=== PATIENT | male | born 1950 | race Caucasian/White ===

== ENCOUNTER → 2017-08-01 13:20 | Outpatient (CLI) | payer MEDICARE, SELFPAY ==
--- NOTE | 2017-08-01 13:20 | DT_ITS ---
This patient was seen during an EMR downtime July 31, 2017 - August 07, 2017. This patient may have a combination of paper and electronic documentation or all paper documentation. All documentation is viewable within the e-chart portion of [employer] for each patient visit.
[2017-08-07 10:47] LABS: Eosinophils% 1.6 % (0-5); Hematocrit 39.2 % (40-54); Hemoglobin 12.3 g/dl (13.0-16.5); Mean Corp Hgb Conc 31.4 g/gl (32-36); Mean Corpuscular Hgb 28.1 pg (27.0-32.0); Mean Corpuscular Volume 89.7 fL (80-94); Mean Platelet Vol. 10.7 fl (6.2-12.0); Monocyte% 6.9 % (0-10); Neutrophil % 54.3 % (47-70); POSITIVE COUNT NO; POSITIVE DIFFERENTIAL NO; POSITIVE MORPHOLOGY NO; Platelet Count 223 K/mm3 (150-450); RBC Distribution Width CV 15.7 % (11.6-14.6); RBC Distribution Width SD 51.8 fl (35.1-43.9); Red Blood Count 4.37 M/mm3 (4.6-6.2); White Blood Count 4.3 K/mm3 (4.4-11.0)
[2017-08-07 10:48] LABS: Absolute Neutrophil Count 2.4 X10^3/uL (2.0-7.7); Basophil# 0.01 X10^3/uL; Basophil% 0.2 % (0-1); Eosinophil# 0.07 X10^3/uL; Neutrophil # 2.35 X10^3/uL (2.7-7.7)
[2017-08-07 10:49] LABS: BUN 23 mg/dL (7-18); BUN/Creat Ratio 9.1 RATIO (10-20); Creatinine, Serum 2.52 mg/dL (0.70-1.30); EST Glomerular Filtration Rate 27 mL/min (>60); Est Glom Filt Rate - Afr Amer 33 mL/min (>60); Glucose 147 mg/dL (74-106); Microalbumin,Random Urine 9.2 mg/L (NO RANGE EST.)
[2017-08-07 10:50] LABS: ALB/GLOB Ratio 0.9 RATIO (0.9-2.4); AST(SGOT) 27 U/L (15-37); Alanine Aminotransfer ALT/SGPT 28 U/L (16-61); Albumin, Serum 3.3 g/dL (3.2-5.0); Alkaline Phosphatase 155 U/L (45-117); Anion Gap 8 (5-15); Calcium,Total 8.1 mg/dL (8.5-10.1); Chloride 106 mmol/L (98-107); Cholesterol 110 mg/dL (200); Globulin 3.6 g/dL (2.2-4.2); High Density Lipoprotein 31 mg/dL; Potassium 4.8 mmol/L (3.5-5.1); Protein, Total 6.9 g/dL (6.4-8.2); Sodium Level 140 mmol/L (136-145); Triglycerides 154 mg/dL; Uric Acid 6.8 mg/dL (3.5-7.2); Very Low Density Lipoprotein 31 mg/dL (5-40)
[2017-08-07 10:51] LABS: Hemoglobin A1c 5.6 % (4.2-6.3)
== END ==
PROVIDERS: Family Provider Family Medicine; PCP Family Medicine; Visit Provider Family Medicine
DX: E11.22 Type 2 diabetes mellitus with diabetic chronic kidney disease (principal); I12.9 Hypertensive chronic kidney disease with stage 1 through stage 4 chronic kidney disease, or unspecified chronic kidney disease; N18.3 Chronic kidney disease, stage 3 (moderate); I25.10 Atherosclerotic heart disease of native coronary artery without angina pectoris; M10.9 Gout, unspecified
CPT/HCPCS: 36415; 80053; 80061; 82043; 82570; 83036; 84550; 85025

== ENCOUNTER → 2017-09-12 12:17 | Outpatient (CLI) | payer MEDICARE, SELFPAY ==
[2017-09-12 13:52] LABS: Absolute Lymphocyte Count 2.04 X10^3/ul (0.83-4.51); Absolute Neutrophil Count 2.6 X10^3/uL (2.0-7.7); Basophil# 0.02 X10^3/uL; Basophil% 0.4 % (0-1); Eosinophil# 0.17 X10^3/uL; Eosinophils% 3.3 % (0-5); Hematocrit 36.9 % (40-54); Hemoglobin 11.9 g/dl (13.0-16.5); Lymphocyte # 2.04 X10^3/ul (4.0); Mean Corp Hgb Conc 32.2 g/gl (32-36); Mean Corpuscular Hgb 29.3 pg (27.0-32.0); Mean Corpuscular Volume 90.9 fL (80-94); Mean Platelet Vol. 10.9 fl (6.2-12.0); Monocyte# 0.43 X10^3/uL; Monocyte% 8.2 % (0-10); Neutrophil # 2.56 X10^3/uL (2.7-7.7); Neutrophil % 48.9 % (47-70); Platelet Count 240 K/mm3 (150-450); RBC Distribution Width CV 15.6 % (11.6-14.6); RBC Distribution Width SD 50.7 fl (35.1-43.9); Red Blood Count 4.06 M/mm3 (4.6-6.2); White Blood Count 5.2 K/mm3 (4.4-11.0)
[2017-09-12 13:53] LABS: POSITIVE COUNT NO; POSITIVE DIFFERENTIAL NO; POSITIVE MORPHOLOGY NO
[2017-09-12 13:54] LABS: Anion Gap 9 (5-15); BUN 26 mg/dL (7-18); BUN/Creat Ratio 10.8 RATIO (10-20); Chloride 104 mmol/L (98-107); Creatinine, Serum 2.41 mg/dL (0.70-1.30); EST Glomerular Filtration Rate 29 mL/min (>60); Est Glom Filt Rate - Afr Amer 35 mL/min (>60); Glucose 103 mg/dL (74-106); Potassium 4.7 mmol/L (3.5-5.1); Sodium Level 141 mmol/L (136-145)
== END ==
PROVIDERS: Family Provider Family Medicine; PCP Family Medicine; Visit Provider Family Medicine
DX: E11.22 Type 2 diabetes mellitus with diabetic chronic kidney disease (principal); I12.9 Hypertensive chronic kidney disease with stage 1 through stage 4 chronic kidney disease, or unspecified chronic kidney disease; N18.3 Chronic kidney disease, stage 3 (moderate)
CPT/HCPCS: 36415; 80048; 85025

== ENCOUNTER → 2017-11-21 14:16 | Outpatient (CLI) | payer MEDICARE, SELFPAY | PROVIDERS: Family Provider Family Medicine; PCP Family Medicine; Visit Provider Family Medicine | DX: I12.9 Hypertensive chronic kidney disease with stage 1 through stage 4 chronic kidney disease, or unspecified chronic kidney disease (principal); N18.3 Chronic kidney disease, stage 3 (moderate); Z86.73 Personal history of transient ischemic attack (TIA), and cerebral infarction without residual deficits | CPT/HCPCS: 36415 ==

== ENCOUNTER → 2018-09-19 09:27 | Outpatient (CLI) | payer MEDICARE, SELFPAY ==
[2018-09-19 12:45] LABS: Anion Gap 6 (5-15); BUN 33 mg/dL (7-18); BUN/Creat Ratio 11.7 RATIO (10-20); Chloride 107 mmol/L (98-107); Creatinine, Serum 2.83 mg/dL (0.70-1.30); EST Glomerular Filtration Rate 24 mL/min (>60); Est Glom Filt Rate - Afr Amer 29 mL/min (>60); Glucose 109 mg/dL (74-106); Potassium 4.5 mmol/L (3.5-5.1); Sodium Level 140 mmol/L (136-145)
== END ==
PROVIDERS: Family Provider Family Medicine; PCP Family Medicine; Visit Provider Family Medicine
DX: N18.3 Chronic kidney disease, stage 3 (moderate) (principal); R42 Dizziness and giddiness
CPT/HCPCS: 36415; 80048

== ENCOUNTER 2018-11-05 06:38 | Day surgery (SDC) | payer MEDICARE, SELFPAY ==
[2018-10-22 14:51] VITALS: BMI 45.8
[2018-11-05] VITALS (7 sets, daily range): BP systolic 124–156; BP diastolic 7–86; PULSE 56–67; RESP 16–18; TEMP 36.1–36.6; O2SAT 93–96; BMI 35.9
[2018-11-05] MEDS: Lactated Ringers 1,000 ML 100 ML IV (07:01)
--- NOTE | 2018-11-05 07:29 | HP.PCM_ITS ---
History and Physical Date of Admission: 11/05/18 [facility] [address] [place], [place] [id number] OFFICE VISIT Date of Service: 10/22/18 MR#: [id number] Acct: [id number] Name: JOSE SANCHEZ Rep #: [id number] : 1950 Provider: Yon bahena MD Age/Sex: 68/M Location: [facility] Status: Signed Intake Vital Signs 10/22/18 Body Mass Index (BMI) 45.8 10/22/18 Height 6 ft 1 in 10/22/18 Weight: 271 lb 9 oz 10/22/18 Body Mass Index (BMI) 35.8 10/22/18 Blood Pressure 129/75 H 10/22/18 Blood Pressure Location Rt brachial 10/22/18 Respiratory Rate 22 H 10/22/18 Pulse Rate 60 10/22/18 Pulse Ox 95 Intake Visit Reasons: Cscope Consult Chief Complaint: colonoscopy--hx colon polyps Fire Pot Operator Required: No Is patient in pain?: No Allergies No Known Allergies Allergy (Verified 07/24/13 11:22) Medications glipiZIDE [Glucotrol] 10 mg PO DAILY@0730 07/24/13 [History Confirmed 10/22/18] allopurinol 100 mg tablet 100 mg PO DAILY 10/22/18 [History Confirmed 10/22/18] aspirin 81 mg tablet,delayed release 81 mg PO DAILY 10/22/18 [History Confirmed 10/22/18] atorvastatin 80 mg tablet 80 mg PO DAILY 10/22/18 [History Confirmed 10/22/18] cholecalciferol (vitamin D3) 1,000 unit capsule 1,000 unit PO DAILY PRN 10/22/18 [History Confirmed 10/22/18] clopidogrel 75 mg tablet 75 mg PO DAILY 10/22/18 [History Confirmed 10/22/18] duloxetine 30 mg capsule,delayed release 30 mg PO DAILY 10/22/18 [History Confirmed 10/22/18] furosemide 40 mg tablet 40 mg PO TID tab 10/22/18 [History Confirmed 10/22/18] gabapentin 300 mg capsule 300 mg PO TID cap 10/22/18 [History Confirmed 10/22/18] isosorbide mononitrate 20 mg tablet 20 mg PO BID 10/22/18 [History Confirmed 10/22/18] ketoconazole 2 % topical cream 1 applic TOPICAL DAILY 10/22/18 [History Confirmed 10/22/18] lisinopril 10 mg tablet 10 mg PO DAILY 10/22/18 [History Confirmed 10/22/18] meclizine 25 mg tablet 25 mg PO TID 10/22/18 [History Confirmed 10/22/18] metoprolol tartrate 100 mg tablet 50 mg PO BID tab 10/22/18 [History Confirmed 10/22/18] nitroglycerin 0.4 mg sublingual tablet 0.4 mg SUBLINGUAL Q5-15M 10/22/18 [History Confirmed 10/22/18] omeprazole 40 mg capsule,delayed release 20 mg PO DAILY cap 10/22/18 [History Confirmed 10/22/18] sitagliptin 50 mg tablet 50 mg PO DAILY 10/22/18 [History Confirmed 10/22/18] ON LICENSE OF [facility] Medical History CAD (coronary artery disease) (Acute) Depression (Acute) Diabetes (Acute) Gout (Acute) Hyperlipidemia (Acute) Obesity (Acute) Peripheral nerve dysfunction (Acute) Sleep apnea (Acute) TIA (transient ischemic attack) (Acute) Vertigo (Acute) Vestibular dysfunction (Acute) Vitamin D deficiency (Acute) CKD (chronic kidney disease) stage 3, GFR 30-59 ml/min (Chronic) HTN (hypertension) (Chronic) Surgical History History of arthroscopy of left knee (Acute) Hx of heart artery stent (Acute) Hx of six vessel coronary artery bypass graft (Acute) Family History Sister Diabetes Father Heart disease Hypertension Cancer melanoma Mother Heart disease Social History (Updated 11/03/18 @ 14:42 by Yon Betancur MD) Smoking Status: Never smoker HPI HPI HPI: JOSE SANCHEZ, is a 68 M who presents to the office today for HPI HPI Surgical H&P: Yes HPI: JOSE SANCHEZ, is a 68 M who presents to the office today for Evaluation for endoscopy. Patient states it is been more than 10 years since his last colonoscopy. He believes at that time that several polyps were removed. He denies any current blood in his stool or bowel related symptoms and he has no family history of colon polyps. He also has no family history of colon cancer He is currently on Plavix and aspirin. Exam Const General: no acute distress, well developed, well hydrated Orientation: oriented to person, oriented to place, oriented to time [facility] Head: normocephalic, atraumatic Ears: external ears normal Mouth: moist mucous membranes Eyes Sclera: sclerae normal Pupils: normal by confrontation Neck Neck: no lymphadenopathy noted Neck mass: No Thyroid: thyroid normal, symmetrical Chest Chest palpation & inspection: normal inspection of the chest Breast inspection: normal inspection of the breasts Breast Palpation: Yes normal palpation of the breasts, Yes normal palpation of the axillae, No change in skin Other: Palpation of the right breast reveals []. Palpation of the left breast reveals []. Axillary exam demonstrates no suspicious masses in either the left or right axilla. Resp Effort & Inspection: normal respiratory effort Auscultation: clear to auscultation bilaterally Percussion: percussion normal Cardio Rate: regular rate Rhythm: regular rhythm GI Palpation: soft, no hepatosplenomegaly, no masses, nontender Rectal Exam: other Other: Rectal exam deferred. Extrem General: normal to inspection, no clubbing, cyanosis or edema Assessment & Plan Problems 1. Encounter for screening colonoscopy Z. Plan I have discussed the above with the patient. I have offered the patient colonoscopy for evaluation. I have explained the risks/benefits of the procedure and described the procedure. I have discussed the risks with the patient, including but not limited to: infection, bleeding, perforation of the GI tract requiring emergency surgery, inability to complete the procedure, injury to any internal organs, complications of anesthesia, etc. - the patient understands and agrees to proceed. I have answered all the patient's questions to the patient's satisfaction and the patient has no further questions. The patient has been given instructions for the colon cleansing preparation. Orders Orders: Colonoscopy 10/22/18 Z86.010 Coding Level of Care Code Off vis,new,level 3 Diagnoses Encounter for screening colonoscopy Z12.11 11/03/18 1442 <Electronically signed by Yon charles MD> Date _ Yon Spray MD Hoffman Signature: Date (if applicable) CC: Carson Dobbins DO ~ I have re-examined the patient. There are no clinical changes since date of exam.
--- NOTE | 2018-11-05 08:02 | OP.ENDO_ITS ---
11/05/2018 Carson Dobbins [address] [place] [address] Re : Colonoscopy procedure for Kishan Almaraz Dear Dr. Dobbins This procedure was performed on Monday, November 05, 2018. My impressions and recommendations are as follows: Impressions : - Stool in the entire examined colon. - The examination was otherwise normal on direct and retroflexion views. - No specimens collected. Recommendations : - Discharge patient to home. - Resume previous diet. - Continue present medications. - Repeat colonoscopy in 10 years for screening purposes. - Return to primary care physician PRN. My findings are described in the full procedure note, which is enclosed. If I can be of further assistance, please feel free to contact me at Doctor phone number(s): , Fax: [phone], Work: . Sincerely, MD Yon Coronel MD 11/05/2018 8:02:11 AM This report has been signed electronically.
== END 2018-11-05 08:52 | disposition home or self-care (01) ==
LOC: EN 06:39 → AC 06:41
PROVIDERS: Family Provider Family Medicine; PCP Family Medicine; Referring Provider Family Medicine; Visit Provider Surgery
PROC: 0DJD8ZZ Inspection of Lower Intestinal Tract, Via Natural or Artificial Opening Endoscopic (ICD-10-PCS; CPT 45378; principal; 2018-11-05 07:25)
DX: Z12.11 Encounter for screening for malignant neoplasm of colon (principal); E11.9 Type 2 diabetes mellitus without complications; K21.9 Gastro-esophageal reflux disease without esophagitis; E78.00 Pure hypercholesterolemia, unspecified; G47.30 Sleep apnea, unspecified; Z86.010 Personal history of colon polyps; Z79.02 Long term (current) use of antithrombotics/antiplatelets; Z79.84 Long term (current) use of oral hypoglycemic drugs; Z79.82 Long term (current) use of aspirin; Z79.899 Other long term (current) drug therapy; I25.2 Old myocardial infarction; Z95.1 Presence of aortocoronary bypass graft
CPT/HCPCS: G0121; J7120; J1610

== ENCOUNTER → 2019-04-08 13:03 | Outpatient (CLI) | payer MEDICARE, SELFPAY ==
[2018-11-05 07:13] VITALS: BMI 35.9
[2019-04-08 15:29] LABS: Absolute Lymphocyte Count 1.56 X10^3/uL (0.83-4.51); Absolute Neutrophil Count 3.1 X10^3/uL (2.0-7.7); Basophil# 0.02 X10^3/uL; Basophil% 0.4 % (0-1); Eosinophil# 0.09 X10^3/uL; Eosinophils% 1.7 % (0-5); Hematocrit 37.2 % (40-54); Hemoglobin 11.8 g/dL (13.0-16.5); Lymphocyte # 1.56 X10^3/ul (4.0); Lymphocyte % 29.9 % (19-41); Mean Corp Hgb Conc 31.7 g/dL (32-36); Mean Corpuscular Hgb 28.6 pg (27.0-32.0); Mean Corpuscular Volume 90.3 fL (80-94); Mean Platelet Vol. 10.1 fl (6.2-12.0); Monocyte# 0.43 X10^3/uL; Monocyte% 8.3 % (0-10); NRBC Flagged by Analyzer 0 % (0-5); Neutrophil # 3.09 X10^3/uL (2.7-7.7); Neutrophil % 59.3 % (47-70); Platelet Count 208 K/mm3 (150-450); RBC Distribution Width CV 13.2 % (11.6-14.6); RBC Distribution Width SD 43.5 fl (35.1-43.9); Red Blood Count 4.12 M/mm3 (4.6-6.2); White Blood Count 5.2 K/mm3 (4.4-11.0)
[2019-04-08 15:41] LABS: AST(SGOT) 22 U/L (15-37); Alanine Aminotransfer ALT/SGPT 28 U/L (16-61); Albumin, Serum 3.4 g/dL (3.2-5.0); Alkaline Phosphatase 184 U/L (45-117); Anion Gap 5 (5-15); BUN 16 mg/dL (7-18); BUN/Creat Ratio 9.5 RATIO (10-20); Calcium,Total 8.3 mg/dL (8.5-10.1); Chloride 110 mmol/L (98-107); Cholesterol 121 mg/dL (200); Creatinine, Serum 1.69 mg/dL (0.70-1.30); EST Glomerular Filtration Rate 43 mL/min (>60); Est Glom Filt Rate - Afr Amer 52 mL/min (>60); Globulin 3.5 g/dL (2.2-4.2); Glucose 90 mg/dL (74-106); High Density Lipoprotein 37 mg/dL; PSA,Total - Annual Screen 3.95 ng/mL (0.00-4.00); Potassium 4.4 mmol/L (3.5-5.1); Protein, Total 6.9 g/dL (6.4-8.2); Sodium Level 141 mmol/L (136-145); Triglycerides 72 mg/dL; Uric Acid 4.6 mg/dL (3.5-7.2); Very Low Density Lipoprotein 14 mg/dL (5-40)
[2019-04-08 15:46] LABS: Hemoglobin A1c 6.1 % (4.2-6.3)
[2019-04-08 16:36] LABS: Microalbumin:Creatinine Ratio 482.9 mg/g CRE (<30 mg/g CRE)
== END ==
LOC: LAB.FUTURE 04-10 14:11 → BFHLAB 04-19 14:50
PROVIDERS: Family Provider Family Medicine; PCP Family Medicine; Visit Provider Family Medicine
DX: E11.22 Type 2 diabetes mellitus with diabetic chronic kidney disease (principal); I13.0 Hypertensive heart and chronic kidney disease with heart failure and stage 1 through stage 4 chronic kidney disease, or unspecified chronic kidney disease; I50.9 Heart failure, unspecified; N18.3 Chronic kidney disease, stage 3 (moderate); E78.5 Hyperlipidemia, unspecified; M10.9 Gout, unspecified; I83.029 Varicose veins of left lower extremity with ulcer of unspecified site; I83.892 Varicose veins of left lower extremity with other complications; L97.929 Non-pressure chronic ulcer of unspecified part of left lower leg with unspecified severity; R60.9 Edema, unspecified; Z12.5 Encounter for screening for malignant neoplasm of prostate
CPT/HCPCS: 36415; 80053; 80061; 82043; 82570; 83036; 84153; 84550; 85025; G0103

== ENCOUNTER → 2019-10-21 09:53 | Outpatient (CLI) | payer MEDICARE, SELFPAY ==
[2018-11-05 07:13] VITALS: BMI 35.9
[2019-10-21 12:14] LABS: Absolute Lymphocyte Count 1.64 X10^3/uL (0.83-4.51); Absolute Neutrophil Count 2.5 X10^3/uL (2.0-7.7); Basophil# 0.03 X10^3/uL; Basophil% 0.6 % (0-1); Eosinophil# 0.11 X10^3/uL; Eosinophils% 2.3 % (0-5); Hematocrit 38.6 % (40-54); Hemoglobin 12.1 g/dL (13.0-16.5); Lymphocyte # 1.64 X10^3/ul (4.0); Lymphocyte % 33.7 % (19-41); Mean Corp Hgb Conc 31.3 g/dL (32-36); Mean Corpuscular Volume 92.6 fL (80-94); Mean Platelet Vol. 10.4 fl (6.2-12.0); Monocyte# 0.54 X10^3/uL; Monocyte% 11.1 % (0-10); NRBC Flagged by Analyzer 0 % (0-5); Neutrophil # 2.52 X10^3/uL (2.7-7.7); Neutrophil % 51.9 % (47-70); Platelet Count 222 K/mm3 (150-450); RBC Distribution Width SD 43.8 fl (35.1-43.9); Red Blood Count 4.17 M/mm3 (4.6-6.2); White Blood Count 4.9 K/mm3 (4.4-11.0)
[2019-10-21 12:33] LABS: AST(SGOT) 24 U/L (15-37); Alanine Aminotransfer ALT/SGPT 40 U/L (16-61); Albumin, Serum 3.4 g/dL (3.2-5.0); Alkaline Phosphatase 190 U/L (45-117); Anion Gap 3 (5-15); BUN 20 mg/dL (7-18); BUN/Creat Ratio 8.5 RATIO (10-20); Calcium,Total 8.6 mg/dL (8.5-10.1); Chloride 113 mmol/L (98-107); Creatinine, Serum 2.36 mg/dL (0.70-1.30); EST Glomerular Filtration Rate 29 mL/min (>60); Est Glom Filt Rate - Afr Amer 35 mL/min (>60); Globulin 3.4 g/dL (2.2-4.2); Glucose 166 mg/dL (74-106); Potassium 4.6 mmol/L (3.5-5.1); Protein, Total 6.8 g/dL (6.4-8.2); Sodium Level 142 mmol/L (136-145)
[2019-10-21 12:35] LABS: Hemoglobin A1c 6.9 % (3.8-5.6)
== END ==
PROVIDERS: PCP Family Medicine; Visit Provider Family Medicine
DX: E11.22 Type 2 diabetes mellitus with diabetic chronic kidney disease (principal); N18.3 Chronic kidney disease, stage 3 (moderate); D63.1 Anemia in chronic kidney disease
CPT/HCPCS: 36415; 80053; 83036; 85025

== ENCOUNTER → 2020-01-09 13:22 | Outpatient (CLI) | payer MEDICARE, SELFPAY ==
[2018-11-05 07:13] VITALS: BMI 35.9
[2020-01-09 17:01] LABS: Absolute Lymphocyte Count 1.55 X10^3/uL (0.83-4.51); Absolute Neutrophil Count 3.3 X10^3/uL (2.0-7.7); Basophil# 0.02 X10^3/uL; Basophil% 0.4 % (0-1); Eosinophil# 0.13 X10^3/uL; Eosinophils% 2.5 % (0-5); Hematocrit 41.2 % (40-54); Hemoglobin 12.7 g/dL (13.0-16.5); Lymphocyte # 1.55 X10^3/ul (4.0); Lymphocyte % 29.3 % (19-41); Mean Corp Hgb Conc 30.8 g/dL (32-36); Mean Corpuscular Hgb 28.7 pg (27.0-32.0); Mean Platelet Vol. 10.7 fl (6.2-12.0); Monocyte# 0.27 X10^3/uL; Monocyte% 5.1 % (0-10); NRBC Flagged by Analyzer 0 % (0-5); Neutrophil # 3.31 X10^3/uL (2.7-7.7); Neutrophil % 62.5 % (47-70); Platelet Count 215 K/mm3 (150-450); RBC Distribution Width CV 12.7 % (11.6-14.6); RBC Distribution Width SD 43.7 fl (35.1-43.9); Red Blood Count 4.43 M/mm3 (4.6-6.2); White Blood Count 5.3 K/mm3 (4.4-11.0)
[2020-01-09 17:26] LABS: AST(SGOT) 18 U/L (15-37); Alanine Aminotransfer ALT/SGPT 35 U/L (16-61); Albumin, Serum 3.4 g/dL (3.2-5.0); Alkaline Phosphatase 182 U/L (45-117); Anion Gap 2 (5-15); BUN 16 mg/dL (7-18); BUN/Creat Ratio 7.3 RATIO (10-20); Calcium,Total 8.7 mg/dL (8.5-10.1); Chloride 113 mmol/L (98-107); Creatinine, Serum 2.19 mg/dL (0.70-1.30); EST Glomerular Filtration Rate 32 mL/min (>60); Est Glom Filt Rate - Afr Amer 38 mL/min (>60); Globulin 3.4 g/dL (2.2-4.2); Glucose 165 mg/dL (74-106); Hemoglobin A1c 6.9 % (3.8-5.6); Potassium 4.9 mmol/L (3.5-5.1); Protein, Total 6.8 g/dL (6.4-8.2); Sodium Level 142 mmol/L (136-145)
== END ==
PROVIDERS: PCP Family Medicine; Visit Provider Family Medicine
DX: E11.22 Type 2 diabetes mellitus with diabetic chronic kidney disease (principal); N18.30 Chronic kidney disease, stage 3 unspecified; D63.1 Anemia in chronic kidney disease
CPT/HCPCS: 36415; 80053; 83036; 85025

== ENCOUNTER → 2020-07-09 14:06 | Outpatient (CLI) | payer MEDICARE, SELFPAY ==
[2018-11-05 07:13] VITALS: BMI 35.9
[2020-07-09 17:53] LABS: Absolute Lymphocyte Count 1.84 X10^3/uL (0.83-4.51); Absolute Neutrophil Count 3.2 X10^3/uL (2.0-7.7); Basophil# 0.02 X10^3/uL; Basophil% 0.4 % (0-1); Eosinophils% 1.8 % (0-5); Hematocrit 41.4 % (40-54); Hemoglobin 13.3 g/dL (13.0-16.5); Lymphocyte # 1.84 X10^3/ul (0.83-4.51); Mean Corp Hgb Conc 32.1 g/dL (32-36); Mean Corpuscular Hgb 28.2 pg (27.0-32.0); Mean Corpuscular Volume 87.7 fL (80-94); Mean Platelet Vol. 10.5 fl (6.2-12.0); Monocyte# 0.37 X10^3/uL; Monocyte% 6.6 % (0-10); NRBC Flagged by Analyzer 0 % (0-5); Neutrophil # 3.24 X10^3/uL (2.7-7.7); Platelet Count 291 K/mm3 (150-450); RBC Distribution Width CV 12.6 % (11.6-14.6); RBC Distribution Width SD 40.3 fl (35.1-43.9); Red Blood Count 4.72 M/mm3 (4.6-6.2); White Blood Count 5.6 K/mm3 (4.4-11.0)
[2020-07-09 18:17] LABS: Vitamin D,25 Hydroxy 77.7 ng/mL
[2020-07-09 18:18] LABS: ALB/GLOB Ratio 0.9 RATIO (0.9-2.4); AST(SGOT) 22 U/L (15-37); Alanine Aminotransfer ALT/SGPT 32 U/L (16-61); Albumin, Serum 3.6 g/dL (3.2-5.0); Alkaline Phosphatase 176 U/L (45-117); Anion Gap 8 (5-15); BUN 22 mg/dL (7-18); BUN/Creat Ratio 9.2 RATIO (10-20); Calcium,Total 9.2 mg/dL (8.5-10.1); Chloride 107 mmol/L (98-107); Cholesterol 119 mg/dL (200); Creatinine, Serum 2.38 mg/dL (0.70-1.30); EST Glomerular Filtration Rate 29 mL/min (>60); Est Glom Filt Rate - Afr Amer 35 mL/min (>60); Globulin 3.8 g/dL (2.2-4.2); Glucose 107 mg/dL (74-106); High Density Lipoprotein 32 mg/dL; Potassium 4.6 mmol/L (3.5-5.1); Protein, Total 7.4 g/dL (6.4-8.2); Sodium Level 137 mmol/L (136-145); Triglycerides 160 mg/dL; Very Low Density Lipoprotein 32 mg/dL (5-40)
[2020-07-09 18:24] LABS: Hemoglobin A1c 6.6 % (3.8-5.6)
== END ==
PROVIDERS: PCP Family Medicine; Visit Provider Family Medicine
DX: E11.22 Type 2 diabetes mellitus with diabetic chronic kidney disease (principal); I12.9 Hypertensive chronic kidney disease with stage 1 through stage 4 chronic kidney disease, or unspecified chronic kidney disease; N18.30 Chronic kidney disease, stage 3 unspecified; E11.40 Type 2 diabetes mellitus with diabetic neuropathy, unspecified; D63.1 Anemia in chronic kidney disease; E55.9 Vitamin D deficiency, unspecified
CPT/HCPCS: 36415; 80053; 80061; 82306; 83036; 85025

== ENCOUNTER → 2020-12-04 | Outpatient (CLI) | payer MEDICARE, SELFPAY | END | disposition home or self-care (01) | LOC: LABSPEC 07:15 | PROVIDERS: PCP Family Medicine; Referring Provider Family Medicine; Visit Provider Family Medicine | DX: R50.9 Fever, unspecified (principal) | CPT/HCPCS: 87633; 87635; U0005; U0003 ==

== ENCOUNTER → 2020-12-17 11:59 | Outpatient (CLI) | payer MEDICARE, SELFPAY ==
[2020-12-17 16:00] LABS: CPK Total, Creatine Kinase 95 U/L (39-308); LDH 203 U/L (87-241); Troponin-I HS 35 pg/mL (3.0-78.0)
== END ==
PROVIDERS: PCP Family Medicine; Referring Provider Family Medicine; Visit Provider Family Medicine
DX: I25.10 Atherosclerotic heart disease of native coronary artery without angina pectoris (principal); R06.00 Dyspnea, unspecified
CPT/HCPCS: 36415; 82550; 83615; 84484

== ENCOUNTER 2020-12-31 09:57 | Observation (INO) | payer MEDICARE, MEDICAID, SELFPAY ==
[2020-12-31 09:58] VITALS: BP 116/59; PULSE 57; RESP 16; TEMP 36.4; O2SAT 97; BMI 35.9
--- NOTE | 2020-12-31 10:20 | EX.ED.DYSGE1 ---
HPI <Dr. Michael Valerio MD - Last Filed: 12/31/20 14:36> History of Present Illness Chief Complaint: Weakness Informant: patient and family Onset/Context/Timing Onset: Month(s) (1 or more) Context: Sudden Onset Timing: Intermittent Quality: lightheaded and movement Location: head Current Severity: Mild Maximum Severity: Severe Worsened by: almost any movement/position change Relieved by: remaining still Associated Symptoms Associated Symptoms: headache Narrative Narrative: 70-year-old male has had dizziness for the past month off and on, saw his doctor was put on a medication for dizziness a week ago and not making a difference and daughter states his doctor sent him into the ER to get a CAT scan for the lightheadedness. On further questioning, he is describing lightheadedness along with room spinning/movement that occurs with position changes which sounds more like vertigo. He has been having headaches off and on with it that are getting worse. He denies any diplopia but he does get global blurry vision intermittently at times without visual none loss or visual field loss. He denies any peripheral neurologic symptoms. He states the dizziness has made him fall a couple times, he denies any injury. Patient is very poor historian, he and his daughter do not know any of his medications and did not bring a list. We are going by what is in the EMR from past visits. It appears she is on aspirin and clopidogrel, he has a history of stents in his heart. [facility] <Dr. Michael Valerio MD - Last Filed: 12/31/20 14:36> [facility] Medical History (Updated 12/31/20 @ 14:[address] Michael Valerio MD) CAD (coronary artery disease) CKD (chronic kidney disease) stage 3, GFR 30-59 ml/min Depression Diabetes Gout HTN (hypertension) Hyperlipidemia Obesity Peripheral nerve dysfunction Sleep apnea TIA (transient ischemic attack) Vertigo Vestibular dysfunction Vitamin D deficiency Home Medications allopurinol 100 mg tablet 100 mg PO DAILY 10/22/18 [History Last Taken Unknown] aspirin 81 mg tablet,delayed release 81 mg PO DAILY 10/22/18 [History Last Taken Unknown] atorvastatin 80 mg tablet 80 mg PO DAILY 10/22/18 [History Last Taken Unknown] cholecalciferol (vitamin D3) 25 mcg (1,000 unit) capsule 1,000 unit PO DAILY 10/22/18 [History Last Taken Unknown] clopidogrel 75 mg tablet 75 mg PO DAILY 10/22/18 [History Last Taken 10/29/18] duloxetine 30 mg capsule,delayed release 30 mg PO DAILY 10/22/18 [History Last Taken Unknown] furosemide 40 mg tablet 40 mg PO DAILY tab 10/22/18 [History Last Taken Unknown] gabapentin 300 mg capsule 300 mg PO TID cap 10/22/18 [History Last Taken Unknown] isosorbide mononitrate 20 mg tablet 10 mg PO DAILY 10/22/18 [History Last Taken Unknown] lisinopril 10 mg tablet 10 mg PO DAILY 10/22/18 [History Last Taken Unknown] meclizine 25 mg tablet 25 mg PO DAILY 10/22/18 [History Last Taken Unknown] metoprolol tartrate 100 mg tablet 50 mg PO DAILY tab 10/22/18 [History Last Taken 10/29/18] nitroglycerin 0.4 mg sublingual tablet 0.4 mg SUBLINGUAL Q5-15M PRN 10/22/18 [History Last Taken Unknown] omeprazole 40 mg capsule,delayed release 20 mg PO DAILY cap 10/22/18 [History Last Taken 10/29/18] glipizide 5 mg PO DAILY 12/31/20 [History Last Taken Unknown] sitagliptin [Januvia] 50 mg PO DAILY 12/31/20 [History Last Taken Unknown] tamsulosin 0.4 mg PO DAILY 12/31/20 [History Last Taken Unknown] Allergy/AdvReac Type Severity Reaction Status Date / Time No Known Allergies Allergy Verified 12/31/20 10:00 Family History Sister Diabetes Father Heart disease Hypertension Cancer melanoma Mother Heart disease Surgical History History of arthroscopy of left knee Hx of heart artery stent Hx of six vessel coronary artery bypass graft Social History (Updated 12/31/20 @ 10:[address] Michael Valerio MD) household members: none Smoking Status: Never smoker Smokeless tobacco user: chewing tobacco alcohol intake: never substance use type: does not use ROS <Dr. Michael Valerio MD - Last Filed: 12/31/20 14:36> ROS ED Constitutional Constitutional ED: Denies chills or fever(s) Eyes Eyes: Denies change in vision or diplopia ENT ENT ED: Reports other Details: No changes in hearing or tinnitus or earache ; Denies rhinorrhea, sore throat or tinnitus Cardiovascular Cardiovascular: Denies chest pain or palpitations Respiratory/Chest Respiratory/Chest: Denies cough or dyspnea Gastrointestinal Gastrointestinal: Denies abdominal pain, diarrhea, nausea or vomiting Genitourinary Genitourinary ED: Denies dysuria or hematuria Musculoskeletal Musculoskeletal: Denies back pain or neck pain Integumentary Denies abscess or rash Neurologic Neurologic: Reports as per HPI, headache(s) and vertigo; Denies paresthesias, syncope or weakness Psychiatric Psychiatric: Denies anxiety or suicidal thoughts EXAM <Dr. Michael Valerio MD - Last Filed: 12/31/20 14:36> Physical Exam Const Vital Signs: 12/31/20 09:58 12/31/20 10:39 12/31/20 16:29 Temperature 97.6 F L Temperature Source Temporal Pulse Rate 57 L 56 L Respiratory Rate 16 17 Respiratory Effort Normal Non-Labored Respiratory Pattern Normal Blood Pressure 116/59 L 136/60 H Blood Pressure Mean 78 85 Pulse Ox 97 96 Oxygen Delivery Method Room Air Positive well nourished and well developed General Appearance ED: well developed and NAD HEENT Reports EAC's normal, TM's normal bilaterally and moist mucous membranes HEENT Narrative: Oropharynx normal except scattered pieces of chewing tobacco normocephalic and atraumatic Eyes PERRL and EOMs intact bilaterally Neck full ROM and supple Resp normal respiratory effort and clear to auscultation bilaterally Cardio regular rate, regular rhythm and no murmurs Rate: Negative for tachycardic GI non-tender and non-distended Auscultation: normoactive bowel sounds Palpation: soft Back/Spine no CVA tenderness General Back: other FROM Extremity normal to inspection General Extremety ED: Negative for edema, pulses abnormal or tenderness General Extremity: Negative for edema or pulses abnormal Neuro oriented x3, CN's II-XII intact bilaterally, no focal motor deficits and no sensory deficits noted Neuro Narrative: Normal [id number] bilaterally. Normal [id number] bilaterally although it is somewhat limited by mild joint discomfort as he is doing it on both sides, but his movements are symmetric and smooth. NIHSS 0. Barton Coma Scale: document GCS findings Spontaneous Obeys Commands Oriented 15 Sensorium / Orientation: awake and alert Speech: speech normal Motor Exam: strength 5/5 throughout Skin no rashes or lesions noted and no wounds <Dr. Quinton Cavazos MD - Last Filed: 12/31/20 18:36> Physical Exam Const Vital Signs: 12/31/20 09:58 12/31/20 10:39 12/31/20 16:29 Temperature 97.6 F L Temperature Source Temporal Pulse Rate 57 L 56 L Respiratory Rate 16 17 Respiratory Effort Normal Non-Labored Respiratory Pattern Normal Blood Pressure 116/59 L 136/60 H Blood Pressure Mean 78 85 Pulse Ox 97 96 Oxygen Delivery Method Room Air MDM <Dr. Michael Valerio MD - Last Filed: 12/31/20 14:36> MDM MDM Narrative Medical decision making narrative: Work-up is negative except for hypokalemia 2.9, which we started replacing IV and orally. I discussed with the patient's PCP and had an SOC consult performed. The neurologist said that over video, he can get a limited evaluation of the patient's cerebellar/vestibular systems, he agrees the patient is probably not having an acute stroke but unable to rule out VBI and recommends MRI/MRA. He stated that CT angiography would be adequate to rule this out as well except his creatinine is a little elevated. I discussed with radiology technicians, his EGFR is over 30 even though it is just over 30, that is adequate for us to perform CT angiography along with hydration which patient is okay with and we will do. The patient would prefer to get this test done as quickly as possible, as opposed to following up for them, so we will get an MRI of the brain and CTA of the head and neck while he is getting his potassium and saline infusions. I will continue to have him get potassium chloride while he is here, making the most of his observation time in the emergency department. Will be checked out to oncoming ED physician for results of the studies. Unless there is something very tight or critical, I anticipate outpatient follow-up, with PCP and/your otolaryngology. Lab Data Attestation: I reviewed the patient's lab results. Labs: Laboratory Results - last 24 hr 12/31/20 12/31/20 10:42 10:42 WBC 6.3 RBC 4.92 Hgb 13.5 Hct 40.4 MCV 82.1 MCH 27.4 MCHC 33.4 RDW Std Deviation 38.8 RDW Coeff of Richard 13.0 Plt Count 281 MPV 9.6 Immature Gran % (Auto) 0.500 Neut % (Auto) 68.9 Lymph % (Auto) 23.4 [place] % (Auto) 4.8 Eos % (Auto) 1.9 Baso % (Auto) 0.5 Absolute Neuts (auto) 4.3 Absolute Lymphs (auto) 1.47 Nucleated RBC % 0 Sodium 138 Potassium 2.9 L Chloride 103 Carbon Dioxide 25.0 Anion Gap 10 BUN 17 Creatinine 2.23 H Estim Creat Clear Calc 32.86 Est GFR (MDRD) Af Amer 37 L Est GFR (MDRD) Non-Af 31 L BUN/Creatinine Ratio 7.6 L Glucose 149 H Calcium 9.0 Radiography Diagnostic Testing: Clinical Impression(s) from Imaging Studies Brain CT 12/31/20 10:42 IMPRESSION: Chronic involutional changes of the brain. Electronically Signed: Judson Knox MD at 11:13 EDT , Service support , Head/Neck CTA 12/31/20 14:29 IMPRESSION: 1. No demonstrated aneurysm or hemodynamically significant stenosis. 2. Mild atherosclerotic plaque of the carotid arteries of the neck but without a hemodynamically significant stenosis. Electronically Signed: Kulwant Potter MD at 17:38 EDT , Service support , Brain MRI 12/31/20 15:25 IMPRESSION: 1. Mild chronic ischemic and involutional changes of the brain, as described above. Electronically Signed: Kulwant Potter MD at 16:42 EDT , Service support , <Dr. Quinton Cavazos MD - Last Filed: 12/31/20 18:36> [facility] Narrative Medical decision making narrative: I got back the patient's CTA and MRI. These do not show any acute changes to explain his symptomatology. The plan was to get him home. However, evidently his daughter talked to the nurse and stated that he is getting much worse just in the last week. They live nearby but cannot stay with him all the time. This patient does live independently. I talk with the patient. He does admit has been getting a little worse. He states his granddaughter will stay with him a lot. However, if she is not there he will just have her put several Pepsi's near him so he has something to drink while family is gone. He will just day in his chair. He is not safe to walk independently. He has a cane and walker and has been taking meclizine and its not making it safe for him to move. My concern is this patient is vertiginous with walking. We tried to walk him and he needed to hold onto the wall in addition to using support from one of her staff. I think this patient is at high risk to go home. He will be placed in observation Lab Data Attestation: I reviewed the patient's lab results. Labs: Laboratory Results - last 24 hr 12/31/20 12/31/20 10:42 10:42 WBC 6.3 RBC 4.92 Hgb 13.5 Hct 40.4 MCV 82.1 MCH 27.4 MCHC 33.4 RDW Std Deviation 38.8 RDW Coeff of Richard 13.0 Plt Count 281 MPV 9.6 Immature Gran % (Auto) 0.500 Neut % (Auto) 68.9 Lymph % (Auto) 23.4 [place] % (Auto) 4.8 Eos % (Auto) 1.9 Baso % (Auto) 0.5 Absolute Neuts (auto) 4.3 Absolute Lymphs (auto) 1.47 Nucleated RBC % 0 Sodium 138 Potassium 2.9 L Chloride 103 Carbon Dioxide 25.0 Anion Gap 10 BUN 17 Creatinine 2.23 H Estim Creat Clear Calc 32.86 Est GFR (MDRD) Af Amer 37 L Est GFR (MDRD) Non-Af 31 L BUN/Creatinine Ratio 7.6 L Glucose 149 H Calcium 9.0 Radiography Diagnostic Testing: Clinical Impression(s) from Imaging Studies Brain CT 12/31/20 10:42 IMPRESSION: Chronic involutional changes of the brain. Electronically Signed: Judson Knox MD at 11:13 EDT , Service support , Head/Neck CTA 12/31/20 14:29 IMPRESSION: 1. No demonstrated aneurysm or hemodynamically significant stenosis. 2. Mild atherosclerotic plaque of the carotid arteries of the neck but without a hemodynamically significant stenosis. Electronically Signed: Kulwant Potter MD at 17:38 EDT , Service support , Brain MRI 12/31/20 15:25 IMPRESSION: 1. Mild chronic ischemic and involutional changes of the brain, as described above. Electronically Signed: Kulwant Potter MD at 16:42 EDT , Service support , Discharge Plan Triage Chief Complaint: Weakness ED Provider: Michael Valerio Dx/Rx/DC Orders Clinical Impression: Vertigo, Hypokalemia Instructions: ED Vertigo, Unspecified Prescriptions: No Action allopurinol 100 mg tablet 100 mg PO DAILY RF: 0 atorvastatin 80 mg tablet 80 mg PO DAILY RF: 0 clopidogrel [Plavix] 75 mg tablet 75 mg PO DAILY RF: 0 duloxetine 30 mg capsule,delayed release(DR/EC) 30 mg PO DAILY RF: 0 furosemide 40 mg tablet 40 mg PO DAILY RF: 0 gabapentin 300 mg capsule 300 mg PO TID RF: 0 isosorbide mononitrate 20 mg tablet 10 mg PO DAILY RF: 0 lisinopril 10 mg tablet 10 mg PO DAILY RF: 0 meclizine 25 mg tablet 25 mg PO DAILY RF: 0 nitroglycerin [Nitrostat] 0.4 mg tablet, sublingual 0.4 mg SUBLINGUAL Q5-15M PRN (Reason: chest pain) RF: 0 aspirin [Adult Low Dose Aspirin] 81 mg tablet,delayed release (DR/EC) 81 mg PO DAILY RF: 0 cholecalciferol (vitamin D3) 1,000 unit capsule 1,000 unit PO DAILY RF: 0 metoprolol tartrate 100 mg tablet 50 mg PO DAILY RF: 0 omeprazole 40 mg capsule,delayed release(DR/EC) 20 mg PO DAILY RF: 0 glipizide 5 mg tablet extended release 24hr 5 mg PO DAILY RF: 0 tamsulosin 0.4 mg capsule 0.4 mg PO DAILY RF: 0 Januvia 50 mg tablet 50 mg PO DAILY RF: 0 Primary Care Provider: Carson Dobbins Referrals: Bala Jones MD [STAFF PHYSICIAN] - (call for appt) Carson Dobbins DO [Primary Care Provider] - 3-5 Days Disposition Disposition: Acute Care Hospital [facility]
--- NOTE | 2020-12-31 10:42 | CT_ITS ---
STUDY: CT BRAIN WITHOUT CONTRAST REASON FOR EXAM: Male, 70 years old. Dizziness RADIATION DOSAGE (If Supplied By Facility): CTDIvol = ( 44.99 ) mGy, DLP = ( 880.47 ) mGycm TECHNIQUE: Transaxial CT imaging of the brain was performed without administration of intravenous contrast material. Individualized dose optimization techniques were used for this CT. COMPARISON: No relevant priors. FINDINGS: Normal soft tissue structures. Normal calvarium. There is mild cerebral atrophy with widening of the extra-axial spaces and ventricular dilatation. There are areas of decreased attenuation within the white matter tracts of the supratentorial brain, consistent with microvascular disease changes. Normal basal ganglia and thalami. Normal brainstem. Normal cerebellum. There is no intracranial hemorrhage. There are no findings of an acute ischemic infarction. Atherosclerotic calcification of the vertebral arteries and cavernous portions of the internal carotid arteries bilaterally. Normal visualized paranasal sinuses. CT/Brain/Head without Contrast IMPRESSION: Chronic involutional changes of the brain. Electronically Signed: Judson Knox MD at 11:13 EDT , Service support ,
[2020-12-31 10:58] LABS: Absolute Lymphocyte Count 1.47 X10^3/uL (0.83-4.51); Absolute Neutrophil Count 4.3 X10^3/uL (2.0-7.7); Basophil# 0.03 X10^3/uL; Basophil% 0.5 % (0-1); Eosinophil# 0.12 X10^3/uL; Eosinophils% 1.9 % (0-5); Hematocrit 40.4 % (40-54); Hemoglobin 13.5 g/dL (13.0-16.5); Lymphocyte # 1.47 X10^3/ul (0.83-4.51); Lymphocyte % 23.4 % (19-41); Mean Corp Hgb Conc 33.4 g/dL (32-36); Mean Corpuscular Hgb 27.4 pg (27.0-32.0); Mean Corpuscular Volume 82.1 fL (80-94); Mean Platelet Vol. 9.6 fl (6.2-12.0); Monocyte% 4.8 % (0-10); NRBC Flagged by Analyzer 0 % (0-5); Neutrophil # 4.32 X10^3/uL (2.7-7.7); Neutrophil % 68.9 % (47-70); Platelet Count 281 K/mm3 (150-450); RBC Distribution Width SD 38.8 fl (35.1-43.9); Red Blood Count 4.92 M/mm3 (4.6-6.2); White Blood Count 6.3 K/mm3 (4.4-11.0)
[2020-12-31 11:09] LABS: Anion Gap 10 (5-15); BUN 17 mg/dL (7-18); BUN/Creat Ratio 7.6 RATIO (10-20); Chloride 103 mmol/L (98-107); Creatinine, Serum 2.23 mg/dL (0.70-1.30); EST Glomerular Filtration Rate 31 mL/min (>60); Est Glom Filt Rate - Afr Amer 37 mL/min (>60); Estimated Creatinine Clearance 32.86 ml/min; Glucose 149 mg/dL (74-106); Potassium 2.9 mmol/L (3.5-5.1); Sodium Level 138 mmol/L (136-145)
--- NOTE | 2020-12-31 13:42 | TELEMED_ITS ---
[facility] Tele[facility] has confirmed receipt of a request for visit. This document confirms receipt of the order initiating the consult. To find the results of the consultation, please view the patient's reports for the scanned Telemed Consult.
--- NOTE | 2020-12-31 14:29 | CT_ITS ---
STUDY: CTA HEAD AND NECK WITH CONTRAST REASON FOR EXAM: Male, 70 years old. vertigo, headaches RADIATION DOSAGE (If Supplied By Facility): CTDIvol = ( 33.12 ) mGy, DLP = ( 901.16 ) mGycm TECHNIQUE: CT angiography was performed with a multi-detector CT scanner. Data acquisition was obtained from the skull base through the vertex following intravenous administration of IV 100mL [id number]-370. MIP images were reconstructed from the axial data set. Post-processing of the angiographic images was performed, with multiplanar reformation and 3D reconstruction. Individualized dose optimization techniques were used for this CT. COMPARISON: Head CT dated December 31, 2020. MRI of the brain dated December 31, 2020 FINDINGS: Normal bilateral petrous carotid arteries. There is calcified plaque formation of the right cavernous carotid artery, with a mild stenosis (less than 50%). There is calcified plaque formation of the left cavernous carotid artery, with a mild stenosis (less than 50%). Normal right A1 segments of the anterior cerebral artery. Normal left A1 segments of the anterior cerebral artery. Normal intact anterior communicating artery (ACOM). Normal bilateral A2 segments of the anterior cerebral arteries. Normal right M1 and M2 segments of the middle cerebral arteries, with a normal M1 bifurcation. Normal left M1 and M2 segments of the middle cerebral arteries, with a normal M1 bifurcation. Normal right posterior communicating artery (PCOM). Normal left posterior communicating artery (PCOM). There is a small atretic right vertebral artery with a dominant left vertebral artery. Normal basilar artery with a normal basilar bifurcation. The visualized bilateral superior cerebellar (SCA) arteries are normal. Normal bilateral P1, P2 and visualized P3 segments of the posterior cerebral arteries. There is no demonstrated aneurysm of the [place]. AORTIC ARCH: There is atherosclerotic calcific plaque formation of the aortic arch and great vessels arising from the aortic arch, without a hemodynamically significant stenosis. There is a normal origin of the brachiocephalic, left common carotid, and left subclavian arteries. Normal origins of the brachiocephalic, left common carotid, and left subclavian arteries. CABG related changes are present. RIGHT CAROTID ARTERIES: Normal right common carotid artery (CCA). Normal right common carotid bulb. There is mild atherosclerotic plaque formation of the origin of the right internal carotid artery with less than 50% cross sectional diameter stenosis. Normal visualized cervical portion of the right internal carotid artery. Normal origin of the right external carotid artery (ECA). LEFT CAROTID ARTERIES: There is atherosclerotic plaque formation of the common carotid artery, but without a hemodynamically significant stenosis. There is mild atherosclerotic plaque formation with minimal narrowing of the left carotid bulb. There is mild atherosclerotic plaque formation of the origin of the left internal carotid artery with less than 50% cross sectional diameter stenosis. Normal visualized cervical portion of the left internal carotid artery. Normal origin of the left external carotid artery (ECA). VERTEBRAL ARTERIES: There is enhancement within the bilateral vertebral arteries with a small right vertebral artery, and a dominant left vertebral artery. A small hypodense circumscribed nodule is present in the left lobe of the thyroid gland with features of a benign adenoma. CT/CTA Head AND Neck W/ Contrast IMPRESSION: 1. No demonstrated aneurysm or hemodynamically significant stenosis. 2. Mild atherosclerotic plaque of the carotid arteries of the neck but without a hemodynamically significant stenosis. Electronically Signed: Kulwant Potter MD at 17:38 EDT , Service support ,
[2020-12-31] MEDS: Potassium Chloride 10mEq/100mL 10 MEQ/100 ML IV.SOLN. 100 MEQ IV BOLUS (15:13)
[2020-12-31] MEDS: Potassium Chloride Oral Tablet 20 MEQ 40 MEQ PO (15:13)
--- NOTE | 2020-12-31 15:25 | MRI_ITS ---
STUDY: MRI BRAIN WITHOUT CONTRAST REASON FOR EXAM: Male, 70 years old. vertigo, headaches TECHNIQUE: Standardized multiplanar fat and water weighted pulse sequences were obtained. COMPARISON: Head CT dated December 31, 2020. MRI of the brain dated October 05, 2011 FINDINGS: There is mild cerebral atrophy with widening of the extra-axial spaces and ventricular dilatation. There are a limited number of small white matter hyperintensities, distributed throughout the deep white matter tracts of the cerebral hemispheres, consistent with mild chronic white matter ischemic changes. There is no evidence for recent intracranial ischemia or other cause of cytotoxic edema on diffusion weighted imaging (DWI). Normal T2* images of the brain without demonstrated susceptibility artifact. There is no demonstrated hemosiderin stain. Normal bilateral basal ganglia. Normal thalami. There is no extra-axial fluid accumulation. Normal flow voids within the major intracranial circulation suggesting patency by spin echo criteria. Normal sella turcica, pituitary gland, infundibular stalk, optic chiasm and hypothalamus. Normal tectal plate and pineal gland. Normal midbrain, brian and medulla. Normal cerebellum. Normal basal cisterns. Normal bilateral temporal bones. Normal bilateral internal auditory canals. No demonstrated orbital abnormality, within the constraints of a routine brain study. Normal visualized paranasal sinuses. Normal calvarium and skull base. Normal visualized soft tissue structures. Normal visualized upper cervical spine. MRI/Brain without Contrast IMPRESSION: 1. Mild chronic ischemic and involutional changes of the brain, as described above. Electronically Signed: Kulwant Potter MD at 16:42 EDT , Service support ,
[2020-12-31 16:29] VITALS: BP 136/60; PULSE 56; RESP 17; O2SAT 96
--- NOTE | 2020-12-31 18:31 | PCM.HP.STD ---
HPI - General General Date of Admission: 12/31/20 Date of Service: 12/31/20 Chief Complaint: Vertigo, intractable. HPI Narrative The patient is a 70 y/o M w/ PMHx: CAD s/p CABG x 6 and PCI, Chew tobacco use, CKD stage III unclear subtype, HTN, HLD, Depression and Anxiety, Diabetes mellitus type II, Obesity, MILADIS, Hx TIA who presents to the [facility] ED on 12/31/20 with history of ongoing 1-2 months of ongoing vertigo, nearly anytime he gets up to try to move, coming on suddenly with 3 recent falls however it has been worse over the last 2 weeks with inability for family to watch him and help him 19/09 and despite outpatient PCP evaluation and treatment with meclizine. He normally uses a cane at home but has been having worsening debility. Work-up in the ED included T 97.6, heart rate 57, BP 116/59, respiratory rate 16, 97% on room air, CBC with WC 6.3, hemoglobin 13.5, platelet 281 without marked shift, BMP with potassium 2.9, BUN/creatinine 17/2.23, glucose 149, CT brain with chronic involutional changes. Telemetry stroke was consulted per ED physician with low suspicion for acute stroke but unable to rule out VBI and recommended MRI/MRA or CTA with CT a head and neck with no demonstrated aneurysm or hemodynamically significant stenosis, mild atherosclerotic plaque of the carotid arteries of the neck but without hemodynamically significant stenosis, MRI of the brain with mild chronic ischemic and involutional changes of the brain. In the ED patient administered K 40 mEq and Valium. [facility] Medical History (Updated 12/31/20 @ 14:[address] Michael Valerio MD) CAD (coronary artery disease) CKD (chronic kidney disease) stage 3, GFR 30-59 ml/min Depression Diabetes Gout HTN (hypertension) Hyperlipidemia Obesity Peripheral nerve dysfunction Sleep apnea TIA (transient ischemic attack) Vertigo Vestibular dysfunction Vitamin D deficiency Home Medications allopurinol 100 mg tablet 100 mg PO DAILY 10/22/18 [History Last Taken Unknown] aspirin 81 mg tablet,delayed release 81 mg PO DAILY 10/22/18 [History Last Taken Unknown] atorvastatin 80 mg tablet 80 mg PO DAILY 10/22/18 [History Last Taken Unknown] cholecalciferol (vitamin D3) 25 mcg (1,000 unit) capsule 1,000 unit PO DAILY 10/22/18 [History Last Taken Unknown] clopidogrel 75 mg tablet 75 mg PO DAILY 10/22/18 [History Last Taken 10/29/18] duloxetine 30 mg capsule,delayed release 30 mg PO DAILY 10/22/18 [History Last Taken Unknown] furosemide 40 mg tablet 40 mg PO DAILY tab 10/22/18 [History Last Taken Unknown] gabapentin 300 mg capsule 300 mg PO TID cap 10/22/18 [History Last Taken Unknown] isosorbide mononitrate 20 mg tablet 10 mg PO DAILY 10/22/18 [History Last Taken Unknown] lisinopril 10 mg tablet 10 mg PO DAILY 10/22/18 [History Last Taken Unknown] meclizine 25 mg tablet 25 mg PO DAILY 10/22/18 [History Last Taken Unknown] metoprolol tartrate 100 mg tablet 50 mg PO DAILY tab 10/22/18 [History Last Taken 10/29/18] nitroglycerin 0.4 mg sublingual tablet 0.4 mg SUBLINGUAL Q5-15M PRN 10/22/18 [History Last Taken Unknown] omeprazole 40 mg capsule,delayed release 20 mg PO DAILY cap 10/22/18 [History Last Taken 10/29/18] glipizide 5 mg PO DAILY 12/31/20 [History Last Taken Unknown] sitagliptin [Januvia] 50 mg PO DAILY 12/31/20 [History Last Taken Unknown] tamsulosin 0.4 mg PO DAILY 12/31/20 [History Last Taken Unknown] Allergy/AdvReac Type Severity Reaction Status Date / Time No Known Allergies Allergy Verified 12/31/20 10:00 Family History Sister Diabetes Father Heart disease Hypertension Cancer melanoma Mother Heart disease Surgical History History of arthroscopy of left knee Hx of heart artery stent Hx of six vessel coronary artery bypass graft Social History (Updated 12/31/20 @ 18:[address] Mónica Anderson MD) household members: none Smoking Status: Never smoker Smokeless tobacco user: chewing tobacco and other alcohol intake: never substance use type: does not use ROS ROS Narrative Admission Review of Systems: CONSTITUTIONAL: No weight loss, fever, chills, + weakness or fatigue. HEENT: + Vertiginous symptoms with movement. Eyes: No visual loss, blurred vision, double vision or yellow sclerae. Ears, Nose, Throat: No hearing loss, sneezing, congestion, runny nose or sore throat. SKIN: No rash or itching, lesions, wounds. CARDIOVASCULAR: No chest pain, chest pressure or chest discomfort, palpitations, edema, orthopnea, syncopal events. RESPIRATORY: No shortness of breath, cough or sputum, wheezing, hemoptysis. GASTROINTESTINAL: No anorexia, nausea, vomiting or diarrhea, abdominal pain, melena, BRBPR. GENITOURINARY: No dysuria, frequency, urgency or retention. NEUROLOGICAL: + Vertiginous symptoms with movement, related frequent falls. No syncope, paralysis, ataxia, numbness or tingling in the extremities, focal weakness, change in bowel or bladder control, seizure. MUSCULOSKELETAL: + muscle, back pain, joint pain or stiffness. HEMATOLOGIC: + anemia, bleeding or bruising. LYMPHATICS: No enlarged nodes. No history of splenectomy. PSYCHIATRIC: + history of depression or anxiety. ENDOCRINOLOGIC: No reports of sweating, cold or heat intolerance. No polyuria or polydipsia. ALLERGIES: No history of asthma, hives, eczema or rhinitis. Vital Signs Vital Signs Vital Signs: 12/31/20 09:58 12/31/20 10:39 12/31/20 16:29 Temperature 97.6 F L Temperature Source Temporal Pulse Rate 57 L 56 L Respiratory Rate 16 17 Respiratory Effort Normal Non-Labored Respiratory Pattern Normal Blood Pressure 116/59 L 136/60 H Blood Pressure Mean 78 85 Pulse Ox 97 96 Oxygen Delivery Method Room Air Weight Weight: 265 lb Body Mass Index (BMI) 35.9 Physical Exam Narrative Physical Examination: General: Awake, alert, oriented x 3 and cooperative, laying on his side in the ED bed, fatigued but no acute distress. Skin: Normal color, normal turgor, no icterus, no cyanosis. HEENT: AT/NC, EOMI, PERRLA, mildly dry MM, no carotid bruits or JVD noted. Lungs: Diminished, greater bases, appropriate effort, no rales, ronchi or wheezing. Heart: Mildly bradycardic with regular rhythm; no gallop, rub audible. Abdomen: Soft, obese, NTTP, ND, distant normal BS, no obvious evidence of HSM. Extremities: No cyanosis, clubbing, or edema. Neurological: Patient awake, alert, oriented as noted, cognitive function intact; pupils equally reactive to light and accommodation, cranial nerves II-XII grossly normal, moving all 4 extremities, no focal deficits, no current vertigo symptoms however patient is not up and moving, anytime he is up and moving he has sudden onset and even in the ED was prone to nearly falling except he had a cyst on both sides, strength accordingly severely global decreased with activity attempts. Psychiatric: Affect appears fatigued otherwise normal, no acute evidence of depressive or anxiety feelings. Results Lab / Micro Data Result Diagrams: 12/31/20 10:42 12/31/20 10:42 Labs: Laboratory Results - last 24 hr 12/31/20 10:42: WBC 6.3, RBC 4.92, Hgb 13.5, Hct 40.4, MCV 82.1, MCH 27.4, MCHC 33.4, RDW Std Deviation 38.8, RDW Coeff of Richard 13.0, Plt Count 281, MPV 9.6, Immature Gran % (Auto) 0.500, Neut % (Auto) 68.9, Lymph % (Auto) 23.4, [place] % (Auto) 4.8, Eos % (Auto) 1.9, Baso % (Auto) 0.5, Absolute Neuts (auto) 4.3, Absolute Lymphs (auto) 1.47, Nucleated RBC % 0 12/31/20 10:42: Sodium 138, Potassium 2.9 L, Chloride 103, Carbon Dioxide 25.0, Anion Gap 10, BUN 17, Creatinine 2.23 H, Estim Creat Clear Calc 32.86, Est GFR (MDRD) Af Amer 37 L, Est GFR (MDRD) Non-Af 31 L, BUN/Creatinine Ratio 7.6 L, Glucose 149 H, Calcium 9.[address] 12/31/20 10:42 IMPRESSION: Chronic involutional changes of the brain. Electronically Signed: Judson Knox MD at 11:13 EDT , Service support , Head/Neck CTA 12/31/20 14:29 IMPRESSION: 1. No demonstrated aneurysm or hemodynamically significant stenosis. 2. Mild atherosclerotic plaque of the carotid arteries of the neck but without a hemodynamically significant stenosis. Electronically Signed: Kulwant Potter MD at 17:38 EDT , Service support , Brain MRI 12/31/20 15:25 IMPRESSION: 1. Mild chronic ischemic and involutional changes of the brain, as described above. Electronically Signed: Kulwant Potter MD at 16:42 EDT , Service support , Assessment & Plan Assessment/Plan (1) Vertigo: PLAN: The patient is a 70 y/o M w/ PMHx: CAD s/p CABG x 6 and PCI, Chew tobacco use, CKD stage III unclear subtype, HTN, HLD, Depression and Anxiety, Diabetes mellitus type II, Obesity, MILADIS, Hx TIA who presents to the [facility] ED on 12/31/20 with history of ongoing 1-2 months of ongoing vertigo, intermittently, can come on sudden with 3 recent falls, worse over the last week with inability for family to watch him. 1. Intractable vertigo with vestibular dysfunction, stroke ruled out: Unfortunately patient with ongoing symptoms despite interventions, MRI of the brain with no acute obvious evidence of stroke and CTA head and neck with no acute findings. Will admit to medical surgical floor, maintain on fall precautions, continue scheduled meclizine although may need to transition to Valium if not effective, continue judicious hydration, allow diet as able to tolerate, obtain PT and OT assessments for therapy training as well as case management for discharge planning. As needed antiemetics. Would benefit from follow-up outpatient with ENT. 2. Hypokalemia: Admission K+ 2.9, magnesium level requested, supplementation given, repeat level in AM. 3. History of prior TIA: We will continue patient home aspirin, Plavix, statin, hypertensive regimen as noted, holding diabetic oral regimen. 4. CAD: Status post CABG x6 and PCI: We will continue patient aspirin, Plavix, statin, Coreg, lisinopril regimen. 5. Diabetes mellitus type II with neuropathy: Hold oral home regimen, ADA diet, accu checks w/ ISS, continue home gabapentin regimen. 6. Hypertension: Continue home regimen including metoprolol, lisinopril, Lasix, isosorbide with hold parameters, PRN hydralazine. 7. Hyperlipidemia: Continue home statin regimen. 8. Chronic Kidney Disease Stage III, unclear subtype: Admission BUN/Cr 17/2.23, baseline renal function primarily appears to be 2.1-2.5, repeat BMP in AM. 9. Anxiety and depression: We will continue patient home duloxetine regimen 10. BPH: We will continue patient home Flomax regimen. 11. GERD: We will continue patient on PPI. 12. Gout: Continue patient home allopurinol regimen. 13. MILADIS: CPAP q HS. 14. DVT prophylaxis: SCDs, heparin. 15. CODE STATUS: Full code. Patient does not have healthcare power of deputy attorney general or living will, encouraged set up. Charges/Coding Visit Charges OBSV E&M: 54053 Initial observation care L3
[2020-12-31] MEDS: diazePAM 2 MG Tablet PO ×2 (18:49→22:01)
[2020-12-31 18:56] VITALS: BP 124/43; PULSE 53; RESP 17; TEMP 36.4; O2SAT 96
[2020-12-31 18:57] VITALS: BMI 35.9
--- NOTE | 2020-12-31 18:57 | PCS.PANDOC ---
PANDEMIC DOCUMENTATION INITIATED: Date: 10/12/2020 Time: 190
[2020-12-31 19:41] VITALS: BP 154/79; PULSE 57; RESP 20; TEMP 36.5; O2SAT 94
[2020-12-31] MEDS: 0.9% Normal Saline 1,000 ML 100 ML IV (20:19)
[2020-12-31] MEDS: 0.9% Saline Lock 10 ML Syringe IV (20:19)
[2020-12-31 20:30] VITALS: O2SAT 91
[2020-12-31] MEDS: Insulin Lispro 100 UNIT/ML INSULN.PEN SC (21:58)
[2020-12-31] MEDS: Heparin Injection (Vial) 5,000 UNIT/ML VIAL 5000 UNIT SC (21:59)
[2020-12-31] MEDS: Atorvastatin Calcium 80 MG Tablet PO (22:00)
[2020-12-31 22:11] LABS: Bedside Glucose 184 mg/dL (70-110)
[2021-01-01 02:40] VITALS: BP 142/55; PULSE 62; RESP 18; TEMP 36.3; O2SAT 94
[2021-01-01 06:50] LABS: Bedside Glucose 73 mg/dL (70-110)
[2021-01-01 07:12] LABS: Absolute Lymphocyte Count 1.56 X10^3/uL (0.83-4.51); Absolute Neutrophil Count 2.6 X10^3/uL (2.0-7.7); Basophil# 0.02 X10^3/uL; Basophil% 0.4 % (0-1); Eosinophil# 0.12 X10^3/uL; Eosinophils% 2.6 % (0-5); Hematocrit 38.4 % (40-54); Hemoglobin 12.9 g/dL (13.0-16.5); Lymphocyte # 1.56 X10^3/ul (0.83-4.51); Lymphocyte % 33.7 % (19-41); Mean Corp Hgb Conc 33.6 g/dL (32-36); Mean Corpuscular Hgb 27.3 pg (27.0-32.0); Mean Corpuscular Volume 81.4 fL (80-94); Monocyte# 0.35 X10^3/uL; Monocyte% 7.6 % (0-10); NRBC Flagged by Analyzer 0 % (0-5); Neutrophil # 2.56 X10^3/uL (2.7-7.7); Neutrophil % 55.3 % (47-70); Platelet Count 252 K/mm3 (150-450); RBC Distribution Width SD 38.5 fl (35.1-43.9); Red Blood Count 4.72 M/mm3 (4.6-6.2); White Blood Count 4.6 K/mm3 (4.4-11.0)
[2021-01-01 07:46] LABS: ALB/GLOB Ratio 0.7 RATIO (0.9-2.4); AST(SGOT) 21 U/L (15-37); Alanine Aminotransfer ALT/SGPT 31 U/L (16-61); Albumin, Serum 2.7 g/dL (3.2-5.0); Alkaline Phosphatase 197 U/L (45-117); Anion Gap 7 (5-15); BUN 14 mg/dL (7-18); BUN/Creat Ratio 8.3 RATIO (10-20); Calcium,Total 8.7 mg/dL (8.5-10.1); Chloride 107 mmol/L (98-107); Creatinine, Serum 1.68 mg/dL (0.70-1.30); EST Glomerular Filtration Rate 43 mL/min (>60); Est Glom Filt Rate - Afr Amer 52 mL/min (>60); Estimated Creatinine Clearance 43.62 ml/min; Globulin 3.9 g/dL (2.2-4.2); Glucose 75 mg/dL (74-106); Potassium 3.4 mmol/L (3.5-5.1); Protein, Total 6.6 g/dL (6.4-8.2); Sodium Level 137 mmol/L (136-145)
[2021-01-01 08:11] VITALS: O2SAT 90
[2021-01-01 08:45] VITALS: BP 120/50; PULSE 86; RESP 18; TEMP 36.7; O2SAT 97
[2021-01-01] MEDS: DULoxetine Hcl 30 MG Capsule PO (08:46)
[2021-01-01] MEDS: Aspirin E.C. 81 MG Tablet PO (08:46)
[2021-01-01] MEDS: Allopurinol 100 MG Tablet PO (08:46)
[2021-01-01] MEDS: Cholecalciferol (VIT D3) 25 MCG TABLET (1,000 UNITS) PO (08:47)
[2021-01-01] MEDS: Clopidogrel Bisulfate 75 MG Tablet PO (08:47)
[2021-01-01] MEDS: Furosemide 40 MG Tablet PO (08:47)
[2021-01-01] MEDS: Heparin Injection (Vial) 5,000 UNIT/ML VIAL 5000 UNIT SC (08:48)
[2021-01-01 09:01] VITALS: BP 120/50; BP 124/69; BP 157/82; PULSE 62; PULSE 65; PULSE 86
[2021-01-01] MEDS: diazePAM 2 MG Tablet PO (09:05)
--- NOTE | 2021-01-01 10:53 | CASEMGMT ---
Addendum entered by Eliane Valdez 01/01/21 13:41: Script for OP therapy: PT/OT and vestibular therapy obtained from Dr Jay and provided to pt at this time. Pt instructed on use and verbalizes understanding. Original Note: RN JEN [employer] INSTALLER CM to room to meet with patient for initial transition planning/care coordination assessment. JC LI introduced self and role at [facility]. Pt voices understanding and consents to assessment at this time. Pt sitting up in recliner chair in room in no distress at this time. Pt is A/O at this time and answers all questions appropriately. Care providers, pharmacy, and demographics verified/updated at this time. PCP: Dr Dobbins Specialists: Pt was seeing risk adjustment specialist in [place] that comes down from [place] but he has retired. He states he will start seeing someone else there, but he is not sure who it will be. Preferred Pharmacy: [facility] Insurance:[employer] [facility] [place] Prescription Benefit:Yes Living Will/HPOA: Pt does not currently have LW/HCPOA and declines info at this time. He states his Son-in-law is working on getting paperwork together and wants to complete w/his associate attorney. LNOK: Has 4 adult children and 15 grand-kids. Daughter, Mary Carlson. 3 sons. Living Arrangements: Lives alone in mobile home w/ramp entrance. Independent w/ADL's and most IADL's until last couple months when dizziness started. Has great family support system. Dtr, Mary, and 18-yr-old granddaughter, Justine, live right across the road from him and help as needed. Justine checks on him daily and will often stay w/him. Pt manages his own medications. Mary makes sure I get to my appts. Mary gets pt's groceries for him. Transportation: Pt did drive until recent dizziness. Mary or Justine provide transportation now. DME: States has the following DME: ramp entrance, shower chair, BSC, rails/grab bars, cane, walker, glucometer. Pt states he does not have a medical alert button and is not interested in any information, as he is not willing to pay almost a dollar a day. JC LI advised him to check to see if [facility] could assist w/getting a medical alert button. Pt states no need for further DME at this time. HHC/SNF: Hx of [facility] after an ankle fx about 5 yrs ago and HHC (does not remember name). Pt states I'll never go in a skilled nursing again. Pt wishes to return home and states has no concerns with going home at time of discharge. He denies wanting HHC and would like to go [facility]. Pt states his family will be able to provide transportation. JC LI will obtain script and give to pt per his request. He states he would like to discharge home today, if possible. CM to follow for any further discharge planning/needs. Pt voices no further concerns/needs at this time. Advised pt to ask for CM if any further questions/concerns/needs arise. Voices understanding. PLAN: Home w/OP therapy, family support, and discharge plans in place. Dana HAILE RN, CM
[2021-01-01 12:15] LABS: Bedside Glucose 107 mg/dL (70-110)
--- NOTE | 2021-01-01 13:32 | PCM.PN.HOSP ---
Documented by User: Terri Watkins NP-C 01/01/21 13:41 Subjective Subjective Patient seen and examined. Patient states that his dizziness has improved with the initiation of Valium. Patient in bed no distress noted. Patient denies other complaints at this time Objective Data Objective Data Vital Signs: Vital Signs Temp Pulse Resp BP Pulse Ox 98.0 F 86 18 120/50 L 97 01/01/21 08:45 01/01/21 09:01 01/01/21 08:45 01/01/21 09:01 01/01/21 08:45 Oxygen Delivery Method Room Air Weight: 272 lb 4.334 oz Body Mass Index (BMI) 35.9 Intake & Output: Intake and Output for Last 24 Hours 12/30/20 12/31/20 01/01/21 23:59 23:59 23:59 Intake Total 600 / 600 1600 / 1600 Output Total 825 / 825 Balance 600 / 600 775 / 775 Lab / Micro Data Result Diagrams: 01/01/21 06:20 01/01/21 06:20 Labs: Laboratory Results - last 24 hr 12/31/20 10:42: Magnesium 2.0 12/31/20 21:54: POC Glucose 184 H 01/01/21 06:20: WBC 4.6, RBC 4.72, Hgb 12.9 L, Hct 38.4 L, MCV 81.4, MCH 27.3, MCHC 33.6, RDW Std Deviation 38.5, RDW Coeff of Richard 13.0, Plt Count 252, MPV 10.0, Immature Gran % (Auto) 0.400, Neut % (Auto) 55.3, Lymph % (Auto) 33.7, [place] % (Auto) 7.6, Eos % (Auto) 2.6, Baso % (Auto) 0.4, Absolute Neuts (auto) 2.6, Absolute Lymphs (auto) 1.56, Nucleated RBC % 0 01/01/21 06:20: Sodium 137, Potassium 3.4 L, Chloride 107, Carbon Dioxide 23.0, Anion Gap 7, BUN 14, Creatinine 1.68 H, Estim Creat Clear Calc 43.62, Est GFR (MDRD) Af Amer 52 L, Est GFR (MDRD) Non-Af 43 L, BUN/Creatinine Ratio 8.3 L, Glucose 75, Calcium 8.7, Total Bilirubin 0.50, AST 21, ALT 31, Alkaline Phosphatase 197 H, Total Protein 6.6, Albumin 2.7 L, Globulin 3.9, Albumin/Globulin Ratio 0.7 L 01/01/21 06:33: POC Glucose 73 01/01/21 12:06: POC Glucose 107 Radiography Diagnostic Testing: Radiology Impression Head/Neck CTA 12/31/20 14:29 IMPRESSION: 1. No demonstrated aneurysm or hemodynamically significant stenosis. 2. Mild atherosclerotic plaque of the carotid arteries of the neck but without a hemodynamically significant stenosis. Electronically Signed: Kulwant Potter MD at 17:38 EDT , Service support , Brain MRI 12/31/20 15:25 IMPRESSION: 1. Mild chronic ischemic and involutional changes of the brain, as described above. Electronically Signed: Kulwant Potter MD at 16:42 EDT , Service support , Physical Exam Const alert, oriented x3 and no apparent distress HEENT head/scalp atraumatic Head and Scalp: normocephalic Eyes conjunctivae normal and no scleral icterus Resp normal respiratory effort, normal air movement and clear to auscultation bilaterally Cardio regular rate, regular rhythm, S1 normal heart sound and S2 normal heart sound GI normal to inspection, nondistended, normoactive bowel sounds, soft to palpation and non-tender Extremity normal to inspection, full ROM and no clubbing, cyanosis or edema Peripheral Pulses: Yes pulses 2+ throughout Skin no rashes or lesions noted, no wounds and skin turgor normal Neuro oriented x3, moves all extremities, no focal motor deficits and no sensory deficits noted Sensorium / Orientation: awake and alert Psych affect normal Assessment & Plan Assessment/Plan (1) Vertigo: (2) Hypokalemia: PLAN: 1. Intractable vertigo with vestibular dysfunction -Continue Valium -PT and OT following, recommending vestibular therapy upon discharge -CTA and MRI negative for stroke -Recommend outpatient follow-up with ENT -SOC consult placed for follow-up to previous consult. 2. Hypokalemia -Potassium improved to 3.4 today -Potassium chloride 40 mEq p.o. x1 given today -BMP ordered daily We will continue patient's home medications for chronic diseases including CAD, diabetes mellitus type 2, hypertension, hyperlipidemia, anxiety and depression, BPH and GERD DVT prophylaxis-SCDs, subcu heparin This patient was seen by Terri Watkins NP-Elmer under the supervision of Dr. Jay. Documented by User: Dr. Arnaldo Jay MD 01/01/21 15:47 Objective Data Lab / Micro Data Result Diagrams: 01/01/21 06:20 01/01/21 06:20 Physical Exam Narrative Please see discharge summary for complete exam and assessment and plan.
[2021-01-01] MEDS: Potassium Chloride Oral Tablet 20 MEQ 40 MEQ PO (14:10)
--- NOTE | 2021-01-01 14:14 | PCM.DC ---
Discharge Instructions Diet Discharge Diet: Low fat / Low cholesterol and 1800 Calorie Control Diet Activity Discharge Activity: Return to Normal Activity Dressing / Incision Call your doctor if you observe: Dizziness, Fainting spells and Increased palpitations (irregular heartbeat) Follow Up Care Please Follow Up With: Carson Dobbins DO When: 2 weeks Test Results: Test results from this visit will be discussed in further detail at your follow-up appointment, if applicable. Discharge Plan Admission Admit Date/Time: 12/31/20 18:34 Primary Reason for Your Visit: vertigo Attending Provider: Arnaldo Jay Primary Care Provider: Carson Dobbins Instructions Patient Instructions: ED Vertigo, Unspecified Discharge Orders/Prescriptions Prescriptions: New diazepam 2 mg Tablet 2 mg PO Q8H PRN PRN (Reason: vertigo) Qty: 10 RF: 0 Continued allopurinol 100 mg tablet 100 mg PO DAILY RF: 0 atorvastatin 80 mg tablet 80 mg PO DAILY RF: 0 clopidogrel [Plavix] 75 mg tablet 75 mg PO DAILY RF: 0 duloxetine 30 mg capsule,delayed release(DR/EC) 30 mg PO DAILY RF: 0 furosemide 40 mg tablet 40 mg PO DAILY RF: 0 gabapentin 300 mg capsule 300 mg PO TID RF: 0 isosorbide mononitrate 20 mg tablet 10 mg PO DAILY RF: 0 lisinopril 10 mg tablet 10 mg PO DAILY RF: 0 nitroglycerin [Nitrostat] 0.4 mg tablet, sublingual 0.4 mg SUBLINGUAL Q5-15M PRN (Reason: chest pain) RF: 0 aspirin [Adult Low Dose Aspirin] 81 mg tablet,delayed release (DR/EC) 81 mg PO DAILY RF: 0 cholecalciferol (vitamin D3) 1,000 unit capsule 1,000 unit PO DAILY RF: 0 metoprolol tartrate 100 mg tablet 50 mg PO DAILY RF: 0 omeprazole 40 mg capsule,delayed release(DR/EC) 20 mg PO DAILY RF: 0 glipizide 5 mg tablet extended release 24hr 5 mg PO DAILY RF: 0 tamsulosin 0.4 mg capsule 0.4 mg PO DAILY RF: 0 Januvia 50 mg tablet 50 mg PO DAILY RF: 0 Discontinued meclizine 25 mg tablet 25 mg PO DAILY RF: 0 Referrals / Follow Up: Bala Jones MD [STAFF PHYSICIAN] - (call for appt) Carson Dobbins DO [Primary Care Provider] - 3-5 Days Disposition Disposition (needs filled in before D/C Order can be placed): Home, Self Care
--- NOTE | 2021-01-01 14:22 | PCM.DC.SUM ---
Documented by User: LEN Bazan 01/01/21 14:23 Providers Date of Admission: 12/31/20 Primary Care Physician: Dr. Carson Dobbins DO Reason For Visit: INTRACTABLE VERTIGO Diagnosis Discharge Diagnosis (1) Vertigo: Status: Acute Code(s): R42 - Dizziness and giddiness (2) Hypokalemia: Status: Acute Code(s): E87.6 - Hypokalemia Medications at Discharge Home Medications allopurinol 100 mg tablet 100 mg PO DAILY 10/22/18 aspirin 81 mg tablet,delayed release 81 mg PO DAILY 10/22/18 atorvastatin 80 mg tablet 80 mg PO DAILY 10/22/18 cholecalciferol (vitamin D3) 25 mcg (1,000 unit) capsule 1,000 unit PO DAILY 10/22/18 clopidogrel 75 mg tablet 75 mg PO DAILY 10/22/18 duloxetine 30 mg capsule,delayed release 30 mg PO DAILY 10/22/18 furosemide 40 mg tablet 40 mg PO DAILY tab 10/22/18 gabapentin 300 mg capsule 300 mg PO TID cap 10/22/18 isosorbide mononitrate 20 mg tablet 10 mg PO DAILY 10/22/18 lisinopril 10 mg tablet 10 mg PO DAILY 10/22/18 metoprolol tartrate 100 mg tablet 50 mg PO DAILY tab 10/22/18 nitroglycerin 0.4 mg sublingual tablet 0.4 mg SUBLINGUAL Q5-15M PRN 10/22/18 omeprazole 40 mg capsule,delayed release 20 mg PO DAILY cap 10/22/18 Januvia 50 mg PO DAILY 12/31/20 glipizide 5 mg PO DAILY 12/31/20 tamsulosin 0.4 mg PO DAILY 12/31/20 diazepam 2 mg PO Q8H PRN PRN #10 tab 01/01/21 Hospital Course Operations None Procedures None Summary of Care Provided Minutes Spent on Discharge: 20 Hospital Course: Patient was admitted on 12/31/2020 with complaints of vertigo which is not relieved by meclizine. Patient initiated on diazepam and seen by PT and OT. Patient underwent vestibular therapy while inpatient as well as receiving diazepam which was effective at controlling symptoms. Patient will be discharged with instructions to see PT outpatient for continued vestibular therapy. Physical Exam Const alert, oriented x3 and no apparent distress HEENT head/scalp atraumatic Eyes conjunctivae normal and no scleral icterus Resp normal respiratory effort, normal air movement and clear to auscultation bilaterally Cardio regular rate, regular rhythm, S1 normal heart sound and S2 normal heart sound GI normal to inspection, nondistended, normoactive bowel sounds, soft to palpation and non-tender Extremity normal to inspection, full ROM and no clubbing, cyanosis or edema Skin no rashes or lesions noted, no wounds and skin turgor normal Neuro oriented x3, moves all extremities, no focal motor deficits and no sensory deficits noted Sensorium / Orientation: awake and alert Psych affect normal Weight / BMI Weight Weight: 272 lb 4.334 oz Body Mass Index (BMI) 35.9 ABG / Lab / Microbiology Data Result Diagrams: 01/01/21 06:20 01/01/21 06:20 Laboratory: Laboratory Results - last 24 hr 12/31/20 10:42: Magnesium 2.0 12/31/20 21:54: POC Glucose 184 H 01/01/21 06:20: WBC 4.6, RBC 4.72, Hgb 12.9 L, Hct 38.4 L, MCV 81.4, MCH 27.3, MCHC 33.6, RDW Std Deviation 38.5, RDW Coeff of Richard 13.0, Plt Count 252, MPV 10.0, Immature Gran % (Auto) 0.400, Neut % (Auto) 55.3, Lymph % (Auto) 33.7, [place] % (Auto) 7.6, Eos % (Auto) 2.6, Baso % (Auto) 0.4, Absolute Neuts (auto) 2.6, Absolute Lymphs (auto) 1.56, Nucleated RBC % 0 01/01/21 06:20: Sodium 137, Potassium 3.4 L, Chloride 107, Carbon Dioxide 23.0, Anion Gap 7, BUN 14, Creatinine 1.68 H, Estim Creat Clear Calc 43.62, Est GFR (MDRD) Af Amer 52 L, Est GFR (MDRD) Non-Af 43 L, BUN/Creatinine Ratio 8.3 L, Glucose 75, Calcium 8.7, Total Bilirubin 0.50, AST 21, ALT 31, Alkaline Phosphatase 197 H, Total Protein 6.6, Albumin 2.7 L, Globulin 3.9, Albumin/Globulin Ratio 0.7 L 01/01/21 06:33: POC Glucose 73 01/01/21 12:06: POC Glucose 107 Radiography Diagnostic Testing: Radiology Impression Head/Neck CTA 12/31/20 14:29 IMPRESSION: 1. No demonstrated aneurysm or hemodynamically significant stenosis. 2. Mild atherosclerotic plaque of the carotid arteries of the neck but without a hemodynamically significant stenosis. Electronically Signed: Kulwant Potter MD at 17:38 EDT , Service support , Brain MRI 12/31/20 15:25 IMPRESSION: 1. Mild chronic ischemic and involutional changes of the brain, as described above. Electronically Signed: Kulwant Potter MD at 16:42 EDT , Service support , D/C Instructions Discharge Diet: Low fat / Low cholesterol and 1800 Calorie Control Diet Call your doctor if you observe: Dizziness, Fainting spells and Increased palpitations (irregular heartbeat) Please Follow Up With: Carson Dobbins, When: 2 weeks Meaningful Use Info Meaningful Use Diagnoses (Choose all that apply): None applicable Discharge Plan Admission Admit Date/Time: 12/31/20 18:34 Primary Reason for Your Visit: vertigo Attending Provider: Arnaldo Jay Primary Care Provider: Carson Dobbins Instructions Patient Instructions: ED Vertigo, Unspecified Discharge Orders/Prescriptions Prescriptions: New diazepam 2 mg Tablet 2 mg PO Q8H PRN PRN (Reason: vertigo) Qty: 10 RF: 0 Continued allopurinol 100 mg tablet 100 mg PO DAILY RF: 0 atorvastatin 80 mg tablet 80 mg PO DAILY RF: 0 clopidogrel [Plavix] 75 mg tablet 75 mg PO DAILY RF: 0 duloxetine 30 mg capsule,delayed release(DR/EC) 30 mg PO DAILY RF: 0 furosemide 40 mg tablet 40 mg PO DAILY RF: 0 gabapentin 300 mg capsule 300 mg PO TID RF: 0 isosorbide mononitrate 20 mg tablet 10 mg PO DAILY RF: 0 lisinopril 10 mg tablet 10 mg PO DAILY RF: 0 nitroglycerin [Nitrostat] 0.4 mg tablet, sublingual 0.4 mg SUBLINGUAL Q5-15M PRN (Reason: chest pain) RF: 0 aspirin [Adult Low Dose Aspirin] 81 mg tablet,delayed release (DR/EC) 81 mg PO DAILY RF: 0 cholecalciferol (vitamin D3) 1,000 unit capsule 1,000 unit PO DAILY RF: 0 metoprolol tartrate 100 mg tablet 50 mg PO DAILY RF: 0 omeprazole 40 mg capsule,delayed release(DR/EC) 20 mg PO DAILY RF: 0 glipizide 5 mg tablet extended release 24hr 5 mg PO DAILY RF: 0 tamsulosin 0.4 mg capsule 0.4 mg PO DAILY RF: 0 Januvia 50 mg tablet 50 mg PO DAILY RF: 0 Discontinued meclizine 25 mg tablet 25 mg PO DAILY RF: 0 Referrals / Follow Up: Bala Jones MD [STAFF PHYSICIAN] - (call for appt) Carson Dobbins DO [Primary Care Provider] - 3-5 Days Disposition Disposition (needs filled in before D/C Order can be placed): Home, Self Care Documented by User: Dr. Arnaldo Jay MD 01/01/21 15:46 Providers Date of Admission: 12/31/20 Reason For Visit: INTRACTABLE VERTIGO Medications at Discharge Home Medications allopurinol 100 mg tablet 100 mg PO DAILY 10/22/18 aspirin 81 mg tablet,delayed release 81 mg PO DAILY 10/22/18 atorvastatin 80 mg tablet 80 mg PO DAILY 10/22/18 cholecalciferol (vitamin D3) 25 mcg (1,000 unit) capsule 1,000 unit PO DAILY 10/22/18 clopidogrel 75 mg tablet 75 mg PO DAILY 10/22/18 duloxetine 30 mg capsule,delayed release 30 mg PO DAILY 10/22/18 furosemide 40 mg tablet 40 mg PO DAILY tab 10/22/18 gabapentin 300 mg capsule 300 mg PO TID cap 10/22/18 isosorbide mononitrate 20 mg tablet 10 mg PO DAILY 10/22/18 lisinopril 10 mg tablet 10 mg PO DAILY 10/22/18 metoprolol tartrate 100 mg tablet 50 mg PO DAILY tab 10/22/18 nitroglycerin 0.4 mg sublingual tablet 0.4 mg SUBLINGUAL Q5-15M PRN 10/22/18 omeprazole 40 mg capsule,delayed release 20 mg PO DAILY cap 10/22/18 Januvia 50 mg PO DAILY 12/31/20 glipizide 5 mg PO DAILY 12/31/20 tamsulosin 0.4 mg PO DAILY 12/31/20 diazepam 2 mg PO Q8H PRN PRN #10 tab 01/01/21 Hospital Course Summary of Care Provided Hospital Course: This patient was seen in conjunction with MADALYN Murray. I have independently interviewed and examined the patient and reviewed pertinent history, examination findings, laboratory and plan of management. I have reviewed the note and agree with the documented findings with the few additional points. In brief, patient is 70-year-old male with multiple comorbidities including 6 vessel CABG was admitted for worsening dizziness with vertigo for 4 months. MRI brain shows mild chronic ischemic changes. CT of brain does not show hemodynamically significant stenosis. Orthostatic vitals were negative. Patient felt better symptomatically and meclizine. SOC neurology consult was done. Advised outpatient follow-up with ENT. PT and OT was done and recommended outpatient vestibular therapy. Continue patient's aspirin and Plavix. Other comorbidities include coronary artery status post CABG, history of prior TIA diverticulitis type II hypertension dyslipidemia are controlled. Discharge medication reconciliation done. Discharge follow-up instructions completed. Discharge process discussed with the patient and all questions were answered to patient's satisfaction. Total time spent, exact 35 minutes on discharge meds reconciliation, examination, coordination of care with nurses and ancillary staff, review of imaging and blood test and discussion with the patient on follow-up instructions I have discussed my assessment with MADALYN Murray and orders have been reviewed. Physical Exam Narrative The patient was seen and examined. Patient has chronic dizziness ongoing since 4 months with associated vertigo. Patient denies any change in hearing or tinnitus. Also complaining of recurrent fall with loss of balance and equilibrium. Over the months, his dizziness and vertigo are getting worse. Physical exam General: Alert, Oriented x3, Cooperative HEENT: No nystagmus noted on Homer-Hallpike maneuver. Head impulse nystagmus negative. Atraumatic, PERRLA, EOMI, Normocephalic Oral: No Gingival or Mucosal Lesions/ Ulcerations Neck: Supple, No JVD, Negative Carotid Bruits Lungs: Air entry diminished in bilateral lung bases. No crepitation/rhonchi Cardiovascular: Regular rate, Regular Rhythm, Normal S1, Normal S2, No murmurs Abdomen: Bowel Sounds Present, Soft, Non Tender, Non-Distended : No renal angle tenderness. No suprapubic tenderness. Extremities: No edema, Capillary Refill Less than 3 Seconds Skin: No rashes, No breakdown Musculoskeletal: No Tenderness to Palpation of Joints or Extremities Neurological: Cranial nerves II-XII grossly intact, DTR 2+/4 and Symmetrical, Neuro grossly intact Psych/Mental Status: Normal Affect, Appropriate. ABG / Lab / Microbiology Data Result Diagrams: 01/01/21 06:20 01/01/21 06:20 Discharge Plan Admission Admit Date/Time: 12/31/20 18:34 Primary Reason for Your Visit: vertigo Attending Provider: Arnaldo Jay Primary Care Provider: Carson Dobbins Instructions Patient Instructions: ED Vertigo, Unspecified Discharge Orders/Prescriptions Prescriptions: New diazepam 2 mg Tablet 2 mg PO Q8H PRN PRN (Reason: vertigo) Qty: 10 RF: 0 Continued allopurinol 100 mg tablet 100 mg PO DAILY RF: 0 atorvastatin 80 mg tablet 80 mg PO DAILY RF: 0 clopidogrel [Plavix] 75 mg tablet 75 mg PO DAILY RF: 0 duloxetine 30 mg capsule,delayed release(DR/EC) 30 mg PO DAILY RF: 0 furosemide 40 mg tablet 40 mg PO DAILY RF: 0 gabapentin 300 mg capsule 300 mg PO TID RF: 0 isosorbide mononitrate 20 mg tablet 10 mg PO DAILY RF: 0 lisinopril 10 mg tablet 10 mg PO DAILY RF: 0 nitroglycerin [Nitrostat] 0.4 mg tablet, sublingual 0.4 mg SUBLINGUAL Q5-15M PRN (Reason: chest pain) RF: 0 aspirin [Adult Low Dose Aspirin] 81 mg tablet,delayed release (DR/EC) 81 mg PO DAILY RF: 0 cholecalciferol (vitamin D3) 1,000 unit capsule 1,000 unit PO DAILY RF: 0 metoprolol tartrate 100 mg tablet 50 mg PO DAILY RF: 0 omeprazole 40 mg capsule,delayed release(DR/EC) 20 mg PO DAILY RF: 0 glipizide 5 mg tablet extended release 24hr 5 mg PO DAILY RF: 0 tamsulosin 0.4 mg capsule 0.4 mg PO DAILY RF: 0 Januvia 50 mg tablet 50 mg PO DAILY RF: 0 Discontinued meclizine 25 mg tablet 25 mg PO DAILY RF: 0 Referrals / Follow Up: Bala Jones MD [STAFF PHYSICIAN] - (call for appt) Carson Dobbins DO [Primary Care Provider] - 3-5 Days Disposition Disposition (needs filled in before D/C Order can be placed): Home, Self Care Charges/Coding Visit Charges OBSV E&M: 14821 Observation care discharge
[2021-01-01 15:40] VITALS: BP 134/71; PULSE 68; RESP 18; TEMP 36.7; O2SAT 95
== END 2021-01-01 15:15 | disposition home or self-care (01) ==
LOC: ED 18:36 → MS2 18:47
PROVIDERS: Admitting Provider Family Medicine; Emergency Provider Emergency Medicine; PCP Family Medicine; Visit Provider Internal Medicine
DX: R42 Dizziness and giddiness (principal); E87.6 Hypokalemia; E11.22 Type 2 diabetes mellitus with diabetic chronic kidney disease; I12.9 Hypertensive chronic kidney disease with stage 1 through stage 4 chronic kidney disease, or unspecified chronic kidney disease; M10.9 Gout, unspecified; I25.10 Atherosclerotic heart disease of native coronary artery without angina pectoris; E78.5 Hyperlipidemia, unspecified; E11.40 Type 2 diabetes mellitus with diabetic neuropathy, unspecified; G47.33 Obstructive sleep apnea (adult) (pediatric); F17.220 Nicotine dependence, chewing tobacco, uncomplicated; E55.9 Vitamin D deficiency, unspecified; E66.9 Obesity, unspecified; K21.9 Gastro-esophageal reflux disease without esophagitis; N18.32 Chronic kidney disease, stage 3b; N40.0 Benign prostatic hyperplasia without lower urinary tract symptoms; F41.9 Anxiety disorder, unspecified; F32.A Depression, unspecified; Z79.02 Long term (current) use of antithrombotics/antiplatelets; Z79.82 Long term (current) use of aspirin; Z79.84 Long term (current) use of oral hypoglycemic drugs; Z95.1 Presence of aortocoronary bypass graft; Z68.35 Body mass index [BMI] 35.0-35.9, adult
CPT/HCPCS: 36415; 70450; 70496; 70498; 70551; 80048; 80053; 82962; 83735; 85025; 96361; 96365; 96366; 96372; 97162; 97166; 97802; 99218; 99285; J7030; Q9967; A4216; G0378

== ENCOUNTER → 2021-06-28 | Outpatient (CLI) | payer MEDICARE, MEDICAID, SELFPAY ==
--- NOTE | 2021-06-28 07:13 | ECHOCS_ITS ---
Reason For Study: s/p CABG Procedure This was a 2D Doppler, Color Flow transthoracic echocardiogram. Contrast injection was performed. Exam performed in department. Left Ventricle Normal LV size. Moderate concentric left ventricular hypertrophy. Left ventricular systolic function is normal. The estimated ejection fraction is 65 %. Stage 1 diastolic dysfunction. No regional wall motion abnormalities noted. Right Ventricle Normal RV size. Normal systolic function. Atria The left atrium is mildly enlarged. Normal right atrium. Aortic Valve Trisinus/trileaflet aortic valve. Mild (1+) aortic valve insufficiency. Pulmonic Valve Normal pulmonic valve. Great Vessels Mildly dilated aortic root. The pulmonary artery is normal size. Inferior vena cava collapse with respiration. Pericardium/Pleural No pericardial effusion. Medication Diluted definity 3ml given slow IV push to enhance endocardial definition. MMode/2D Measurements & Calculations LVIDd: 5.6 cm IVSd: 1.7 cm Ao root diam: 3.9 cm LVIDs: 3.8 cm LVPWd: 1.2 cm RVDd: 3.4 cm FS: 32.1 % LAV(MOD-bp): 54.6 ml LVAd ap4: 42.7 cm2 SV(MOD-sp4): 97.4 ml LAV(MOD-bp) Indexed: 22.5 ml/m2 LVLd ap4: 8.6 cm LAV(MOD-sp2): 39.7 ml EDV(MOD-sp4): 177.6 ml LAV(MOD-sp4): 65.4 ml EDV(sp4-el): 179.2 ml LVAs ap4: 26.8 cm2 LVLs ap4: 7.8 cm ESV(MOD-sp4): 80.2 ml ESV(sp4-el): 78.7 ml EF(MOD-sp4): 54.8 % EF(sp4-el): 56.1 % SV(sp4-el): 100.5 ml LA dimension(2D): 4.5 cm LA A4 area: 21.2 cm2 RA A4 area: 15.5 cm2 Doppler Measurements & Calculations MV E max cole: 59.6 cm/sec Lat Peak E' Cole: 11.4 cm/sec Med Peak E' Cole: 5.1 cm/sec MV A max cole: 88.3 cm/sec E/E' lat: 5.2 E/E' med: 11.7 MV E/A: 0.68 Ao V2 max: 191.5 cm/sec AI max cole: 413.7 cm/sec LV V1 max: 132.1 cm/sec Ao max P.7 mmHg AI max P.5 mmHg LV V1 max P.0 mmHg Ao V2 mean: 122.2 cm/sec Ao mean P.8 mmHg AI dec slope: 187.6 cm/sec2 Ao V2 VTI: 39.0 cm AI P1/2t: 646.0 msec PA V2 max: 107.2 cm/sec ECHO/Echo Complete W/ Contrast Interpretation Summary Normal LV size. Moderate concentric left ventricular hypertrophy. Left ventricular systolic function is normal. The estimated ejection fraction is 65 %. Stage 1 diastolic dysfunction. The left atrium is mildly enlarged. 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 Ventricular noncompaction is noted in the ape x. Ordering Physician: Jhonathan Galindo Referring Physician: Carson Dobbins Performed By: Ana Maria Caldwell, MEGHANA, RVT
--- NOTE | 2021-06-28 11:27 | STRESSREP ---
Stress Test Report Oncologic myocardial perfusion stress test. 70-year-old man with a history of known coronary artery disease. Stress protocol: Resting EKG demonstrates normal sinus rhythm with a rate of 71 bpm occasional premature ventricular complexes noted. 0.4 mg of regadenoson was infused per usual protocol followed by rapid intravenous saline flush injection continuous EKG monitoring was performed. The maximum heart rate attained was 120 bpm which was 81% of max impact at heart rate the maximum workload was 1 metabolic equivalent. Occasional premature ventricular complexes were noted. At rest and during peak infusion there were no ST or T wave changes noted to suggest abnormal flow reserve the peak blood pressure was 116/62 mmHg. Myocardial perfusion protocol. 14.9 mCi of technetium 99m sestamibi was injected at rest. 0.4 mg of regadenoson was infused per usual protocol. At peak infusion 44.5 mCi of technetium 99m sestamibi was injected stress images were obtained stress and rest images were reconstructed and compared in the short axis vertical long and horizontal long axis. Gated images were also obtained. Perfusion SPECT analysis: Review of the stress images demonstrate normal uptake of tracer noted in the septum anterior wall and lateral wall. There is mildly reduced perfusion noted involving the inferior wall. The resting images demonstrate a similar pattern with reduced perfusion involving the inferior wall. No significant change or improvement is noted to suggest ischemia. Gated SPECT analysis: The gated ejection fraction is 51%. Conclusion: Pharmacologic myocardial perfusion stress test with no obvious ischemia noted. Previous inferior infarct cannot be completely excluded.
== END | disposition home or self-care (01) ==
PROVIDERS: PCP Family Medicine; Referring Provider Internal Medicine Cardiovascular Disease; Visit Provider Internal Medicine Cardiovascular Disease
DX: R07.9 Chest pain, unspecified (principal); I25.10 Atherosclerotic heart disease of native coronary artery without angina pectoris; R55 Syncope and collapse; Z95.1 Presence of aortocoronary bypass graft
CPT/HCPCS: 78452; 93017; 93225; 93226; 93306; A9500; Q9957; A4216; C8929; J2785

== ENCOUNTER → 2021-09-10 | Outpatient (CLI) | payer MEDICARE, SELFPAY ==
[2021-09-10 12:36] LABS: Absolute Neutrophil Count 3.8 X10^3/uL (2.0-7.7); Basophil# 0.04 X10^3/uL; Basophil% 0.6 % (0-1); Eosinophils% 1.5 % (0-5); Hematocrit 36.5 % (40-54); Hemoglobin 11.9 g/dL (13.0-16.5); Lymphocyte % 31.7 % (19-41); Mean Corp Hgb Conc 32.6 g/dL (32-36); Mean Corpuscular Hgb 28.7 pg (27.0-32.0); Mean Corpuscular Volume 88.2 fL (80-94); Mean Platelet Vol. 10.3 fl (6.2-12.0); Monocyte# 0.56 X10^3/uL; Monocyte% 8.5 % (0-10); NRBC Flagged by Analyzer 0 % (0-5); Neutrophil % 57.4 % (47-70); Platelet Count 274 K/mm3 (150-450); RBC Distribution Width CV 14.4 % (11.6-14.6); RBC Distribution Width SD 45.7 fl (35.1-43.9); Red Blood Count 4.14 M/mm3 (4.6-6.2); White Blood Count 6.6 K/mm3 (4.4-11.0)
[2021-09-10 13:07] LABS: Anion Gap 5 (5-15); BUN 45 mg/dL (7-18); BUN/Creat Ratio 18.6 RATIO (10-20); Chloride 107 mmol/L (98-107); Creatinine, Serum 2.42 mg/dL (0.70-1.30); EST Glomerular Filtration Rate 28 mL/min (>60); Est Glom Filt Rate - Afr Amer 34 mL/min (>60); Glucose 196 mg/dL (74-106); Magnesium 2.3 mg/dL (1.6-2.6); Potassium 4.8 mmol/L (3.5-5.1); Sodium Level 137 mmol/L (136-145)
[2021-09-10 13:09] LABS: BNP,B-Type NATRIURETIC PEPTIDE 117.2 pg/mL (0-100)
== END | disposition home or self-care (01) ==
LOC: LAB 11:25
PROVIDERS: PCP Family Medicine; Referring Provider Nurse Practitioner Gerontology; Visit Provider Nurse Practitioner Gerontology
DX: R06.09 Other forms of dyspnea (principal)
CPT/HCPCS: 36415; 80048; 83735; 83880; 85025

== ENCOUNTER → 2022-01-12 | Outpatient (CLI) | payer MEDICARE, SELFPAY | END | disposition home or self-care (01) | LOC: LABSPEC 15:32 | PROVIDERS: PCP Family Medicine; Visit Provider Family Medicine | DX: R31.9 Hematuria, unspecified (principal) | CPT/HCPCS: 87086; 87088 ==

== ENCOUNTER 2022-01-26 11:33 | Emergency (ER) | payer MEDICARE, SELFPAY ==
[2022-01-26 11:34] VITALS: BP 115/84; PULSE 56; RESP 18; TEMP 36.6; O2SAT 100; BMI 36.3
[2022-01-26 13:05] LABS: Absolute Lymphocyte Count 1.96 X10^3/uL (0.83-4.51); Absolute Neutrophil Count 3.5 X10^3/uL (2.0-7.7); Basophil# 0.02 X10^3/uL; Basophil% 0.3 % (0-1); Eosinophil# 0.19 X10^3/uL; Eosinophils% 3.1 % (0-5); Hematocrit 39.7 % (40-54); Hemoglobin 13.1 g/dL (13.0-16.5); Lymphocyte # 1.96 X10^3/ul (0.83-4.51); Lymphocyte % 31.8 % (19-41); Mean Corpuscular Hgb 29.1 pg (27.0-32.0); Mean Corpuscular Volume 88.2 fL (80-94); Mean Platelet Vol. 9.4 fl (6.2-12.0); Monocyte# 0.45 X10^3/uL; Monocyte% 7.3 % (0-10); NRBC Flagged by Analyzer 0 % (0-5); Neutrophil # 3.52 X10^3/uL (2.7-7.7); Neutrophil % 57.2 % (47-70); Platelet Count 191 K/mm3 (150-450); RBC Distribution Width CV 12.8 % (11.6-14.6); RBC Distribution Width SD 41.5 fl (35.1-43.9); White Blood Count 6.2 K/mm3 (4.4-11.0)
--- NOTE | 2022-01-26 13:10 | EX.ED.DYSGE1 ---
HPI History of Present Illness Chief Complaint: Dizziness Detail of Chief Complaint: Lightheadedness Informant: patient Onset/Context/Timing Onset: Days Context: Sudden Onset Timing: Intermittent Quality: Lightheadedness with standing and walking Location: Not applicable Current Severity: Gone Maximum Severity: Moderate Worsened by: Standing Relieved by: Nothing per patient Associated Symptoms Associated Symptoms: Difficulty walking, generalized weakness and poor p.o. intake Narrative Narrative: Patient 71-year-old male with multiple medical problems who presents with dizziness, which he defines as lightheadedness. He has fallen 3 or 4 times in the past week. He is not a good informant. He denies head trauma. [place] headache. Denies double vision, blurred vision vision. He is not on an anticoagulant. He denies black or maroon-colored stool. Denies ringing in ears decreased hearing. [place] double vision, blurred vision loss of vision. He denies neck pain. Denies chest pain. He denies dyspnea [place] exertion. Denies orthopnea or PND. He denies swelling of his lower extremities. He denies urologic symptoms. Prior similar symptoms: No Recent Illness/Hospitalization: No PFSH PFS Medical History Atherosclerotic heart disease of [place] coronary artery without angina pectoris Cervical spinal stenosis CKD (chronic kidney disease) stage 3, GFR 30-59 ml/min Depression Diabetes Essential hypertension Gout History of left heart catheterization (11/16/17) Hyperlipidemia Left bundle branch block (LBBB) Left ventricular hypertrophy Obesity Obstructive sleep apnea Peripheral nerve dysfunction Sleep apnea TIA (transient ischemic attack) Ventricular non-compaction cardiomyopathy Vertigo Vestibular dysfunction Vitamin D deficiency Home Medications allopurinol 100 mg tablet 100 mg PO DAILY 10/22/18 [History Last Taken Unknown] aspirin 81 mg tablet,delayed release (Adult Low Dose Aspirin) 81 mg PO DAILY 10/22/18 [History Last Taken Unknown] atorvastatin 80 mg tablet 80 mg PO DAILY 10/22/18 [History Last Taken Unknown] cholecalciferol (vitamin D3) 25 mcg (1,000 unit) capsule 1,000 unit PO DAILY 10/22/18 [History Last Taken Unknown] clopidogrel 75 mg tablet (Plavix) 75 mg PO DAILY 10/22/18 [History Last Taken 10/29/18] duloxetine 30 mg capsule,delayed release 30 mg PO DAILY 10/22/18 [History Last Taken Unknown] gabapentin 300 mg capsule 300 mg PO TID 10/22/18 [History Last Taken Unknown] nitroglycerin 0.4 mg sublingual tablet (Nitrostat) 0.4 mg sublingual Q5-15M PRN chest pain 10/22/18 [History Last Taken Unknown] omeprazole 40 mg capsule,delayed release 20 mg PO DAILY 10/22/18 [History Last Taken 10/29/18] glipizide 5 mg tablet, extended release 24 hr 5 mg PO DAILY 12/31/20 [History Last Taken Unknown] sitagliptin phosphate 50 mg tablet (Januvia) 50 mg PO DAILY 12/31/20 [History Last Taken Unknown] amlodipine 5 mg tablet 5 mg PO DAILY 05/12/21 [History Last Taken Unknown] meclizine 25 mg tablet 25 mg PO BID-TID PRN 05/12/21 [History Last Taken Unknown] lisinopril 10 mg tablet 10 mg PO DAILY #90 tabs 12/06/21 [Rx Last Taken Unknown] Allergy/AdvReac Type Severity Reaction Status Date / Time No Known Allergies Allergy Verified 01/26/22 11:34 Family History Sister Diabetes Father Heart disease Hypertension Cancer melanoma Mother Heart disease Surgical History H/O coronary artery bypass surgery (09/19/00) History of arthroscopy of left knee History of coronary artery stent placement (07/15/16) Social History household members: none Smoking Status: Current every day smoker tobacco type: smokeless tobacco Smokeless tobacco user: chewing tobacco and other alcohol intake: never substance use type: does not use ROS ROS ED Constitutional Constitutional ED: Denies chills, fever(s), subjective, sweats or weight loss Eyes Eyes: Denies blurry vision, change in vision or diplopia ENT ENT ED: Denies ear pain, rhinorrhea or sore throat Cardiovascular Cardiovascular: Denies chest pain, orthopnea, palpitations or paroxysmal nocturnal dyspnea Respiratory/Chest Respiratory/Chest: Denies cough, dyspnea, dyspnea on exertion, orthopnea or paroxysmal nocturnal dyspnea Gastrointestinal Gastrointestinal: Denies abdominal pain, diarrhea, melena, nausea or vomiting Genitourinary Genitourinary ED: Denies dysuria, hematuria or urinary frequency Musculoskeletal Musculoskeletal: Denies arthralgias, back pain, myalgias or neck pain Integumentary Denies Abrasions or rash Neurologic Neurologic: Reports weakness; Denies paresthesias Endocrine Endocrinology: Denies cold intolerance or heat intolerance Hematologic/Lymphatic Hematologic/Lymphatic: Reports none EXAM Physical Exam Const Vital Signs: 01/26/22 11:34 01/26/22 14:27 Temperature 97.8 F Temperature Source Temporal Pulse Rate 56 L Pulse Rate [Lying] 55 L Pulse Rate [Standing (for 1 minute prior to obtaining)] 53 L Respiratory Rate 18 Blood Pressure 115/84 H Blood Pressure [Lying] 133/71 H Blood Pressure [Sitting (for 1 minute prior to obtaining)] 141/78 H Blood Pressure [Standing (for 1 minute prior to obtaining)] 141/110 H Blood Pressure Mean 94 Blood Pressure Mean [Lying] 91 Blood Pressure Mean [Sitting (for 1 minute prior to obtaining)] 99 Blood Pressure Mean [Standing (for 1 minute prior to obtaining)] 120 Pulse Ox 100 Oxygen Delivery Method Room Air Positive well nourished, well developed, obese and unkempt Constitutional Narrative: Patient respond slowly to questions. Voice is monotone. General Appearance ED: unkempt, well developed and NAD; Negative for cyanotic, diaphoretic or pallor Nutritional Appearance: obese HEENT Reports dry mucous membranes HEENT Narrative: Head is atraumatic no cephalic. No clinical signs of basal skull fracture. No septal deviation hematoma. No epistaxis. Uvula is midline. No erythema or exudate the posterior pharynx. No deviation of tongue with protrusion. Mouth ED: Yes dry mucous membranes Mouth: dry mucous membranes Eyes PERRL and EOMs intact bilaterally General Eye ED: Negative for pale conjunctiva or scleral icterus Neck no lymphadenopathy, supple and no JVD Neck Narrative: Trachea is midline. There is rotted bruit right or left. Chest Wall inspection of chest normal and palpation of chest normal Resp normal respiratory effort and clear to auscultation bilaterally Cardio regular rhythm, S1 normal heart sound, S2 normal heart sound and no murmurs Rate: bradycardia GI normal to inspection, nondistended, normoactive bowel sounds, non-tender, non-distended and no masses; Negative for hepatosplenomegaly Back/Spine no CVA tenderness Cervical Spine: Negative for cervical spine tenderness Thoracic Spine / Upper Back: Negative for thoracic spinal tenderness Lumbar Spine / Lower Back: Negative for lumbar spinal tenderness Extremity normal to inspection General Extremety ED: Negative for edema or tenderness General Extremity: Negative for edema Neuro oriented x3, CN's II-XII intact bilaterally and no sensory deficits noted Sensorium / Orientation: alert Motor Exam: strength 5/5 throughout Psych Appearance: unkempt Mood & Affect: depressed Skin no rashes or lesions noted, no wounds and No skin turgor normal General Skin Exam: Negative for jaundice or pallor MDM MDM MDM Narrative Medical decision making narrative: Monitor reveals slight irregularity of the rhythm. He is noted to have sinus bradycardia with a rate in the low 40s and occasional premature atrial complex. Will obtain twelve-lead EKG to determine rhythm and evaluate for ischemia. Orthostatic vital signs were ordered. CBC to evaluate for anemia since he has history of GI bleed. Electrolytes because of poor intake to assess renal function, electrolytes and CO2 anion gap. Lab Data Attestation: I reviewed the patient's lab results. Lab results narrative: Troponin is normal with symptoms greater than 8 hours. We will not obtain 2-hour troponin. Patient does have elevated BUN and creatinine 25 and 2.25 respectively. We will compare to prior. He is not anemic. Coags are. Review of prior laboratory results indicates patient's creatinine varies between 162 and 2.64. Labs: Laboratory Results - last 24 hr 01/26/22 01/26/22 01/26/22 12:50 12:50 12:50 WBC 6.2 RBC 4.50 L Hgb 13.1 Hct 39.7 L MCV 88.2 MCH 29.1 MCHC 33.0 RDW Std Deviation 41.5 RDW Coeff of Richard 12.8 Plt Count 191 MPV 9.4 Immature Gran % (Auto) 0.300 Neut % (Auto) 57.2 Lymph % (Auto) 31.8 [place] % (Auto) 7.3 Eos % (Auto) 3.1 Baso % (Auto) 0.3 Absolute Neuts (auto) 3.5 Absolute Lymphs (auto) 1.96 Nucleated RBC % 0 PT 13.7 INR 1.1 APTT 25.7 Sodium 139 Potassium 4.6 Chloride 109 H Carbon Dioxide 26.0 Anion Gap 4 L BUN 25 H Creatinine 2.25 H Estim Creat Clear Calc 33.05 Est GFR (MDRD) Af Amer 37 L Est GFR (MDRD) Non-Af 31 L BUN/Creatinine Ratio 11.1 Glucose 118 H Calcium 9.2 Troponin I High Sens 01/26/22 12:50 WBC RBC Hgb Hct MCV MCH MCHC RDW Std Deviation RDW Coeff of Richard Plt Count MPV Immature Gran % (Auto) Neut % (Auto) Lymph % (Auto) [place] % (Auto) Eos % (Auto) Baso % (Auto) Absolute Neuts (auto) Absolute Lymphs (auto) Nucleated RBC % PT INR APTT Sodium Potassium Chloride Carbon Dioxide Anion Gap BUN Creatinine Estim Creat Clear Calc Est GFR (MDRD) Af Amer Est GFR (MDRD) Non-Af BUN/Creatinine Ratio Glucose Calcium Troponin I High Sens 14 Radiography Diagnostic Testing: Clinical Impression(s) from Imaging Studies Chest X-Ray 01/26/22 13:20 IMPRESSION: Cardiomegaly. The lungs are clear. Electronically Signed: Judson Knox MD at 13:39 EST , EKG Initial EKG: Attestation: I personally reviewed and interpreted this EKG as follows: Interpretation: Sinus Bradycardia (Ventricular rate is 48. He has seen supraventricular complexes noted. GA interval is 198 ms. Cures duration 128 ms. There is evidence of a left anterior fascicular block. QT duration is 426 ms with a QTC of 380 ms. [place] is to the left.) Treatment and Re-Evaluation Narrative: Patient was able to ambulate. I did observe him walking down the hallway. His heart rate is now in the 50s. He will be discharged to home. He is not on a beta-evelina. Discharge Plan Triage Chief Complaint: Dizziness ED Provider: David Meehan Dx/Rx/DC Orders Clinical Impression: Bradycardia, sinus, Atherosclerotic heart disease of [place] coronary artery without angina pectoris, Essential hypertension, Hyperlipidemia, Light-headedness, Frequent falls Instructions: ED Bradycardia, ED Dizziness, Uncertain Cause Prescriptions: No Action allopurinol 100 mg tablet 100 mg PO DAILY atorvastatin 80 mg tablet 80 mg PO DAILY clopidogrel [Plavix] 75 mg tablet 75 mg PO DAILY duloxetine 30 mg capsule,delayed release(DR/EC) 30 mg PO DAILY gabapentin 300 mg capsule 300 mg PO TID nitroglycerin [Nitrostat] 0.4 mg tablet, sublingual 0.4 mg SUBLINGUAL Q5-15M PRN (Reason: chest pain) aspirin [Adult Low Dose Aspirin] 81 mg tablet,delayed release (DR/EC) 81 mg PO DAILY cholecalciferol (vitamin D3) 1,000 unit capsule 1,000 unit PO DAILY meclizine 25 mg tablet 25 mg PO BID-TID PRN amlodipine 5 mg tablet 5 mg PO DAILY omeprazole 40 mg capsule,delayed release(DR/EC) 20 mg PO DAILY glipizide 5 mg tablet extended release 24hr 5 mg PO DAILY Januvia 50 mg tablet 50 mg PO DAILY lisinopril 10 mg tablet 10 mg PO DAILY Qty: 90 3RF Primary Care Provider: Carson Dobbins Referrals: Carson Dobbins DO [Primary Care Provider] - 3-5 Days Disposition Disposition: Home, Self Care
[2022-01-26 13:12] LABS: International Normalized Ratio 1.1; Partial Thromboplast Time 25.7 Seconds (24.1-36.2); Prothrombin Time (Protime)PT. 13.7 SECONDS (11.7-14.9)
[2022-01-26 13:14] LABS: Anion Gap 4 (5-15); BUN 25 mg/dL (7-18); BUN/Creat Ratio 11.1 RATIO (10-20); Calcium,Total 9.2 mg/dL (8.5-10.1); Chloride 109 mmol/L (98-107); Creatinine, Serum 2.25 mg/dL (0.70-1.30); EST Glomerular Filtration Rate 31 mL/min (>60); Est Glom Filt Rate - Afr Amer 37 mL/min (>60); Estimated Creatinine Clearance 33.05 ml/min; Glucose 118 mg/dL (74-106); Potassium 4.6 mmol/L (3.5-5.1); Sodium Level 139 mmol/L (136-145)
--- NOTE | 2022-01-26 13:20 | RAD_ITS ---
STUDY: X-RAY CHEST REASON FOR EXAM: Male, 71 years old. Stroke TECHNIQUE: Single AP portable view of the chest. COMPARISON: Comparison is made with prior examination dated 06/28/2013. FINDINGS: EKG electrodes are seen. The lungs are clear and expanded. There is no demonstrated pleural abnormality. Sternal cerclage wires and vascular clips are present from a prior sternotomy and coronary artery bypass graft procedure (CABG). Cardiomegaly. Normal mediastinum and stefani. Normal visualized pulmonary arteries. There is atherosclerotic calcification of the aortic arch with tortuosity. Normal visualized thoracic spine. Normal visualized ribs, clavicles, and shoulders. There is no demonstrated abnormality of the visualized soft tissue structures of the upper abdomen. RAD/Chest 1 View (Portable) IMPRESSION: Cardiomegaly. The lungs are clear. Electronically Signed: Judson Knox MD at 13:39 EST ,
[2022-01-26 14:06] LABS: Troponin-I HS 14 pg/mL (3.0-78.0)
[2022-01-26 14:27] VITALS: BP 133/71; BP 141/110; BP 141/78; PULSE 53; PULSE 55
--- NOTE | 2022-01-26 15:18 | NURSING ---
Called number that the pt provided in hopes of reaching the pt's son ([phone]). No answer, no VM option. Called pt's daughter Mary listed on file with no answer. Message is that no VM has been set up. Pt waiting in waiting room for return of family member.
--- NOTE | 2022-01-26 15:39 | CM.ED ---
Social Work Consult: Transportation/Discharge planning Referral source: Nursing Nursing reports that patient has been discharged the ED but does not have a ride home. Nursing reports to have attempted to contact patient family with no answer and no voicemail options. This social service liaison met with patient in triage. Patient reports that patient son-in-law, Elie transported patient to the ED today and should be coming back to get me. This social service liaison inquired if patient knows Connor number. Patient provided with this social service liaison with [phone] and is agreeable to this social service liaison contacting Elie. Telephone call to Elie, this social service liaison introduced self and social service liaison role. This social service liaison updated Elie that patient has been discharged from the ED and is in the ED waiting room and waiting on a ride home. Elie reports to be able to come and pick patient up. Elie then inquired about process of getting patient in a home. Elie states that patient is getting harder and harder to take care of in the community. This social service liaison noting from chart review that medical team did have patient ambulate in the ED and patient was found to be able to discharge to the community. This social service liaison offered to provide Elie with community resources, list of nursing homes that are local to patient geographical region, Elie declined list and states to already have a shelter in mind. This social service liaison noting that patient does have medicare/medicaid and if patient meets level of care requirements that insurance would possibly pay for shelter placement. Elie thanked this social service liaison for the information. Elie reports to be comfortable with patient returning to the community. This social service liaison updated patient that Elie is going to come and pick patient up. Patient thanked this social service liaison. David HAYES, ASHLY
--- NOTE | 2022-01-26 17:48 | CM.ED ---
Social Work This social human services assistants noting that patient is still in waiting room. Telephone call to Elie, no answer. Voicemail left. David Altamirano MSW, NICK-S
--- NOTE | 2022-01-26 17:48 | CM.ED ---
Social Work This transition social worker noting that patient continues to be in ED waiting room. Telephone call to Elie Delgadillo reports to be on my way and to be in ED in 45min. This transition social worker updated nursing and patient. David HAYES, ASHLY
--- NOTE | 2022-01-26 19:35 | CM.ED ---
Social Work This social science teacher noting that patient is still in waiting room. Telephone call to Elie, no answer. Voicemail left. David Altamirano MSW, NICK-S
--- NOTE | 2022-01-26 19:52 | ED.RN ---
MULTIPLE CALLS MADE TO ROMARIO AT [phone] AND IAN [phone] WITH NO ANSWER.
== END 2022-01-26 15:23 | disposition home or self-care (01) ==
PROVIDERS: Emergency Provider Emergency Medicine; PCP Family Medicine; Visit Provider Emergency Medicine
DX: R00.1 Bradycardia, unspecified (principal); E11.22 Type 2 diabetes mellitus with diabetic chronic kidney disease; I25.10 Atherosclerotic heart disease of native coronary artery without angina pectoris; E78.5 Hyperlipidemia, unspecified; I12.9 Hypertensive chronic kidney disease with stage 1 through stage 4 chronic kidney disease, or unspecified chronic kidney disease; R42 Dizziness and giddiness; H53.8 Other visual disturbances; F17.220 Nicotine dependence, chewing tobacco, uncomplicated; Z86.73 Personal history of transient ischemic attack (TIA), and cerebral infarction without residual deficits
CPT/HCPCS: 71045; 80048; 84484; 85025; 85610; 85730; 93005; 99285

== ENCOUNTER 2022-06-11 17:38 | Observation (INO) | payer MEDICARE, MEDICAID, SELFPAY ==
[2022-06-11 17:39] VITALS: BP 122/42; PULSE 59; RESP 16; TEMP 36.9; O2SAT 97
--- NOTE | 2022-06-11 18:00 | EDS_ITS ---
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 stenosis CKD (chronic kidney disease) stage 3, GFR 30-59 ml/min Depression Diabetes Essential hypertension Gout History of left heart catheterization (11/16/17) Hyperlipidemia Left bundle branch block (LBBB) Left ventricular hypertrophy Obesity Obstructive sleep apnea Peripheral nerve dysfunction Sleep apnea TIA (transient ischemic attack) Ventricular non-compaction cardiomyopathy Vertigo Vestibular dysfunction Vitamin D deficiency Home Medications allopurinol 100 mg tablet 100 mg PO DAILY 10/22/18 [History Last Taken Unknown] aspirin 81 mg tablet,delayed release (Adult Low Dose Aspirin) 81 mg PO DAILY 10/22/18 [History Last Taken Unknown] atorvastatin 80 mg tablet 80 mg PO DAILY 10/22/18 [History Last Taken Unknown] cholecalciferol (vitamin D3) 25 mcg (1,000 unit) capsule 1,000 unit PO DAILY 10/22/18 [History Last Taken Unknown] clopidogrel 75 mg tablet (Plavix) 75 mg PO DAILY 10/22/18 [History Last Taken 10/29/18] duloxetine 30 mg capsule,delayed release 30 mg PO DAILY 10/22/18 [History Last Taken Unknown] gabapentin 300 mg capsule 300 mg PO TID 10/22/18 [History Last Taken Unknown] nitroglycerin 0.4 mg sublingual tablet (Nitrostat) 0.4 mg sublingual Q5-15M PRN chest pain 10/22/18 [History Last Taken Unknown] omeprazole 40 mg capsule,delayed release 20 mg PO DAILY 10/22/18 [History Last Taken 10/29/18] glipizide 5 mg tablet, extended release 24 hr 5 mg PO DAILY 12/31/20 [History Last Taken Unknown] sitagliptin phosphate 50 mg tablet (Januvia) 50 mg PO DAILY 12/31/20 [History Last Taken Unknown] amlodipine 5 mg tablet 5 mg PO DAILY 05/12/21 [History Last Taken Unknown] meclizine 25 mg tablet 25 mg PO BID-TID PRN Dizziness 05/12/21 [History Last Taken Unknown] lisinopril 10 mg tablet 10 mg PO DAILY #90 tabs 12/06/21 [Rx Last Taken Unknown] diazepam 2 mg tablet 2 mg PO TID NERVES 06/11/22 [History Last Taken Unknown] isosorbide mononitrate 20 mg tablet 20 mg PO BID . 06/11/22 [History Last Taken Unknown] metoprolol tartrate 50 mg tablet 50 mg PO BID HTN 06/11/22 [History Last Taken Unknown] tamsulosin 0.4 mg capsule 0.4 mg PO DAILY PROSTATE 06/11/22 [History Last Taken Unknown] Allergy/AdvReac Type Severity Reaction Status Date / Time No Known Allergies Allergy Verified 06/11/22 17:42 Family History Sister Diabetes Father Heart disease Hypertension Cancer melanoma Mother Heart disease Surgical History H/O coronary artery bypass surgery (09/19/00) History of arthroscopy of left knee History of coronary artery stent placement (07/15/16) Social History household members: none Smoking Status: Former smoker Smokeless tobacco user: chewing tobacco and other alcohol intake: never substance use type: does not use EXAM Physical Exam Const Vital Signs: 06/11/22 17:39 06/11/22 18:33 06/11/22 18:34 Temperature 98.5 F Temperature Source Temporal Pulse Rate 59 L Respiratory Rate 16 Respiratory Effort Normal Non-Labored Normal Blood Pressure 122/42 H Blood Pressure Mean 68 Pulse Ox 97 Oxygen Delivery Method Room Air [facility] Lab Data Attestation: I reviewed the patient's lab results. Labs: Laboratory Results - last 24 hr 06/11/22 06/11/22 18:19 18:19 WBC 6.4 RBC 4.38 L Hgb 12.3 L Hct 39.1 L MCV 89.3 MCH 28.1 MCHC 31.5 L RDW Std Deviation 44.3 H RDW Coeff of Richard 13.5 Plt Count 201 MPV 9.2 Immature Gran % (Auto) 0.300 Neut % (Auto) 63.6 Lymph % (Auto) 27.2 Cochran % (Auto) 5.8 Eos % (Auto) 2.8 Baso % (Auto) 0.3 Absolute Neuts (auto) 4.0 Absolute Lymphs (auto) 1.73 Nucleated RBC % 0 Sodium 138 Potassium 4.4 Chloride 110 H Carbon Dioxide 24.0 Anion Gap 4 L BUN 21 H Creatinine 1.98 H Estim Creat Clear Calc 36.99 Est GFR (MDRD) Af Amer 43 L Est GFR (MDRD) Non-Af 35 L BUN/Creatinine Ratio 10.6 Glucose 218 H Calcium 8.9 Troponin I High Sens 15 Radiography Chest X-Ray - ED: Read by ED Physician Diagnostic Testing: Clinical Impression(s) from Imaging Studies Brain CT 06/11/22 18:07 IMPRESSION: There are no acute findings. Chronic involutional changes of the brain. Electronically Signed: Javier Hernandez MD at 19:23 EDT , Cervical Spine CT 06/11/22 18:07 IMPRESSION: Degenerative changes of the cervical spine. There are no acute findings. Electronically Signed: Javier Hernandez MD at 19:22 EDT , Lumbar Spine CT 06/11/22 18:07 IMPRESSION: (NOT LISTED IN ORDER OF SIGNIFICANCE) Multilevel degenerative changes, as described above. Electronically Signed: Javier Hernandez MD at 19:26 EDT Reading Location ID and State: [id number] / [employer] , Service support , Chest X-Ray 06/11/22 19:00 IMPRESSION: There are no acute findings. Electronically Signed: Javier Hernandez MD at 19:34 EDT , Knee X-Ray 06/11/22 19:00 IMPRESSION: Degenerative arthrosis. Electronically Signed: Javier Hernandez MD at 19:33 EDT , Knee X-Ray 06/11/22 19:00 IMPRESSION: Effusion, as described above. Electronically Signed: Javier Hernandez MD at 19:32 EDT , EKG Initial EKG: Attestation: I personally reviewed and interpreted this EKG as follows: Comments: EKG shows normal sinus rhythm, left axis deviation, normal intervals, no obvious STEMI Treatment and Re-Evaluation Narrative: ED attending note: I evaluated the patient in conjunction with the DEREK. I agree with his/her statements and above findings. I have personally performed a face to face assessment of the patient and have reviewed the DEREK Note. I performed a substantive portion of the visit including all aspects of the following. I personally saw the patient performed chart review, physical exam, reviewed labs, imaging (if obtained), and formulated a treatment and management plan. Exam: Nursing triage notes reviewed, Vital signs reviewed Primary Survey Airway: Intact Breathing: Bilateral breath sounds Circulation: Palpable bilateral femorals, Palpable bilateral radial, Palpable bilateral DP and Palpable bilateral PT Disability / Spine precautions GCS Score: Eye Openin Verbal Response: 5 Motor Response: 6 Secondary Survey Constitutional: Please see MDM Head: Atraumatic, Midface stable, NO jaw malocclusion, No Cephalohematoma, and No Lacerations noted Eye: Pupils equal round and reactive to light, Extraocular muscles intact and No periorbital ecchymosis or stepoff, no evidence of entrapment ENT: Oropharynx clear, no lacerations, no hemotympanum, no raccoon eyes or bailey sign Cervical spine / Neck: No cervical spine bony tenderness, crepitance, or stepoff deformity Trachea midline Lungs: Clear to auscultation, No asymmetric rise and No crepitus, no flail chest Cardiac: Regular rate and rhythm and No murmurs Abdomen: Soft, Nontender and No rebound Pelvis: Pelvis stable to compression : No evidence of genital injury Back: No midline bony tenderness to thoracic/lumbar/sacral spines Neuro: At baseline, intact strength and sensation in bilateral upper and lower extremities. 2+ patellar reflexes bilaterally. Extremities: NO gross Deformities. TTP over the bilateral knees. Psych: Normal affect Nursing triage notes reviewed, Vital signs reviewed MDM/plan: Chief Complaint: Fall External records reviewed: X-ray of the lumbar spine from March 2022 shows degenerative changes I considered the following differential diagnosis: Traumatic injuries, arrhythmia, myocardial ischemia, anemia, dehydration, electrolyte abnormality, UTI, pneumonia We will perform a broad lab and imaging work-up to further elucidate etiology of patient complaints. Will treat evaluate any lab monitoring etiologies that are uncovered and will likely admit the patient given his failure to thrive, inability ambulate and frequent falls. Factors affecting care: History of CAD, hyperlipidemia, left bundle branch block, CKD Social determinants of health: Former smoker History obtained from others: The patient's family Shared decision making: I will have a discussion with the patient and or visitors regarding risk/benefits of further testing or admission. They will be made aware of of the risk/benefits inherent in this decision they will be given the opportunity to voice understanding. Consults: Internal medicine Discharge Plan Triage Chief Complaint: Fall ED Midlevel Provider: Camden Brandt ED Provider: Gigi Aguirre Dx/Rx/DC Orders Prescriptions: No Action allopurinol 100 mg tablet 100 mg PO DAILY atorvastatin 80 mg tablet 80 mg PO DAILY clopidogrel [Plavix] 75 mg tablet 75 mg PO DAILY duloxetine 30 mg capsule,delayed release(DR/EC) 30 mg PO DAILY gabapentin 300 mg capsule 300 mg PO TID nitroglycerin [Nitrostat] 0.4 mg tablet, sublingual 0.4 mg SUBLINGUAL Q5-15M PRN (Reason: chest pain) aspirin [Adult Low Dose Aspirin] 81 mg tablet,delayed release (DR/EC) 81 mg PO DAILY cholecalciferol (vitamin D3) 1,000 unit capsule 1,000 unit PO DAILY meclizine 25 mg tablet 25 mg PO BID-TID PRN (Reason: Dizziness) amlodipine 5 mg tablet 5 mg PO DAILY omeprazole 40 mg capsule,delayed release(DR/EC) 20 mg PO DAILY glipizide 5 mg tablet extended release 24hr 5 mg PO DAILY Januvia 50 mg tablet 50 mg PO DAILY isosorbide mononitrate 20 mg tablet 20 mg PO BID tamsulosin 0.4 mg capsule 0.4 mg PO DAILY diazepam 2 mg tablet 2 mg PO TID metoprolol tartrate 50 mg tablet 50 mg PO BID lisinopril 10 mg tablet 10 mg PO DAILY Qty: 90 3RF Primary Care Provider: Carson Dobbisn Referrals: Carson Dobbins DO [Primary Care Provider] -
--- NOTE | 2022-06-11 18:06 | EKG12_ITS ---
Test Reason : FALL Blood Pressure : / mmHG Vent. Rate : 051 BPM Atrial Rate : 051 BPM P-R Int : 184 ms QRS Dur : 118 ms QT Int : 440 ms P-R-T Axes : 111 -46 -54 degrees QTc Int : 405 ms Sinus bradycardia with occasional Premature ventricular complexes and Premature atrial complexes Pulmonary disease pattern Left anterior fascicular block Nonspecific T wave abnormality Abnormal ECG Confirmed by MASOOD LAWRENCE ([id number]), news video editor NELLA MOROCHO ([id number]) on 06/14/2022 7:03:11 AM Referred By: Gigi Aguirre Confirmed By:MASOOD LAWRENCE
--- NOTE | 2022-06-11 18:07 | CT_ITS ---
STUDY: CT LUMBAR SPINE WITHOUT CONTRAST REASON FOR EXAM: Male, 72 years old. trauma TECHNIQUE: The patient was scanned in a multi detector CT scanner. High resolution transaxial imaging was performed. Images were obtained from T12 to S1. Sagittal and coronal images were reconstructed. Individualized dose optimization techniques were used for this CT. COMPARISON: None FINDINGS: Normal lumbar lordosis. There is no substantial scoliosis. Normal vertebrae of the lumbar spine. There are calcifications of the abdominal aorta. This is consistent for atherosclerotic disease. There is NO abdominal aortic aneurysm. Vascular workup can be obtained based on clinical correlation. L1-2: There is bilateral facet arthropathy. Loss of intervertebral disc height. There is endplate spondylosis of the vertebral body. Unremarkable central canal. Unremarkable intervertebral neuroforamina. L2-3: There is bilateral facet arthropathy. Loss of intervertebral disc height. There is endplate spondylosis of the vertebral body. Unremarkable central canal. Unremarkable intervertebral neuroforamina. L3-4: There is bilateral facet arthropathy. Loss of intervertebral disc height. There is endplate spondylosis of the vertebral body. Unremarkable central canal. Unremarkable intervertebral neuroforamina. L4-5: There is bilateral facet arthropathy. Loss of intervertebral disc height. There is endplate spondylosis of the vertebral body. Unremarkable central canal. Unremarkable intervertebral neuroforamina. L5-S1: There is bilateral facet arthropathy. Loss of intervertebral disc height. There is endplate spondylosis of the vertebral body. Unremarkable central canal. Unremarkable intervertebral neuroforamina. Normal visualized paraspinous soft tissue structures. CT/Spine Lumbar without Contrast IMPRESSION: (NOT LISTED IN ORDER OF SIGNIFICANCE) Multilevel degenerative changes, as described above. Electronically Signed: Javier Hernandez MD at 19:26 EDT ,
--- NOTE | 2022-06-11 18:07 | CT_ITS ---
STUDY: CT BRAIN WITHOUT CONTRAST REASON FOR EXAM: Male, 72 years old. trauma Individualized dose optimization techniques were used for this CT. TECHNIQUE: Transaxial CT imaging of the brain was performed without administration of intravenous contrast material. COMPARISON: 12/31/2020 FINDINGS: There are calcifications around the carotid artery. These are noted in the cavernous carotid arteries. Normal calvarium. Normal soft tissues. There is mild cerebral atrophy with widening of the extra-axial spaces and ventricular dilatation. There are areas of decreased attenuation within the white matter tracts of the supratentorial brain, consistent with microvascular disease changes. Normal basal ganglia and thalami. Normal brainstem. There is mild cerebellar atrophy. There is no intracranial hemorrhage. There are no findings of an acute ischemic infarction. Normal visualized paranasal sinuses. ASPECTS Score for Acute Strokes: 12/06 CT/Brain/Head without Contrast IMPRESSION: There are no acute findings. Chronic involutional changes of the brain. Electronically Signed: Javier Hernandez MD at 19:23 EDT ,
--- NOTE | 2022-06-11 18:07 | CT_ITS ---
EXAM: CT SPINE - CERVICAL WITHOUT IV REASON FOR EXAM: Male, 72 years old. NECK PAIN trauma HISTORY: NECK PAIN trauma Individualized dose optimization techniques were used for this CT. TECHNIQUE: Multiplanar images were obtained of the cervical spine. IV contrast was not utilized. COMPARISON: None. FINDINGS: The vertebral bodies do maintain their height. The odontoid process is intact. No pre-vertebral soft tissue swelling is seen. The intravertebral disc height is lost. There are scattered lymph nodes in the neck. There are degenerative changes of the osseous structures. There is bilateral facet arthropathy. There are scattered levels of foraminal stenosis. There are vascular calcifications. CT/Spine Cervical without Contras IMPRESSION: Degenerative changes of the cervical spine. There are no acute findings. Electronically Signed: Javier Hernandez MD at 19:22 EDT ,
--- NOTE | 2022-06-11 18:14 | EDS_ITS ---
HPI <LEN Batista - Last Filed: 06/11/22 20:33> History of Present Illness Chief Complaint: Fall Narrative Narrative: Patient is a 72-year-old male with history of obesity, CAD, hypertension, CHF, history of chronic back pain with leg weakness who presents to the emergency department for difficulty ambulating, multiple falls, inability to care for himself at home. Patient presents to the emergency department with his son-in-law and daughter, per the family, the patient's been falling multiple times a day. Because of his size, the patient is difficult to get up, they are in difficulty getting to the bathroom. They state he can no longer be cared for at home. Patient did have a fall today injuring both knees. He also has instances where his legs go numb, this is been ongoing for 1 year. He is currently trying to see a spinal surgeon however he needs a full PT/OT work-up, as well as imaging and he is having difficulty getting these things completed secondary to insurance and other reasons. He denies any fever or chills. Patient states that he knows when he has have a bowel movement sometimes when he urinates he is not sure he is doing so. This has been going on for 1 year. [facility] <LEN Batista - Last Filed: 06/11/22 20:33> [facility] Medical History Atherosclerotic heart disease of [place] coronary artery without angina pectoris Cervical spinal stenosis CKD (chronic kidney disease) stage 3, GFR 30-59 ml/min Depression Diabetes Essential hypertension Gout History of left heart catheterization (11/16/17) Hyperlipidemia Left bundle branch block (LBBB) Left ventricular hypertrophy Obesity Obstructive sleep apnea Peripheral nerve dysfunction Sleep apnea TIA (transient ischemic attack) Ventricular non-compaction cardiomyopathy Vertigo Vestibular dysfunction Vitamin D deficiency Home Medications allopurinol 100 mg tablet 100 mg PO DAILY 10/22/18 [History Last Taken Unknown] aspirin 81 mg tablet,delayed release (Adult Low Dose Aspirin) 81 mg PO DAILY 10/22/18 [History Last Taken Unknown] atorvastatin 80 mg tablet 80 mg PO DAILY 10/22/18 [History Last Taken Unknown] cholecalciferol (vitamin D3) 25 mcg (1,000 unit) capsule 1,000 unit PO DAILY 10/22/18 [History Last Taken Unknown] clopidogrel 75 mg tablet (Plavix) 75 mg PO DAILY 10/22/18 [History Last Taken 10/29/18] duloxetine 30 mg capsule,delayed release 30 mg PO DAILY 10/22/18 [History Last Taken Unknown] gabapentin 300 mg capsule 300 mg PO TID 10/22/18 [History Last Taken Unknown] nitroglycerin 0.4 mg sublingual tablet (Nitrostat) 0.4 mg sublingual Q5-15M PRN chest pain 10/22/18 [History Last Taken Unknown] omeprazole 40 mg capsule,delayed release 20 mg PO DAILY 10/22/18 [History Last Taken 10/29/18] glipizide 5 mg tablet, extended release 24 hr 5 mg PO DAILY 12/31/20 [History Last Taken Unknown] sitagliptin phosphate 50 mg tablet (Januvia) 50 mg PO DAILY 12/31/20 [History Last Taken Unknown] amlodipine 5 mg tablet 5 mg PO DAILY 05/12/21 [History Last Taken Unknown] meclizine 25 mg tablet 25 mg PO BID-TID PRN Dizziness 05/12/21 [History Last Taken Unknown] lisinopril 10 mg tablet 10 mg PO DAILY #90 tabs 12/06/21 [Rx Last Taken Unknown] diazepam 2 mg tablet 2 mg PO TID NERVES 06/11/22 [History Last Taken Unknown] isosorbide mononitrate 20 mg tablet 20 mg PO BID . 06/11/22 [History Last Taken Unknown] metoprolol tartrate 50 mg tablet 50 mg PO BID HTN 06/11/22 [History Last Taken Unknown] tamsulosin 0.4 mg capsule 0.4 mg PO DAILY PROSTATE 06/11/22 [History Last Taken Unknown] Allergy/AdvReac Type Severity Reaction Status Date / Time No Known Allergies Allergy Verified 06/11/22 17:42 Family History Sister Diabetes Father Heart disease Hypertension Cancer melanoma Mother Heart disease Surgical History H/O coronary artery bypass surgery (09/19/00) History of arthroscopy of left knee History of coronary artery stent placement (07/15/16) Social History household members: none Smoking Status: Never smoker Smokeless tobacco user: chewing tobacco and other alcohol intake: never substance use type: does not use ROS <LEN Batista - Last Filed: 06/11/22 20:33> [facility] ED ROS Narrative Constitutional: Negative for fever, chills, weight loss, positive for generalized weakness Eyes: Negative for vision loss, vision change, double vision ENT: Negative for any sore throat, ear pain, congestion Cardiovascular: Negative for any chest pain, tightness, palpitations Respiratory: Negative for any cough, sputum production, hemoptysis, dyspnea, dyspnea on exertion, orthopnea Gastrointestinal: Negative for any abdominal pain, nausea, vomiting, diarrhea, constipation, blood in stool, blood in vomit : Negative for any urinary frequency, dysuria, retention, blood in urine Muscle skeletal: Negative for any muscle joint pain, stiffness, myalgias, arthralgias, neck pain. Positive for bilateral knee pain back pain, weakness to bilateral lower extremities Neurological: Negative for any headache, syncope, dizziness. Positive numbness tingling to his lower extremities Skin: Negative for any rashes, lumps, itching, abrasions, lacerations Psychiatric: Negative for any depression, anxiety, stress, suicidal ideation, homicidal ideation Hematologic: Negative for any easy bruising, excessive bruising, easy bleeding Allergies: Negative for any eczema, hives, rash <Dr. Gigi Aguirre DO - Last Filed: 06/12/22 00:03> [facility] ED ROS Narrative Constitutional: Negative for fever, chills, weight loss, positive for generalized weakness Eyes: Negative for vision loss, vision change, double vision ENT: Negative for any sore throat, ear pain, congestion Cardiovascular: Negative for any chest pain, tightness, palpitations Respiratory: Negative for any cough, sputum production, hemoptysis, dyspnea, dyspnea on exertion, orthopnea Gastrointestinal: Negative for any abdominal pain, nausea, vomiting, diarrhea, constipation, blood in stool, blood in vomit : Negative for any urinary frequency, dysuria, retention, blood in urine Muscle skeletal: Positive for bilateral knee pain back pain, weakness to bilateral lower extremities, back pain Neurological: Negative for any headache, syncope, dizziness. Positive numbness tingling to his lower extremities Skin: Negative for any rashes, lumps, itching, abrasions, lacerations Psychiatric: Negative for any depression, anxiety, stress, suicidal ideation, homicidal ideation Hematologic: Negative for any easy bruising, excessive bruising, easy bleeding Allergies: Negative for any eczema, hives, rash EXAM <LEN Batista - Last Filed: 06/11/22 20:33> Physical Exam Narrative Exam Narrative: Vital signs reviewed. HEET: Head normocephalic atraumatic, TMs clear bilaterally. Posterior pharynx is clear, dry mucous membranes. Nares clear bilaterally. Patient does have mouth tobacco present during exam Neck: Supple with no lymphadenopathy or tenderness. No signs of meningismus, negative jolt sign. Cardiac: Regular rate and rhythm no murmurs gallops or rubs, equal peripheral pulses bilaterally. Respiratory: Lungs clear to auscultation bilaterally. No chest tenderness. Abdomen: Soft, nontender, nondistended. No abdominal bruit or pulsatile masses. No hepatosplenomegaly Extremities: No peripheral edema, no signs of gross trauma or deformity. Patient has slight abrasions to bilateral knees. Patient has 3 out of 5 strength bilateral. I believe this is a chronic ongoing problem. Neuro: Cranial nerves II through XII intact, no focal neurological deficits. Other than generalized weakness, patient does not have foot drop. He has no numbness or tingling at this time however he does feel very weak and wobbly on his legs. He was unable to get up out of bed to walk. Skin: Clean dry and intact with no rash, purpura, petechiae, vesicles or pustules. Backs/flank: No CVA tenderness, no midline spinal tenderness, no deformity. Psych: Normal mood and affect. No SI, HI or acute psychosis. Const Vital Signs: 06/11/22 17:39 06/11/22 18:33 06/11/22 18:34 Temperature 98.5 F Temperature Source Temporal Pulse Rate 59 L Respiratory Rate 16 Respiratory Effort Normal Non-Labored Normal Blood Pressure 122/42 H Blood Pressure Mean 68 Pulse Ox 97 Oxygen Delivery Method Room Air Positive obese Nutritional Appearance: obese <Dr. Gigi Aguirre DO - Last Filed: 06/12/22 00:03> Physical Exam Const Vital Signs: 06/11/22 17:39 06/11/22 18:33 06/11/22 18:34 Temperature 98.5 F Temperature Source Temporal Pulse Rate 59 L Respiratory Rate 16 Respiratory Effort Normal Non-Labored Normal Blood Pressure 122/42 H Blood Pressure Mean 68 Pulse Ox 97 Oxygen Delivery Method Room Air MDM <LEN Batista - Last Filed: 06/11/22 20:33> [facility] Lab Data Labs: Laboratory Results - last 24 hr 06/11/22 06/11/22 06/11/22 18:19 18:19 19:50 WBC 6.4 RBC 4.38 L Hgb 12.3 L Hct 39.1 L MCV 89.3 MCH 28.1 MCHC 31.5 L RDW Std Deviation 44.3 H RDW Coeff of Richard 13.5 Plt Count 201 MPV 9.2 Immature Gran % (Auto) 0.300 Neut % (Auto) 63.6 Lymph % (Auto) 27.2 [place] % (Auto) 5.8 Eos % (Auto) 2.8 Baso % (Auto) 0.3 Absolute Neuts (auto) 4.0 Absolute Lymphs (auto) 1.73 Nucleated RBC % 0 Sodium 138 Potassium 4.4 Chloride 110 H Carbon Dioxide 24.0 Anion Gap 4 L BUN 21 H Creatinine 1.98 H Estim Creat Clear Calc 36.99 Est GFR (MDRD) Af Amer 43 L Est GFR (MDRD) Non-Af 35 L BUN/Creatinine Ratio 10.6 Glucose 218 H Calcium 8.9 Troponin I High Sens 15 Urine Color Yellow Urine Clarity Clear Urine pH 5.0 Ur Specific Merrill 1.025 Urine Protein 30 H Urine Glucose (UA) Normal Urine Ketones Negative Urine Occult Blood Negative Urine Nitrite Negative Urine Bilirubin 1 H Urine Urobilinogen 1 H Ur Leukocyte Esterase Negative Urine RBC 0 SEEN Urine WBC 0-5 SEEN Ur Squamous Epith Cells 0 SEEN Urine Bacteria 1+ Urine Mucus 0 SEEN Radiography Diagnostic Testing: Clinical Impression(s) from Imaging Studies Brain CT 06/11/22 18:07 IMPRESSION: There are no acute findings. Chronic involutional changes of the brain. Electronically Signed: Javier Hernandez MD at 19:23 EDT , Cervical Spine CT 06/11/22 18:07 IMPRESSION: Degenerative changes of the cervical spine. There are no acute findings. Electronically Signed: Javier Hernandez MD at 19:22 EDT , Lumbar Spine CT 06/11/22 18:07 IMPRESSION: (NOT LISTED IN ORDER OF SIGNIFICANCE) Multilevel degenerative changes, as described above. Electronically Signed: Javier eHrnandez MD at 19:26 EDT , Chest X-Ray 06/11/22 19:00 IMPRESSION: There are no acute findings. Electronically Signed: Javier Hernandez MD at 19:34 EDT , Knee X-Ray 06/11/22 19:00 IMPRESSION: Degenerative arthrosis. Electronically Signed: Javier Hernandez MD at 19:33 EDT , Knee X-Ray 06/11/22 19:00 IMPRESSION: Effusion, as described above. Electronically Signed: Javier Hernandez MD at 19:32 EDT , Treatment and Re-Evaluation :: Patient is alert and oriented, patient is in no respiratory distress. Patient presents to the emergency department for failure to thrive at home. Patient per the family's been having multiple falls, gets disorganized and confused, as well as has increased weakness to his lower extremities. This has been an ongoing issue. He is trying to get seen by a spinal surgeon however he is unable to do so. After talking with the patient, the patient's family, the patient makes it clear that he cannot return home because he cannot care for himself and his family cannot care for him. Patient received a full work-up. Patient's laboratory values showed a normal CBC, patient's chemistries showed elevation in his creatinine at 1.9 out however looking at the patient's laboratory values from December,, this is an improvement of his creatinine. Patient's blood glucose is 218. Patient did receive a chest x-ray which showed no acute findings. Patient's right knee showed a joint effusion no fracture. Patient's left knee showed arthritis, no fracture. Patient did receive a CT scan of the brain concerning for any in tracranial hemorrhage, cervical and lumbar spine CT secondary to recent falls. Patient CT of the cervical spine showed degenerative changes however no acute findings. Patient CT of the lumbar spine showed multilevel degenerative changes however no acute fracture noted. Patient's urinalysis was negative for any infection. After talking with the patient, the patient's family, the patient will still need to be admitted to the hospital. I do not believe that there is any metabolic encephalopathy, infection, fracture. Patient will be diagnosed with failure to thrive, inability to ambulate, frequent falls. I spoke with attending who will admit this patient. <Dr. Gigi Aguirre, DO - Last Filed: 06/12/22 00:03> [facility] Lab Data Labs: Laboratory Results - last 24 hr 06/11/22 06/11/22 06/11/22 18:19 18:19 19:50 WBC 6.4 RBC 4.38 L Hgb 12.3 L Hct 39.1 L MCV 89.3 MCH 28.1 MCHC 31.5 L RDW Std Deviation 44.3 H RDW Coeff of Richard 13.5 Plt Count 201 MPV 9.2 Immature Gran % (Auto) 0.300 Neut % (Auto) 63.6 Lymph % (Auto) 27.2 [place] % (Auto) 5.8 Eos % (Auto) 2.8 Baso % (Auto) 0.3 Absolute Neuts (auto) 4.0 Absolute Lymphs (auto) 1.73 Nucleated RBC % 0 Sodium 138 Potassium 4.4 Chloride 110 H Carbon Dioxide 24.0 Anion Gap 4 L BUN 21 H Creatinine 1.98 H Estim Creat Clear Calc 36.99 Est GFR (MDRD) Af Amer 43 L Est GFR (MDRD) Non-Af 35 L BUN/Creatinine Ratio 10.6 Glucose 218 H Calcium 8.9 Troponin I High Sens 15 Urine Color Yellow Urine Clarity Clear Urine pH 5.0 Ur Specific [place]ill 1.025 Urine Protein 30 H Urine Glucose (UA) Normal Urine Ketones Negative Urine Occult Blood Negative Urine Nitrite Negative Urine Bilirubin 1 H Urine Urobilinogen 1 H Ur Leukocyte Esterase Negative Urine RBC 0 SEEN Urine WBC 0-5 SEEN Ur Squamous Epith Cells 0 SEEN Urine Bacteria 1+ Urine Mucus 0 SEEN Radiography Chest X-Ray - ED: Read by ED Physician Diagnostic Testing: Clinical Impression(s) from Imaging Studies Brain CT 06/11/22 18:07 IMPRESSION: There are no acute findings. Chronic involutional changes of the brain. Electronically Signed: Javier Hernandez MD at 19:23 EDT , Cervical Spine CT 06/11/22 18:07 IMPRESSION: Degenerative changes of the cervical spine. There are no acute findings. Electronically Signed: Javier Hernandez MD at 19:22 EDT , Lumbar Spine CT 06/11/22 18:07 IMPRESSION: (NOT LISTED IN ORDER OF SIGNIFICANCE) Multilevel degenerative changes, as described above. Electronically Signed: Javier Hernandez MD at 19:26 EDT , Chest X-Ray 06/11/22 19:00 IMPRESSION: There are no acute findings. Electronically Signed: Javier Hernandez MD at 19:34 EDT , Knee X-Ray 06/11/22 19:00 IMPRESSION: Degenerative arthrosis. Electronically Signed: Javier Hernandez MD at 19:33 EDT , Knee X-Ray 06/11/22 19:00 IMPRESSION: Effusion, as described above. Electronically Signed: Javier Hernandez MD at 19:32 EDT , I have personally reviewed the patient's chest x-ray. Chest x-ray is unremarkable for pulmonary edema, pneumothorax, pneumonia or focal cardiopulmonary abnormality. EKG Initial EKG: Attestation: I personally reviewed and interpreted this EKG as follows: Interpretation: No Acute Injury Pattern Comments: EKG with sinus bradycardia, left axis deviation, no STEMI Treatment and Re-Evaluation :: Patient is alert and oriented, patient is in no respiratory distress. Patient presents to the emergency department for failure to thrive at home. Patient per the family's been having multiple falls, gets disorganized and confused, as well as has increased weakness to his lower extremities. This has been an ongoing issue. He is trying to get seen by a spinal surgeon however he is unable to do so. After talking with the patient, the patient's family, the patient makes it clear that he cannot return home because he cannot care for himself and his family cannot care for him. Patient received a full work-up. Patient's laboratory values showed a normal CBC, patient's chemistries showed elevation in his creatinine at 1.9 out however looking at the patient's laboratory values from December,, this is an improvement of his creatinine. Patient's blood glucose is 218. Patient did receive a chest x-ray which showed no acute findings. Patient's right knee showed a joint effusion no fracture. Patient's left knee showed arthritis, no fracture. Patient did receive a CT scan of the brain concerning for any intracranial hemorrhage, cervical and lumbar spine CT secondary to recent falls. Patient CT of the cervical spine showed degenerative changes however no acute findings. Patient CT of the lumbar spine showed multilevel degenerative changes however no acute fracture noted. Patient's urinalysis was negative for any infection. After talking with the patient, the patient's family, the patient will still need to be admitted to the hospital. I do not believe that there is any metabolic encephalopathy, infection, fracture. Patient will be diagnosed with failure to thrive, inability to ambulate, frequent falls. I spoke with attending who will admit this patient. ED attending note: I evaluated the patient in conjunction with the DEREK.? I agree with his/her statements and above findings. I have personally performed a face to face assessment of the patient and have reviewed the DEREK Note. I performed a substantive portion of the visit including all aspects of the following.? I personally saw the patient performed chart review, physical exam, reviewed labs, imaging (if obtained), and formulated a treatment and management plan. Exam: Nursing triage notes reviewed, Vital signs reviewed Primary Survey Airway: Intact Breathing: Bilateral breath sounds Circulation: Palpable bilateral femorals, Palpable bilateral radial, Palpable bi lateral DP and Palpable bilateral PT Disability / Spine precautions GCS Score:? Eye Openin Verbal Response:? 5 Motor Response:? 6 Secondary Survey Constitutional: Please see MDM Head: Atraumatic, Midface stable, NO jaw malocclusion, No Cephalohematoma,? and No Lacerations noted Eye: Pupils equal round and reactive to light, Extraocular muscles intact and No periorbital ecchymosis or stepoff, no evidence of entrapment ENT: Oropharynx clear, no lacerations,? no hemotympanum,? no raccoon eyes or bailey sign Cervical spine / Neck: No cervical spine bony tenderness, crepitance, or stepoff deformity Trachea midline Lungs: Clear to auscultation, No asymmetric rise and No crepitus, no flail chest Cardiac:? Regular rate and rhythm and No murmurs Abdomen:? Soft, Nontender and No rebound Pelvis: Pelvis stable to compression : No evidence of genital injury Back: No midline bony tenderness to thoracic/lumbar/sacral spines Neuro: At baseline, intact strength and sensation in bilateral upper and lower extremities.? 2+ patellar reflexes bilaterally. Extremities: NO gross Deformities. TTP over the bilateral knees. Psych: Normal affect Nursing triage notes reviewed, Vital signs reviewed MDM/plan: Chief Complaint: Fall External records reviewed: X-ray of the lumbar spine from March 2022 shows degenerative changes I considered the following differential diagnosis: Traumatic injuries, arrhythmia, myocardial ischemia, anemia, dehydration, electrolyte abnormality, UTI, pneumonia We will perform a broad lab and imaging work-up to further elucidate etiology of patient complaints.? Will treat evaluate any lab monitoring etiologies that are uncovered and will likely admit the patient given his failure to thrive, inability ambulate and frequent falls. Factors affecting care: History of CAD, hyperlipidemia, left bundle branch block, CKD Social determinants of health: Former smoker History obtained from others: The patient's family Shared decision making: I will have a discussion with the patient and or visitors regarding risk/benefits of further testing or admission. ? They will be made aware of of the risk/benefits inherent in this decision they will be given the opportunity to voice understanding. Consults: Internal medicine Discharge Plan Dx/Rx/DC Orders Clinical Impression: Adult failure to thrive, Inability to walk, Frequent falls, Chronic kidney disease Disposition Disposition: [facility] Care [facility] Discharge Date/Time: 06/11/22 21:35
[2022-06-11 18:26] LABS: Absolute Lymphocyte Count 1.73 X10^3/uL (0.83-4.51); Basophil# 0.02 X10^3/uL; Basophil% 0.3 % (0-1); Eosinophil# 0.18 X10^3/uL; Eosinophils% 2.8 % (0-5); Hematocrit 39.1 % (40-54); Hemoglobin 12.3 g/dL (13.0-16.5); Lymphocyte # 1.73 X10^3/ul (0.83-4.51); Lymphocyte % 27.2 % (19-41); Mean Corp Hgb Conc 31.5 g/dL (32-36); Mean Corpuscular Hgb 28.1 pg (27.0-32.0); Mean Corpuscular Volume 89.3 fL (80-94); Mean Platelet Vol. 9.2 fl (6.2-12.0); Monocyte# 0.37 X10^3/uL; Monocyte% 5.8 % (0-10); NRBC Flagged by Analyzer 0 % (0-5); Neutrophil # 4.03 X10^3/uL (2.7-7.7); Neutrophil % 63.6 % (47-70); Platelet Count 201 K/mm3 (150-450); RBC Distribution Width CV 13.5 % (11.6-14.6); RBC Distribution Width SD 44.3 fl (35.1-43.9); Red Blood Count 4.38 M/mm3 (4.6-6.2); White Blood Count 6.4 K/mm3 (4.4-11.0)
[2022-06-11 18:36] VITALS: BMI 39.6
[2022-06-11 18:56] LABS: Anion Gap 4 (5-15); BUN 21 mg/dL (7-18); BUN/Creat Ratio 10.6 RATIO (10-20); Calcium,Total 8.9 mg/dL (8.5-10.1); Chloride 110 mmol/L (98-107); Creatinine, Serum 1.98 mg/dL (0.70-1.30); EST Glomerular Filtration Rate 35 mL/min (>60); Est Glom Filt Rate - Afr Amer 43 mL/min (>60); Estimated Creatinine Clearance 36.99 ml/min; Glucose 218 mg/dL (74-106); Potassium 4.4 mmol/L (3.5-5.1); Sodium Level 138 mmol/L (136-145); Troponin-I HS 15 pg/mL (3.0-78.0)
--- NOTE | 2022-06-11 19:00 | RAD_ITS ---
STUDY: XR Knee Complete 4 Views or More 06/11/2022 7:31 PM REASON FOR EXAM: Male, 72 years old. FALL TECHNIQUE: XR Knee Complete 4 Views or More RIGHT COMPARISON: None FINDINGS: Normal visualized distal femur. Normal visualized proximal tibia and fibula. Normal proximal tibiofibular articulation. Normal medial femorotibial compartment. Normal lateral femorotibial compartment. Normal patellofemoral articulation. There is a soft tissue prominence in the suprapatellar region suggesting a small volume joint effusion. The soft tissue structures are unremarkable. RAD/Knee 4 or More Views IMPRESSION: Effusion, as described above. Electronically Signed: Javier Hernandez MD at 19:32 EDT ,
--- NOTE | 2022-06-11 19:00 | RAD_ITS ---
STUDY: XR Knee Complete 4 Views or More 06/11/2022 7:31 PM REASON FOR EXAM: Male, 72 years old. fall TECHNIQUE: XR Knee Complete 4 Views or More LEFT COMPARISON: [id number] FINDINGS: Normal visualized distal femur. Normal visualized proximal tibia and fibula. Normal proximal tibiofibular articulation. There is mild degenerative arthrosis of the medial femorotibial compartment. Normal lateral femorotibial compartment. There is mild degenerative arthrosis of the patellofemoral articulation. The soft tissue structures are unremarkable. RAD/Knee 4 or More Views IMPRESSION: Degenerative arthrosis. Electronically Signed: Javier Hernandez MD at 19:33 EDT ,
--- NOTE | 2022-06-11 19:00 | RAD_ITS ---
STUDY: XR Chest 1 View 06/11/2022 7:04 PM REASON FOR EXAM: Male, 72 years old. CHEST PAIN falls, r/o PNA COMPARISON: 01/26/2022 TECHNIQUE: XR Chest 1 View FINDINGS: There is no demonstrated pleural abnormality. There are multiple median sternotomy wires. Enlarged heart size. Normal mediastinum. Normal stefani. Prominent appearing increased interstitial lung markings. Normal visualized pulmonary arteries. There is atherosclerotic calcification of the aortic arch with tortuosity. There are diffuse degenerative changes of the visualized thoracic spine. There is degenerative osteoarthritis of the bilateral shoulders. There is no demonstrated abnormality of the visualized soft tissue structures of the upper abdomen. RAD/Chest 1 View (Portable) IMPRESSION: There are no acute findings. Electronically Signed: Javier Hernandez MD at 19:34 EDT ,
[2022-06-11 19:59] LABS: Mucous, Urine 0 SEEN /hpf (<or=2+); Red Blood Cells-Urine 0 SEEN /hpf (0-5); Squamous Epithelial Cells - UA 0 SEEN /hpf (0-5)
[2022-06-11 20:02] LABS: Color, Urine Yellow (Yellow); Glucose, Dipstick Normal (Normal); Ketone-Dipstick Negative (Negative); Leukocyte Esterase-Dipstick Negative /ul (Negative); Nitrite-Dipstick Negative (Negative); Occult Blood-Urine Negative /ul (Negative); Protein-Dipstick 30 mg/dl (Negative); Specific Gravity, Urine 1.025 (1.002-1.030); Urine Clarity Clear (Clear); Urine Urobilinogen 1 mg/dl (Normal)
--- NOTE | 2022-06-11 20:08 | PCM.HP.STD ---
[facility] - General General Date of Admission: 06/11/22 Date of Service: 06/11/22 Chief Complaint: Multiple falls HPI Narrative JOSE SANCHEZ, is a 72 M with a significant history of hypertension; obstructive sleep apnea; CABG; CAD status post stent; and CKD stage III who presents to the emergency department with multiple falls. On the day of presentation patient fell about 2 times and had abrasion on his bilateral knees. Also because of a fall patient hit his head. Patient has had other multiple falls in the same week of presentation and the week before presentation. Reportedly his bilateral legs go numb. He is trying to see Dr. Lawrence, spinal surgeon but he has had issues with insurance so is unable to get full therapy work-up; MRI and the ability to see Dr. Al, spinal surgeon. Patient lives with his daughter and son-in-law who is unable to take care of him at this time. Previously after stroke patient had rehabilitation at skilled nursing in [place] and is hoping to go to the same nursing place if possible. [facility] Medical History Atherosclerotic heart disease of [place] coronary artery without angina pectoris Cervical spinal stenosis CKD (chronic kidney disease) stage 3, GFR 30-59 ml/min Depression Diabetes Essential hypertension Gout History of left heart catheterization (11/16/17) Hyperlipidemia Left bundle branch block (LBBB) Left ventricular hypertrophy Obesity Obstructive sleep apnea Peripheral nerve dysfunction Sleep apnea TIA (transient ischemic attack) Ventricular non-compaction cardiomyopathy Vertigo Vestibular dysfunction Vitamin D deficiency Home Medications allopurinol 100 mg tablet 100 mg PO DAILY 10/22/18 [History Last Taken Unknown] aspirin 81 mg tablet,delayed release (Adult Low Dose Aspirin) 81 mg PO DAILY 10/22/18 [History Last Taken Unknown] atorvastatin 80 mg tablet 80 mg PO DAILY 10/22/18 [History Last Taken Unknown] cholecalciferol (vitamin D3) 25 mcg (1,000 unit) capsule 1,000 unit PO DAILY 10/22/18 [History Last Taken Unknown] clopidogrel 75 mg tablet (Plavix) 75 mg PO DAILY 10/22/18 [History Last Taken 10/29/18] duloxetine 30 mg capsule,delayed release 30 mg PO DAILY 10/22/18 [History Last Taken Unknown] gabapentin 300 mg capsule 300 mg PO TID 10/22/18 [History Last Taken Unknown] nitroglycerin 0.4 mg sublingual tablet (Nitrostat) 0.4 mg sublingual Q5-15M PRN chest pain 10/22/18 [History Last Taken Unknown] omeprazole 40 mg capsule,delayed release 20 mg PO DAILY 10/22/18 [History Last Taken 10/29/18] glipizide 5 mg tablet, extended release 24 hr 5 mg PO DAILY 12/31/20 [History Last Taken Unknown] sitagliptin phosphate 50 mg tablet (Januvia) 50 mg PO DAILY 12/31/20 [History Last Taken Unknown] amlodipine 5 mg tablet 5 mg PO DAILY 05/12/21 [History Last Taken Unknown] meclizine 25 mg tablet 25 mg PO BID-TID PRN Dizziness 05/12/21 [History Last Taken Unknown] lisinopril 10 mg tablet 10 mg PO DAILY #90 tabs 12/06/21 [Rx Last Taken Unknown] diazepam 2 mg tablet 2 mg PO TID NERVES 06/11/22 [History Last Taken Unknown] isosorbide mononitrate 20 mg tablet 20 mg PO BID . 06/11/22 [History Last Taken Unknown] metoprolol tartrate 50 mg tablet 50 mg PO BID HTN 06/11/22 [History Last Taken Unknown] tamsulosin 0.4 mg capsule 0.4 mg PO DAILY PROSTATE 06/11/22 [History Last Taken Unknown] Allergy/AdvReac Type Severity Reaction Status Date / Time No Known Allergies Allergy Verified 06/11/22 17:42 Family History Sister Diabetes Father Heart disease Hypertension Cancer melanoma Mother Heart disease Surgical History H/O coronary artery bypass surgery (09/19/00) History of arthroscopy of left knee History of coronary artery stent placement (07/15/16) Social History household members: none Smoking Status: Never smoker Smokeless tobacco user: chewing tobacco and other alcohol intake: never substance use type: does not use ROS ROS Narrative Pertinent positives and pertinent negatives as noted in HPI. All other systems were reviewed and are negative Vital Signs Vital Signs Vital Signs: 06/11/22 17:39 06/11/22 18:33 06/11/22 18:34 Temperature 98.5 F Temperature Source Temporal Pulse Rate 59 L Respiratory Rate 16 Respiratory Effort Normal Non-Labored Normal Blood Pressure 122/42 H Blood Pressure Mean 68 Pulse Ox 97 Oxygen Delivery Method Room Air Weight Weight: 136.35 kg Body Mass Index (BMI) 39.6 Physical Exam Narrative Physical exam: General: Well-nourished, well-developed. Head: Normocephalic, atraumatic, no tenderness Eyes: Vision is grossly intact. EOMI ENT, no trauma, moist mucous membranes, no rhinorrhea Neck: Nontender, No thyromegaly. CVS: Regular rate and rhythm. S1-S2 present. No murmur, gallop or rub. Respiratory : clear to auscultation bilaterally, chest wall nontender Abdomen: Soft, nontender, nondistended, normal bowel sounds, no masses : Deferred Back: Nontender, no CVA tenderness, no midline spinal tenderness, deformities, step-offs Extremities: Nontender full range of motion, no trauma Skin: Abrasions on bilateral knees. Normal color, no trauma. Neuro: Alert, oriented, cranial nerves II through XII grossly intact. Psychiatry: Normal mood. Normal affect. Not depressed. Not anxious. Results Lab / Micro Data Result Diagrams: 06/11/22 18:19 06/11/22 18:19 Labs: Laboratory Results - last 24 hr 06/11/22 18:19: WBC 6.4, RBC 4.38 L, Hgb 12.3 L, Hct 39.1 L, MCV 89.3, MCH 28.1, MCHC 31.5 L, RDW Std Deviation 44.3 H, RDW Coeff of Richard 13.5, Plt Count 201, MPV 9.2, Immature Gran % (Auto) 0.300, Neut % (Auto) 63.6, Lymph % (Auto) 27.2, [place] % (Auto) 5.8, Eos % (Auto) 2.8, Baso % (Auto) 0.3, Absolute Neuts (auto) 4.0, Absolute Lymphs (auto) 1.73, Nucleated RBC % 0 06/11/22 18:19: Sodium 138, Potassium 4.4, Chloride 110 H, Carbon Dioxide 24.0, Anion Gap 4 L, BUN 21 H, Creatinine 1.98 H, Estim Creat Clear Calc 36.99, Est GFR (MDRD) Af Amer 43 L, Est GFR (MDRD) Non-Af 35 L, BUN/Creatinine Ratio 10.6, Glucose 218 H, Calcium 8.9, Troponin I High Sens [address] 06/11/22 18:07 IMPRESSION: There are no acute findings. Chronic involutional changes of the brain. Electronically Signed: Javier Hernandez MD at 19:23 EDT , Cervical Spine CT 06/11/22 18:07 IMPRESSION: Degenerative changes of the cervical spine. There are no acute findings. Electronically Signed: Javier Hernandez MD at 19:22 EDT , Lumbar Spine CT 06/11/22 18:07 IMPRESSION: (NOT LISTED IN ORDER OF SIGNIFICANCE) Multilevel degenerative changes, as described above. Electronically Signed: Javier Hernandez MD at 19:26 EDT , Chest X-Ray 06/11/22 19:00 IMPRESSION: There are no acute findings. Electronically Signed: Javier Hernandez MD at 19:34 EDT , Knee X-Ray 06/11/22 19:00 IMPRESSION: Degenerative arthrosis. Electronically Signed: Javier Hernandez MD at 19:33 EDT , Knee X-Ray 06/11/22 19:00 IMPRESSION: Effusion, as described above. Electronically Signed: Javier Hernandez MD at 19:32 EDT , Assessment & Plan Assessment/Plan (1) Debility: (2) Inability to walk: (3) Frequent falls: (4) Adult failure to thrive: (5) Chronic kidney disease: (6) Tobacco abuse: PLAN: Plan Debility/inability to walk/frequent falls/adult failure to thrive Radiologist interpretation of right knee x-ray: Effusion. Knee x-ray was independently interpreted and I agree with radiologist interpretation. Left knee x-ray with degenerative arthrosis Chest x-ray with no acute abnormalities. Lumbar spine CT with degenerative changes. Cervical spine CT with degenerative changes without any acute findings. CT brain without contrast with no acute findings but with Chronic involutional changes of the brain. PT and OT to work with patient. Case management consult. Check vitamin D level. TSH ordered. CKD Stage IIIb Creatinine presentation was 1.98, within baseline. Stable Trend BMP. Abrasions to bilateral knee Apply bactroban CAD status post CABG and stent Stable Aspirin; Plavix and atorvastatin continued. Tobacco abuse Counselled Charges/Coding Visit Charges Inpatient E&M: 40092 Init Hosp L2
[2022-06-11 20:09] LABS: Urine Bilirubin Dipstick 1 mg/dL (Negative)
[2022-06-11 20:13] LABS: Bacteria 1+ /hpf (None Seen); White Blood Cells 0-5 SEEN /hpf (0-5)
[2022-06-11 21:00] VITALS: BP 159/74; PULSE 50; RESP 20; TEMP 36.9; O2SAT 95
[2022-06-11 21:50] VITALS: BMI 39.4
[2022-06-11 22:15] VITALS: BP 141/63; PULSE 50; RESP 16; TEMP 36.5; O2SAT 94
[2022-06-11 22:17] VITALS: BP 141/63; PULSE 50
[2022-06-11] MEDS: Isosorbide Mononitrate 20 MG Tablet PO (22:37)
[2022-06-11] MEDS: 0.9% Saline Lock 10 ML Syringe IV (22:37)
[2022-06-11] MEDS: diazePAM 2 MG Tablet PO (22:37)
[2022-06-11] MEDS: Gabapentin 300 MG Capsule PO (22:37)
[2022-06-11 22:40] LABS: Bedside Glucose 94 mg/dL (74-106)
[2022-06-12 05:11] LABS: Absolute Lymphocyte Count 1.95 X10^3/uL (0.83-4.51); Absolute Neutrophil Count 4.5 X10^3/uL (2.0-7.7); Basophil# 0.03 X10^3/uL; Basophil% 0.4 % (0-1); Eosinophil# 0.13 X10^3/uL; Eosinophils% 1.8 % (0-5); Hematocrit 35.9 % (40-54); Hemoglobin 11.7 g/dL (13.0-16.5); Lymphocyte # 1.95 X10^3/ul (0.83-4.51); Lymphocyte % 27.3 % (19-41); Mean Corp Hgb Conc 32.6 g/dL (32-36); Mean Corpuscular Hgb 28.7 pg (27.0-32.0); Mean Platelet Vol. 9.3 fl (6.2-12.0); Monocyte# 0.56 X10^3/uL; Monocyte% 7.8 % (0-10); NRBC Flagged by Analyzer 0 % (0-5); Neutrophil # 4.46 X10^3/uL (2.7-7.7); Neutrophil % 62.6 % (47-70); Platelet Count 196 K/mm3 (150-450); RBC Distribution Width CV 13.7 % (11.6-14.6); RBC Distribution Width SD 44.3 fl (35.1-43.9); Red Blood Count 4.08 M/mm3 (4.6-6.2); White Blood Count 7.1 K/mm3 (4.4-11.0)
[2022-06-12 05:43] LABS: Anion Gap 0 (5-15); BUN 21 mg/dL (7-18); Calcium,Total 8.6 mg/dL (8.5-10.1); Chloride 110 mmol/L (98-107); Creatinine, Serum 1.75 mg/dL (0.70-1.30); EST Glomerular Filtration Rate 41 mL/min (>60); Est Glom Filt Rate - Afr Amer 49 mL/min (>60); Estimated Creatinine Clearance 41.85 ml/min; Glucose 173 mg/dL (74-106); Potassium 4.4 mmol/L (3.5-5.1); Sodium Level 138 mmol/L (136-145); Thyroid Stim Hormone (TSH) 1.77 uIU/mL (0.358-3.74)
[2022-06-12 06:45] VITALS: BP 128/73; PULSE 50; RESP 18; TEMP 36.4; O2SAT 94
[2022-06-12] MEDS: diazePAM 2 MG Tablet PO ×2 (06:50→21:49)
[2022-06-12] MEDS: BACITRACIN/POLYMYXIN B 15 GM Tube 1 APPLIC TOPICAL ×3 (06:50→21:42)
[2022-06-12 07:30] LABS: Bedside Glucose 147 mg/dL (74-106)
[2022-06-12] MEDS: Cholecalciferol (VIT D3) 25 MCG TABLET (1,000 UNITS) PO (09:11)
[2022-06-12] MEDS: Isosorbide Mononitrate 20 MG Tablet PO ×2 (09:11→21:49)
[2022-06-12] MEDS: Tamsulosin HCl 0.4 MG Capsule PO (09:11)
[2022-06-12] MEDS: LINAGLIPTIN 5 MG TABLET PO (09:11)
[2022-06-12] MEDS: amLODIPine 5 MG Tablet PO (09:11)
[2022-06-12] MEDS: Clopidogrel Bisulfate 75 MG Tablet PO (09:11)
[2022-06-12] MEDS: Enoxaparin 40 MG/0.4 ML Syringe SC (09:11)
[2022-06-12] MEDS: Nystatin Powder 15gm Bottle 1 APPLIC TOPICAL ×2 (09:12→21:40)
[2022-06-12] MEDS: Allopurinol 100 MG Tablet PO (09:12)
[2022-06-12] MEDS: Menthol/Lanolin/Calamine/Znox 113 GM Tube 1 APPLIC TOPICAL ×2 (09:12→21:49)
[2022-06-12] MEDS: glipiZIDE XL 5 MG Tablet PO (09:12)
[2022-06-12] MEDS: Pantoprazole Sodium 20 MG Tablet PO (09:12)
[2022-06-12] MEDS: Aspirin E.C. 81 MG Tablet PO (09:12)
[2022-06-12] MEDS: DULoxetine Hcl 30 MG Capsule PO (09:12)
[2022-06-12] MEDS: Gabapentin 600 MG Tablet PO ×2 (09:18→16:21)
[2022-06-12 09:45] VITALS: BP 131/48; PULSE 52; RESP 18; TEMP 36.3; O2SAT 95
[2022-06-12] MEDS: Lisinopril 10 MG Tablet PO (09:47)
[2022-06-12] MEDS: Insulin Lispro 100 UNIT/ML INSULN.PEN SC (11:25)
--- NOTE | 2022-06-12 11:49 | PCM.PN.HOSP ---
Subjective Subjective Doing well, no issues overnight Objective Data Objective Data Vital Signs: Vital Signs Temp Pulse Resp BP Pulse Ox O2 Del Method 97.3 F L 52 L 18 131/48 H 95 Room Air 06/12/22 09:45 06/12/22 09:45 06/12/22 09:45 06/12/22 09:45 06/12/22 09:45 06/12/22 10:00 Oxygen Delivery Method Room Air Weight: 298 lb 8.094 oz Body Mass Index (BMI) 39.4 Intake & Output: Intake and Output for Last 24 Hours 06/11/22 06/12/22 06/13/22 03:59 03:59 03:59 Output Total 0 / 0 Balance 0 / 0 Lab / Micro Data Result Diagrams: 06/12/22 04:33 06/12/22 04:33 Labs: Laboratory Results - last 24 hr 06/11/22 18:19: WBC 6.4, RBC 4.38 L, Hgb 12.3 L, Hct 39.1 L, MCV 89.3, MCH 28.1, MCHC 31.5 L, RDW Std Deviation 44.3 H, RDW Coeff of Richard 13.5, Plt Count 201, MPV 9.2, Immature Gran % (Auto) 0.300, Neut % (Auto) 63.6, Lymph % (Auto) 27.2, [place] % (Auto) 5.8, Eos % (Auto) 2.8, Baso % (Auto) 0.3, Absolute Neuts (auto) 4.0, Absolute Lymphs (auto) 1.73, Nucleated RBC % 0 06/11/22 18:19: Sodium 138, Potassium 4.4, Chloride 110 H, Carbon Dioxide 24.0, Anion Gap 4 L, BUN 21 H, Creatinine 1.98 H, Estim Creat Clear Calc 36.99, Est GFR (MDRD) Af Amer 43 L, Est GFR (MDRD) Non-Af 35 L, BUN/Creatinine Ratio 10.6, Glucose 218 H, Calcium 8.9, Troponin I High Sens 15 06/11/22 19:50: Urine Color Yellow, Urine Clarity Clear, Urine pH 5.0, Ur Specific [place] 1.025, Urine Protein 30 H, Urine Glucose (UA) Normal, Urine Ketones Negative, Urine Occult Blood Negative, Urine Nitrite Negative, Urine Bilirubin 1 H, Urine Urobilinogen 1 H, Ur Leukocyte Esterase Negative, Urine RBC 0 SEEN, Urine WBC 0-5 SEEN, Ur Squamous Epith Cells 0 SEEN, Urine Bacteria 1+, Urine Mucus 0 SEEN 06/11/22 22:19: POC Glucose 94 06/12/22 04:33: WBC 7.1, RBC 4.08 L, Hgb 11.7 L, Hct 35.9 L, MCV 88.0, MCH 28.7, MCHC 32.6, RDW Std Deviation 44.3 H, RDW Coeff of Richard 13.7, Plt Count 196, MPV 9.3, Immature Gran % (Auto) 0.100, Neut % (Auto) 62.6, Lymph % (Auto) 27.3, [place] % (Auto) 7.8, Eos % (Auto) 1.8, Baso % (Auto) 0.4, Absolute Neuts (auto) 4.5, Absolute Lymphs (auto) 1.95, Nucleated RBC % 0 06/12/22 04:33: Sodium 138, Potassium 4.4, Chloride 110 H, Carbon Dioxide 28.0, Anion Gap 0 L, BUN 21 H, Creatinine 1.75 H, Estim Creat Clear Calc 41.85, Est GFR (MDRD) Af Amer 49 L, Est GFR (MDRD) Non-Af 41 L, BUN/Creatinine Ratio 12.0, Glucose 173 H, Calcium 8.6, TSH 1.77 06/12/22 06:53: POC Glucose 147 H Radiography Diagnostic Testing: Radiology Impression Brain CT 06/11/22 18:07 IMPRESSION: There are no acute findings. Chronic involutional changes of the brain. Electronically Signed: Javier Hernandez MD at 19:23 EDT , Cervical Spine CT 06/11/22 18:07 IMPRESSION: Degenerative changes of the cervical spine. There are no acute findings. Electronically Signed: Javier Hernandez MD at 19:22 EDT , Lumbar Spine CT 06/11/22 18:07 IMPRESSION: (NOT LISTED IN ORDER OF SIGNIFICANCE) Multilevel degenerative changes, as described above. Electronically Signed: Javier Hernandez MD at 19:26 EDT , Chest X-Ray 06/11/22 19:00 IMPRESSION: There are no acute findings. Electronically Signed: Javier Hernandez MD at 19:34 EDT , Knee X-Ray 06/11/22 19:00 IMPRESSION: Degenerative arthrosis. Electronically Signed: Javier Hernandez MD at 19:33 EDT , Knee X-Ray 06/11/22 19:00 IMPRESSION: Effusion, as described above. Electronically Signed: Javier Hernandez MD at 19:32 EDT , Physical Exam Narrative General: Alert, Oriented x3, Cooperative, No apparent distress HEENT: Atraumatic, PERRLA, EOMI, Normocephalic Oral: Moist Mucosa Neck: Supple, No JVD Lungs: Diminished, Normal air movement, No rhonchi, No wheeze, No rales Cardiovascular: Regular rate, Regular Rhythm, Normal S1, Normal S2, No murmurs Abdomen: Soft, Non Tender, Non-Distended, No Hepato-splenomegaly Extremities: Edema, Capillary Refill Less than 3 Seconds Skin: Mild abrasions on both knees Musculoskeletal: No Tenderness to Palpation of Joints or Extremities Neurological: Cranial nerves II-XII grossly intact, Motor Exam 5/5 strength throughout, Sensory exam intact to light touch and pain Psych/Mental Status: Normal Affect, Appropriate Assessment & Plan Assessment/Plan (1) Debility: (2) Inability to walk: (3) Frequent falls: (4) Adult failure to thrive: (5) Chronic kidney disease: (6) Tobacco abuse: PLAN: Plan 1. Debility and adult failure to thrive with an inability to complete ADLs ? She has been getting weaker with several falls recently ? X-rays do not indicate any fracture or head bleed ? PT/OT for evaluation ? We will consult case management for disposition ? Abrasions to his knees do not appear infected at this time 2. HTN/HLD/CAD status post CABG and stent ? Blood pressures are stable, will continue his home blood pressure medications ? Continue with statin ?continue with aspirin and Plavix 3. DM2 with neuropathy/CKD 3B ? Renal function is at baseline, will continue to monitor ? We will continue his home medications ? Sliding scale insulin with Accu-Cheks ? We will make adjustments as necessary 4. GERD ? Stable ? Continue with PPI 5. BPH ? Stable ? Continue with Flomax DVT: Lovenox Charges/Coding Visit Charges Inpatient E&M: 30309 Subs Hosp L2
[2022-06-12 12:00] LABS: Bedside Glucose 162 mg/dL (74-106)
[2022-06-12 14:40] VITALS: BP 148/61; PULSE 50; RESP 18; TEMP 36.6; O2SAT 94
[2022-06-12 16:45] LABS: Bedside Glucose 127 mg/dL (74-106)
[2022-06-12 17:19] VITALS: O2SAT 94
[2022-06-12 21:45] VITALS: BP 143/45; PULSE 57; RESP 20; TEMP 36.3; O2SAT 93
[2022-06-12] MEDS: Gabapentin 300 MG Capsule 900 MG PO (21:48)
[2022-06-12] MEDS: Atorvastatin Calcium 80 MG Tablet PO (21:49)
[2022-06-12 21:52] VITALS: BP 143/45; PULSE 57
[2022-06-12] MEDS: Metoprolol Tartrate 50 MG Tablet PO (21:52)
[2022-06-12] MEDS: 0.9% Saline Lock 10 ML Syringe IV (22:05)
[2022-06-12 22:20] LABS: Bedside Glucose 113 mg/dL (74-106)
[2022-06-13] VITALS (9 sets, daily range): BP systolic 104–150; BP diastolic 56–101; PULSE 53–66; RESP 16–20; TEMP 36.3–36.7; O2SAT 92–94
[2022-06-13 05:54] LABS: Absolute Lymphocyte Count 2.03 X10^3/uL (0.83-4.51); Absolute Neutrophil Count 3.5 X10^3/uL (2.0-7.7); Basophil# 0.03 X10^3/uL; Basophil% 0.5 % (0-1); Eosinophil# 0.14 X10^3/uL; Eosinophils% 2.3 % (0-5); Hematocrit 37.1 % (40-54); Hemoglobin 12.2 g/dL (13.0-16.5); Lymphocyte # 2.03 X10^3/ul (0.83-4.51); Lymphocyte % 32.7 % (19-41); Mean Corp Hgb Conc 32.9 g/dL (32-36); Mean Corpuscular Volume 88.1 fL (80-94); Monocyte# 0.44 X10^3/uL; Monocyte% 7.1 % (0-10); NRBC Flagged by Analyzer 0 % (0-5); Neutrophil # 3.54 X10^3/uL (2.7-7.7); Neutrophil % 57.1 % (47-70); Platelet Count 199 K/mm3 (150-450); RBC Distribution Width SD 44.4 fl (35.1-43.9); Red Blood Count 4.21 M/mm3 (4.6-6.2); White Blood Count 6.2 K/mm3 (4.4-11.0)
[2022-06-13] MEDS: diazePAM 2 MG Tablet PO ×2 (06:01→21:20)
[2022-06-13] MEDS: BACITRACIN/POLYMYXIN B 15 GM Tube 1 APPLIC TOPICAL ×3 (06:02→21:15)
[2022-06-13 06:25] LABS: Bedside Glucose 97 mg/dL (74-106)
[2022-06-13 07:48] LABS: Anion Gap 4 (5-15); BUN 24 mg/dL (7-18); BUN/Creat Ratio 13.3 RATIO (10-20); Calcium,Total 9.2 mg/dL (8.5-10.1); Chloride 107 mmol/L (98-107); EST Glomerular Filtration Rate 39 mL/min (>60); Est Glom Filt Rate - Afr Amer 48 mL/min (>60); Estimated Creatinine Clearance 40.69 ml/min; Glucose 109 mg/dL (74-106); Potassium 4.6 mmol/L (3.5-5.1); Sodium Level 139 mmol/L (136-145)
[2022-06-13] MEDS: Gabapentin 600 MG Tablet PO ×2 (08:19→17:40)
[2022-06-13] MEDS: Aspirin E.C. 81 MG Tablet PO (08:19)
[2022-06-13] MEDS: Allopurinol 100 MG Tablet PO (08:20)
[2022-06-13] MEDS: glipiZIDE XL 5 MG Tablet PO (08:21)
[2022-06-13 08:32] LABS: Vitamin D,25 Hydroxy 33.6 ng/mL
[2022-06-13] MEDS: Menthol/Lanolin/Calamine/Znox 113 GM Tube 1 APPLIC TOPICAL ×2 (09:29→21:20)
[2022-06-13] MEDS: Enoxaparin 40 MG/0.4 ML Syringe SC (09:30)
[2022-06-13] MEDS: Metoprolol Tartrate 50 MG Tablet PO (09:30)
[2022-06-13] MEDS: DULoxetine Hcl 30 MG Capsule PO (09:30)
[2022-06-13] MEDS: Cholecalciferol (VIT D3) 25 MCG TABLET (1,000 UNITS) PO (09:30)
[2022-06-13] MEDS: Tamsulosin HCl 0.4 MG Capsule PO (09:31)
[2022-06-13] MEDS: Pantoprazole Sodium 20 MG Tablet PO (09:31)
[2022-06-13] MEDS: LINAGLIPTIN 5 MG TABLET PO (09:31)
[2022-06-13] MEDS: amLODIPine 5 MG Tablet PO (09:31)
[2022-06-13] MEDS: Clopidogrel Bisulfate 75 MG Tablet PO (09:31)
[2022-06-13] MEDS: Lisinopril 10 MG Tablet PO (09:31)
[2022-06-13] MEDS: Nystatin Powder 15gm Bottle 1 APPLIC TOPICAL ×2 (09:32→21:16)
[2022-06-13] MEDS: Isosorbide Mononitrate 20 MG Tablet PO ×2 (10:53→21:18)
[2022-06-13 11:40] LABS: Bedside Glucose 245 mg/dL (74-106)
[2022-06-13] MEDS: Insulin Lispro 100 UNIT/ML INSULN.PEN SC (12:50)
--- NOTE | 2022-06-13 14:45 | PN_ITS ---
Subjective Subjective Patient seen and examined. He had no complaints. Review of systems otherwise negative. He is awaiting placement. Objective Data Objective Data Vital Signs: Vital Signs Temp Pulse Resp BP Pulse Ox O2 Del Method 98.0 F 56 L 20 H 123/56 H 92 Room Air 06/13/22 09:17 06/13/22 09:30 06/13/22 09:17 06/13/22 09:30 06/13/22 09:17 06/13/22 09:25 Oxygen Delivery Method Room Air Weight: 298 lb 8.094 oz Body Mass Index (BMI) 39.4 Intake & Output: Intake and Output for Last 24 Hours 06/11/22 06/12/22 06/13/22 23:59 23:59 23:59 Intake Total 450 / 450 Output Total 0 / 350 600 / 600 Balance 0 / -350 -150 / -150 Lab / Micro Data Result Diagrams: 06/13/22 05:38 06/13/22 07:08 Labs: Laboratory Results - last 24 hr 06/12/22 04:33: Vitamin D 25-Hydroxy 33.6 06/12/22 16:24: POC Glucose 127 H 06/12/22 21:39: POC Glucose 113 H 06/13/22 05:38: WBC 6.2, RBC 4.21 L, Hgb 12.2 L, Hct 37.1 L, MCV 88.1, MCH 29.0, MCHC 32.9, RDW Std Deviation 44.4 H, RDW Coeff of Richard 14.0, Plt Count 199, MPV 9.0, Immature Gran % (Auto) 0.300, Neut % (Auto) 57.1, Lymph % (Auto) 32.7, [place] % (Auto) 7.1, Eos % (Auto) 2.3, Baso % (Auto) 0.5, Absolute Neuts (auto) 3.5, Absolute Lymphs (auto) 2.03, Nucleated RBC % 0 06/13/22 05:38: Sodium Cancelled, Potassium Cancelled, Chloride Cancelled, Carbon Dioxide Cancelled, Anion Gap Cancelled, BUN Cancelled, Creatinine Cancelled, Estim Creat Clear Calc Cancelled, Est GFR (MDRD) Af Amer Cancelled, Est GFR (MDRD) Non-Af Cancelled, BUN/Creatinine Ratio Cancelled, Glucose Canc elled, Calcium Cancelled 06/13/22 05:48: POC Glucose 97 06/13/22 07:08: Sodium 139, Potassium 4.6, Chloride 107, Carbon Dioxide 28.0, Anion Gap 4 L, BUN 24 H, Creatinine 1.80 H, Estim Creat Clear Calc 40.69, Est GFR (MDRD) Af Amer 48 L, Est GFR (MDRD) Non-Af 39 L, BUN/Creatinine Ratio 13.3, Glucose 109 H, Calcium 9.2 06/13/22 11:19: POC Glucose 245 H Physical Exam Const alert, oriented x3 and no apparent distress Constitutional Narrative: Obese HEENT normocephalic, head/scalp atraumatic, EAC's normal and moist oral mucous mem branes Neck supple Lymph Lymphatic: no lymphadenopathy noted and no lymphedema noted Resp normal respiratory effort, normal air movement and clear to auscultation bilaterally Cardio regular rate, regular rhythm, S1 normal heart sound, S2 normal heart sound and no murmurs GI normal to inspection, nondistended, normoactive bowel sounds, soft to palpation and non-tender Extremity normal capillary refill, no clubbing, cyanosis or edema and no calf tenderness General Extremity: no tenderness to palpation of joints or extremities Skin General Skin Exam: no breakdown Neuro CN's II-XII intact bilaterally, no focal motor deficits, no sensory deficits noted and deep tendon reflexes 2+ bilaterally Motor Exam: strength 5/5 throughout Psych thought process normal, cooperative and affect normal Appearance: appropriate Assessment & Plan Assessment/Plan (1) Adult failure to thrive: (2) Debility: PLAN: Plan #Debility with failure to thrive due to mechanical falls * Has been getting weaker and falling at home. Imaging showed no evidence of fracture or brain bleed * PT OT on board. Fall precautions. * Case management on board to help with placement * #Hypertension: On amlodipine and lisinopril as well as metoprolol #Hyperlipidemia: On statin #CAD s/p CABG and stents: On aspirin and Plavix as well as statin #Type 2 diabetes mellitus with neuropathy and nephropathy * On Lantus. Insulin sliding scale. Accu-Cheks ACHS. * On linagliptin and glipizide #GERD: On PPI #BPH: On Flomax DVT prophylaxis: Lovenox Disposition: The placement. Charges/Coding Visit Charges Inpatient E&M: 70881 Subs Hosp L2
--- NOTE | 2022-06-13 14:56 | CASEMGMT ---
Addendum entered by Tri Patel 06/13/22 15:01: Spoke with therapy who is stating pt would like to go to [facility]. SW aware. Original Note: JC LI in to discuss HERNANDES form with patient. JC LI explained HERNANDES form, patient voiced understanding. Pt signed form and filed in chart. Pt provided with a copy of signed HERNANDES form. Discussed with patient dc planning. Pt states he needs therapy at dc and this is what I came in for. Pt states he has not been out of the bed yet today. Pt lives with dtr and is unable to care for self at home. Therapy in room at that time. JC LI to touch base after therapy session. Patient had no further questions or concerns at this time.
--- NOTE | 2022-06-13 15:59 | CASEMGMT ---
Social Work? SW in to meet with pt following update from therapy that pt will need placement at nursing facility. Pt sleeping. SW woke pt up and introduced self and role at the hospital. Pt agreeable to discussing discharge planning. A list of SNF providers including quality and resource use data consistent with the patient?s preferred geographic region, medical needs, and insurance network were provided from the [employer]. Pt reviewed list but fell asleep during conversation three separate times within a matter of minutes. SW unable to complete discharge planning with pt at this time. SW will check back in with pt tomorrow AM for SNF Choice. PLAN: SNF? [facility]?
[2022-06-13 16:35] LABS: Bedside Glucose 131 mg/dL (74-106)
[2022-06-13] MEDS: Atorvastatin Calcium 80 MG Tablet PO (21:18)
[2022-06-13] MEDS: Gabapentin 300 MG Capsule 900 MG PO (21:20)
[2022-06-13 22:05] LABS: Bedside Glucose 135 mg/dL (74-106)
[2022-06-14 02:12] VITALS: BP 153/67; PULSE 56; RESP 16; TEMP 36.9; O2SAT 95
[2022-06-14] MEDS: BACITRACIN/POLYMYXIN B 15 GM Tube 1 APPLIC TOPICAL (06:02)
[2022-06-14] MEDS: diazePAM 2 MG Tablet PO (06:14)
[2022-06-14 06:16] LABS: Absolute Lymphocyte Count 2.32 X10^3/uL (0.83-4.51); Absolute Neutrophil Count 3.3 X10^3/uL (2.0-7.7); Basophil# 0.03 X10^3/uL; Basophil% 0.5 % (0-1); Eosinophil# 0.12 X10^3/uL; Eosinophils% 1.9 % (0-5); Hematocrit 35.4 % (40-54); Hemoglobin 11.6 g/dL (13.0-16.5); Lymphocyte # 2.32 X10^3/ul (0.83-4.51); Lymphocyte % 37.3 % (19-41); Mean Corp Hgb Conc 32.8 g/dL (32-36); Mean Corpuscular Volume 88.5 fL (80-94); Mean Platelet Vol. 9.4 fl (6.2-12.0); Monocyte# 0.45 X10^3/uL; Monocyte% 7.2 % (0-10); NRBC Flagged by Analyzer 0 % (0-5); Neutrophil # 3.29 X10^3/uL (2.7-7.7); Neutrophil % 52.9 % (47-70); Platelet Count 192 K/mm3 (150-450); RBC Distribution Width SD 45.2 fl (35.1-43.9); White Blood Count 6.2 K/mm3 (4.4-11.0)
[2022-06-14 06:59] LABS: Anion Gap 3 (5-15); BUN 27 mg/dL (7-18); BUN/Creat Ratio 13.8 RATIO (10-20); Calcium,Total 9.1 mg/dL (8.5-10.1); Chloride 107 mmol/L (98-107); Creatinine, Serum 1.95 mg/dL (0.70-1.30); EST Glomerular Filtration Rate 36 mL/min (>60); Est Glom Filt Rate - Afr Amer 44 mL/min (>60); Estimated Creatinine Clearance 37.56 ml/min; Glucose 119 mg/dL (74-106); Potassium 4.4 mmol/L (3.5-5.1); Sodium Level 137 mmol/L (136-145)
[2022-06-14 07:10] LABS: Bedside Glucose 114 mg/dL (74-106)
[2022-06-14 07:52] VITALS: O2SAT 95
[2022-06-14 08:31] VITALS: BP 122/51; PULSE 55; RESP 18; TEMP 36.7; O2SAT 94
[2022-06-14] MEDS: Aspirin E.C. 81 MG Tablet PO (08:34)
[2022-06-14] MEDS: glipiZIDE XL 5 MG Tablet PO (08:34)
[2022-06-14] MEDS: Allopurinol 100 MG Tablet PO (08:34)
[2022-06-14] MEDS: Gabapentin 600 MG Tablet PO ×2 (08:37→18:25)
--- NOTE | 2022-06-14 09:14 | CASEMGMT ---
Addendum entered by Georgina Go 06/14/22 15:39: DANIA notified family, daughter, Mary, of discharge to [facility] today. DANIA completed PASRR form in [facility]. Set up wheelchair transportation through [facility] for 5:30 pm. DANIA faxed all discharge orders to [facility] via [employer] and notified of discharge time. DANIA notified pt nurse of transport time. SW made copies of discharge orders and placed on pt chart. Sent original orders in envelope with pt upon discharge.?? Disposition: [facility], skilled, convalescent, level of care? [facility] Addendum entered by Georgina Go 06/14/22 14:36: [facility] reached out and shared pt has been approved, precert is obtained. SW in to pt room to update that pt accepted and approved to transfer to [facility] today. Pt sleep again. Mumbled something that appeared to be understanding, then closed yes again. SW updated Charge nurse of need for Covid test. Addendum entered by Georgina Go 06/14/22 11:29: [facility] able to accept pt. Stated would start precert today and feels likely to get it back this day. DANIA encouraged [facility] to update when precert has been obtained and SW will work with MD to start the discharge process for pt. Original Note: Social work SW in to pt room to follow up on SNF choice. SW reintroduced self as pt does not remember meeting SW yesterday afternoon. SW explained role at hospital and how the discharge plan works. SW reviewed list of SNFs with pt. Pt shared unable to read and write. SW read list to pt and discussed options of location. DANIA explained medicare ratings to pt as well. Pt shared preference based on choices of the list would be [facility] as [facility] is in [facility], where pt lives. DANIA explained the referral process and pt voiced understanding. DANIA sent referral to [facility] via [employer]. PLAN: [facility], pending acceptance and precert [facility]
[2022-06-14] MEDS: LINAGLIPTIN 5 MG TABLET PO (09:34)
[2022-06-14] MEDS: Isosorbide Mononitrate 20 MG Tablet PO (09:34)
[2022-06-14] MEDS: Cholecalciferol (VIT D3) 25 MCG TABLET (1,000 UNITS) PO (09:34)
[2022-06-14] MEDS: Lisinopril 10 MG Tablet PO (09:34)
[2022-06-14] MEDS: Nystatin Powder 15gm Bottle 1 APPLIC TOPICAL (09:34)
[2022-06-14] MEDS: amLODIPine 5 MG Tablet PO (09:34)
[2022-06-14] MEDS: DULoxetine Hcl 30 MG Capsule PO (09:34)
[2022-06-14 09:35] VITALS: BP 122/51; PULSE 55
[2022-06-14] MEDS: Clopidogrel Bisulfate 75 MG Tablet PO (09:35)
[2022-06-14] MEDS: Metoprolol Tartrate 50 MG Tablet PO (09:35)
[2022-06-14] MEDS: Enoxaparin 40 MG/0.4 ML Syringe SC (09:35)
[2022-06-14] MEDS: Tamsulosin HCl 0.4 MG Capsule PO (09:36)
[2022-06-14] MEDS: Pantoprazole Sodium 20 MG Tablet PO (09:36)
[2022-06-14] MEDS: Menthol/Lanolin/Calamine/Znox 113 GM Tube 1 APPLIC TOPICAL (09:39)
--- NOTE | 2022-06-14 11:15 | PN_ITS ---
Subjective Subjective Patient seen and examined. HE had no active complaints and had an uneventful night. Review of systems is otherwise negative. HE is awaiting placement Objective Data Objective Data Vital Signs: Vital Signs Temp Pulse Resp BP Pulse Ox O2 Del Method 98.0 F 55 L 18 122/51 H 94 Room Air 06/14/22 08:31 06/14/22 09:35 06/14/22 08:31 06/14/22 09:35 06/14/22 08:31 06/14/22 08:39 Oxygen Delivery Method Room Air Weight: 298 lb 8.094 oz Body Mass Index (BMI) 39.4 Intake & Output: Intake and Output for Last 24 Hours 06/12/22 06/13/22 06/14/22 23:59 23:59 23:59 Intake Total 950 / 950 400 / 400 Output Total 0 / 350 950 / 950 450 / 450 Balance 0 / -350 0 / 0 -50 / -50 Lab / Micro Data Result Diagrams: 06/14/22 05:30 06/14/22 05:30 Labs: Laboratory Results - last 24 hr 06/13/22 11:19: POC Glucose 245 H 06/13/22 16:14: POC Glucose 131 H 06/13/22 21:22: POC Glucose 135 H 06/14/22 05:30: WBC 6.2, RBC 4.00 L, Hgb 11.6 L, Hct 35.4 L, MCV 88.5, MCH 29.0, MCHC 32.8, RDW Std Deviation 45.2 H, RDW Coeff of Richard 14.0, Plt Count 192, MPV 9.4, Immature Gran % (Auto) 0.200, Neut % (Auto) 52.9, Lymph % (Auto) 37.3, [place] % (Auto) 7.2, Eos % (Auto) 1.9, Baso % (Auto) 0.5, Absolute Neuts (auto) 3.3, Absolute Lymphs (auto) 2.32, Nucleated RBC % 0 06/14/22 05:30: Sodium 137, Potassium 4.4, Chloride 107, Carbon Dioxide 27.0, Anion Gap 3 L, BUN 27 H, Creatinine 1.95 H, Estim Creat Clear Calc 37.56, Est GFR (MDRD) Af Amer 44 L, Est GFR (MDRD) Non-Af 36 L, BUN/Creatinine Ratio 13.8, Glucose 119 H, Calcium 9.1 06/14/22 06:13: POC Glucose 114 H Physical Exam Const alert, oriented x3 and no apparent distress Constitutional Narrative: Obese General Appearance: cooperative and well developed HEENT normocephalic, head/scalp atraumatic, EAC's normal and moist oral mucous membranes Eyes PERRL and EOMs intact bilaterally Neck no lymphadenopathy and supple Lymph Lymphatic: no lymphadenopathy noted and no lymphedema noted Resp normal respiratory effort, normal air movement and clear to auscultation bilaterally Cardio regular rate, regular rhythm, S1 normal heart sound, S2 normal heart sound and no murmurs GI normal to inspection, nondistended, normoactive bowel sounds, soft to palpation and non-tender Extremity normal capillary refill, no clubbing, cyanosis or edema and no calf tenderness General Extremity: no tenderness to palpation of joints or extremities Skin General Skin Exam: no breakdown Neuro CN's II-XII intact bilaterally, no focal motor deficits, no sensory deficits noted and deep tendon reflexes 2+ bilaterally Motor Exam: strength 5/5 throughout Psych thought process normal, cooperative and affect normal Appearance: appropriate Assessment & Plan Assessment/Plan (1) Adult failure to thrive: (2) Debility: PLAN: Plan #Debility with failure to thrive due to mechanical falls * Has been getting weaker and falling at home. Imaging showed no evidence of f racture or brain bleed * PT OT on board. Fall precautions. * Case management on board to help with placement * #Hypertension: On amlodipine and lisinopril as well as metoprolol #Hyperlipidemia: On statin #CAD s/p CABG and stents: On aspirin and Plavix as well as statin #Type 2 diabetes mellitus with neuropathy and nephropathy * On Lantus. Insulin sliding scale. Accu-Cheks ACHS. * On linagliptin and glipizide #GERD: On PPI #BPH: On Flomax DVT prophylaxis: Lovenox Disposition: awaiting placement Charges/Coding Visit Charges Inpatient E&M: 96032 Subs Hosp L2
[2022-06-14 13:39] VITALS: BP 122/67; PULSE 52; RESP 18; TEMP 36.9; O2SAT 92
--- NOTE | 2022-06-14 14:48 | DS.PCM_ITS ---
Providers Date of Admission: 06/11/22 Date of Discharge: 06/14/22 Primary Care Physician: Dr. Carson Dobbins DO Reason For Visit: DEBILITY, ADULT FAILURE TO THRIVE Diagnosis Discharge Diagnosis (1) Adult failure to thrive: Status: Acute Code(s): R62.7 - Adult failure to thrive (2) Debility: Status: Acute Code(s): R53.81 - Other malaise Plan #Debility with failure to thrive due to mechanical falls * Has been getting weaker and falling at home. Imaging showed no evidence of fracture or brain bleed * PT OT on board. Fall precautions. * Case management on board to help with placement * #Hypertension: On amlodipine and lisinopril as well as metoprolol #Hyperlipidemia: On statin #CAD s/p CABG and stents: On aspirin and Plavix as well as statin #Type 2 diabetes mellitus with neuropathy and nephropathy * On Lantus. Insulin sliding scale. Accu-Cheks ACHS. * On linagliptin and glipizide #GERD: On PPI #BPH: On Flomax DVT prophylaxis: Lovenox Disposition: awaiting placement Medications at Discharge Home Medications allopurinol 100 mg tablet 100 mg PO DAILY 10/22/18 aspirin 81 mg tablet,delayed release (Adult Low Dose Aspirin) 81 mg PO DAILY 10/22/18 atorvastatin 80 mg tablet 80 mg PO DAILY 10/22/18 cholecalciferol (vitamin D3) 25 mcg (1,000 unit) capsule 1,000 unit PO DAILY 10/22/18 clopidogrel 75 mg tablet (Plavix) 75 mg PO DAILY 10/22/18 duloxetine 30 mg capsule,delayed release 30 mg PO DAILY 10/22/18 gabapentin 300 mg capsule 600 mg PO 2XD 10/22/18 nitroglycerin 0.4 mg sublingual tablet (Nitrostat) 0.4 mg sublingual Q5-15M PRN chest pain 10/22/18 omeprazole 40 mg capsule,delayed release 20 mg PO DAILY 10/22/18 glipizide 5 mg tablet, extended release 24 hr 5 mg PO DAILY 12/31/20 sitagliptin phosphate 50 mg tablet (Januvia) 50 mg PO DAILY 12/31/20 amlodipine 5 mg tablet 5 mg PO DAILY 05/12/21 meclizine 25 mg tablet 25 mg PO BID-TID PRN Dizziness 05/12/21 lisinopril 10 mg tablet 10 mg PO DAILY #90 tabs 12/06/21 diazepam 2 mg tablet 2 mg PO TID NERVES 06/11/22 isosorbide mononitrate 20 mg tablet 20 mg PO BID . 06/11/22 metoprolol tartrate 50 mg tablet 50 mg PO BID HTN 06/11/22 tamsulosin 0.4 mg capsule 0.4 mg PO DAILY PROSTATE 06/11/22 gabapentin 300 mg tablet 900 mg PO QHS 06/12/22 Hospital Course Operations None Procedures None Summary of Care Provided Minutes Spent on Discharge: 50 Hospital Course: Patient is a 72-year-old male with a past medical history as outlined who was admitted through the ED on 06/11/2022 with a complaint of frequent falls. He had fallen twice on the day of admission and had also had a fall where he hit his head. He had had several falls in the preceding 2 weeks prior to admission. He said he feels his lower legs went numb and he will fall he had been trying to get in with spine surgery for evaluation. Family could not care for him so he was brought to the ED. CT of the brain showed no acute intracranial pathology and cervical and lumbar spine CT showed multi degenerative changes. He was and had an managed for debility and failure to thrive. PT OT was consulted. He had some superficial abrasions on his knees bilaterally and Bactroban was applied. PT OT evaluated him and he was deemed as needing skilled therapy. He was discharged to alf facility on 06/14/2022. Patient was seen and examined prior to discharge. He had no complaints. He had had an uneventful night and review of symptoms otherwise negative. Labs and vitals reviewed. Home medication reviewed and reconciled. Physical Exam Const alert, oriented x3 and no apparent distress Constitutional Narrative: Obese General Appearance: cooperative, comfortable and well developed HEENT normocephalic, head/scalp atraumatic, hearing grossly normal bilaterally and moist oral mucous membranes Mouth: oral and palatal mucosa normal Eyes PERRL and EOMs intact bilaterally Neck no lymphadenopathy and supple Lymph Lymphatic: no lymphadenopathy noted and no lymphedema noted Resp normal respiratory effort, normal air movement, no use of accessory muscles and clear to auscultation bilaterally Cardio regular rate, regular rhythm, S1 normal heart sound, S2 normal heart sound and no murmurs GI normal to inspection, nondistended, normoactive bowel sounds, soft to palpation and non-tender Extremity normal capillary refill, no clubbing, cyanosis or edema and no calf tenderness General Extremity: no tenderness to palpation of joints or extremities Skin no rashes or lesions noted General Skin Exam: no breakdown Neuro oriented x3, CN's II-XII intact bilaterally, moves all extremities, no focal motor deficits, no sensory deficits noted and deep tendon reflexes 2+ bilaterally Sensorium / Orientation: awake and alert Motor Exam: strength 5/5 throughout Psych thought process normal, cooperative and affect normal Appearance: appropriate Weight / BMI Weight Weight: 298 lb 8.094 oz Body Mass Index (BMI) 39.4 ABG / Lab / Microbiology Data Result Diagrams: 06/14/22 05:30 06/14/22 05:30 Laboratory: Laboratory Results - last 24 hr 06/13/22 16:14: POC Glucose 131 H 06/13/22 21:22: POC Glucose 135 H 06/14/22 05:30: WBC 6.2, RBC 4.00 L, Hgb 11.6 L, Hct 35.4 L, MCV 88.5, MCH 29.0, MCHC 32.8, RDW Std Deviation 45.2 H, RDW Coeff of Richard 14.0, Plt Count 192, MPV 9.4, Immature Gran % (Auto) 0.200, Neut % (Auto) 52.9, Lymph % (Auto) 37.3, Isabella % (Auto) 7.2, Eos % (Auto) 1.9, Baso % (Auto) 0.5, Absolute Neuts (auto) 3.3, Absolute Lymphs (auto) 2.32, Nucleated RBC % 0 06/14/22 05:30: Sodium 137, Potassium 4.4, Chloride 107, Carbon Dioxide 27.0, Anion Gap 3 L, BUN 27 H, Creatinine 1.95 H, Estim Creat Clear Calc 37.56, Est GFR (MDRD) Af Amer 44 L, Est GFR (MDRD) Non-Af 36 L, BUN/Creatinine Ratio 13.8, Glucose 119 H, Calcium 9.1 06/14/22 06:13: POC Glucose 114 H D/C Instructions Discharge Diet: Low fat / Low cholesterol Discharge Activity: Return to Normal Activity Weight Bearing Status: Weight bearing as tolerated Call your doctor if you observe: Fever of 101 or Higher, Shortness of breath, Swelling in the ankles and Increased palpitations (irregular heartbeat) Meaningful Use Info Meaningful Use Diagnoses (Choose all that apply): None applicable Discharge Plan Admission Admit Date/Time: 06/11/22 20:11 Primary Reason for Your Visit: debility and failure to thrive Attending Provider: Kristin Ramos Primary Care Provider: Carson Dobbins Consulting Providers: Tay Cline ; Kirit Dior Discharge Orders/Prescriptions Prescriptions: Continued allopurinol 100 mg tablet 100 mg PO DAILY atorvastatin 80 mg tablet 80 mg PO DAILY clopidogrel [Plavix] 75 mg tablet 75 mg PO DAILY duloxetine 30 mg capsule,delayed release(DR/EC) 30 mg PO DAILY gabapentin 300 mg capsule 600 mg PO 2XD nitroglycerin [Nitrostat] 0.4 mg tablet, sublingual 0.4 mg SUBLINGUAL Q5-15M PRN (Reason: chest pain) aspirin [Adult Low Dose Aspirin] 81 mg tablet,delayed release (DR/EC) 81 mg PO DAILY cholecalciferol (vitamin D3) 1,000 unit capsule 1,000 unit PO DAILY meclizine 25 mg tablet 25 mg PO BID-TID PRN (Reason: Dizziness) amlodipine 5 mg tablet 5 mg PO DAILY omeprazole 40 mg capsule,delayed release(DR/EC) 20 mg PO DAILY glipizide 5 mg tablet extended release 24hr 5 mg PO DAILY Januvia 50 mg tablet 50 mg PO DAILY isosorbide mononitrate 20 mg tablet 20 mg PO BID tamsulosin 0.4 mg capsule 0.4 mg PO DAILY diazepam 2 mg tablet 2 mg PO TID metoprolol tartrate 50 mg tablet 50 mg PO BID gabapentin 300 mg Tablet 900 mg PO QHS lisinopril 10 mg tablet 10 mg PO DAILY Qty: 90 3RF Referrals / Follow Up: Carson Dobbins DO [Primary Care Provider] - Within 2 Weeks Disposition Disposition (needs filled in before D/C Order can be placed): [facility] Charges/Coding Visit Charges Inpatient E&M: 34450 Disch Hosp >30min
--- NOTE | 2022-06-14 14:58 | PCM.TXEXTCAR ---
Diet Diet Order/Speech Therapy: 06/11/22 21:56 Diet: Cardiac - Heart Healthy Food consistency:: Regular Liquid Consistency:: Regular/Thin Diet: Consistent Carb - Calorie Controlled Food consistency:: Regular Liquid Consistency:: Regular/Thin How many daily calories?: 1800 calorie Routine Orders/Code Status Enema Type: Fleetz Enema Frequency: Daily PRN Suppository Type: Dulcolax 10mg Suppository Frequency: Daily PRN O2 Frequency: PRN Keep PO Greater than or Equal to (%): 90 Wound(s) bilateral knees: Wound Type: Abrasion Therapies Weight Bearing: Weight bearing as tolerated Physical Therapy: Eval and Treat Occupational Therapy: Eval and Treat Problem/Diagnosis (1) Adult failure to thrive: Status: Acute Code(s): R62.7 - Adult failure to thrive (2) Debility: Status: Acute Code(s): R53.81 - Other malaise Plan #Debility with failure to thrive due to mechanical falls Has been getting weaker and falling at home. Imaging showed no evidence of fracture or brain bleed PT OT on board. Fall precautions. Case management on board to help with placement #Hypertension: On amlodipine and lisinopril as well as metoprolol #Hyperlipidemia: On statin #CAD s/p CABG and stents: On aspirin and Plavix as well as statin #Type 2 diabetes mellitus with neuropathy and nephropathy On Lantus. Insulin sliding scale. Accu-Cheks ACHS. On linagliptin and glipizide #GERD: On PPI #BPH: On Flomax DVT prophylaxis: Lovenox Disposition: awaiting placement Allergies/Procedures Done in Hospital Allergies No Known Allergies Allergy (Verified 06/11/22 17:42) Procedures: None Type of Care/Length of Stay Estimated LOS: Convalescent Care Less Than 30 days Type of Care Needed: Skilled Rehab Potential: Fair Prognosis: Fair Additional Orders/Day of Discharge Day of Discharge: 06/14/22 Discharge Plan Admission Admit Date/Time: 06/11/22 20:11 Primary Reason for Your Visit: debility and failure to thrive Attending Provider: Kristin Ramos Primary Care Provider: Carson Dobbins Consulting Providers: Tay Cline ; Kirit Dior Discharge Orders/Prescriptions Prescriptions: Continued allopurinol 100 mg tablet 100 mg PO DAILY atorvastatin 80 mg tablet 80 mg PO DAILY clopidogrel [Plavix] 75 mg tablet 75 mg PO DAILY duloxetine 30 mg capsule,delayed release(DR/EC) 30 mg PO DAILY gabapentin 300 mg capsule 600 mg PO 2XD nitroglycerin [Nitrostat] 0.4 mg tablet, sublingual 0.4 mg SUBLINGUAL Q5-15M PRN (Reason: chest pain) aspirin [Adult Low Dose Aspirin] 81 mg tablet,delayed release (DR/EC) 81 mg PO DAILY cholecalciferol (vitamin D3) 1,000 unit capsule 1,000 unit PO DAILY meclizine 25 mg tablet 25 mg PO BID-TID PRN (Reason: Dizziness) amlodipine 5 mg tablet 5 mg PO DAILY omeprazole 40 mg capsule,delayed release(DR/EC) 20 mg PO DAILY glipizide 5 mg tablet extended release 24hr 5 mg PO DAILY Januvia 50 mg tablet 50 mg PO DAILY isosorbide mononitrate 20 mg tablet 20 mg PO BID tamsulosin 0.4 mg capsule 0.4 mg PO DAILY diazepam 2 mg tablet 2 mg PO TID metoprolol tartrate 50 mg tablet 50 mg PO BID gabapentin 300 mg Tablet 900 mg PO QHS lisinopril 10 mg tablet 10 mg PO DAILY Qty: 90 3RF Referrals / Follow Up: Carson Dobbins DO [Primary Care Provider] - Within 2 Weeks Disposition Disposition (needs filled in before D/C Order can be placed): [facility]
[2022-06-14 16:31] LABS: Bedside Glucose 145 mg/dL (74-106)
[2022-06-14 16:56] LABS: Bedside Glucose 154 mg/dL (74-106)
[2022-06-14 17:20] VITALS: BP 128/58; PULSE 56; RESP 18; TEMP 37.1; O2SAT 93
--- NOTE | 2022-06-14 17:29 | NURSING ---
REPORT CALLED TO JAZ FRIAS
== END 2022-06-14 18:58 | disposition skilled nursing facility (03) ==
LOC: ED 20:33 → MS3 21:26
PROVIDERS: Family Medicine; Nurse Practitioner; Admitting Provider Hospitalist; Emergency Provider Emergency Medicine; PCP Family Medicine; Referring Provider Emergency Medicine; Visit Provider Student in an Organized Health Care Education/Training Program
DX: R53.81 Other malaise (principal); I50.9 Heart failure, unspecified; I13.0 Hypertensive heart and chronic kidney disease with heart failure and stage 1 through stage 4 chronic kidney disease, or unspecified chronic kidney disease; E11.22 Type 2 diabetes mellitus with diabetic chronic kidney disease; N18.32 Chronic kidney disease, stage 3b; S80.211A Abrasion, right knee, initial encounter; Z86.73 Personal history of transient ischemic attack (TIA), and cerebral infarction without residual deficits; Z79.02 Long term (current) use of antithrombotics/antiplatelets; Z79.84 Long term (current) use of oral hypoglycemic drugs; M10.9 Gout, unspecified; E78.5 Hyperlipidemia, unspecified; I25.10 Atherosclerotic heart disease of native coronary artery without angina pectoris; R26.2 Difficulty in walking, not elsewhere classified; R62.7 Adult failure to thrive; E66.9 Obesity, unspecified; R29.6 Repeated falls; Z79.899 Other long term (current) drug therapy; Z79.82 Long term (current) use of aspirin; G47.33 Obstructive sleep apnea (adult) (pediatric); Z95.1 Presence of aortocoronary bypass graft; F17.220 Nicotine dependence, chewing tobacco, uncomplicated; S80.212A Abrasion, left knee, initial encounter; W19.XXXA Unspecified fall, initial encounter; Z68.39 Body mass index [BMI] 39.0-39.9, adult; N40.0 Benign prostatic hyperplasia without lower urinary tract symptoms; K21.9 Gastro-esophageal reflux disease without esophagitis
CPT/HCPCS: 36415; 70450; 71045; 72125; 72131; 73564; 80048; 81001; 82306; 82962; 84443; 84484; 85025; 87426; 93005; 96372; 97110; 97162; 97166; 97530; 97535; 99221; 99285; A4216; G0378

== ENCOUNTER → 2022-09-16 | Outpatient (CLI) | payer MEDICARE, MEDICAID, SELFPAY ==
--- NOTE | 2022-09-16 15:39 | MRI_ITS ---
STUDY: MRI LUMBAR SPINE WITHOUT CONTRAST REASON FOR EXAM: Male, 72 years old. pain, low back x 1 year TECHNIQUE: Standardized fat and water weighted pulse sequences were obtained in the sagittal and axial planes. COMPARISON: Prior chest comparison exam dated June 11, 2022. FINDINGS: Normal lordotic curvature with no focal malalignment. No fracture or suspicious osseous lesion. Intraosseous and schwannoma seen at L1, 1.5 cm in diameter. No cord shows normal signal and contour with no intramedullary mass lesion. Conus terminates normally at the L1-2 disc level. More peripheral nerve roots are normal without clumping or tethering. Retroperitoneal soft tissues included in [id number] are within normal limits. L5-S1 disc desiccation without significant height loss. No significant degenerative endplate changes. Slight posterior central disc herniation partially effaces epidural fat anterior to the thecal sac. There is no mass effect on the descending nerve roots. There is mild facet hypertrophy but no neural foraminal narrowing. L4-5 disc desiccation and minimal height loss. Minimal degenerative endplate changes. Broad-based posterior disc herniation flattens the anterior thecal sac and touches the descending nerve roots. There is no compression or impingement of the descending nerve roots. There is mild facet hypertrophy. There is mild neural foraminal narrowing bilaterally, right greater than left. L3-4 disc desiccation and minimal height loss. Mild degenerative endplate changes anterior endplates. Broad-based posterior disc herniation mildly flattens the anterior thecal sac and touches without impinging the descending nerve roots. There is moderate facet hypertrophy and mild bilateral neural foraminal narrowing without nerve root impingement. L2-3 minimal broad-based posterior disc herniation slightly flattening the anterior thecal sac. There is also facet hypertrophy. Together this results in minimal central spinal canal stenosis. There is minimal neural foraminal narrowing and no exiting nerve root impingement. L1-2 discs signal is well preserved and there is no disc herniation. Mild facet hypertrophy without neural foraminal narrowing. T11-12 and T12-L1 intervertebral discs are without posterior herniation. Superior endplate herniation involving the inferior endplate of T10. MRI/Spine Lumbar (Routine) IMPRESSION: Posterior disc herniations and facet arthropathy result in mild central spinal canal narrowing, most notably at L3-4. Mild neural foraminal narrowing L4-5 and L3-4 levels. No significant nerve root impingement. Electronically Signed: Irvin Lenz DO at 21:39 EDT ,
== END | disposition home or self-care (01) ==
LOC: MRI 15:29
PROVIDERS: PCP Family Medicine; Referring Provider Orthopaedic Surgery; Visit Provider Orthopaedic Surgery
DX: M51.26 Other intervertebral disc displacement, lumbar region (principal)
CPT/HCPCS: 72148

== ENCOUNTER 2022-10-21 09:49 | Observation (INO) | payer MEDICARE, MEDICAID, SELFPAY ==
[2022-10-21] VITALS (8 sets, daily range): BP systolic 108–170; BP diastolic 60–76; PULSE 48–68; RESP 14–18; TEMP 35.8–36.6; O2SAT 92–98; BMI 38.4; BMI 37.8
--- NOTE | 2022-10-21 10:06 | RAD_ITS ---
STUDY: X-RAY CHEST REASON FOR EXAM: Male, 72 years old. Bibasilar rales. TECHNIQUE: Frontal and lateral views of the chest. COMPARISON: Chest dated January 26, 2022. FINDINGS: Cardiomegaly, sternotomy wires, aortic tortuosity and low volume inspiration, unchanged. No new or acute finding. No abnormality of the visualized soft tissue structures of the upper abdomen. RAD/Chest PA and Lateral IMPRESSION: Cardiomegaly with low volume inspiration, unchanged. No active or acute cardiopulmonary disease. Electronically Signed: Boubacar Johnson MD at 10:54 EDT ,
[2022-10-21] MEDS: 0.9% Normal Saline 1,000 ML 1000 ML IV (10:17)
--- NOTE | 2022-10-21 10:21 | EDS_ITS ---
[facility] History of Present Illness Chief Complaint: Weakness Detail of Chief Complaint: Difficulty ambulating and weakness Informant: patient and family Onset/Context/Timing Onset: - (Documented in the HPI) Context: Gradual Onset Timing: Continuous Quality: Generalized weakness and trouble ambulating Location: Weakness right and left lower extremity Current Severity: Severe Maximum Severity: Severe Worsened by: Unable to determine Relieved by: Nothing per patient and relative Associated Symptoms Associated Symptoms: Unable to ambulate even using a cane Narrative Narrative: Patient is a 72-year-old male with multiple medical problems which include hypertension, coronary disease, hyperlipidemia, type 2 diabetes and gout. He presents because of weakness per patient. Per family member he is unable to ambulate. He has been using a cane for months. He recently had an MRI that was ordered by Dr. Al to evaluate his back pain and weakness in his legs. The MRI was reviewed. Patient does have mild central spinal stenosis L3-L4. Patient denies bowel bladder dysfunction. Patient denies radicular pain. Family member then made the statement that he is having trouble walking because of dizziness and this dizziness has been ongoing problem for some time. Patient's had a CT of the brain and cervical spine in May that was unremarkable for any significant abnormality would explain patient's symptoms. Patient had a recent MRI of his back which reveals spinal stenosis however not significant to explain patient's symptoms. Prior similar symptoms: Yes Recent Illness/Hospitalization: [facility] Medical History Adult failure to thrive Atherosclerotic heart disease of [place] coronary artery without angina pectoris Cervical spinal stenosis Chronic kidney disease CKD (chronic kidney disease) stage 3, GFR 30-59 ml/min Debility Depression Diabetes Essential hypertension Frequent falls Gout History of left heart catheterization (11/16/17) Hyperlipidemia Inability to walk Left bundle branch block (LBBB) Left ventricular hypertrophy Obesity Obstructive sleep apnea Peripheral nerve dysfunction Sleep apnea TIA (transient ischemic attack) Tobacco abuse Ventricular non-compaction cardiomyopathy Vertigo Vestibular dysfunction Vitamin D deficiency Home Medications allopurinol 100 mg tablet 100 mg PO DAILY 10/22/18 [History Last Taken 10/21/22] aspirin 81 mg tablet,delayed release (Adult Low Dose Aspirin) 81 mg PO DAILY 10/22/18 [History Last Taken 10/21/22] atorvastatin 80 mg tablet 80 mg PO DAILY 10/22/18 [History Last Taken 10/21/22] cholecalciferol (vitamin D3) 25 mcg (1,000 unit) capsule 1,000 unit PO DAILY 10/22/18 [History Last Taken 10/21/22] clopidogrel 75 mg tablet (Plavix) 75 mg PO DAILY 10/22/18 [History Last Taken 10/21/22] duloxetine 30 mg capsule,delayed release 30 mg PO DAILY 10/22/18 [History Last Taken 10/21/22] gabapentin 300 mg capsule 600 mg PO 2XD 10/22/18 [History Last Taken 10/21/22] nitroglycerin 0.4 mg sublingual tablet (Nitrostat) 0.4 mg sublingual Q5-15M PRN chest pain 10/22/18 [History Last Taken Unknown] omeprazole 40 mg capsule,delayed release 20 mg PO DAILY 10/22/18 [History Last Taken 10/21/22] glipizide 5 mg tablet, extended release 24 hr 5 mg PO DAILY 12/31/20 [History Last Taken 10/21/22] sitagliptin phosphate 50 mg tablet (Januvia) 50 mg PO DAILY 12/31/20 [History Last Taken 10/21/22] amlodipine 5 mg tablet 5 mg PO DAILY 05/12/21 [History Last Taken 10/21/22] meclizine 25 mg tablet 25 mg PO BID-TID PRN Dizziness 05/12/21 [History Last Taken 10/21/22] lisinopril 10 mg tablet 10 mg PO DAILY #90 tabs 12/06/21 [Rx Last Taken 10/21/22] diazepam 2 mg tablet 2 mg PO TID NERVES 06/11/22 [History Last Taken 10/21/22] isosorbide mononitrate 20 mg tablet 20 mg PO BID . 06/11/22 [History Last Taken 10/21/22] metoprolol tartrate 50 mg tablet 50 mg PO BID HTN 06/11/22 [History Last Taken 10/21/22] tamsulosin 0.4 mg capsule 0.4 mg PO DAILY PROSTATE 06/11/22 [History Last Taken 10/21/22] Allergy/AdvReac Type Severity Reaction Status Date / Time chicken Allergy Mild Nausea Uncoded 10/21/22 11:49 Family History Sister Diabetes Father Heart disease Hypertension Cancer melanoma Mother Heart disease Surgical History H/O coronary artery bypass surgery (09/19/00) History of arthroscopy of left knee History of coronary artery stent placement (07/15/16) Social History household members: none Smoking Status: Never smoker Smokeless tobacco user: chewing tobacco and other alcohol intake: never substance use type: does not use ROS ROS ED Review of Systems ROS Unobtainable: other Details: Patient's speech is very slurred. This may be due to the fact that his tongue and mucosa are very dry. Constitutional Constitutional ED: Denies chills, fever(s), subjective, sweats or weight loss Eyes Eyes: Denies blurry vision, change in vision or diplopia ENT ENT ED: Denies ear pain, rhinorrhea or sore throat Cardiovascular Cardiovascular: Denies chest pain, orthopnea, palpitations, paroxysmal nocturnal dyspnea or racing heartbeat Respiratory/Chest Respiratory/Chest: Denies cough, dyspnea, dyspnea on exertion, orthopnea or paroxysmal nocturnal dyspnea Gastrointestinal Gastrointestinal: Denies abdominal pain, diarrhea, melena, nausea or vomiting Genitourinary Genitourinary ED: Reports other Details: Possibly decreased urine output ; Denies dysuria, hematuria or urinary frequency Musculoskeletal Musculoskeletal: Reports back pain; Denies arthralgias or myalgias Integumentary Denies rash Neurologic Neurologic: Reports weakness; Denies headache(s) or paresthesias Psychiatric Psychiatric: Reports depression; Denies anxiety or suicidal ideation Endocrine Endocrinology: Denies cold intolerance or heat intolerance Hematologic/Lymphatic Hematologic/Lymphatic: Reports systems reviewed and no addt'l complaints, except as documented Allergic/Immunologic Allergic/Immunologic ED: Denies mouth swelling or tongue swelling EXAM Physical Exam Const Vital Signs: 10/21/22 09:50 10/21/22 10:21 10/21/22 10:21 Temperature 98 F Temperature Source Temporal Pulse Rate 48 L 50 L Respiratory Rate 18 16 Respiratory Effort Normal Non-Labored Respiratory Pattern Normal Blood Pressure 108/69 123/61 H Blood Pressure Mean 82 81 Pulse Ox 92 93 Oxygen Delivery Method Room Air Room Air 10/21/22 11:46 Temperature 97.7 F L Temperature Source Oral Pulse Rate 48 L Respiratory Rate 18 Respiratory Effort Respiratory Pattern Blood Pressure 149/76 H Blood Pressure Mean 100 Pulse Ox 93 Oxygen Delivery Method Room Air Positive well nourished, well developed, obese and unkempt Constitutional Narrative: Patient's lips and tongue are covered with chewing tobacco. General Appearance ED: unkempt, well developed, NAD and pallor; Negative for cyanotic or diaphoretic Nutritional Appearance: obese HEENT Reports dry mucous membranes HEENT Narrative: Head is atraumatic and normocephalic. Ears are normal. TMs are normal. Posterior pharynx is normal. Mouth ED: Yes dry mucous membranes Mouth: dry mucous membranes Eyes PERRL and EOMs intact bilaterally General Eye ED: Negative for pale conjunctiva or scleral icterus Neck no lymphadenopathy, supple and no JVD Chest Wall inspection of chest normal and palpation of chest normal Resp normal respiratory effort and clear to auscultation bilaterally Cardio regular rhythm, S1 normal heart sound, S2 normal heart sound and no murmurs Rate: bradycardia GI normal to inspection, nondistended, normoactive bowel sounds, non-tender, non- distended and no masses; Negative for hepatosplenomegaly Palpation: soft; Negative for tender Back/Spine no CVA tenderness Extremity Negative for normal to inspection Extremity Narrative: There is pitting edema of both right and left lower extremity. There is no asymmetry, discoloration, leg vein distention, palpable cords sinus on the distribution deep venous system. Neuro CN's II-XII intact bilaterally and no sensory deficits noted Neuro Narrative: Patient is oriented to name, place and month. Sensorium / Orientation: Negative for alert Psych Appearance: unkempt Skin no rashes or lesions noted and No skin turgor normal General Skin Exam: pallor; Negative for elasticity normal or jaundice MDM MDM MDM Narrative Medical decision making narrative: Heart rate is slow. EKG was obtained to assess heart rate and reveals a sinus bradycardia. Suspect patient is clinically dehydrated. Will obtain blood work to assess renal function, electrolytes. CBC to assess H&H and white count. Since patient had recent MRI CT of the back and head respectively as well as cervical spine these were not repeated. Consult was placed to case management since patient lives alone and he he is not well groomed and has poor hygiene. Lab Data Attestation: I reviewed the patient's lab results. Lab results narrative: Patient has chronic anemia. Patient's anemia is at baseline. Creatinine has risen significantly from baseline. The would support him being dehydrated. However his BUN to creatinine ratio is not greater than 20-1. Patient urine spec gravity is elevated however at 1.025. He has hyaline casts noted. Labs: Laboratory Results - last 24 hr 10/21/22 10/21/22 10:15 11:06 WBC 6.5 RBC 4.07 L Hgb 11.7 L Hct 37.4 L MCV 91.9 MCH 28.7 MCHC 31.3 L RDW Std Deviation 46.5 H RDW Coeff of Richard 13.8 Plt Count 219 MPV 10.0 Immature Gran % (Auto) 0.300 Neut % (Auto) 55.6 Lymph % (Auto) 32.1 [place] % (Auto) 9.0 Eos % (Auto) 2.5 Baso % (Auto) 0.5 Absolute Neuts (auto) 3.6 Absolute Lymphs (auto) 2.09 Nucleated RBC % 0 Sodium 138 Potassium 4.6 Chloride 107 Carbon Dioxide 26.0 Anion Gap 5 BUN 33 H Creatinine 3.10 H Estim Creat Clear Calc 23.63 Est GFR (MDRD) Af Amer 25 L Est GFR (MDRD) Non-Af 21 L BUN/Creatinine Ratio 10.6 Glucose 97 Calcium 8.9 Total Bilirubin 0.60 AST 26 ALT 28 Alkaline Phosphatase 232 H Total Protein 6.9 Albumin 3.5 Globulin 3.4 Albumin/Globulin Ratio 1.0 Urine Color Yellow Urine Clarity Clear Urine pH 5.0 Ur Specific [place] 1.025 Urine Protein 30 H Urine Glucose (UA) Normal Urine Ketones 5 H Urine Occult Blood Negative Urine Nitrite Negative Urine Bilirubin 1 H Urine Urobilinogen 1 H Ur Leukocyte Esterase 25 H Urine RBC 0 SEEN Urine WBC 0-5 SEEN Ur Squamous Epith Cells 0 SEEN Calcium Oxalate Crystal RARE Urine Bacteria 0 SEEN Hyaline Casts 10-25 SEEN Urine Mucus 0 SEEN Radiography Diagnostic Testing: Clinical Impression(s) from Imaging Studies Chest X-Ray 10/21/22 10:06 IMPRESSION: Cardiomegaly with low volume inspiration, unchanged. No active or acute cardiopulmonary disease. Electronically Signed: Boubacar Johnson MD at 10:54 EDT , Rhythm Strip Rhythm Strip: Bradycardia Rate: 45 Ectopy: PVC(s) EKG Initial EKG: Attestation: I personally reviewed and interpreted this EKG as follows: Interpretation: Sinus Bradycardia (Rate is 46. SC interval is 188 ms. Cures duration 124 ms. QT duration 462 ms. Pimento is to the left. There is a nonspecific interventricular conduction delay. There are abnormal ST-T T wave seconds in the lateral leads. There are premature ventricular beats noted as well. There is no evidence ) Management Discussion w/another healthcare provider: Hospitalist (Dr. Roberts was made aware of patient's history, physical laboratory results.) and wafer polishing worker/Case management (Case management was consulted since patient is unable to to care for himself and will need discharge planning) Treatment and Re-Evaluation :: In light of the fact the patient is not able to ambulate or care for himself with acute kidney injury bradycardia will contact hospitalist for 23 observation versus full admission. Case management was consulted. Discharge Plan Dx/Rx/DC Orders Clinical Impression: Acute kidney injury superimposed on chronic kidney disease, History of coronary artery stent placement, Mild dehydration, Anemia in chronic illness, Chronic back pain, Inability to walk, Adult failure to thrive, Sinus bradycardia by electrocardiogram Disposition Disposition: Acute Care Hospital [facility]
[2022-10-21 10:27] LABS: Absolute Lymphocyte Count 2.09 X10^3/uL (0.83-4.51); Absolute Neutrophil Count 3.6 X10^3/uL (2.0-7.7); Basophil# 0.03 X10^3/uL; Basophil% 0.5 % (0-1); Eosinophil# 0.16 X10^3/uL; Eosinophils% 2.5 % (0-5); Hematocrit 37.4 % (40-54); Hemoglobin 11.7 g/dL (13.0-16.5); Lymphocyte # 2.09 X10^3/ul (0.83-4.51); Lymphocyte % 32.1 % (19-41); Mean Corp Hgb Conc 31.3 g/dL (32-36); Mean Corpuscular Hgb 28.7 pg (27.0-32.0); Mean Corpuscular Volume 91.9 fL (80-94); Monocyte# 0.59 X10^3/uL; NRBC Flagged by Analyzer 0 % (0-5); Neutrophil # 3.63 X10^3/uL (2.7-7.7); Neutrophil % 55.6 % (47-70); Platelet Count 219 K/mm3 (150-450); RBC Distribution Width CV 13.8 % (11.6-14.6); RBC Distribution Width SD 46.5 fl (35.1-43.9); Red Blood Count 4.07 M/mm3 (4.6-6.2); White Blood Count 6.5 K/mm3 (4.4-11.0)
[2022-10-21 10:40] LABS: AST(SGOT) 26 U/L (15-37); Alanine Aminotransfer ALT/SGPT 28 U/L (16-61); Albumin, Serum 3.5 g/dL (3.2-5.0); Alkaline Phosphatase 232 U/L (45-117); Anion Gap 5 (5-15); BUN 33 mg/dL (7-18); BUN/Creat Ratio 10.6 RATIO (10-20); Calcium,Total 8.9 mg/dL (8.5-10.1); Chloride 107 mmol/L (98-107); EST Glomerular Filtration Rate 21 mL/min (>60); Est Glom Filt Rate - Afr Amer 25 mL/min (>60); Estimated Creatinine Clearance 23.63 ml/min; Globulin 3.4 g/dL (2.2-4.2); Glucose 97 mg/dL (74-106); Potassium 4.6 mmol/L (3.5-5.1); Protein, Total 6.9 g/dL (6.4-8.2); Sodium Level 138 mmol/L (136-145)
[2022-10-21 11:10] LABS: Bacteria 0 SEEN /hpf (None Seen); Mucous, Urine 0 SEEN /hpf (<or=2+); Red Blood Cells-Urine 0 SEEN /hpf (0-5); Squamous Epithelial Cells - UA 0 SEEN /hpf (0-5)
[2022-10-21 11:11] LABS: Color, Urine Yellow (Yellow); Glucose, Dipstick Normal (Normal); Ketone-Dipstick 5 mg/dl (Negative); Leukocyte Esterase-Dipstick 25 /ul (Negative); Nitrite-Dipstick Negative (Negative); Occult Blood-Urine Negative /ul (Negative); Protein-Dipstick 30 mg/dl (Negative); Specific Gravity, Urine 1.025 (1.002-1.030); Urine Clarity Clear (Clear); Urine Urobilinogen 1 mg/dl (Normal)
[2022-10-21 11:24] LABS: Calcium Oxalate Crystals Ur RARE /hpf (<or=2+); Hyaline Cast 10-25 SEEN /lpf (0-5); Urine Bilirubin Dipstick 1 mg/dL (Negative); White Blood Cells 0-5 SEEN /hpf (0-5)
--- NOTE | 2022-10-21 11:47 | NURSING ---
DR NIKOLAS SILVA
--- NOTE | 2022-10-21 11:53 | NURSING ---
MED SURG [place] ACUTE KIDNEY INJURY, BRADYCARDIA, DEHYDRATION
--- NOTE | 2022-10-21 11:53 | PCM.HP.STD ---
HPI - General General Date of Admission: 10/21/22 Date of Service: 10/21/22 Chief Complaint: Generalized weakness HPI Narrative JOSE SANCHEZ, is a 72 M with multiple comorbidities including BPH on Flomax, chronic kidney disease stage III who presented to the emergency department with progressive generalized weakness. Per patient symptoms have been ongoing for weeks. Assessment in the emergency department consistent with acute kidney injury. Patient was also found to be bradycardic on admission. Admitted to monitored bed for subsequent management [facility] Medical History Adult failure to thrive Atherosclerotic heart disease of [place] coronary artery without angina pectoris Cervical spinal stenosis Chronic kidney disease CKD (chronic kidney disease) stage 3, GFR 30-59 ml/min Debility Depression Diabetes Essential hypertension Frequent falls Gout History of left heart catheterization (11/16/17) Hyperlipidemia Inability to walk Left bundle branch block (LBBB) Left ventricular hypertrophy Obesity Obstructive sleep apnea Peripheral nerve dysfunction Sleep apnea TIA (transient ischemic attack) Tobacco abuse Ventricular non-compaction cardiomyopathy Vertigo Vestibular dysfunction Vitamin D deficiency Home Medications allopurinol 100 mg tablet 100 mg PO DAILY 10/22/18 [History Last Taken 10/21/22] aspirin 81 mg tablet,delayed release (Adult Low Dose Aspirin) 81 mg PO DAILY 10/22/18 [History Last Taken 10/21/22] atorvastatin 80 mg tablet 80 mg PO DAILY 10/22/18 [History Last Taken 10/21/22] cholecalciferol (vitamin D3) 25 mcg (1,000 unit) capsule 1,000 unit PO DAILY 10/22/18 [History Last Taken 10/21/22] clopidogrel 75 mg tablet (Plavix) 75 mg PO DAILY 10/22/18 [History Last Taken 10/21/22] duloxetine 30 mg capsule,delayed release 30 mg PO DAILY 10/22/18 [History Last Taken 10/21/22] gabapentin 300 mg capsule 600 mg PO 2XD 10/22/18 [History Last Taken 10/21/22] nitroglycerin 0.4 mg sublingual tablet (Nitrostat) 0.4 mg sublingual Q5-15M PRN chest pain 10/22/18 [History Last Taken Unknown] omeprazole 40 mg capsule,delayed release 20 mg PO DAILY 10/22/18 [History Last Taken 10/21/22] glipizide 5 mg tablet, extended release 24 hr 5 mg PO DAILY 12/31/20 [History Last Taken 10/21/22] sitagliptin phosphate 50 mg tablet (Januvia) 50 mg PO DAILY 12/31/20 [History Last Taken 10/21/22] amlodipine 5 mg tablet 5 mg PO DAILY 05/12/21 [History Last Taken 10/21/22] meclizine 25 mg tablet 25 mg PO BID-TID PRN Dizziness 05/12/21 [History Last Taken 10/21/22] lisinopril 10 mg tablet 10 mg PO DAILY #90 tabs 12/06/21 [Rx Last Taken 10/21/22] diazepam 2 mg tablet 2 mg PO TID NERVES 06/11/22 [History Last Taken 10/21/22] isosorbide mononitrate 20 mg tablet 20 mg PO BID . 06/11/22 [History Last Taken 10/21/22] metoprolol tartrate 50 mg tablet 50 mg PO BID HTN 06/11/22 [History Last Taken 10/21/22] tamsulosin 0.4 mg capsule 0.4 mg PO DAILY PROSTATE 06/11/22 [History Last Taken 10/21/22] Allergy/AdvReac Type Severity Reaction Status Date / Time chicken Allergy Mild Nausea Uncoded 10/21/22 11:49 Family History Sister Diabetes Father Heart disease Hypertension Cancer melanoma Mother Heart disease Surgical History H/O coronary artery bypass surgery (09/19/00) History of arthroscopy of left knee History of coronary artery stent placement (07/15/16) Social History (Updated 10/21/22 @ 12:54 by Nathalie Cutler) household members: none housing: house Smoking Status: Never smoker Smokeless tobacco user: chewing tobacco and other alcohol intake: never substance use type: does not use ROS ROS Narrative GENERAL: denies fever, chills, night sweats, weight loss, anorexia HEENT: denies headache, sinus congestion, or drainage, dysphagia RESPIRATORY: denies cough, sputum production, shortness of breath, dyspnea on exertion CARDIAC: denies chest pain, palpitations, orthopnea, PND GASTROINTESTINAL: denies abdominal pain, nausea, vomiting, melena, GENITOURINARY: denies dysuria, urgency, frequency, heamaturia EXTREMITY: denies swelling MUSCULOSKELETAL: denies current joint pain or tenderness NEUROLOGIC: denies focal numbness, weakness, tingling HEMATOLOGIC: denies easy bruising and/or hemorrhage INTEGUMENT: denies rashes PSYCHIATRIC: denies suicidal or homicidal ideation Vital Signs Vital Signs Vital Signs: 10/21/22 09:50 10/21/22 10:21 10/21/22 10:21 Temperature 98 F Temperature Source Temporal Pulse Rate 48 L 50 L Respiratory Rate 18 16 Respiratory Effort Normal Non-Labored Respiratory Pattern Normal Blood Pressure 108/69 123/61 H Blood Pressure Mean 82 81 Pulse Ox 92 93 Oxygen Delivery Method Room Air Room Air 10/21/22 11:46 10/21/22 11:49 Temperature 97.7 F L 97.7 F L Temperature Source Oral Oral Pulse Rate 48 L 48 L Respiratory Rate 18 14 Respiratory Effort Respiratory Pattern Blood Pressure 149/76 H 149/76 H Blood Pressure Mean 100 100 Pulse Ox 93 95 Oxygen Delivery Method Room Air Room Air Weight Weight: 131.995 kg Body Mass Index (BMI) 38.4 Physical Exam Narrative GENERAL: Slow to respond HEENT: Atraumatic; normocephalic EYES; Anicteric, Normal Conjunctiva NECK; supple, normal thyroid, RESPIRATORY: Diminished to auscultation CARDIOVASCULAR: Regular S1 S2, GI: soft, normoactive bowel sounds, : No Renal angle tenderness; EXTREMITIES: edema, no clubbing, MUSCULOSKELETAL: no muscle wasting NEURO: Awake; no lateralizing signs. SKIN: No Rash PSYCH; Flat affect Results Lab / Micro Data 10/21/22 10:15 10/21/22 10:15 Labs: Laboratory Results - last 24 hr 10/21/22 10:15: WBC 6.5, RBC 4.07 L, Hgb 11.7 L, Hct 37.4 L, MCV 91.9, MCH 28.7, MCHC 31.3 L, RDW Std Deviation 46.5 H, RDW Coeff of [place] 13.8, Plt Count 219, MPV 10.0, Immature Gran % (Auto) 0.300, Neut % (Auto) 55.6, Lymph % (Auto) 32.1, [place] % (Auto) 9.0, Eos % (Auto) 2.5, Baso % (Auto) 0.5, Absolute Neuts (auto) 3.6, Absolute Lymphs (auto) 2.09, Nucleated RBC % 0, Sodium 138, Potassium 4.6, Chloride 107, Carbon Dioxide 26.0, Anion Gap 5, BUN 33 H, Creatinine 3.10 H, Estim Creat Clear Calc 23.63, Est GFR (MDRD) Af Amer 25 L, Est GFR (MDRD) Non-Af 21 L, BUN/Creatinine Ratio 10.6, Glucose 97, Calcium 8.9, Total Bilirubin 0.60, AST 26, ALT 28, Alkaline Phosphatase 232 H, Total Protein 6.9, Albumin 3.5, Globulin 3.4, Albumin/Globulin Ratio 1.0 10/21/22 11:06: Urine Color Yellow, Urine Clarity Clear, Urine pH 5.0, Ur Specific [place] 1.025, Urine Protein 30 H, Urine Glucose (UA) Normal, Urine Ketones 5 H, Urine Occult Blood Negative, Urine Nitrite Negative, Urine Bilirubin 1 H, Urine Urobilinogen 1 H, Ur Leukocyte Esterase 25 H, Urine RBC 0 SEEN, Urine WBC 0-5 SEEN, Ur Squamous Epith Cells 0 SEEN, Calcium Oxalate Crystal RARE, Urine Bacteria 0 SEEN, Hyaline Casts 10-25 SEEN, Urine Mucus 0 SEEN Rhythm Strip Rhythm Strip: Bradycardia Rate: 45 Ectopy: PVC(s) Radiology Impression Chest X-Ray 10/21/22 10:06 IMPRESSION: Cardiomegaly with low volume inspiration, unchanged. No active or acute cardiopulmonary disease. Electronically Signed: Boubacar Johnson MD at 10:54 EDT Reading Location ID and State: [facility] / [place] , Service support , Assessment & Plan Assessment/Plan (1) Adult failure to thrive: PLAN: Plan Patient is a 72-year-old gentleman admitted with progressive generalized weakness 1. Physical deconditioning - Requested for PT OT eval and social media analyst to assist with discharge planning 2. Acute kidney injury ? Patient baseline creatinine 1.75 from 06/12/2022 creatinine on admission was 3.10. Admitted to a monitored bed started on hydration potential nephrotoxic medications including lisinopril held subsequent monitoring with daily electrolytes ordered 3. Chronic kidney disease stage III ? Patient presented with acute kidney injury management as discussed above 4. Dyslipidemia -Patient is on statin therapy, continued at home dose 5. Coronary artery disease ? With previous CABG and subsequent stent placement. Patient is on guideline directed medical therapy continued 6. Gout ? Patient is on allopurinol 7. Hypertension - Blood pressure controlled, home medications continued with dose adjustment as needed 8. Class II obesity with BMI of 37.8 ? Weight loss advised 9. Diabetes mellitus type II -patient's oral hypoglycemics held. Placed on long acting insulin, Accu-Cheks a.c. and at bedtime and covered with sliding scale insulin 10. BPH ? Patient is on tamsulosin did continue 11. PPI ? Patient is on omeprazole switch to Protonix in the hospital 12. DVT prophylaxis - On enoxaparin Time spent in the patient's overall evaluation,decision-making process, review of diagnostic data, adjustment of management, discussion with other providers, nursing nursing and ancillary staff involved in patient's care documentation, 75Minutes Advance planning; did discuss with the patient and family regarding advanced directives as well as CODE STATUS. Did explain the various scenarios involved ( FULL CODE, DNR CCA, DNR CCA with no intubation, and DNR CC and what each meant) patient elected to full code with CPR and intubation if needed. Order was placed. Time spent on discussion 18 minutes. Charges/Coding Visit Charges Inpatient E&M: 61160 Init Hosp L3 Procedures Hospitalists Procedures: 52202 Advncd Care Plan 30 Min
[2022-10-21] MEDS: 0.9% Normal Saline 1,000 ML 125 ML IV (15:07)
[2022-10-21] MEDS: diazePAM 2 MG Tablet PO (15:13)
[2022-10-21 17:04] LABS: Bedside Glucose 155 mg/dL (74-106)
[2022-10-21 21:24] LABS: Bedside Glucose 142 mg/dL (74-106)
[2022-10-21] MEDS: Heparin Injection (Vial) 5,000 UNIT/ML VIAL 5000 UNIT SC (22:39)
[2022-10-21] MEDS: Atorvastatin Calcium 80 MG Tablet PO (22:39)
[2022-10-21] MEDS: Isosorbide Mononitrate 20 MG Tablet PO (22:39)
[2022-10-21] MEDS: Metoprolol Tartrate 50 MG Tablet PO (22:39)
[2022-10-22] VITALS (7 sets, daily range): BP systolic 125–142; BP diastolic 63–74; PULSE 52–62; RESP 14–16; TEMP 36.6–36.7; O2SAT 88–95
[2022-10-22] MEDS: 0.9% Normal Saline 1,000 ML 125 ML IV ×2 (01:04→07:27)
[2022-10-22 06:21] LABS: Bedside Glucose 98 mg/dL (74-106)
[2022-10-22 07:05] LABS: Absolute Lymphocyte Count 1.72 X10^3/uL (0.83-4.51); Absolute Neutrophil Count 2.7 X10^3/uL (2.0-7.7); Basophil# 0.02 X10^3/uL; Basophil% 0.4 % (0-1); Eosinophil# 0.14 X10^3/uL; Eosinophils% 2.9 % (0-5); Hemoglobin 11.9 g/dL (13.0-16.5); Lymphocyte # 1.72 X10^3/ul (0.83-4.51); Lymphocyte % 35.2 % (19-41); Mean Corp Hgb Conc 31.3 g/dL (32-36); Mean Corpuscular Hgb 28.5 pg (27.0-32.0); Mean Corpuscular Volume 91.1 fL (80-94); Mean Platelet Vol. 10.7 fl (6.2-12.0); Monocyte# 0.31 X10^3/uL; Monocyte% 6.4 % (0-10); NRBC Flagged by Analyzer 0 % (0-5); Neutrophil # 2.68 X10^3/uL (2.7-7.7); Neutrophil % 54.9 % (47-70); Platelet Count 206 K/mm3 (150-450); RBC Distribution Width CV 13.8 % (11.6-14.6); RBC Distribution Width SD 46.6 fl (35.1-43.9); Red Blood Count 4.17 M/mm3 (4.6-6.2); White Blood Count 4.9 K/mm3 (4.4-11.0)
[2022-10-22 07:53] LABS: Anion Gap 1 (5-15); BUN 27 mg/dL (7-18); BUN/Creat Ratio 11.4 RATIO (10-20); Calcium,Total 8.4 mg/dL (8.5-10.1); Chloride 114 mmol/L (98-107); Creatinine, Serum 2.36 mg/dL (0.70-1.30); EST Glomerular Filtration Rate 29 mL/min (>60); Est Glom Filt Rate - Afr Amer 35 mL/min (>60); Estimated Creatinine Clearance 31.03 ml/min; Glucose 96 mg/dL (74-106); Magnesium 2.5 mg/dL (1.6-2.6); Phosphorus 3.6 mg/dL (2.5-4.9); Potassium 4.5 mmol/L (3.5-5.1); Sodium Level 141 mmol/L (136-145)
[2022-10-22] MEDS: DULoxetine Hcl 30 MG Capsule PO (08:07)
[2022-10-22] MEDS: Aspirin E.C. 81 MG Tablet PO (08:07)
[2022-10-22] MEDS: Allopurinol 100 MG Tablet PO (08:07)
[2022-10-22] MEDS: Tamsulosin HCl 0.4 MG Capsule PO (08:07)
[2022-10-22] MEDS: Heparin Injection (Vial) 5,000 UNIT/ML VIAL 5000 UNIT SC ×2 (08:07→23:58)
[2022-10-22] MEDS: Clopidogrel Bisulfate 75 MG Tablet PO (08:08)
[2022-10-22] MEDS: Isosorbide Mononitrate 20 MG Tablet PO ×2 (08:08→22:29)
[2022-10-22] MEDS: Cholecalciferol (VIT D3) 25 MCG TABLET (1,000 UNITS) PO (08:09)
[2022-10-22] MEDS: amLODIPine 5 MG Tablet PO (08:09)
[2022-10-22] MEDS: Pantoprazole Sodium 20 MG Tablet PO (08:09)
[2022-10-22] MEDS: Metoprolol Tartrate 50 MG Tablet PO (08:10)
--- NOTE | 2022-10-22 08:21 | PN.HOSP_ITS ---
Reason for Visit Reason for Visit: Diagnoses Adult failure to thrive (10/21/22) Subjective Subjective Patient is a 72-year-old gentleman admitted with progressive generalized weakness. Patient was found to be in acute kidney injury started on IV fluids admitted to monitored bed for subsequent eval and treatment Objective Data Objective Data Vital Signs: Vital Signs Temp Pulse Resp BP Pulse Ox O2 Del Method 97.8 F 62 16 142/63 H 95 Room Air 10/22/22 04:05 10/22/22 04:05 10/22/22 04:05 10/22/22 04:05 10/22/22 04:32 10/22/22 04:32 Oxygen Delivery Method Room Air Weight: 130.1 kg Body Mass Index (BMI) 37.8 Intake & Output: Intake and Output for Last 24 Hours 10/20/22 10/21/22 10/22/22 23:59 23:59 23:59 Intake Total 1860.42 / 2010.42 1047.92 / 1047.92 Output Total 0 / 600 601 / 601 Balance 1860.42 / 1410.42 446.92 / 446.92 Lab / Micro Data 10/22/22 05:35 10/22/22 05:35 Labs: Laboratory Results - last 24 hr 10/21/22 10:15: WBC 6.5, RBC 4.07 L, Hgb 11.7 L, Hct 37.4 L, MCV 91.9, MCH 28.7, MCHC 31.3 L, RDW Std Deviation 46.5 H, RDW Coeff of Richard 13.8, Plt Count 219, MPV 10.0, Immature Gran % (Auto) 0.300, Neut % (Auto) 55.6, Lymph % (Auto) 32.1, [place] % (Auto) 9.0, Eos % (Auto) 2.5, Baso % (Auto) 0.5, Absolute Neuts (auto) 3.6, Absolute Lymphs (auto) 2.09, Nucleated RBC % 0, Sodium 138, Potassium 4.6, Chloride 107, Carbon Dioxide 26.0, Anion Gap 5, BUN 33 H, Creatinine 3.10 H, Estim Creat Clear Calc 23.63, Est GFR (MDRD) Af Amer 25 L, Est GFR (MDRD) Non-Af 21 L, BUN/Creatinine Ratio 10.6, Glucose 97, Calcium 8.9, Total Bilirubin 0.60, AST 26, ALT 28, Alkaline Phosphatase 232 H, Total Protein 6.9, Albumin 3.5, Globulin 3.4, Albumin/Globulin Ratio 1.0 10/21/22 11:06: Urine Color Yellow, Urine Clarity Clear, Urine pH 5.0, Ur Specific [place] 1.025, Urine Protein 30 H, Urine Glucose (UA) Normal, Urine Ketones 5 H, Urine Occult Blood Negative, Urine Nitrite Negative, Urine Bilirubin 1 H, Urine Urobilinogen 1 H, Ur Leukocyte Esterase 25 H, Urine RBC 0 SEEN, Urine WBC 0-5 SEEN, Ur Squamous Epith Cells 0 SEEN, Calcium Oxalate Crystal RARE, Urine Bacteria 0 SEEN, Hyaline Casts 10-25 SEEN, Urine Mucus 0 SEEN 10/21/22 16:37: POC Glucose 155 H 10/21/22 20:57: POC Glucose 142 H 10/22/22 05:35: WBC 4.9, RBC 4.17 L, Hgb 11.9 L, Hct 38.0 L, MCV 91.1, MCH 28.5, MCHC 31.3 L, RDW Std Deviation 46.6 H, RDW Coeff of Richard 13.8, Plt Count 206, MPV 10.7, Immature Gran % (Auto) 0.200, Neut % (Auto) 54.9, Lymph % (Auto) 35.2, [place] % (Auto) 6.4, Eos % (Auto) 2.9, Baso % (Auto) 0.4, Absolute Neuts (auto) 2.7, Absolute Lymphs (auto) 1.72, Nucleated RBC % 0, Sodium 141, Potassium 4.5, Chloride 114 H, Carbon Dioxide 26.0, Anion Gap 1 L, BUN 27 H, Creatinine 2.36 H, Estim Creat Clear Calc 31.03, Est GFR (MDRD) Af Amer 35 L, Est GFR (MDRD) Non-Af 29 L, BUN/Creatinine Ratio 11.4, Glucose 96, Calcium 8.4 L, Phosphorus 3.6, Magnesium 2.5 10/22/22 06:00: POC Glucose 98 Radiography Diagnostic Testing: Radiology Impression Chest X-Ray 10/21/22 10:06 IMPRESSION: Cardiomegaly with low volume inspiration, unchanged. No active or acute cardiopulmonary disease. Electronically Signed: Boubacar Johnson MD at 10:54 EDT , Rhythm Strip Rhythm Strip: Bradycardia Rate: 45 Ectopy: PVC(s) Physical Exam Narrative GENERAL: Slow to respond HEENT: Atraumatic; normocephalic EYES; Anicteric, Normal Conjunctiva NECK; supple, normal thyroid, RESPIRATORY: Diminished to auscultation CARDIOVASCULAR: Regular S1 S2, GI: soft, normoactive bowel sounds, : No Renal angle tenderness; EXTREMITIES: edema, no clubbing, MUSCULOSKELETAL: no muscle wasting NEURO: Awake; no lateralizing signs. SKIN: No Rash PSYCH; Flat affect Assessment & Plan Assessment/Plan (1) Adult failure to thrive: PLAN: Plan Patient is a 72-year-old gentleman admitted with progressive generalized weakness 1. Physical deconditioning - Requested for PT OT eval and secondary social studies teacher to assist with discharge planning ? 10/22/2022 patient seen by case management plans for patient [facility] be [facility] pending acceptance and insurance precertification 2. Acute kidney injury ? Patient baseline creatinine 1.75 from 06/12/2022 creatinine on admission was 3 .10. Admitted to a monitored bed started on hydration potential nephrotoxic medications including lisinopril held subsequent monitoring with daily electrolytes ordered ? 2622; creatinine remains elevated at 2.36 did continue with IV fluid with repeat labs ordered for a.m. 3. Chronic kidney disease stage III ? Patient presented with acute kidney injury management as discussed above 4. Dyslipidemia -Patient is on statin therapy, continued at home dose 5. Coronary artery disease ? With previous CABG and subsequent stent placement. Patient is on guideline directed medical therapy continued 6. Gout ? Patient is on allopurinol 7. Hypertension - Blood pressure controlled, home medications continued with dose adjustment as needed 8. Class II obesity with BMI of 37.8 ? Weight loss advised 9. Diabetes mellitus type II -patient's oral hypoglycemics held. Placed on long acting insulin, Accu-Cheks a.c. and at bedtime and covered with sliding scale insulin 10. BPH ? Patient is on tamsulosin did continue 11. PPI ? Patient is on omeprazole switch to Protonix in the hospital 12. DVT prophylaxis - On enoxaparin Time spent in the patient's overall evaluation,decision-making process, review of diagnostic data, adjustment of management, discussion with other providers, nursing nursing and ancillary staff involved in patient's care documentation, 50 Minutes Charges/Coding Visit Charges Inpatient E&M: 27117 Subs Hosp L3
--- NOTE | 2022-10-22 10:00 | CASEMGMT ---
JC LI DC Planning Assessment: Face to Face with patient for initial transition planning/care coordination assessment. JC LI introduced self and role at [facility], pt alert, speech is garbled and difficult to understand at times but also very clear off and on. Pt did voice understanding and is agreeable to participate in assessment declining for this JC LI to contact his daughter.. Care providers, pharmacy, and demographics verified. Admitting dx: FRANCES, bradycardia PCP:[facility] Specialists: none Preferred Pharmacy: Pt did not specify and then mentioned going to SNF at [place] Insurance: [employer] [facility] Prescription Benefit: Yes LNOK: daughter Mary and three sons Living Arrangements: Pt lives alone in a single story home without any steps to enter. Pt states he is independent with ADLs at baseline and uses a cane to ambulate. DME: cane, raised toilet seat, shower chair, grab bars, hand held shower, medical alert SNF: [facility]: states this was to be set up but no one ever came. Discussed pt's inability to ambulate upon presentation and need for assistance at home. Pt agreeable to SNF if recommended and states he would go to [facility] if needed to go anywhere. Explained to patient PT/OT would be assessing him and we would f/u with him with recommendations. Plan: TBD but anticipate SNF/[facility] Discussed with DANIA Chavez. J Luis Waters RN CM
--- NOTE | 2022-10-22 11:08 | CASEMGMT ---
Social Work SW met w/pt just after pt worked w/PT and OT. Pt difficult to understand at times. Pt is agreeable to going to a halfway for rehab. SW gave pt a list of long-term facilities in network w/insurance, in pt's preferred geographic area, and complete with quality and resource use data. Pt would like to go to [facility]. SW explained we need to make a referral and need a precert so pt will be here through the weekend. Pt nodded in understanding. SW offered to call his daughter, pt states she will not answer the phone. SW will start the referral process to [facility], and SW/media planner / buyer to follow up on Monday. ASHLY Putnam
[2022-10-22 14:08] LABS: Bedside Glucose 126 mg/dL (74-106)
[2022-10-22 17:24] LABS: Bedside Glucose 131 mg/dL (74-106)
[2022-10-22] MEDS: Atorvastatin Calcium 80 MG Tablet PO (22:28)
[2022-10-23] VITALS (8 sets, daily range): BP systolic 106–160; BP diastolic 64–72; PULSE 50–101; RESP 14–18; TEMP 36–36.7; O2SAT 92–94
[2022-10-23 00:23] LABS: Bedside Glucose 131 mg/dL (74-106)
[2022-10-23 05:38] LABS: Absolute Lymphocyte Count 1.58 X10^3/uL (0.83-4.51); Absolute Neutrophil Count 2.4 X10^3/uL (2.0-7.7); Basophil# 0.02 X10^3/uL; Basophil% 0.4 % (0-1); Eosinophil# 0.12 X10^3/uL; Eosinophils% 2.7 % (0-5); Hematocrit 38.9 % (40-54); Hemoglobin 12.1 g/dL (13.0-16.5); Lymphocyte # 1.58 X10^3/ul (0.83-4.51); Mean Corp Hgb Conc 31.1 g/dL (32-36); Mean Corpuscular Hgb 28.3 pg (27.0-32.0); Mean Corpuscular Volume 91.1 fL (80-94); Mean Platelet Vol. 10.2 fl (6.2-12.0); Monocyte# 0.37 X10^3/uL; Monocyte% 8.2 % (0-10); NRBC Flagged by Analyzer 0 % (0-5); Neutrophil # 2.42 X10^3/uL (2.7-7.7); Neutrophil % 53.5 % (47-70); Platelet Count 210 K/mm3 (150-450); RBC Distribution Width CV 13.6 % (11.6-14.6); RBC Distribution Width SD 45.5 fl (35.1-43.9); Red Blood Count 4.27 M/mm3 (4.6-6.2); White Blood Count 4.5 K/mm3 (4.4-11.0)
[2022-10-23 05:59] LABS: Anion Gap 5 (5-15); BUN 23 mg/dL (7-18); BUN/Creat Ratio 12.8 RATIO (10-20); Calcium,Total 8.8 mg/dL (8.5-10.1); Chloride 112 mmol/L (98-107); Creatinine, Serum 1.79 mg/dL (0.70-1.30); EST Glomerular Filtration Rate 40 mL/min (>60); Est Glom Filt Rate - Afr Amer 48 mL/min (>60); Estimated Creatinine Clearance 40.92 ml/min; Glucose 98 mg/dL (74-106); Potassium 4.8 mmol/L (3.5-5.1); Sodium Level 142 mmol/L (136-145)
[2022-10-23 07:30] LABS: Bedside Glucose 97 mg/dL (74-106)
--- NOTE | 2022-10-23 07:38 | PN.HOSP_ITS ---
Reason for Visit Reason for Visit: Diagnoses Adult failure to thrive (10/21/22) Subjective Subjective Patient seen appears comfortable at rest. Kidney function continues to improve. Plan is for patient to be discharged to long-term facility pending insurance precertification Objective Data Objective Data Vital Signs: Vital Signs Temp Pulse Resp BP Pulse Ox O2 Del Method O2 Flow Rate 98.0 F 60 14 132/68 H 93 Room Air 2 10/23/22 02:00 10/23/22 02:00 10/23/22 02:00 10/23/22 02:00 10/23/22 02:00 10/23/22 02:00 10/22/22 08:10 Oxygen Flow Rate (L/min) 2 Oxygen Delivery Method Room Air Weight: 130.1 kg Body Mass Index (BMI) 37.8 Intake & Output: Intake and Output for Last 24 Hours 10/21/22 10/22/22 10/23/22 23:59 23:59 23:59 Intake Total 1860.42 / 2010.42 2872.92 / 2872.92 Output Total 0 / 600 601 / 601 Balance 1860.42 / 1410.42 2271.92 / 2271.92 Lab / Micro Data 10/23/22 05:00 10/23/22 05:00 Labs: Laboratory Results - last 24 hr 10/22/22 05:35: Sodium 141, Potassium 4.5, Chloride 114 H, Carbon Dioxide 26.0, Anion Gap 1 L, BUN 27 H, Creatinine 2.36 H, Estim Creat Clear Calc 31.03, Est GFR (MDRD) Af Amer 35 L, Est GFR (MDRD) Non-Af 29 L, BUN/Creatinine Ratio 11.4, Glucose 96, Calcium 8.4 L, Phosphorus 3.6, Magnesium 2.5 10/22/22 11:08: POC Glucose 126 H 10/22/22 16:10: POC Glucose 131 H 10/23/22 00:00: POC Glucose 131 H 10/23/22 05:00: WBC 4.5, RBC 4.27 L, Hgb 12.1 L, Hct 38.9 L, MCV 91.1, MCH 28.3, MCHC 31.1 L, RDW Std Deviation 45.5 H, RDW Coeff of Richard 13.6, Plt Count 210, MPV 10.2, Immature Gran % (Auto) 0.200, Neut % (Auto) 53.5, Lymph % (Auto) 35.0, [place] % (Auto) 8.2, Eos % (Auto) 2.7, Baso % (Auto) 0.4, Absolute Neuts (auto) 2.4, Absolute Lymphs (auto) 1.58, Nucleated RBC % 0, Sodium 142, Potassium 4.8, Chloride 112 H, Carbon Dioxide 25.0, Anion Gap 5, BUN 23 H, Creatinine 1.79 H, Estim Creat Clear Calc 40.92, Est GFR (MDRD) Af Amer 48 L, Est GFR (MDRD) Non-Af 40 L, BUN/Creatinine Ratio 12.8, Glucose 98, Calcium 8.8 10/23/22 07:11: POC Glucose 97 Rhythm Strip Rhythm Strip: Bradycardia Rate: 45 Ectopy: PVC(s) Physical Exam Narrative GENERAL: Slow to respond HEENT: Atraumatic; normocephalic EYES; Anicteric, Normal Conjunctiva NECK; supple, normal thyroid, RESPIRATORY: Diminished to auscultation CARDIOVASCULAR: Regular S1 S2, GI: soft, normoactive bowel sounds, : No Renal angle tenderness; EXTREMITIES: edema, no clubbing, MUSCULOSKELETAL: no muscle wasting NEURO: Awake; no lateralizing signs. SKIN: No Rash PSYCH; Flat affect Assessment & Plan Assessment/Plan (1) Adult failure to thrive: PLAN: Plan Patient is a 72-year-old gentleman admitted with progressive generalized weakness 1. Physical deconditioning - Requested for PT OT eval and hospice social worker to assist with discharge planning ? 10/22/2022 patient seen by case management plans for patient to be transferred to long-term facility pending acceptance and insurance precertification 2. Acute kidney injury ? Patient baseline creatinine 1.75 from 06/12/2022 creatinine on admission was 3.10. Admitted to a monitored bed started on hydration potential nephrotoxic medications including lisinopril held subsequent monitoring with daily electrolytes ordered ? 04/24/2022; creatinine remains elevated at 2.36 did continue with IV fluid with repeat labs ordered for a.m. ? 04/25/2022; creatinine down to 1.79 3. Chronic kidney disease stage III ? Patient presented with acute kidney injury management as discussed above 4. Dyslipidemia -Patient is on statin therapy, continued at home dose 5. Coronary artery disease ? With previous CABG and subsequent stent placement. Patient is on guideline directed medical therapy continued 6. Gout ? Patient is on allopurinol 7. Hypertension - Blood pressure controlled, home medications continued with dose adjustment as needed 8. Class II obesity with BMI of 37.8 ? Weight loss advised 9. Diabetes mellitus type II -patient's oral hypoglycemics held. Placed on long acting insulin, Accu-Cheks a.c. and at bedtime and covered with sliding scale insulin 10. BPH ? Patient is on tamsulosin did continue 11. PPI ? Patient is on omeprazole switch to Protonix in the hospital 12. DVT prophylaxis - On enoxaparin Time spent in the patient's overall evaluation,decision-making process, review of diagnostic data, adjustment of management, discussion with other providers, nursing nursing and ancillary staff involved in patient's care documentation, 35 minutes Charges/Coding Visit Charges Inpatient E&M: 19387 Subs Hosp L2
[2022-10-23] MEDS: Pantoprazole Sodium 20 MG Tablet PO (09:26)
[2022-10-23] MEDS: Aspirin E.C. 81 MG Tablet PO (09:26)
[2022-10-23] MEDS: DULoxetine Hcl 30 MG Capsule PO (09:27)
[2022-10-23] MEDS: Clopidogrel Bisulfate 75 MG Tablet PO (09:27)
[2022-10-23] MEDS: Allopurinol 100 MG Tablet PO (09:27)
[2022-10-23] MEDS: Tamsulosin HCl 0.4 MG Capsule PO (09:27)
[2022-10-23] MEDS: Heparin Injection (Vial) 5,000 UNIT/ML VIAL 5000 UNIT SC ×2 (09:27→20:42)
[2022-10-23] MEDS: Isosorbide Mononitrate 20 MG Tablet PO ×2 (09:28→20:45)
[2022-10-23] MEDS: amLODIPine 5 MG Tablet PO (09:28)
[2022-10-23] MEDS: Metoprolol Tartrate 50 MG Tablet PO ×2 (09:28→20:44)
[2022-10-23] MEDS: Cholecalciferol (VIT D3) 25 MCG TABLET (1,000 UNITS) PO (09:29)
[2022-10-23 12:46] LABS: Bedside Glucose 121 mg/dL (74-106)
[2022-10-23 16:20] LABS: Bedside Glucose 143 mg/dL (74-106)
[2022-10-23] MEDS: Atorvastatin Calcium 80 MG Tablet PO (20:44)
[2022-10-23 21:36] LABS: Bedside Glucose 146 mg/dL (74-106)
[2022-10-24] VITALS (7 sets, daily range): BP systolic 126–144; BP diastolic 59–80; PULSE 52–70; RESP 16–18; TEMP 36.1–36.4; O2SAT 93–98
[2022-10-24 06:41] LABS: Absolute Neutrophil Count 2.4 X10^3/uL (2.0-7.7); Basophil# 0.02 X10^3/uL; Basophil% 0.4 % (0-1); Eosinophil# 0.16 X10^3/uL; Eosinophils% 3.5 % (0-5); Hematocrit 38.4 % (40-54); Hemoglobin 12.1 g/dL (13.0-16.5); Lymphocyte % 36.7 % (19-41); Mean Corp Hgb Conc 31.5 g/dL (32-36); Mean Corpuscular Hgb 28.5 pg (27.0-32.0); Mean Corpuscular Volume 90.6 fL (80-94); Mean Platelet Vol. 10.5 fl (6.2-12.0); Monocyte# 0.35 X10^3/uL; Monocyte% 7.6 % (0-10); NRBC Flagged by Analyzer 0 % (0-5); Neutrophil # 2.39 X10^3/uL (2.7-7.7); Neutrophil % 51.6 % (47-70); Platelet Count 209 K/mm3 (150-450); RBC Distribution Width CV 13.4 % (11.6-14.6); RBC Distribution Width SD 44.3 fl (35.1-43.9); Red Blood Count 4.24 M/mm3 (4.6-6.2); White Blood Count 4.6 K/mm3 (4.4-11.0)
[2022-10-24 07:02] LABS: Bedside Glucose 87 mg/dL (74-106)
[2022-10-24 07:09] LABS: Anion Gap 5 (5-15); BUN 18 mg/dL (7-18); BUN/Creat Ratio 10.1 RATIO (10-20); Calcium,Total 8.8 mg/dL (8.5-10.1); Chloride 109 mmol/L (98-107); Creatinine, Serum 1.78 mg/dL (0.70-1.30); EST Glomerular Filtration Rate 40 mL/min (>60); Est Glom Filt Rate - Afr Amer 48 mL/min (>60); Estimated Creatinine Clearance 41.15 ml/min; Glucose 93 mg/dL (74-106); Potassium 4.5 mmol/L (3.5-5.1); Sodium Level 139 mmol/L (136-145)
[2022-10-24] MEDS: Aspirin E.C. 81 MG Tablet PO (08:43)
[2022-10-24] MEDS: Tamsulosin HCl 0.4 MG Capsule PO (08:43)
[2022-10-24] MEDS: Pantoprazole Sodium 20 MG Tablet PO (08:44)
[2022-10-24] MEDS: amLODIPine 5 MG Tablet PO (08:44)
[2022-10-24] MEDS: Cholecalciferol (VIT D3) 25 MCG TABLET (1,000 UNITS) PO (08:44)
[2022-10-24] MEDS: Allopurinol 100 MG Tablet PO (08:44)
[2022-10-24] MEDS: Clopidogrel Bisulfate 75 MG Tablet PO (08:45)
[2022-10-24] MEDS: Heparin Injection (Vial) 5,000 UNIT/ML VIAL 5000 UNIT SC ×2 (08:46→21:23)
[2022-10-24] MEDS: Isosorbide Mononitrate 20 MG Tablet PO ×2 (08:46→21:53)
[2022-10-24] MEDS: DULoxetine Hcl 30 MG Capsule PO (08:46)
--- NOTE | 2022-10-24 09:52 | CASEMGMT ---
Social Work DANIA contacted by eZynep with [facility], explaining she has been working with the patient as of last week. Zeynep reports concerns related to housing as there was animal and human feces in the patient's trailer. Zeynep is attempting to work with patient's landlord but due to patient not paying rent he could be getting evicted. Zeynep unaware of any other agency and community resource involvement. DANIA updated Zeynep regarding SNF placement plan at [place]. DANIA to keep Zeynep updated with plan [phone]. Mel HAYES, NICK
[2022-10-24 11:13] LABS: Bedside Glucose 141 mg/dL (74-106)
[2022-10-24 16:29] LABS: Bedside Glucose 99 mg/dL (74-106)
--- NOTE | 2022-10-24 20:26 | PCM.PN.HOSP ---
Reason for Visit Reason for Visit: Diagnoses Adult failure to thrive (10/21/22) Subjective Subjective Patient was seen and examined today, remains bradycardic but his blood pressure is adequate. We are still awaiting approval for the patient to go to an extended care facility for inpatient rehab services. I have elected at this time to decrease the patient's metoprolol. Objective Data Objective Data Vital Signs: Vital Signs Temp Pulse Resp BP Pulse Ox O2 Del Method O2 Flow Rate 97.6 F L 54 L 16 130/69 H 93 Room Air 2 10/24/22 19:58 10/24/22 19:58 10/24/22 19:58 10/24/22 19:58 10/24/22 19:58 10/24/22 20:05 10/22/22 08:10 Oxygen Flow Rate (L/min) 2 Oxygen Delivery Method Room Air Weight: 130.1 kg Body Mass Index (BMI) 37.8 Intake & Output: Intake and Output for Last 24 Hours 10/22/22 10/23/22 10/24/22 23:59 23:59 23:59 Intake Total 2872.92 / 2872.92 990 / 990 Output Total 601 / 601 400 / 400 Balance 2271.92 / 2271.92 590 / 590 Lab / Micro Data 10/24/22 05:52 10/24/22 05:52 Labs: Laboratory Results - last 24 hr 10/23/22 20:41: POC Glucose 146 H 10/24/22 05:52: WBC 4.6, RBC 4.24 L, Hgb 12.1 L, Hct 38.4 L, MCV 90.6, MCH 28.5, MCHC 31.5 L, RDW Std Deviation 44.3 H, RDW Coeff of Richard 13.4, Plt Count 209, MPV 10.5, Immature Gran % (Auto) 0.200, Neut % (Auto) 51.6, Lymph % (Auto) 36.7, [place] % (Auto) 7.6, Eos % (Auto) 3.5, Baso % (Auto) 0.4, Absolute Neuts (auto) 2.4, Absolute Lymphs (auto) 1.70, Nucleated RBC % 0, Sodium 139, Potassium 4.5, Chloride 109 H, Carbon Dioxide 25.0, Anion Gap 5, BUN 18, Creatinine 1.78 H, Estim Creat Clear Calc 41.15, Est GFR (MDRD) Af Amer 48 L, Est GFR (MDRD) Non-Af 40 L, BUN/Creatinine Ratio 10.1, Glucose 93, Calcium 8.8 10/24/22 06:17: POC Glucose 87 10/24/22 10:51: POC Glucose 141 H 10/24/22 16:07: POC Glucose 99 Rhythm Strip Rhythm Strip: Bradycardia Rate: 45 Ectopy: PVC(s) Physical Exam Const alert, oriented x3 and no apparent distress Constitutional Narrative: Appears older than his stated age, he does not carry on lengthy conversations with this examiner General Appearance: cooperative and well developed Orientation / Consciousness: awake, oriented to person and oriented to place HEENT normocephalic, head/scalp atraumatic and moist oral mucous membranes Eyes PERRL, EOMs intact bilaterally and conjunctivae normal Neck supple, no JVD, thyroid normal and no carotid bruits General: trachea midline Resp normal respiratory effort, no retractions, no use of accessory muscles and clear to auscultation bilaterally Auscultation: Negative for rales, rhonchi or wheezes Cardio regular rate, regular rhythm, S1 normal heart sound, S2 normal heart sound, no murmurs, no rub and no gallops GI normal to inspection, nondistended, normoactive bowel sounds, soft to palpation, non-tender and non-distended Extremity no clubbing, cyanosis or edema Skin no rashes or lesions noted General Skin Exam: no breakdown Neuro CN's II-XII intact bilaterally, moves all extremities, no focal motor deficits and no sensory deficits noted Neuro Narrative: Patient appears to have a speech impediment Sensorium / Orientation: awake, alert, oriented to person and oriented to place Psych Psych Narrative: Patient has flat affect Assessment & Plan Assessment/Plan (1) Inability to walk: PLAN: Plan 1. Acute on chronic debility-patient will continue to see PT and OT, we are awaiting placement in a senior living facility for short-term rehab services. #2 type 2 diabetes-patient's blood sugars will be monitored, sliding scale insulin will be given as needed #3 atherosclerotic heart disease-patient is currently on a statin, aspirin, and Plavix in addition to metoprolol and isosorbide. Continue to monitor, evaluate, assess, and treat #4 essential hypertension-patient is on Norvasc and metoprolol, continue to monitor, evaluate, assess, and treat #5 degenerative disc disease of the lumbar spine-complicates care, medical course, recovery, and prognosis #6 BPH-patient currently is on Flomax, continue to monitor, evaluate, assess, and treat Total clinical time spent by myself addressing the patient's medical issues, reviewing all of his data, and collaborating with patient's care team: 35 minutes Charges/Coding Visit Charges Inpatient E&M: 27193 Subs Hosp L2
[2022-10-24] MEDS: Atorvastatin Calcium 80 MG Tablet PO (21:22)
[2022-10-24 22:42] LABS: Bedside Glucose 133 mg/dL (74-106)
[2022-10-25 02:02] VITALS: BP 142/57; PULSE 53; RESP 16; TEMP 36.7; O2SAT 93
[2022-10-25 06:53] LABS: Bedside Glucose 100 mg/dL (74-106)
[2022-10-25 08:00] VITALS: BP 149/60; PULSE 62; RESP 16; TEMP 36.9; O2SAT 93
[2022-10-25] MEDS: Aspirin E.C. 81 MG Tablet PO (08:00)
[2022-10-25] MEDS: Tamsulosin HCl 0.4 MG Capsule PO (08:00)
[2022-10-25] MEDS: Allopurinol 100 MG Tablet PO (08:00)
[2022-10-25] MEDS: 0.9% Saline Lock 10 ML Syringe IV (08:00)
[2022-10-25] MEDS: DULoxetine Hcl 30 MG Capsule PO (10:18)
[2022-10-25] MEDS: Pantoprazole Sodium 20 MG Tablet PO (10:18)
[2022-10-25] MEDS: Cholecalciferol (VIT D3) 25 MCG TABLET (1,000 UNITS) PO (10:18)
[2022-10-25] MEDS: Heparin Injection (Vial) 5,000 UNIT/ML VIAL 5000 UNIT SC ×2 (10:18→21:29)
[2022-10-25] MEDS: Clopidogrel Bisulfate 75 MG Tablet PO (10:18)
[2022-10-25] MEDS: Isosorbide Mononitrate 20 MG Tablet PO ×2 (10:20→21:30)
[2022-10-25] MEDS: amLODIPine 5 MG Tablet PO (10:20)
[2022-10-25 10:25] VITALS: BP 118/53; PULSE 81
[2022-10-25] MEDS: Metoprolol Tartrate 25 MG Tablet PO (10:25)
[2022-10-25 12:10] LABS: Bedside Glucose 104 mg/dL (74-106)
[2022-10-25 14:39] VITALS: BP 113/54; PULSE 59; RESP 16; TEMP 36.3; O2SAT 92
[2022-10-25 17:01] LABS: Bedside Glucose 139 mg/dL (74-106)
--- NOTE | 2022-10-25 19:08 | PCM.PN.HOSP ---
Reason for Visit Reason for Visit: Diagnoses Adult failure to thrive (10/21/22) Subjective Subjective Patient was seen and examined today, he voices no complaints today, patient still has periods of bradycardia although he is asymptomatic. Patient's blood pressure remained stable Objective Data Objective Data Vital Signs: Vital Signs Temp Pulse Resp BP Pulse Ox O2 Del Method O2 Flow Rate 97.3 F L 59 L 16 113/54 L 92 Room Air 2 10/25/22 14:39 10/25/22 14:39 10/25/22 14:39 10/25/22 14:39 10/25/22 14:39 10/25/22 14:39 10/22/22 08:10 Oxygen Flow Rate (L/min) 2 Oxygen Delivery Method Room Air Weight: 130.1 kg Body Mass Index (BMI) 37.8 Intake & Output: Intake and Output for Last 24 Hours 10/23/22 10/24/22 10/25/22 23:59 23:59 23:59 Intake Total 990 / 990 780 / 780 Output Total 400 / 400 Balance 590 / 590 780 / 780 Lab / Micro Data 10/24/22 05:52 10/24/22 05:52 Labs: Laboratory Results - last 24 hr 10/24/22 21:20: POC Glucose 133 H 10/25/22 06:33: POC Glucose 100 10/25/22 11:50: POC Glucose 104 10/25/22 16:43: POC Glucose 139 H Rhythm Strip Rhythm Strip: Bradycardia Rate: 45 Ectopy: PVC(s) Physical Exam Narrative alert, oriented x3 and no apparent distress Constitutional Narrative: Appears older than his stated age, he does not carry on lengthy conversations with this examiner General Appearance: cooperative and well developed Orientation / Consciousness: awake, oriented to person and oriented to place HEENT normocephalic, head/scalp atraumatic and moist oral mucous membranes Eyes PERRL, EOMs intact bilaterally and conjunctivae normal Neck supple, no JVD, thyroid normal and no carotid bruits General: trachea midline Resp normal respiratory effort, no retractions, no use of accessory muscles and clear to auscultation bilaterally Auscultation: Negative for rales, rhonchi or wheezes Cardio regular rate, regular rhythm, S1 normal heart sound, S2 normal heart sound, no murmurs, no rub and no gallops GI normal to inspection, nondistended, normoactive bowel sounds, soft to palpation, non-tender and non-distended Extremity no clubbing, cyanosis or edema Skin no rashes or lesions noted General Skin Exam: no breakdown Neuro CN's II-XII intact bilaterally, moves all extremities, no focal motor deficits and no sensory deficits noted Neuro Narrative: Patient appears to have a speech impediment Sensorium / Orientation: awake, alert, oriented to person and oriented to place Psych Psych Narrative: Patient has flat affect Assessment & Plan Assessment/Plan (1) Adult failure to thrive: (2) Inability to walk: PLAN: Plan 1. Acute on chronic debility-patient will continue to see PT and OT, we are awaiting placement in a senior care facility for short-term rehab services. #2 type 2 diabetes-patient's blood sugars will be monitored, sliding scale insulin will be given as needed #3 atherosclerotic heart disease-patient is currently on a statin, aspirin, and Plavix in addition to metoprolol and isosorbide. Continue to monitor, evaluate, assess, and treat #4 essential hypertension-patient is on Norvasc and metoprolol, continue to monitor, evaluate, assess, and treat #5 degenerative disc disease of the lumbar spine-complicates care, medical course, recovery, and prognosis #6 BPH-patient currently is on Flomax, continue to monitor, evaluate, assess, and treat #7 bradycardia-secondary to beta-evelina usage, this is not an issue at this time Total clinical time spent by myself addressing the patient's medical issues, reviewing all of his data, and collaborating with patient's care team: 25 minutes Charges/Coding Visit Charges Inpatient E&M: 75692 [facility] Hosp L1
[2022-10-25 20:40] VITALS: BP 112/81; PULSE 59; RESP 16; TEMP 36.4; O2SAT 93
[2022-10-25] MEDS: Atorvastatin Calcium 80 MG Tablet PO (21:29)
[2022-10-25 21:30] VITALS: BP 112/81; PULSE 59
[2022-10-26 00:03] LABS: Bedside Glucose 122 mg/dL (74-106)
[2022-10-26 02:41] VITALS: BP 156/72; PULSE 59; RESP 16; TEMP 36.4; O2SAT 95
[2022-10-26 07:51] LABS: Bedside Glucose 106 mg/dL (74-106)
--- NOTE | 2022-10-26 09:00 | CASEMGMT ---
SW received notification that patient was approved for [facility]. DANIA notified physician. Prerna ROMERO
--- NOTE | 2022-10-26 09:06 | CASEMGMT ---
DANIA spoke with Oanh from [facility]. She expressed concerns with patient and his prison plan. Oanh said last time patient was at [facility] he did not have a home to go to. DANIA let Oanh know that per DANIA Leal's note Zeynep from [employer] is involved due to patient's trailer having animal and human feces in it and she is working with the [facility]. Oanh thanked DANIA for that information. Plan: d/c to [facility] under skilled level of care. Prerna Merrill PATIENT TRANSITION SPECIALISTAnirudh ROMERO
[2022-10-26 10:28] VITALS: BP 153/100; PULSE 89; RESP 18; TEMP 36.7; O2SAT 94
[2022-10-26 10:30] VITALS: PULSE 89
[2022-10-26] MEDS: Metoprolol Tartrate 25 MG Tablet PO (10:30)
[2022-10-26] MEDS: Heparin Injection (Vial) 5,000 UNIT/ML VIAL 5000 UNIT SC (10:30)
[2022-10-26] MEDS: Aspirin E.C. 81 MG Tablet PO (10:31)
[2022-10-26] MEDS: Clopidogrel Bisulfate 75 MG Tablet PO (10:31)
[2022-10-26] MEDS: Tamsulosin HCl 0.4 MG Capsule PO (10:31)
[2022-10-26] MEDS: DULoxetine Hcl 30 MG Capsule PO (10:31)
[2022-10-26] MEDS: Allopurinol 100 MG Tablet PO (10:31)
[2022-10-26] MEDS: Isosorbide Mononitrate 20 MG Tablet PO (10:31)
[2022-10-26] MEDS: Cholecalciferol (VIT D3) 25 MCG TABLET (1,000 UNITS) PO (10:31)
[2022-10-26] MEDS: amLODIPine 5 MG Tablet PO (10:31)
[2022-10-26] MEDS: Pantoprazole Sodium 20 MG Tablet PO (10:31)
--- NOTE | 2022-10-26 11:11 | PCM.TXEXTCAR ---
Diet Diet Order/Speech Therapy: 10/21/22 12:33 Diet: Cardiac: Calorie-Controlled Food consistency:: Regular Liquid Consistency:: Regular/Thin How many daily calories?:2000 agnes Routine Orders/Code Status Routine Lab Work: - (Fingerstick blood sugars fasting and 4 PM daily, notify attending if blood sugar under 80 or above 160) Code Status: Full Code Therapies Weight Bearing: Full weight bearing Physical Therapy: Eval and Treat Occupational Therapy: Eval and Treat Problem/Diagnosis (1) Adult failure to thrive: Status: Acute Code(s): R62.7 - Adult failure to thrive (2) Inability to walk: Status: Acute Code(s): R26.2 - Difficulty in walking, not elsewhere classified Plan 1. Acute on chronic debility-patient will continue to see PT and OT, we are awaiting placement in a correction facility for short-term rehab services. #2 type 2 diabetes-patient's blood sugars will be monitored, sliding scale insulin will be given as needed #3 atherosclerotic heart disease-patient is currently on a statin, aspirin, and Plavix in addition to metoprolol and isosorbide. Continue to monitor, evaluate, assess, and treat #4 essential hypertension-patient is on Norvasc and metoprolol, continue to monitor, evaluate, assess, and treat #5 degenerative disc disease of the lumbar spine-complicates care, medical course, recovery, and prognosis #6 BPH-patient currently is on Flomax, continue to monitor, evaluate, assess, and treat #7 bradycardia-secondary to beta-evelina usage, this is not an issue at this time Total clinical time spent by myself addressing the patient's medical issues, reviewing all of his data, and collaborating with patient's care team: 25 minutes Allergies/Procedures Done in Hospital Allergies chicken Allergy (Mild, Uncoded 10/21/22 11:49) Nausea Procedures: None Type of Care/Length of Stay Estimated LOS: Convalescent Care Less Than 30 days Type of Care Needed: Skilled Rehab Potential: Good Prognosis: Good Additional Orders/Day of Discharge H&P will serve as current which was dated: 10/21/22 Day of Discharge: 10/26/22 Dietary and Speech Recommendations Dietitian Recommendations/Changes: RD will adjust diet to 2000CCD/Cardiac diet to manage medical conditions. Discharge Plan Admission Admit Date/Time: 10/21/22 11:47 Primary Reason for Your Visit: debility Attending Provider: Carson Bland Primary Care Provider: Carson Dobbins Consulting Providers: Kishan Jones Discharge Orders/Prescriptions Prescriptions: Continued allopurinol 100 mg tablet 100 mg PO DAILY atorvastatin 80 mg tablet 80 mg PO DAILY clopidogrel [Plavix] 75 mg tablet 75 mg PO DAILY duloxetine 30 mg capsule,delayed release(DR/EC) 30 mg PO DAILY gabapentin 300 mg capsule 600 mg PO 2XD nitroglycerin [Nitrostat] 0.4 mg tablet, sublingual 0.4 mg SUBLINGUAL Q5-15M PRN (Reason: chest pain) aspirin [Adult Low Dose Aspirin] 81 mg tablet,delayed release (DR/EC) 81 mg PO DAILY cholecalciferol (vitamin D3) 1,000 unit capsule 1,000 unit PO DAILY meclizine 25 mg tablet 25 mg PO BID-TID PRN (Reason: Dizziness) amlodipine 5 mg tablet 5 mg PO DAILY omeprazole 40 mg capsule,delayed release(DR/EC) 20 mg PO DAILY glipizide 5 mg tablet extended release 24hr 5 mg PO DAILY Januvia 50 mg tablet 50 mg PO DAILY isosorbide mononitrate 20 mg tablet 20 mg PO BID tamsulosin 0.4 mg capsule 0.4 mg PO DAILY metoprolol tartrate 50 mg tablet 50 mg PO BID lisinopril 10 mg tablet 10 mg PO DAILY Qty: 90 3RF Discontinued diazepam 2 mg tablet 2 mg PO TID Referrals / Follow Up: Carson Dobbins DO [Primary Care Provider] - Disposition Disposition (needs filled in before D/C Order can be placed): Long-Term Facility
--- NOTE | 2022-10-26 11:24 | PCM.DC.SUM ---
Providers Date of Admission: 10/21/22 Date of Discharge: 10/26/22 Primary Care Physician: Dr. Carson Dobbins DO Reason For Visit: FRANCES, BRADYCARDIA Diagnosis Discharge Diagnosis (1) Adult failure to thrive: Status: Acute Code(s): R62.7 - Adult failure to thrive (2) Inability to walk: Status: Acute Code(s): R26.2 - Difficulty in walking, not elsewhere classified Plan 1. Acute on chronic debility-patient will continue to see PT and OT, we are awaiting placement in a half-way facility for short-term rehab services. #2 type 2 diabetes-patient's blood sugars will be monitored, sliding scale insulin will be given as needed #3 atherosclerotic heart disease-patient is currently on a statin, aspirin, and Plavix in addition to metoprolol and isosorbide. Continue to monitor, evaluate, assess, and treat #4 essential hypertension-patient is on Norvasc and metoprolol, continue to monitor, evaluate, assess, and treat #5 degenerative disc disease of the lumbar spine-complicates care, medical course, recovery, and prognosis #6 BPH-patient currently is on Flomax, continue to monitor, evaluate, assess, and treat #7 bradycardia-secondary to beta-evelina usage, this is not an issue at this time Total clinical time spent by myself addressing the patient's medical issues, reviewing all of his data, and collaborating with patient's care team: 25 minutes Medications at Discharge Home Medications allopurinol 100 mg tablet 100 mg PO DAILY 10/22/18 aspirin 81 mg tablet,delayed release (Adult Low Dose Aspirin) 81 mg PO DAILY 10/22/18 atorvastatin 80 mg tablet 80 mg PO DAILY 10/22/18 cholecalciferol (vitamin D3) 25 mcg (1,000 unit) capsule 1,000 unit PO DAILY 10/22/18 clopidogrel 75 mg tablet (Plavix) 75 mg PO DAILY 10/22/18 duloxetine 30 mg capsule,delayed release 30 mg PO DAILY 10/22/18 gabapentin 300 mg capsule 600 mg PO 2XD 10/22/18 nitroglycerin 0.4 mg sublingual tablet (Nitrostat) 0.4 mg sublingual Q5-15M PRN chest pain 10/22/18 omeprazole 40 mg capsule,delayed release 20 mg PO DAILY 10/22/18 glipizide 5 mg tablet, extended release 24 hr 5 mg PO DAILY 12/31/20 sitagliptin phosphate 50 mg tablet (Januvia) 50 mg PO DAILY 12/31/20 amlodipine 5 mg tablet 5 mg PO DAILY 05/12/21 meclizine 25 mg tablet 25 mg PO BID-TID PRN Dizziness 05/12/21 lisinopril 10 mg tablet 10 mg PO DAILY #90 tabs 12/06/21 isosorbide mononitrate 20 mg tablet 20 mg PO BID . 06/11/22 metoprolol tartrate 50 mg tablet 50 mg PO BID HTN 06/11/22 tamsulosin 0.4 mg capsule 0.4 mg PO DAILY PROSTATE 06/11/22 Hospital Course Operations None Procedures None Summary of Care Provided Minutes Spent on Discharge: 33 Hospital Course: This 72-year-old white male was seen in the emergency room at [facility] with generalized weakness, per the patient, his symptoms have been going on for several weeks. Assessment in the emergency room included labs which indicated the patient had acute kidney injury, patient was also found to be bradycardic but he was taking a beta-evelina at home on a chronic basis. Patient was admitted to PCU, he was monitored on telemetry and his medicines were adjusted-his beta-evelina was decreased due to bradycardia. Patient was seen by PT and OT, it was felt that he was appropriate for further skilled services and arranges were made for the patient to go to a half-way facility. On 10/26/2022, patient was seen and examined:alert, oriented x3 and no apparent distress Constitutional Narrative: Appears older than his stated age, he does not carry on lengthy conversations with this examiner General Appearance: cooperative and well developed Orientation / Consciousness: awake, oriented to person and oriented to place HEENT normocephalic, head/scalp atraumatic and moist oral mucous membranes Eyes PERRL, EOMs intact bilaterally and conjunctivae normal Neck supple, no JVD, thyroid normal and no carotid bruits General: trachea midline Resp normal respiratory effort, no retractions, no use of accessory muscles and clear to auscultation bilaterally Auscultation: Negative for rales, rhonchi or wheezes Cardio regular rate, regular rhythm, S1 normal heart sound, S2 normal heart sound, no murmurs, no rub and no gallops GI normal to inspection, nondistended, normoactive bowel sounds, soft to palpation, non-tender and non-distended Extremity no clubbing, cyanosis or edema Skin no rashes or lesions noted General Skin Exam: no breakdown Neuro CN's II-XII intact bilaterally, moves all extremities, no focal motor deficits and no sensory deficits noted Neuro Narrative: Patient appears to have a speech impediment Sensorium / Orientation: awake, alert, oriented to person and oriented to place Psych Psych Narrative: Patient has flat affect Patient was transferred to half-way facility in stable condition on 10/26/2022. Weight / BMI Weight Weight: 130.1 kg Body Mass Index (BMI) 37.8 ABG / Lab / Microbiology Data 10/24/22 05:52 10/24/22 05:52 Laboratory: Laboratory Results - last 24 hr 10/25/22 11:50: POC Glucose 104 10/25/22 16:43: POC Glucose 139 H 10/25/22 21:27: POC Glucose 122 H 10/26/22 06:38: POC Glucose 106 Meaningful Use Info Meaningful Use Diagnoses (Choose all that apply): None applicable Discharge Plan Admission Admit Date/Time: 10/21/22 11:47 Primary Reason for Your Visit: debility Attending Provider: Carson Bland Primary Care Provider: Carson Dobbins Consulting Providers: Kishan Jones Discharge Orders/Prescriptions Prescriptions: Continued allopurinol 100 mg tablet 100 mg PO DAILY atorvastatin 80 mg tablet 80 mg PO DAILY clopidogrel [Plavix] 75 mg tablet 75 mg PO DAILY duloxetine 30 mg capsule,delayed release(DR/EC) 30 mg PO DAILY gabapentin 300 mg capsule 600 mg PO 2XD nitroglycerin [Nitrostat] 0.4 mg tablet, sublingual 0.4 mg SUBLINGUAL Q5-15M PRN (Reason: chest pain) aspirin [Adult Low Dose Aspirin] 81 mg tablet,delayed release (DR/EC) 81 mg PO DAILY cholecalciferol (vitamin D3) 1,000 unit capsule 1,000 unit PO DAILY meclizine 25 mg tablet 25 mg PO BID-TID PRN (Reason: Dizziness) amlodipine 5 mg tablet 5 mg PO DAILY omeprazole 40 mg capsule,delayed release(DR/EC) 20 mg PO DAILY glipizide 5 mg tablet extended release 24hr 5 mg PO DAILY Januvia 50 mg tablet 50 mg PO DAILY isosorbide mononitrate 20 mg tablet 20 mg PO BID tamsulosin 0.4 mg capsule 0.4 mg PO DAILY metoprolol tartrate 50 mg tablet 50 mg PO BID lisinopril 10 mg tablet 10 mg PO DAILY Qty: 90 3RF Discontinued diazepam 2 mg tablet 2 mg PO TID Referrals / Follow Up: Carson Dobbins DO [Primary Care Provider] - Disposition Disposition (needs filled in before D/C Order can be placed): Care Home Facility Charges/Coding Visit Charges Inpatient E&M: 30597 Disch Hosp >30min
--- NOTE | 2022-10-26 11:51 | CASEMGMT ---
Patient was approved and is ready for discharge to [facility]. SW completed a 7000 in [facility] system. Plan: d/c to [facility] under skilled level of care on a convalescent stay. [facility] will transport patient. Prerna ROMERO
[2022-10-26 11:58] VITALS: BP 119/74; PULSE 85; RESP 16; TEMP 36.8; O2SAT 95
--- NOTE | 2022-10-26 12:08 | CM.UR ---
Discharge Planning Discharge orders, signed med list and transport time sent to [facility] via [facility]. [facility] will transport patient by wheelchair at 2p. Nursing, SW, patient, and his daughter (vm left). Stefania Sams, Discharge Planning Asst.
[2022-10-26 12:20] LABS: Bedside Glucose 208 mg/dL (74-106)
--- NOTE | 2022-10-26 13:16 | CASEMGMT ---
Discharge Planning Discharge orders, signed med list, and transport time sent to [facility]. [facility] will transport patient by wheelchair at 2p. Nursing, SW, patient updated. VM left for his daughter. Stefania Sams, Discharge Planning Asst.
== END 2022-10-26 14:08 | disposition skilled nursing facility (03) | DRG 684 ==
LOC: ED 11:57 → PCU 10-24 07:23
PROVIDERS: Admitting Provider Internal Medicine; Emergency Provider Emergency Medicine; PCP Family Medicine; Visit Provider Internal Medicine
DX: N17.9 Acute kidney failure, unspecified (principal); E11.22 Type 2 diabetes mellitus with diabetic chronic kidney disease; N18.30 Chronic kidney disease, stage 3 unspecified; R62.7 Adult failure to thrive; I12.9 Hypertensive chronic kidney disease with stage 1 through stage 4 chronic kidney disease, or unspecified chronic kidney disease; R00.1 Bradycardia, unspecified; I25.10 Atherosclerotic heart disease of native coronary artery without angina pectoris; E78.5 Hyperlipidemia, unspecified; R26.2 Difficulty in walking, not elsewhere classified; M48.061 Spinal stenosis, lumbar region without neurogenic claudication; M10.9 Gout, unspecified; M51.36 Other intervertebral disc degeneration, lumbar region; E66.9 Obesity, unspecified; G89.29 Other chronic pain; Z79.84 Long term (current) use of oral hypoglycemic drugs; Z68.37 Body mass index [BMI] 37.0-37.9, adult; Z95.5 Presence of coronary angioplasty implant and graft; Z66 Do not resuscitate; Z79.02 Long term (current) use of antithrombotics/antiplatelets; Z79.82 Long term (current) use of aspirin; N40.0 Benign prostatic hyperplasia without lower urinary tract symptoms; T50.995A Adverse effect of other drugs, medicaments and biological substances, initial encounter; Z79.899 Other long term (current) drug therapy; F17.220 Nicotine dependence, chewing tobacco, uncomplicated
CPT/HCPCS: 36415; 71046; 80048; 80053; 81001; 82962; 83735; 84100; 85025; 93005; 96360; 96361; 96372; 97110; 97116; 97162; 97166; 97530; 97535; 99221; 99284; J7030; A4216; G0378

== ENCOUNTER → 2023-05-10 | Outpatient (REF) | payer MEDICARE, MEDICAID, SELFPAY ==
--- OUTSIDE RECORDS SUMMARY | 2023-05-10 04:16 | XMS RPT_ITS | CCD ---
Author Name Unknown Address [address] [place] [address] Organization [facility] Care Team Providers Care Butter Melter Name Role Phone DR JAZMINE BAILEY DO Primary Care Physician [phone] JOSE COLÓN DO Admitting Unavailable JOSE COLÓN DO Primary Care Unavailable JOSE COLÓN DO Attending Unavailable JAZMINE BAILEY Consulting Unavailable NATALYA SHEN MD Admitting Unavailable NATALYA SHEN MD Primary Care Unavailable NATALYA SHEN MD Attending Unavailable PROVIDER, UNKNOWN Consulting Unavailable Medications Current Medications Medication Drug Class(es) Dates Sig (Normalized) Sig (Original) Albuterol / Ipratropium (2 sources) Anticholinergic, beta2-Adrenergic Agonist Start: 11-17-2017 take 1 dose by inhalation four times daily as needed for wheezing DuoNeb Dose = 3 mL, Inhalation, QID, PRN as needed for shortness of breath or wheezing, 0 Refill(s) Start Date: 11/17/17 Status: Ordered allopurinol 100 mg oral tablet (2 sources) Xanthine Oxidase Inhibitor Start: 11-12-2017 allopurinol 100 mg oral tablet Dose : 100 mg = 1 tab(s), Oral, qDay, 0 Refill(s) Start Date: 11/12/17 Status: Ordered Aspirin (2 sources) Platelet Aggregation Inhibitor, Nonsteroidal Anti-inflammatory Drug Start: 04-06-2021 aspirin 81 mg oral delayed release tablet Dose : 81 mg = 1 tab(s), Oral, qDay, # 90 tab(s), 2 Refill(s), Pharmacy: [facility]/pharmacy #[id number], 180.3, cm, 04/02/21 22:21:00 EST, Height, kg, 04/02/21 22:21:00 EST, Dosing Weight Start Date: 04/06/21 Status: Ordered atorvastatin 80 mg oral tablet (2 sources) HMG-CoA Reductase Inhibitor Start: 04-06-2021 Lipitor 80 mg oral tablet Dose : 80 mg = 1 tab(s), Oral, qDay, # 30 tab(s), 2 Refill(s), Pharmacy: [facility]/pharmacy #[id number], 180.3, cm, 04/02/21 22:21:00 EST, Height, kg, 04/02/21 22:21:00 EST, Dosing Weight Start Date: 04/06/21 Status: Ordered clopidogrel 75 mg oral tablet (2 sources) P2Y12 Platelet Inhibitor Start: 04-06-2021 Plavix 75 mg oral tablet Dose : 75 mg = 1 tab(s), Oral, qDay, # 30 tab(s), 0 Refill(s), Pharmacy: [facility]/pharmacy #[id number], 180.3, cm, 04/02/21 22:21:00 EST, Height, kg, 04/02/21 22:21:00 EST, Dosing Weight Start Date: 04/06/21 Status: Ordered DULoxetine 30 mg delayed release oral capsule (2 sources) Serotonin and Norepinephrine Reuptake Inhibitor Start: 04-03-2021 DULoxetine 30 mg oral delayed release capsule Dose : 30 mg = 1 cap(s), Oral, qDay, 0 Refill(s) Start Date: 04/03/21 Status: Ordered meclizine hydrochloride 25 mg oral tablet (2 sources) Antiemetic Start: 04-06-2021 meclizine 25 mg oral tablet Dose : 25 mg = 1 tab(s), Oral, TID, PRN as needed for dizziness, # 30 tab(s), 1 Refill(s), Pharmacy: [facility]/pharmacy #[id number], 180.3, cm, 04/02/21 22:21:00 EST, Height, kg, 04/02/21 22:21:00 EST, Dosing Weight Start Date: 04/06/21 Status: Ordered melatonin 3 mg oral tablet (2 sources) Start: 04-06-2021 melatonin 3 mg oral tablet Dose : 3 mg = 1 tab(s), Oral, qHS, PRN Sleep, # 30 tab(s), 0 Refill(s), Pharmacy: [facility]/pharmacy #[id number], 180.3, cm, 04/02/21 22:21:00 EST, Height, kg, 04/02/21 22:21:00 EST, Dosing Weight Start Date: 04/06/21 Status: Ordered Nitrostat 0.4 mg sublingual tablet (2 sources) Start: 04-06-2021 Nitrostat 0.4 mg sublingual tablet Dose : 0.4 mg = 1 tab(s), Sublingual, q5min, PRN Chest pain, # 20 tab(s), 0 Refill(s), [id number], 180.3, cm, 04/02/21 22:21:00 EST, Height, kg, 04/02/21 22:21:00 EST, Dosing Weight Start Date: 04/06/21 Status: Ordered omeprazole 20 mg delayed release oral capsule (2 sources) Proton Pump Inhibitor Start: 07-14-2016 omeprazole 20 mg oral delayed release capsule (NF) Dose : 20 mg = 1 cap(s), Oral, qDay, # 30 cap(s), 0 Refill(s) Start Date: 07/14/16 Status: Ordered SITagliptin 50 mg oral tablet (2 sources) Dipeptidyl Peptidase 4 Inhibitor Start: 07-14-2016 Januvia 50 mg oral tablet (NF) Dose : 50 mg = 1 tab(s), Oral, qDay, # 30 tab(s), 0 Refill(s) Start Date: 07/14/16 Status: Ordered Vitamin D3 (2 sources) Start: 11-17-2017 Vitamin D3 Dose : 1,000 unit(s) = 1 tab(s), Oral, Daily, 0 Refill(s) Start Date: 11/17/17 Status: Ordered Completed/Discontinued Medications Medication Drug Class(es) Dates Sig (Normalized) Sig (Original) gabapentin 300 mg oral capsule (6 sources) Anti-epileptic Agent Start: 04-03-2021 gabapentin 300 mg oral capsule Dose : 900 mg = 3 cap(s), Oral, qPM, 0 Refill(s), 117.4 Start Date: 04/03/21 Status: Ordered Problems Active Problems Problem Classification Problem Date Documented Date Episodic/Chronic Chronic kidney disease (1 source) Chronic kidney disease; Translations: [Chronic kidney disease, stage 3b] Onset: 06-15-2022 Complication of device; implant or graft (1 source) Atherosclerosis of coronary artery bypass graft(s) without angina pectoris; Translations: [Atherosclerosis of coronary artery bypass graft(s) without angina pectoris] Onset: 06-15-2022 Chronic Conditions associated with dizziness or vertigo (2 sources) Benign paroxysmal positional vertigo 07-14-2016 Episodic Coronary atherosclerosis and other heart disease (4 sources) Coronary arteriosclerosis in [place] artery; Translations: [Coronary atherosclerosis] 05-14-2019 Chronic Past or Other Problems Problem Classification Problem Date Documented Da te Episodic/Chronic Crushing injury or internal injury (2 sources) Injury of kidney Onset: 11-16-2017 11-16-2017 Episodic Fracture of lower limb (1 source) Unspecified fracture of unspecified lower leg, initial encounter for closed fracture; Translations: [Unspecified fracture of unspecified lower leg, initial encounter for closed fracture] Onset: 06-15-2022 Episodic Malaise and fatigue (1 source) Weakness; Translations: [Weakness] Onset: 06-15-2022 Episodic Results Test Name Value Interpretation Reference Range Facil ity Vital Signs Date Time Vital Sign Value Performing Clinician Faci lity 04-07-2021 11:45-0500 Heart rate 70 /min DR ZAK VINCENT MD [facility] 04-07-2021 11:45-0500 Reason For Taking VItal Signs DR ZAK VINCENT MD [facility] 04-07-2021 11:45-0500 Respiratory rate 18 /min DR ZAK VINCENT MD [facility] 04-07-2021 10:51-0500 Heart rate 76 /min DR ZAK VINCENT MD [facility] 04-07-2021 10:51-0500 Reason For Taking VItal Signs DR ZAK VINCENT MD [facility] 04-07-2021 08:51-0500 Heart rate 68 /min DR ZAK VINCENT MD [facility] 04-07-2021 08:51-0500 Reason For Taking VItal Signs DR ZAK VINCENT MD [address] [place] [id number] 04-07-2021 08:51-0500 Respiratory rate 18 /min DR ZAK VINCENT MD [address] [place] [id number] 04-07-2021 08:35-0500 Respiratory rate 18 /min DR ZAK VINCENT MD [address] [place] [id number] 04-07-2021 07:33-0500 Body temperature 97.7 [degF] DR ZAK VINCENT MD [facility] 04-07-2021 07:33-0500 Diastolic blood pressure 62 mm[Hg] DR ZAK VINCENT MD [facility] 04-07-2021 07:33-0500 Mean blood pressure 84 mm[Hg] DR ZAK VINCENT MD [facility] 04-07-2021 07:33-0500 Systolic blood pressure 128 mm[Hg] DR ZAK VINCENT MD [facility] 04-07-2021 03:39-0500 Body temperature 97.7 [degF] DR ZAK VINCENT MD [address] [place] [id number] 04-07-2021 03:39-0500 Diastolic Blood Pressure NBP [address] ZAK VINCENT MD [facility] 04-07-2021 03:39-0500 Mean blood pressure 87 mm[Hg] DR ZAK VINCENT MD [facility] 04-07-2021 03:39-0500 Systolic Blood Pressure NBP [address] ZAK VINCENT MD [facility] 04-07-2021 01:18-0500 Body temperature 97.52 [degF] DR ZAK VINCENT MD [facility] 04-06-2021 19:35-0500 Diastolic Blood Pressure NBP [address] ZAK VINCENT MD [facility] 04-06-2021 19:35-0500 Systolic Blood Pressure NBP [address] ZAK VINCENT MD [facility] 04-06-2021 14:56-0500 Diastolic Blood Pressure NBP [address] ZAK VINCENT MD [facility] 04-06-2021 14:56-0500 Systolic Blood Pressure NBP [address] ZAK VINCENT MD [facility] 04-06-2021 11:33-0500 Diastolic blood pressure 62 mm[Hg] DR ZAK VINCENT MD [facility] 04-06-2021 11:33-0500 Mean blood pressure 91 mm[Hg] DR ZAK VINCENT MD [facility] 04-06-2021 11:33-0500 Systolic blood pressure 148 mm[Hg] DR ZAK VINCENT MD [facility] 04-06-2021 07:04-0500 Diastolic blood pressure 58 mm[Hg] DR ZAK VINCENT MD [facility] 04-06-2021 07:04-0500 Mean blood pressure 87 mm[Hg] DR ZAK VINCENT MD [facility] 04-06-2021 07:04-0500 Systolic blood pressure 144 mm[Hg] DR ZAK VINCENT MD [address] [place] [id number] 04-06-2021 03:19-0500 Mean blood pressure 73 mm[Hg] DR ZAK VINCENT MD [facility] 04-05-2021 23:22-0500 Mean blood pressure 96 mm[Hg] DR ZAK VINCENT MD [facility] 04-03-2021 14:49-0500 Body temperature 96.98 [degF] DR ZAK VINCENT MD [facility] 04-02-2021 22:21-0500 Body height 180.[address] ZAK VINCENT MD [facility] 04-02-2021 22:21-0500 Body weight 117.[address] ZAK IVNCENT MD [address] [place] [id number] 04-02-2021 22:21-0500 Body weight 36.11 kg/m2 DR ZAK VINCENT MD [facility] 04-02-2021 22:05-0500 Heart rate 41 /min DR ZAK VINCENT MD [facility] Encounters Encounter Date Encounter Type Care Provider Facility Start: 09-23-2022 End: 09-23-2022 Emergency department patient visit [facility] Start: 06-15-2022 ambulatory JAZMINE Yessenia [facility] Start: 05-06-2021 End: 05-06-[address] GILSON JI MD [facility] Start: 04-02-2021 End: 04-07-2021 Evaluation and management of inpatient DR ZAK VINCENT MD [facility] Procedures Date Procedure Procedure Detail Performing Clinician Start: 11-15-[address] ZAK VINCENT MD Start: 11-13-[address] RACHAEL VINCENT MD Cardiac catheterization DR Zen VINCENT MD Coronary angioplasty DR POP VINCENT MD Coronary artery bypa ss grafts x 4 DR ZAK VINCENT MD Heel injury (disorder) DR CARLA VINCENT MD Placement of stent DR RAPHAEL VINCENT MD Payers Date Payer Category Payer Unknown [id number] 1950 Unknown [id number] Medicaid [id number] Social History Date Type Detail Facility Tobacco Nicotine Use: chewing tobacc o. [facility] Never smoked tobacco (findin g) [facility] Sex Assigned At [facility] Hospital Discharge instructions 04-07-2021 Note Date & Type Note Facility 04-07-2021 Hospital Discharg e instructions Patient Education 04/07/2021 12:52:10 Near-Syncope, [id number] Near-Syncope Near-syncope is when you suddenly get weak or dizzy, or you feel like you might pass out (faint). This may also be called presyncope. This is due to a lack of blood flow to the brain. During an episode of near-syncope, you may: Feel dizzy, weak, or light-headed. Feel sick to your stomach (nauseous). See all white or all black. See spots. Have cold, clammy skin. This condition is caused by a sudden decrease in blood flow to the brain. This decrease can result from various causes, but most of those causes are not dangerous. However, near-syncope may be a sign of a serious medical problem, so it is important to seek medical care. Follow these instructions at home: Medicines Take [id number] and prescription medicines only as told by your doctor. If you are taking blood pressure or heart medicine, get up slowly and spend many minutes getting ready to sit and then stand. This can help with dizziness. General instructions Be aware of any changes in your symptoms. Talk with your doctor about your symptoms. You may need to have testing to find the cause of your near-syncope. If you start to feel like you might pass out, lie down right away. Raise (elevate) your feet above the level of your heart. Breathe deeply and steadily. Wait until all of the symptoms are gone. Have someone stay with you until you feel stable. Do not drive, use machinery, or play sports until your doctor says it is okay. Drink enough fluid to keep your pee (urine) pale yellow. Keep all follow-up visits as told by your doctor. This is important. Get help right away if you: Have a seizure. Have pain in your: ?Chest. ?Belly (abdomen). ?Back. Faint once or more than once. Have a very bad headache. Are bleeding from your mouth or butt. Have black or tarry poop (stool). Have a very fast or uneven heartbeat (palpitations). Are mixed up (confused). Have trouble walking. Are very weak. Have trouble seeing. These symptoms may be an emergency. Do not wait to see if the symptoms will go away. Get medical help right away. Call your local emergency services (911 in the [place] Do not drive yourself to the hospital. Summary Near-syncope is when you suddenly get weak or dizzy, or you feel like you might pass out (faint). This condition is caused by a lack of blood flow to the brain. Near-syncope may be a sign of a serious medical problem, so it is important to seek medical care. This information is not intended to replace advice given to you by your health care provider. Make sure you discuss any questions you have with your health care provider. Document Released: 08/01/2008 Document Revised: 06/07/2019 Document Reviewed: 01/02/2019 [employer] Patient Education 2020 [employer]. Follow Up Care 04/02/2021 20:21:00 With:[facility] skilled loc [phone] Address: When:1-2 days With:JAZMINE BAILEY DO Address: [address] [place] [address]- When:1-2 days With:[facility] Address: [address] [place] [address]- When: Unknown Comments:follow up in 2-3 weeks. Schedule appointment as soon as possible [facility] Evaluation + Plan note 04-03-2021 Note Date & Type Note Facility 1. Symptomatic Bradycardia 2. Presyncope 3. Concern for Acute CVA 4. Tyle II TX 5. Hypokalemia and Hypomagnesia 6. FRANCES on CKD Stage III 7. Hx of Coronary Artery Dz status post coronary bypass graft x4 vessels 09/19/2000, status post PCI to the SVG to diagonal on 01/02/2012 and status post PTCA and BMS to SVG to PDA on 07/15/2016,Stable Angina (2018), Essential HTN (2016), Hyperlipidemia (2016) 8. Hx of Diabetes Mellitus Type 2, TIA (10/2017), obesity (BMI 36) 9. DVT prophylaxis 10. Code Status Symptomatic bradycardia: -Patient patient with a heart rate of 41 -Patient was started on 2 mg glucagon in order to decrease any lingering effect of beta-blockers that could be causing the patient's decreased heart rate -Patient's heart rate has improved during encounter to 53 -We will continue to monitor Presyncope: - Pt complained of lightheadedness as well as nausea and blurry vision and then felt weak and had fallen from the bed to the floor and was unable to pick himself up. - Initial blood pressure in the hospital was normal at 120/70. -Patient's blood pressure and heart rate -Patient is a fall risk and will need assistance on moving around his room Concern for Acute CVA: -Based on patient's new symptom of speech difficulty finding the right word which started last night there is concern for an acute CVA especially with patient's history of TIA in 2018 as well as his diabetic history, hypertensive history and his hyperlipidemia -Tried to call patient's daughter to assess patient's mental status at baseline, was unable to reach around 1 AM this morning. Mary Ramirez [phone] (daughter) -We will order a CT of the head without contrast for further evaluation, which returned with n o visible acute intracranial abnormality. Maxillary predominant sinus mucosal disease. Type II TX: -Presented initially with a elevated troponin level of 93.16 -Initial EKG showed concern for possible left bundle branch block however this has now resumed with electrolyte administration -We will order proBNP and echo for further evaluation of patient's heart function -proBNP returned at 1220 -We will also trend troponin levels -Continue to monitor however due to patient not having any symptoms of any chest pain or chest pressure the likelihood of a myocardial infarction is less likely -Heart Score: 5 points, moderate score, risk of MACE 12-16.6% - We will risk stratify pt with TSH, Lipid panel and HbA1c - TSH returned WNL - Lipid panel and HbA1c pending - We will continue patient's home meds of aspirin, Plavix, Lipitor Hypokalemia and Hypomagnesia: - Initial labs of K+ 2.3 ad Mag 1.7 - Potassium and Magnesium were replaced - Goal K=4.0, Goal Mg=2.0 - We will continue to follow with AM BMP FRANCES on CKD: - Pt has a baseline Program Admin of 1.7 - Program Admin today was 2.34, which is greater than 30% of baseline signifying acute kidney injury - We will continue to monitor and give fluids if needed DM Type 2: - Pt will be started on SSI TID with meals - We will continue to monitor sugar levels DVT ppx: - SCDs Full Code Status We will resume patients home meds as appropriate. Patient was seen and examined by myself as well as the attending. Any changes or further recommendations will be attended to the note. This note was dictated with voice recognition software and may contain typos. [facility] Evaluation + Plan note Note Date & Type Note Facility Evaluation + Plan note Future Appointments Appointment Date:05/07/2021 08:30:00 AM Scheduled Provider:GILSON JI MD Location:[facility] Appointment Type:NS OV [facility] Hospital course Narrative Note Date & Type Note Facility Hospital course Narrative No data available for this section [facility] Hospital Discharge instructions Note Date & Type Note Facility Hospital Discharge instructions No data available for this section [facility] Summary Purpose Family History No Family History Records FoundNo Family History Records FoundNo Family History Records Found Advance Directives No Advanced Directives Records FoundNo Advanced Directives Records FoundNo Advanced Directives Records Found Additional Source Comments (unrecognized sect ion and content) No Status Records FoundNo Status Records FoundNo Status Records Found INFORMATION SOURCE (unrecogn ized section and content) DATE CREATED AUTHOR AUTHOR'S ORGANIZ ATION 05/29/2021 [facility] DATE CREATED AUTHOR AUTHOR'S ORGANIZ ATION 01/23/2023 [facility] FOR RECORDS PERTAINING TO PATIENTS WHO ARE OR HAVE BEEN ENROLLED IN A CHEMICAL DEPENDENCY/SUBSTANCEABUSE PROGRAM, SOME INFORMATION MAY BE OMITTED. This clinical summary was aggregated from multiple sources. Caution should be exercised in using it in the provision of clinical care. This summary normalizes information from multiple sources, and as a consequence, information in this document may materially change the coding, format and clinical context of patient data. In addition, data may be omitted in some cases. CLINICAL DECISIONS SHOULD BE BASED ON THE PRIMARY CLINICAL RECORDS. [facility]. provides no warranty or guarantee of the accuracy or completeness of information in this document.
[2023-05-10 08:01] LABS: Absolute Lymphocyte Count 2.07 X10^3/uL (0.83-4.51); Absolute Neutrophil Count 3.2 X10^3/uL (2.0-7.7); Basophil# 0.04 X10^3/uL; Basophil% 0.7 % (0-1); Eosinophil# 0.17 X10^3/uL; Eosinophils% 2.8 % (0-5); Hematocrit 34.9 % (40-54); Hemoglobin 11.7 g/dL (13.0-16.5); Lymphocyte # 2.07 X10^3/ul (0.83-4.51); Lymphocyte % 34.4 % (19-41); Mean Corp Hgb Conc 33.5 g/dL (32-36); Mean Corpuscular Hgb 29.3 pg (27.0-32.0); Mean Corpuscular Volume 87.5 fL (80-94); Mean Platelet Vol. 10.5 fl (6.2-12.0); Monocyte# 0.51 X10^3/uL; Monocyte% 8.5 % (0-10); NRBC Flagged by Analyzer 0 % (0-5); Neutrophil % 53.3 % (47-70); Platelet Count 203 K/mm3 (150-450); RBC Distribution Width CV 13.2 % (11.6-14.6); RBC Distribution Width SD 41.8 fl (35.1-43.9); Red Blood Count 3.99 M/mm3 (4.6-6.2)
[2023-05-10 08:10] LABS: Vitamin B12 278 pg/mL (211-911); Vitamin D,25 Hydroxy 31.8 ng/mL
[2023-05-10 08:53] LABS: Anion Gap 8 (5-15); BUN 22 mg/dL (7-18); BUN/Creat Ratio 11.8 RATIO (10-20); Calcium,Total 8.5 mg/dL (8.5-10.1); Chloride 107 mmol/L (98-107); Cholesterol 103 mg/dL (200); Creatinine, Serum 1.87 mg/dL (0.70-1.30); EST Glomerular Filtration Rate 38 mL/min (>60); Est Glom Filt Rate - Afr Amer 46 mL/min (>60); Glucose 219 mg/dL (74-106); High Density Lipoprotein 25 mg/dL; Potassium 4.3 mmol/L (3.5-5.1); Sodium Level 139 mmol/L (136-145); Thyroid Stim Hormone (TSH) 1.53 uIU/mL (0.358-3.74); Triglycerides 169 mg/dL; Very Low Density Lipoprotein 34 mg/dL (5-40)
== END ==
LOC: OLS.SWAL 04:00
PROVIDERS: PCP Family Medicine; Referring Provider Internal Medicine; Visit Provider Internal Medicine
DX: E11.22 Type 2 diabetes mellitus with diabetic chronic kidney disease (principal); I12.9 Hypertensive chronic kidney disease with stage 1 through stage 4 chronic kidney disease, or unspecified chronic kidney disease; N18.9 Chronic kidney disease, unspecified; E55.9 Vitamin D deficiency, unspecified
CPT/HCPCS: 36415; 80048; 80061; 82306; 82607; 83036; 84443; 85025

== ENCOUNTER → 2023-11-20 | Outpatient (CLI) | payer MEDICARE, MEDICAID, SELFPAY ==
[2023-11-20 18:39] LABS: Anion Gap 8 (5-15); BUN 29 mg/dL (7-18); BUN/Creat Ratio 12.8 RATIO (10-20); Calcium,Total 9.5 mg/dL (8.5-10.1); Chloride 107 mmol/L (98-107); Creatinine, Serum 2.27 mg/dL (0.70-1.30); EST Glomerular Filtration Rate 30 mL/min (>60); Est Glom Filt Rate - Afr Amer 36 mL/min (>60); Glucose 113 mg/dL (74-106); Sodium Level 137 mmol/L (136-145)
== END | disposition home or self-care (01) ==
LOC: BFHLAB 14:47
PROVIDERS: PCP Family Medicine; Referring Provider Family Medicine; Visit Provider Family Medicine
DX: N18.32 Chronic kidney disease, stage 3b (principal)
CPT/HCPCS: 36415; 80048

== ENCOUNTER → 2024-01-29 | Outpatient (CLI) | payer MEDICARE, MEDICAID, SELFPAY | END | disposition home or self-care (01) | LOC: MRI 10:05 | PROVIDERS: PCP Family Medicine; Referring Provider Family Medicine; Visit Provider Family Medicine | DX: M48.061 Spinal stenosis, lumbar region without neurogenic claudication (principal); M51.26 Other intervertebral disc displacement, lumbar region | CPT/HCPCS: 72148 ==

== ENCOUNTER 2024-02-06 10:07 | Emergency (ER) | payer MEDICAID, MEDICARE, SELFPAY ==
[2024-02-06 10:08] VITALS: BP 147/86; PULSE 66; RESP 16; TEMP 36.8; O2SAT 95; BMI 37.9
--- NOTE | 2024-02-06 10:26 | RAD_ITS ---
STUDY: X-RAY - RIGHT ANKLE REASON FOR EXAM: Male, 73 years old. Fall pain TECHNIQUE: 3 view(s) of the ankle. COMPARISON: None. FINDINGS: Normal visualized distal tibia and fibula. Nondisplaced transverse fracture of the lateral malleolus. Normal tibiotalar articulation and ankle mortise. Calcaneal spurs. The visualized subtalar, talonavicular, calcaneocuboid and tarsal articulations are normal. Soft tissue swelling. RAD/Ankle min 3 Views IMPRESSION: Nondisplaced fracture of the lateral malleolus. Soft tissue swelling. Calcaneal spurs. Electronically Signed: Judson Knox MD at 12:03 EST ,
--- NOTE | 2024-02-06 10:26 | RAD_ITS ---
STUDY: X-RAY - RIGHT FOOT CLINICAL: Male, 73 years old. Pain following injury. TECHNIQUE: 3 view(s) of the foot. COMPARISON: None. FINDINGS: There is a plantar calcaneal spur. Nondisplaced fracture of the lateral malleolus. Normal visualized subtalar, talonavicular, calcaneocuboid, tarsal and tarsometatarsal articulations. Normal metatarsi. Normal metatarsophalangeal joint of the great toe. Normal tibial and fibular sesamoid bones. Normal interphalangeal joint of the great toe. Normal phalanges of the great toe. Normal second through fifth metatarsophalangeal joints. Normal interphalangeal joints and phalanges of the lesser toes. Soft tissue swelling. RAD/Foot min 3 Views IMPRESSION: Soft tissue swelling. Nondisplaced fracture of the lateral malleolus. Electronically Signed: Judson Knox MD at 12:02 EST ,
--- NOTE | 2024-02-06 10:26 | RAD_ITS ---
STUDY: X-RAY - RIGHT TIBIA AND FIBULA REASON FOR EXAM: Male, 73 years old. Fall TECHNIQUE: 2 view(s) of the tibia and fibula were obtained. COMPARISON: None. FINDINGS: Normal visualized tibia. Nondisplaced fracture of the lateral malleolus with overlying soft tissue swelling. Soft tissue swelling. RAD/Tibia & Fibula 2 Views IMPRESSION: Nondisplaced fracture of the lateral malleolus. Soft tissue swelling. Electronically Signed: Judson Knox MD at 12:02 EST ,
--- NOTE | 2024-02-06 10:46 | EX.ED.DYSGE1 ---
HPI History of Present Illness Chief Complaint: Lower Extremity Injury Narrative Narrative: Patient is a 73-year-old male with past medical history of chronic kidney disease, tobacco use, MILADIS, hypertension, diabetes, hyperlipidemia, chronic kidney disease stage III who presents to the [facility] part with a chief complaint of right ankle pain and bruising. Patient states that on Monday he was getting up off the toilet when his walker started to lean to the right causing him to fall to the right. He states that he did not hit his head he did not pass out he remembers entire event. He states that he was having swelling and pain he states that an x-ray obtained yesterday and was told that this was broken therefore they sent him here for further evaluation management. Patient does state that he does have pain with attempted ambulation of the right lower extremity. [facility] Medical History Inability to walk Tobacco abuse Debility Chronic kidney disease Frequent falls Inability to walk Adult failure to thrive Left ventricular hypertrophy Ventricular non-compaction cardiomyopathy History of left heart catheterization (11/16/17) Obstructive sleep apnea Cervical spinal stenosis Left bundle branch block (LBBB) Essential hypertension Atherosclerotic heart disease of [place] coronary artery without angina pectoris Sleep apnea Diabetes Gout Depression TIA (transient ischemic attack) Vitamin D deficiency Hyperlipidemia CKD (chronic kidney disease) stage 3, GFR 30-59 ml/min Peripheral nerve dysfunction Vertigo Vestibular dysfunction Obesity Home Medications ?Medication ?Instructions ?Recorded ?Last Taken ?Type allopurinol 100 mg tablet 100 mg PO DAILY 10/22/18 10/21/22 History aspirin 81 mg tablet,delayed 81 mg PO DAILY 10/22/18 10/21/22 History release (Adult Low Dose Aspirin) atorvastatin 80 mg tablet 80 mg PO DAILY 10/22/18 10/21/22 History cholecalciferol (vitamin D3) 25 1,000 unit PO DAILY 10/22/18 10/21/22 History mcg (1,000 unit) capsule clopidogrel 75 mg tablet (Plavix) 75 mg PO DAILY 10/22/18 10/21/22 History duloxetine 30 mg capsule,delayed 30 mg PO DAILY 10/22/18 10/21/22 History release gabapentin 300 mg capsule 600 mg PO 2XD 10/22/18 10/21/22 History nitroglycerin 0.4 mg sublingual 0.4 mg sublingual Q5-15M PRN chest 10/22/18 Unknown History tablet (Nitrostat) pain omeprazole 40 mg capsule,delayed 20 mg PO DAILY 10/22/18 10/21/22 History release glipizide 5 mg tablet, extended 5 mg PO DAILY 12/31/20 10/21/22 History release 24 hr sitagliptin phosphate 50 mg tablet 50 mg PO DAILY 12/31/20 10/21/22 History (Januvia) amlodipine 5 mg tablet 5 mg PO DAILY 05/12/21 10/21/22 History meclizine 25 mg tablet 25 mg PO BID-TID PRN Dizziness 05/12/21 10/21/22 History lisinopril 10 mg tablet 10 mg PO DAILY #90 tabs 12/06/21 10/21/22 Rx isosorbide mononitrate 20 mg tablet 20 mg PO BID . 06/11/22 10/21/22 History metoprolol tartrate 50 mg tablet 50 mg PO BID HTN 06/11/22 10/21/22 History tamsulosin 0.4 mg capsule 0.4 mg PO DAILY PROSTATE 06/11/22 10/21/22 History ondansetron 4 mg disintegrating 4 mg PO Q6H PRN nausea and 02/06/24 Unknown Rx tablet vomiting #20 tabs oxycodone-acetaminophen 5 mg-325 1 tab PO Q6H PRN pain 2 days #8 02/06/24 Unknown Rx mg tablet (Percocet) tabs Allergy/AdvReac Type Severity Reaction Status Date / Time chicken Allergy Mild Nausea Uncoded 10/21/22 11:49 Family History Sister Diabetes Father Heart disease Hypertension Cancer melanoma Mother Heart disease Surgical History History of coronary artery stent placement (07/15/16) H/O coronary artery bypass surgery (09/19/00) History of arthroscopy of left knee Social History household members: none housing: house Smoking Status: Never smoker Smokeless tobacco user: chewing tobacco and other alcohol intake: never substance use type: does not use ROS ROS ED ROS Narrative Constitutional: Denies any fevers, chills, headaches, lightness, dizziness Eyes: Denies change in vision double vision blurry vision Cardiovascular: Denies chest pain or palpitations Respiratory: Denies coughing wheezing shortness of breath Abdomen: Denies abdominal pain nausea vomit diarrhea : Denies any urinary symptoms Neurological: Denies numbness, weakness, tingling Musculoskeletal: Complains of right ankle pain as noted above Skin: Complains of bruising noted to the right ankle region. EXAM Physical Exam Narrative Exam Narrative: General: Patient lying in bed rest comfortably did not appear to be acute distress Head: Atraumatic, normocephalic Eyes: PERRL body, EOMI bilateral no conjunctival injection noted Neck: Soft, supple, trachea midline Cardiovascular: Regular rate and rhythm no murmurs gallops rubs noted Respiratory: Clear to auscultation bilaterally Abdomen: No tenderness palpation, bowel sounds present x 4 Musculoskeletal: Patient has edema/swelling and tenderness palpation over the lateral malleolus on the right side. Patient has full range of motion of his right knee and right hip no pain elicited. All other bony prominences palpated and joints taken through full range of motion no pain elicited Extremities: +4/5 strength noted in the bilateral upper and lower extremities, DP pulses +2/4 in the bilateral lower extremities Neurological: Patient following commands knew that he was at [facility] year is 2023 Skin: Warm, dry, patient has scattered ecchymosis noted in the right lower extremity, no other rashes or lesions noted Const Vital Signs: 02/06/24 10:08 Temperature 98.2 F Temperature Source Oral Pulse Rate 66 Respiratory Rate 16 Blood Pressure 147/86 H Blood Pressure Mean 106 Pulse Ox 95 Oxygen Delivery Method Room Air MDM MDM MDM Narrative Medical decision making narrative: Patient is a 73-year-old male who presented to the [facility] with a chief complaint of right ankle pain and swelling after mechanical fall on Monday. Patient will have x-rays performed here on the differential diagnose includes but not limited to medial mall as well as fracture, lateral malleolus fracture, high ankle sprain, distal tib/fibula fracture. Once workup is obtained reviewed he will be reevaluated. Patient's x-ray of the right tibia and fibula reviewed showed a nondisplaced fracture of the lateral malleolus soft tissue swelling. Patient's x-ray of the foot reviewed once again showed the nondisplaced fracture of the lateral malleolus. Patient's ankle x-ray also revealed the nondisplaced fracture lateral malleolus these all were reviewed by radiology and by myself. I called and discussed case with foot and ankle surgeon Dr. Posadas who states that the patient can be placed in a boot and remain partial weightbearing as tolerated. He states that he will follow-up with him in the outpatient setting. I discussed this plan with the patient he is agreeable this plan he would like to go home at this point time. Patient will be sent a prescription for as needed Percocet for severe pain as he can use Tylenol for mild to moderate pain. Zofran will also be sent to the pharmacy. All question concerns answered he is discharged home in stable condition. Radiography Diagnostic Testing: Clinical Impression(s) from Imaging Studies Ankle X-Ray 02/06/24 10:26 IMPRESSION: Nondisplaced fracture of the lateral malleolus. Soft tissue swelling. Calcaneal spurs. Electronically Signed: Judson Knox MD at 12:03 EST , Foot X-Ray 02/06/24 10:26 IMPRESSION: Soft tissue swelling. Nondisplaced fracture of the lateral malleolus. Electronically Signed: Judson Knox MD at 12:02 EST , Tibia/Fibula X-Ray 02/06/24 10:26 IMPRESSION: Nondisplaced fracture of the lateral malleolus. Soft tissue swelling. Electronically Signed: Judson Knox MD at 12:02 EST , Discharge Plan Triage Chief Complaint: Lower Extremity Injury ED Provider: Ricky Barcenas Dx/Rx/DC Orders Clinical Impression: Ankle fracture, lateral malleolus, closed Prescriptions: New oxycodone-acetaminophen [Percocet] 5-325 mg tablet 1 tab PO Q6H PRN (Reason: pain) 2 Days Qty: 8 0RF ondansetron 4 mg tablet,disintegrating 4 mg PO Q6H PRN (Reason: nausea and vomiting) Qty: 20 0RF No Action allopurinol 100 mg tablet 100 mg PO DAILY atorvastatin 80 mg tablet 80 mg PO DAILY clopidogrel [Plavix] 75 mg tablet 75 mg PO DAILY duloxetine 30 mg capsule,delayed release(DR/EC) 30 mg PO DAILY gabapentin 300 mg capsule 600 mg PO 2XD nitroglycerin [Nitrostat] 0.4 mg tablet, sublingual 0.4 mg SUBLINGUAL Q5-15M PRN (Reason: chest pain) aspirin [Adult Low Dose Aspirin] 81 mg tablet,delayed release (DR/EC) 81 mg PO DAILY cholecalciferol (vitamin D3) 1,000 unit capsule 1,000 unit PO DAILY meclizine 25 mg tablet 25 mg PO BID-TID PRN (Reason: Dizziness) amlodipine 5 mg tablet 5 mg PO DAILY omeprazole 40 mg capsule,delayed release(DR/EC) 20 mg PO DAILY glipizide 5 mg tablet extended release 24hr 5 mg PO DAILY Januvia 50 mg tablet 50 mg PO DAILY isosorbide mononitrate 20 mg tablet 20 mg PO BID tamsulosin 0.4 mg capsule 0.4 mg PO DAILY metoprolol tartrate 50 mg tablet 50 mg PO BID lisinopril 10 mg tablet 10 mg PO DAILY Qty: 90 3RF Primary Care Provider: Carson Dobbins Referrals: Carson Dobbins DO [Primary Care Provider] - Facundo Posadas MD [Med Staff - Active Staff] - Activity Restrictions/Additional Instructions: Keep as much weight off the right foot and ankle as possible. Use Tylenol for mild to moderate pain and use the Percocet and Zofran for severe pain. Follow-up with Dr. Posaads in approximately a week. Return with worsening symptoms or other concerns. Print Language: Pakistani Disposition Disposition: Assisted Living
[2024-02-06 13:21] VITALS: BP 149/53; PULSE 54; RESP 16; TEMP 36.4; O2SAT 95
--- NOTE | 2024-02-07 05:25 | PCM.CONS.GEN ---
Assessment & Plan Assessment/Plan (1) Ankle fracture, lateral malleolus, closed: PLAN: Treatment consisted of discussion with the ER doctor regarding the protocol placed him in a cam patient ambulatory and that I thought the lateral ankle probably will need some form of surgery but I think he could start weightbearing as tolerated only in his cam walker with his walker will follow-up outpatient I believe the patient if it does start to move or become unstable need surgery. (2) Adult failure to thrive: (3) Chronic back pain: (4) Essential hypertension: (5) Hyperlipidemia: HPI Consult Data Date of Consult: 02/06/24 HPI Narrative Reason for Consultation: Ankle fracture right lower extremity HPI Narrative: JOSE SANCHEZ, is a 73 M who presents [facility] Medical History Inability to walk Tobacco abuse Debility Chronic kidney disease Frequent falls Inability to walk Adult failure to thrive Left ventricular hypertrophy Ventricular non-compaction cardiomyopathy History of left heart catheterization (11/16/17) Obstructive sleep apnea Cervical spinal stenosis Left bundle branch block (LBBB) Essential hypertension Atherosclerotic heart disease of [place] coronary artery without angina pectoris Sleep apnea Diabetes Gout Depression TIA (transient ischemic attack) Vitamin D deficiency Hyperlipidemia CKD (chronic kidney disease) stage 3, GFR 30-59 ml/min Peripheral nerve dysfunction Vertigo Vestibular dysfunction Obesity Home Medications ?Medication ?Instructions ?Recorded ?Last Taken ?Type allopurinol 100 mg tablet 100 mg PO DAILY 10/22/18 10/21/22 History aspirin 81 mg tablet,delayed 81 mg PO DAILY 10/22/18 10/21/22 History release (Adult Low Dose Aspirin) atorvastatin 80 mg tablet 80 mg PO DAILY 10/22/18 10/21/22 History cholecalciferol (vitamin D3) 25 1,000 unit PO DAILY 10/22/18 10/21/22 History mcg (1,000 unit) capsule clopidogrel 75 mg tablet (Plavix) 75 mg PO DAILY 10/22/18 10/21/22 History duloxetine 30 mg capsule,delayed 30 mg PO DAILY 10/22/18 10/21/22 History release gabapentin 300 mg capsule 600 mg PO 2XD 10/22/18 10/21/22 History nitroglycerin 0.4 mg sublingual 0.4 mg sublingual Q5-15M PRN chest 10/22/18 Unknown History tablet (Nitrostat) pain omeprazole 40 mg capsule,delayed 20 mg PO DAILY 10/22/18 10/21/22 History release glipizide 5 mg tablet, extended 5 mg PO DAILY 12/31/20 10/21/22 History release 24 hr sitagliptin phosphate 50 mg tablet 50 mg PO DAILY 12/31/20 10/21/22 History (Januvia) amlodipine 5 mg tablet 5 mg PO DAILY 05/12/21 10/21/22 History meclizine 25 mg tablet 25 mg PO BID-TID PRN Dizziness 05/12/21 10/21/22 History lisinopril 10 mg tablet 10 mg PO DAILY #90 tabs 12/06/21 10/21/22 Rx isosorbide mononitrate 20 mg tablet 20 mg PO BID . 06/11/22 10/21/22 History metoprolol tartrate 50 mg tablet 50 mg PO BID HTN 06/11/22 10/21/22 History tamsulosin 0.4 mg capsule 0.4 mg PO DAILY PROSTATE 06/11/22 10/21/22 History ondansetron 4 mg disintegrating 4 mg PO Q6H PRN nausea and 02/06/24 Unknown Rx tablet vomiting #20 tabs oxycodone-acetaminophen 5 mg-325 1 tab PO Q6H PRN pain 2 days #8 02/06/24 Unknown Rx mg tablet (Percocet) tabs Allergy/AdvReac Type Severity Reaction Status Date / Time chicken Allergy Mild Nausea Uncoded 10/21/22 11:49 Family History Sister Diabetes Father Heart disease Hypertension Cancer melanoma Mother Heart disease Surgical History History of coronary artery stent placement (07/15/16) H/O coronary artery bypass surgery (09/19/00) History of arthroscopy of left knee Social History household members: none housing: house Smoking Status: Never smoker Smokeless tobacco user: chewing tobacco and other alcohol intake: never substance use type: does not use ROS ROS Narrative Patient is alert active oriented no acute distress he had a recent mechanical fall while using a walker and does live at a nursing facility has a history of diabetes, COPD tobacco abuse hyperlipidemia at this point he is a 73-year-old male who had a recent fall spoke with the ER docs on the phone regarding this presentation I recommend at some point surgery will need to follow-up with him outpatient. Constitutional Constitutional: Reports systems reviewed and no addt'l complaints, except as documented, as per HPI, anorexia, body ache(s), change in weight, chills, daytime sleepiness, difficulty sleeping, excessive sweating, fatigue, fever(s), frequent falls, headache(s), increased appetite, lethargy, malaise, night sweats, poor appetite, snoring, stops breathing during sleep, weakness, weight gain, weight loss and other Eyes Eyes: Reports systems reviewed and no addt'l complaints, except as documented, as per HPI, none, acute decrease in peripheral vision, blindness, blind spots, bloody eye, blurry vision, burning, change in eye color, change in vision, decreased night vision, diplopia, discharge from eye(s), discongugate gaze, double vision, dry eyes, erythema, excessive blinking, exophthalmos, eye pain, floaters, foreign body, halo effect, irritation, itchy eyes, loss of central vision, loss of peripheral vision, loss of vision, miosis, mydriasis, numbness, nystagmus, other visual disturbances, periorbital itching, photophobia, ptosis, puffy eyes, requires corrective lenses, seeing flashes, spots in vision, sunken eyes, tearing, tunnel vision and other ENT HEENT: Reports systems reviewed and no addt'l complaints, except as documented, as per HPI, none, abnormal hearing, bleeding gums, change in voice, dental pain, disequillibrium, dizziness, dry mouth, dysphagia, ear discharge, ear pain, epistaxis, facial pain, foreign body in nose, halitosis, headache(s), hearing loss, hoarseness, lip swelling, loss taste/smell, mouth lesions, mouth pain, mucositis, nasal congestion, nasal discharge, nasal obstruction, nasal trauma, neck mass, neck pain, nose pain, odynophagia, otalgia, post nasal drip, rhinorrhea, sinus pain, sinus pressure, sore throat, throat swelling, tinnitus, tongue swelling, vertigo and other Cardiovascular Cardiovascular: Reports systems reviewed and no addt'l complaints, except as documented, as per HPI, none, abdominal bloating, abdominal edema, abdominal pain, arrhythmia on telemetry, bluish discoloration of hand/feet, chest pain, chest pain at rest, chest pain with activity, claudication, clubbing, cold extremities, cyanosis, diaphoresis, dizziness, dyspnea, dyspnea at rest, dyspnea on exertion, easily tiring during activity, edema, erythema on extremities, fatigue, flutter in chest, hypertension, irregular heart rhythm, leg edema, leg ulcers, lightheadedness, nausea, numbness in extremities, orthopnea, orthostatic symptoms, pale blair skin, palpitations, paroxysmal nocturnal dyspnea, pedal edema, periorbital swelling, pounding heartbeat, racing heartbeat, radiating jaw, neck or arm pain, rapid heart rate, slow heart rate, syncope, tachypnea, vomiting, weakness in extremities, weight gain and other Respiratory/Chest Respiratory/Chest: Reports systems reviewed and no addt'l complaints, except as documented, as per HPI, none, change in mental status, change in phlegm color, chest congestion, chest tightness, cough, difficulty clearing secretions, dry cough, dusky skin, dyspnea, dyspnea on exertion, excessive phlegm production, hemoptysis, hoarseness, inability to speak, mouth breathing, nail bed cyanosis, non-rest sleep EDS, pain on inspiration, pain with cough, pale skin, levi-oral cyanosis, portable oxygen @ home, productive cough, red skin, restlessness, shortness of breath at rest, shortness of breath with exertion, snoring, stridor, tachypnea, wheezing, witnessed apneas, breast mass, breast pain, breast skin changes, breast swelling, change in breast shape, nipple discharge and other Physical Exam Narrative Patient has lateral bruising of the right lateral ankle in which the patient has severe pain directly to the fibula moderate swelling no fracture blisters pain with range of motion unable to move his ankle patient presented from a nursing facility I believe the patient would do well with surgical intervention at some point we will treat this conservatively with a cam walker and follow-up in the office in 2 weeks. HEENT normocephalic, head/scalp atraumatic, hearing grossly normal bilaterally, external ears normal, EAC's normal, TM's normal bilaterally, external nose normal, nasal mucous membranes and turbinates normal, moist oral mucous membranes, oropharynx normal, dentition normal and gingiva normal Eyes PERRL, EOMs intact bilaterally, conjunctivae normal, no scleral icterus, no papilledema, normal visual toscano by confrontation and fundi normal bilaterally Neck full ROM, nuchal rigidity, no lymphadenopathy, supple, no meningeal signs, no JVD, thyroid normal, nodes and no carotid bruits Chest inspection of chest normal, palpation of chest normal, inspection of breasts normal and palpation of breasts normal Resp normal respiratory effort, normal air movement, no retractions, no use of accessory muscles, clear to auscultation bilaterally and percussion normal Extremity Extremity Narrative: Painful on the lateral ankle with moderate bruising seen along the fibula as well as down the lateral calcaneus. Moderate edema pain along the ankle pain with range of motion recommend CAM Walker with compression and follow-up in 1 week for postop surgical treatment. Psych mental status grossly normal, thought process normal, cooperative, affect normal, speech normal, activity/motor behavior normal, denies hallucinations, denies homicidal ideation and denies suicidal ideation Imaging Radiology Impression Ankle X-Ray 02/06/24 10:26 IMPRESSION: Nondisplaced fracture of the lateral malleolus. Soft tissue swelling. Calcaneal spurs. Electronically Signed: Judson Knox MD at 12:03 EST , Foot X-Ray 02/06/24 10:26 IMPRESSION: Soft tissue swelling. Nondisplaced fracture of the lateral malleolus. Electronically Signed: Judson Knox MD at 12:02 EST , Tibia/Fibula X-Ray 02/06/24 10:26 IMPRESSION: Nondisplaced fracture of the lateral malleolus. Soft tissue swelling. Electronically Signed: Judson Knox MD at 12:02 EST ,
== END 2024-02-06 14:17 | disposition home or self-care (01) ==
PROVIDERS: Emergency Provider Emergency Medicine; PCP Family Medicine; Visit Provider Emergency Medicine
DX: S82.64XA Nondisplaced fracture of lateral malleolus of right fibula, initial encounter for closed fracture (principal); E11.22 Type 2 diabetes mellitus with diabetic chronic kidney disease; N18.30 Chronic kidney disease, stage 3 unspecified; W18.11XA Fall from or off toilet without subsequent striking against object, initial encounter; I12.9 Hypertensive chronic kidney disease with stage 1 through stage 4 chronic kidney disease, or unspecified chronic kidney disease; E78.5 Hyperlipidemia, unspecified; I25.10 Atherosclerotic heart disease of native coronary artery without angina pectoris; R62.7 Adult failure to thrive; G47.33 Obstructive sleep apnea (adult) (pediatric); M54.9 Dorsalgia, unspecified; G89.29 Other chronic pain; F17.220 Nicotine dependence, chewing tobacco, uncomplicated; Z79.82 Long term (current) use of aspirin; Z79.84 Long term (current) use of oral hypoglycemic drugs; Z79.02 Long term (current) use of antithrombotics/antiplatelets; Z79.891 Long term (current) use of opiate analgesic; Z79.899 Other long term (current) drug therapy; Z86.73 Personal history of transient ischemic attack (TIA), and cerebral infarction without residual deficits
CPT/HCPCS: 73590; 73610; 73630; 99284

== ENCOUNTER → 2024-02-15 | Outpatient (CLI) | payer MEDICAID, MEDICARE, SELFPAY ==
[2024-02-15 15:13] LABS: Absolute Lymphocyte Count 1.79 X10^3/uL (0.83-4.51); Absolute Neutrophil Count 2.8 X10^3/uL (2.0-7.7); Basophil# 0.03 X10^3/uL; Basophil% 0.6 % (0-1); Eosinophil# 0.16 X10^3/uL; Eosinophils% 3.1 % (0-5); Hematocrit 40.7 % (40-54); Hemoglobin 12.7 g/dL (13.0-16.5); Lymphocyte # 1.79 X10^3/ul (0.83-4.51); Lymphocyte % 34.4 % (19-41); Mean Corp Hgb Conc 31.2 g/dL (32-36); Mean Corpuscular Volume 89.8 fL (80-94); Mean Platelet Vol. 10.9 fl (6.2-12.0); Monocyte# 0.41 X10^3/uL; Monocyte% 7.9 % (0-10); NRBC Flagged by Analyzer 0 % (0-5); Neutrophil # 2.79 X10^3/uL (2.7-7.7); Neutrophil % 53.6 % (47-70); Platelet Count 266 K/mm3 (150-450); RBC Distribution Width CV 14.4 % (11.6-14.6); RBC Distribution Width SD 47.2 fl (35.1-43.9); Red Blood Count 4.53 M/mm3 (4.6-6.2); White Blood Count 5.2 K/mm3 (4.4-11.0)
[2024-02-15 15:44] LABS: ALB/GLOB Ratio 0.9 RATIO (0.9-2.4); AST(SGOT) 25 U/L (15-37); Alanine Aminotransfer ALT/SGPT 34 U/L (16-61); Albumin, Serum 3.3 g/dL (3.2-5.0); Alkaline Phosphatase 348 U/L (45-117); Anion Gap 4 (5-15); BUN 22 mg/dL (7-18); BUN/Creat Ratio 12.4 RATIO (10-20); Calcium,Total 9.2 mg/dL (8.5-10.1); Chloride 108 mmol/L (98-107); Creatinine, Serum 1.77 mg/dL (0.70-1.30); EST Glomerular Filtration Rate 40 mL/min (>60); Est Glom Filt Rate - Afr Amer 48 mL/min (>60); Globulin 3.8 g/dL (2.2-4.2); Glucose 160 mg/dL (74-106); Potassium 4.7 mmol/L (3.5-5.1); Protein, Total 7.1 g/dL (6.4-8.2); Sodium Level 138 mmol/L (136-145)
[2024-02-15 15:54] LABS: Hemoglobin A1c 6.8 % (3.8-5.6)
== END | disposition home or self-care (01) ==
LOC: BFHLAB 11:28
PROVIDERS: PCP Family Medicine; Visit Provider Family Medicine
DX: E11.22 Type 2 diabetes mellitus with diabetic chronic kidney disease (principal); I25.10 Atherosclerotic heart disease of native coronary artery without angina pectoris; I10 Essential (primary) hypertension
CPT/HCPCS: 36415; 80053; 83036; 85025

== ENCOUNTER → 2024-04-15 | Outpatient (CLI) | payer MEDICARE, MEDICAID, SELFPAY ==
--- NOTE | 2024-04-15 08:29 | MRI_ITS ---
PROCEDURE: MRI lumbar spine without IV contrast REASON FOR EXAM: Pain, radiculopathy TECHNIQUE: Multisequence multiplanar MR images of the lumbar spine were obtained without the administration of intravenous contrast. Imaging sequences were performed to best displaced suspected pathology. COMPARISON: 01/29/2024 FINDINGS: Unchanged moderate/severe chronic comminuted compression fracture of the L2 vertebral body with persistent mild bone marrow edema. Remaining vertebral body heights are preserved. Alignment is satisfactory. Conus medullaris is within normal limits and terminates at L1. Moderate paraspinal muscle atrophy. L1-2: Mild posterior disc bulge. Mild bilateral facet arthrosis. Mild spinal stenosis. No significant foraminal narrowing. L2-3: Posterior disc bulge. Mild bilateral facet arthrosis and ligamentum flavum hypertrophy. Mild spinal stenosis. Mild bilateral foraminal narrowing. L3-4: Posterior disc bulge eccentric to the right with superimposed right foraminal/extraforaminal disc protrusion and annular fissure. Moderate bilateral facet arthrosis and ligamentum flavum hypertrophy. Mild/moderate spinal stenosis. [id number] bilateral foraminal narrowing, greater on the right. L4-5: Posterior disc bulge with right foraminal annular fissure. Moderate bilateral facet arthrosis. Mild ligamentum flavum hypertrophy. No significant spinal stenosis. [id number] bilateral foraminal narrowing. L5-S1: Small central disc protrusion and annular fissure. Mild bilateral facet arthrosis. No significant spinal stenosis or foraminal narrowing. MRI/Spine Lumbar (Routine) IMPRESSION: 1. Subacute/chronic compression fracture of L2. Remaining vertebral body heigh ts are intact. 2. Acquired mild to mild/moderate spinal stenosis from L1 through L4 as above. 3. Acquired multilevel foraminal narrowing, greatest on the right at L3-L4. 4. Paraspinal muscle atrophy. Reading Location: [facility]
== END | disposition home or self-care (01) ==
LOC: MRI 12:35
PROVIDERS: PCP Family Medicine; Referring Provider Orthopaedic Surgery Orthopaedic Surgery of the Spine; Visit Provider Orthopaedic Surgery Orthopaedic Surgery of the Spine
DX: M84.48XA Pathological fracture, other site, initial encounter for fracture (principal)
CPT/HCPCS: 72148

== ENCOUNTER → 2024-04-25 | Outpatient (CLI) | payer MEDICARE, MEDICAID, SELFPAY ==
--- NOTE | 2024-04-25 07:42 | CT_ITS ---
PROCEDURE: CT right ankle without IV contrast REASON FOR EXAM: Pain, fracture TECHNIQUE: Multiple contiguous axial images through the right ankle were obtained without the administration of intravenous contrast. Two-dimensional coronal and sagittal reformatted images were reconstructed. Low-dose imaging technique was utilized. COMPARISON: None. FINDINGS: See impression CT/Extremity Lower without Contra IMPRESSION: Subacute/chronic appearing minimally displaced oblique fracture of the distal f ibula with sclerotic fracture margins and no significant osseous bridging. Chronic appearing fracture of the posterior malleolus width essentially complet e healing. Two small chronic fracture fragments along the inferior margin of the medial ma lleolus without osseous bridging. Probable small focus of heterotopic ossification along the course of the anteri or talofibular ligament consistent with old injury. Alignment is maintained. Tiny osteochondral lesion along the medial talar conv exity measuring up to 4 mm. Moderate degenerative changes of the midfoot. Calcaneal enthesopathy. Generalized muscular atrophy. Vascular calcifications. One or more dose reduction techniques were used (e.g., Automated exposure contr ol, adjustment of the mA and/or kV according to patient size, use of iterative reconstruction technique). Reading Location: [facility]
== END | disposition home or self-care (01) ==
LOC: CT 07:38
PROVIDERS: PCP Family Medicine; Referring Provider Podiatrist; Visit Provider Podiatrist
DX: S82.64XA Nondisplaced fracture of lateral malleolus of right fibula, initial encounter for closed fracture (principal); X58.XXXA Exposure to other specified factors, initial encounter
CPT/HCPCS: 73700

== ENCOUNTER 2024-05-08 11:09 | Observation (INO) | payer MEDICARE, MEDICAID, SELFPAY ==
[2024-05-08] VITALS (7 sets, daily range): BP systolic 110–142; BP diastolic 57–106; PULSE 42–80; RESP 13–20; TEMP 36.1–36.7; O2SAT 92–100; BMI 34.0
--- NOTE | 2024-05-08 12:10 | EKG12_ITS ---
Test Reason : Blood Pressure : */* mmHG Vent. Rate : 42 BPM Atrial Rate : 42 BPM P-R Int : 202 ms QRS Dur : 128 ms QT Int : 504 ms P-R-T Axes : 102 -44 -43 degrees QTcB Int : 420 ms Marked sinus bradycardia Left axis deviation Non-specific intra-ventricular conduction block Nonspecific T wave abnormality Abnormal ECG Confirmed by MABEL ESPINOZA, SAMIR ([id number]), news editor NELLA MOROCHO ([id number]) on 05/13/2024 11:12:20 AM Referred By: ASCENCION Confirmed By: SAMIR MONROE MD
--- NOTE | 2024-05-08 12:11 | EX.ED.DYSGE1 ---
HPI History of Present Illness Chief Complaint: Dizziness Informant: patient and EMS Narrative Narrative: 73-year-old male presenting to the emergency room with the chief complaint of near syncope. Patient states that he went to the box estimator today for the evaluation of chronic left ankle fracture. He states that when he went to get up off the bed felt like he was going to fall over and the nurse caught him. He states he had another episode trying to get into the van it was diaphoretic. He did not lose consciousness. Patient has a history of syncope in the past which was noted to have heart rates into the 40s. At that time he was reported that he was on beta-evelina which was subsequently held but it would appear that he is back on a beta-evelina now. [facility] Medical History Inability to walk Tobacco abuse Debility Chronic kidney disease Frequent falls Inability to walk Adult failure to thrive Left ventricular hypertrophy Ventricular non-compaction cardiomyopathy History of left heart catheterization (11/16/17) Obstructive sleep apnea Cervical spinal stenosis Left bundle branch block (LBBB) Essential hypertension Atherosclerotic heart disease of [place] coronary artery without angina pectoris Sleep apnea Diabetes Gout Depression TIA (transient ischemic attack) Vitamin D deficiency Hyperlipidemia CKD (chronic kidney disease) stage 3, GFR 30-59 ml/min Peripheral nerve dysfunction Vertigo Vestibular dysfunction Obesity Home Medications ?Medication ?Instructions ?Recorded ?Last Taken ?Type allopurinol 100 mg tablet 100 mg PO DAILY 10/22/18 10/21/22 History aspirin 81 mg tablet,delayed 81 mg PO DAILY 10/22/18 10/21/22 History release (Adult Low Dose Aspirin) atorvastatin 80 mg tablet 80 mg PO DAILY 10/22/18 10/21/22 History clopidogrel 75 mg tablet (Plavix) 75 mg PO DAILY 10/22/18 10/21/22 History nitroglycerin 0.4 mg sublingual 0.4 mg sublingual Q5-15M PRN chest 10/22/18 Unknown History tablet (Nitrostat) pain omeprazole 40 mg capsule,delayed 20 mg PO DAILY 10/22/18 10/21/22 History release sitagliptin phosphate 50 mg tablet 50 mg PO DAILY 12/31/20 10/21/22 History (Januvia) amlodipine 5 mg tablet 5 mg PO DAILY 05/12/21 10/21/22 History meclizine 25 mg tablet 25 mg PO BID-TID PRN Dizziness 05/12/21 10/21/22 History lisinopril 10 mg tablet 10 mg PO DAILY #90 tabs 12/06/21 10/21/22 Rx isosorbide mononitrate 20 mg tablet 20 mg PO BID . 06/11/22 10/21/22 History metoprolol tartrate 50 mg tablet 50 mg PO BID HTN 06/11/22 10/21/22 History tamsulosin 0.4 mg capsule 0.4 mg PO DAILY PROSTATE 06/11/22 10/21/22 History ondansetron 4 mg disintegrating 4 mg PO Q6H PRN nausea and 02/06/24 Unknown Rx tablet vomiting #20 tabs acetaminophen 500 mg capsule 500 mg PO Q6H PRN fever or pain 03/14/24 Unknown History bisacodyl 10 mg rectal suppository 10 mg MT ONCE 03/14/24 Unknown History docusate sodium 100 mg capsule 100 mg PO QDAY 03/14/24 Unknown History (Colace) duloxetine 30 mg capsule,delayed 60 mg PO DAILY 03/14/24 Unknown History release gabapentin 600 mg tablet 600 mg PO Q12H 03/14/24 Unknown History guaifenesin 200 mg tablet 200 mg PO Q4H 03/14/24 Unknown History insulin aspart U-100 100 unit/mL subcut 03/14/24 Unknown History (3 mL) subcutaneous pen (Novolog FlexPen U-100 Insulin aspart) loperamide 2 mg capsule 2 mg PO Q6H PRN loose stool 03/14/24 Unknown History melatonin 10 mg capsule 10 mg PO HS PRN sleep 03/14/24 Unknown History omeprazole 20 mg capsule,delayed 20 mg PO QDAY 03/14/24 Unknown History release sertraline 100 mg tablet 100 mg PO QDAY 03/14/24 Unknown History Allergy/AdvReac Type Severity Reaction Status Date / Time chicken Allergy Mild Nausea Uncoded 10/21/22 11:49 Family History Sister Diabetes Father Heart disease Hypertension Cancer melanoma Mother Heart disease Surgical History History of coronary artery stent placement (07/15/16) H/O coronary artery bypass surgery (09/19/00) History of arthroscopy of left knee Social History household members: none housing: house Smoking Status: Never smoker Smokeless tobacco user: chewing tobacco and other alcohol intake: never substance use type: does not use EXAM Physical Exam Const Vital Signs: 05/08/24 11:12 05/08/24 13:09 05/08/24 14:11 Temperature 97.4 F L Temperature Source Temporal Pulse Rate 54 L 43 L Pulse Rate [Lying] 42 L Pulse Rate [Sitting (for 1 minute prior to obtaining)] 43 L Pulse Rate [Standing (for 1 minute prior to obtaining)] 47 L Respiratory Rate 20 H 13 Blood Pressure 110/58 L 117/106 H Blood Pressure [Lying] 130/75 H Blood Pressure [Sitting (for 1 minute prior to obtaining)] 124/57 H Blood Pressure [Standing (for 1 minute prior to obtaining)] 126/80 H Blood Pressure Mean 75 109 Blood Pressure Mean [Lying] 93 Blood Pressure Mean [Sitting (for 1 minute prior to obtaining)] 79 Blood Pressure Mean [Standing (for 1 minute prior to obtaining)] 95 Pulse Ox 92 93 Oxygen Delivery Method Room Air Room Air MDM MDM MDM Narrative Medical decision making narrative: Differential diagnosis includes orthostatic hypotension complete heart block beta-evelina induced bradycardia dehydration electrolyte abnormalities acute coronary syndrome Patient is EKG follow-up EKG demonstrates a sinus bradycardia in the 40s. White count is 7 hemoglobin 12.2 platelet count of 209. Creatinine 1.82 with a BUN of 27 troponin initially 36 magnesium 2.4 glucose 148. My independent interpretation of the chest x-ray is no acute process. Patient has persistently been in the 40s on the monitor with occasional dips into the high 30s. He is orthostatic negative at this time. My concern is that the patient has had prior syncope while on beta-evelina and heart rates in the 40s and now he is back on a beta-evelina and his heart rate is in the 40s. He gets most likely to be beta-evelina induced bradycardia as compared to sick sinus syndrome or complete heart block. Plan of care will be admission to hold the beta-evelina. History & Record Review Discussion w/independent historian: Patient Lab Data Attestation: I reviewed the patient's lab results. Labs: Laboratory Results - last 24 hr 05/08/24 05/08/24 11:32 14:00 WBC 7.0 RBC 4.36 L Hgb 12.2 L Hct 38.2 L MCV 87.6 MCH 28.0 MCHC 31.9 L RDW Std Deviation 45.7 H RDW Coeff of Richard 14.3 Plt Count 209 MPV 10.9 Immature Gran % (Auto) 0.300 Neut % (Auto) 60.7 Lymph % (Auto) 26.9 [place] % (Auto) 8.8 Eos % (Auto) 2.9 Baso % (Auto) 0.4 Absolute Neuts (auto) 4.2 Absolute Lymphs (auto) 1.87 Nucleated RBC % 0 PT 13.6 INR 1.0 APTT 24.8 Sodium 138 Potassium 4.5 Chloride 105 Carbon Dioxide 20.2 L Anion Gap 13 BUN 27 H Creatinine 1.82 H Est GFR (MDRD) Non-Af 38 L BUN/Creatinine Ratio 14.8 Glucose 148 H Calcium 9.0 Magnesium 2.4 H Troponin T High Sens 36 H Troponin T Hi Sens 2 Hr 31 H Radiography Diagnostic Testing: Clinical Impression(s) from Imaging Studies Chest X-Ray 05/08/24 12:50 IMPRESSION: No acute cardiopulmonary process. Reading Location: [facility] Management Discussion w/another healthcare provider: Hospitalist (Dr Murrell) Discharge Plan Dx/Rx/DC Orders Clinical Impression: Near syncope, Sinus bradycardia Disposition Disposition: Acute Care Hospital [facility]
[2024-05-08 12:23] LABS: Absolute Lymphocyte Count 1.87 X10^3/uL (0.83-4.51); Absolute Neutrophil Count 4.2 X10^3/uL (2.0-7.7); Basophil# 0.03 X10^3/uL; Basophil% 0.4 % (0-1); Eosinophils% 2.9 % (0-5); Hematocrit 38.2 % (40-54); Hemoglobin 12.2 g/dL (13.0-16.5); Lymphocyte # 1.87 X10^3/ul (0.83-4.51); Lymphocyte % 26.9 % (19-41); Mean Corp Hgb Conc 31.9 g/dL (32-36); Mean Corpuscular Volume 87.6 fL (80-94); Mean Platelet Vol. 10.9 fl (6.2-12.0); Monocyte# 0.61 X10^3/uL; Monocyte% 8.8 % (0-10); NRBC Flagged by Analyzer 0 % (0-5); Neutrophil # 4.22 X10^3/uL (2.7-7.7); Neutrophil % 60.7 % (47-70); Platelet Count 209 K/mm3 (150-450); RBC Distribution Width CV 14.3 % (11.6-14.6); RBC Distribution Width SD 45.7 fl (35.1-43.9); Red Blood Count 4.36 M/mm3 (4.6-6.2)
[2024-05-08 12:37] LABS: Prothrombin Time (Protime)PT. 13.6 SECONDS (11.7-14.9)
[2024-05-08 12:38] LABS: Partial Thromboplast Time 24.8 Seconds (24.1-36.2)
[2024-05-08 12:39] LABS: Anion Gap 13 (5-15); BUN 27 mg/dL (4-19); BUN/Creat Ratio 14.8 RATIO (10-20); Carbon Dioxide 20.2 mmol/L (21.0-32.0); Chloride 105 mmol/L (98-108); Creatinine, Serum 1.82 mg/dL (0.70-1.20); EST Glomerular Filtration Rate 38 (>60); Glucose 148 mg/dL (70-99); Magnesium 2.4 mg/dL (1.5-2.2); Potassium 4.5 mmol/L (3.3-5.1); Sodium Level 138 mmol/L (133-145)
--- NOTE | 2024-05-08 12:50 | RAD_ITS ---
EXAM: XR Chest, 1 View CLINICAL INDICATION: NEAR SYNCOPE TECHNIQUE: Frontal view of the chest. COMPARISON: No relevant prior studies available. FINDINGS: LUNGS AND PLEURAL SPACES: Unremarkable. No consolidation. No pneumothorax. HEART: Unremarkable. No cardiomegaly. MEDIASTINUM: Unremarkable. Normal mediastinal contour. BONES/JOINTS: Unremarkable. No acute fracture. RAD/Chest 1 View (Portable) IMPRESSION: No acute cardiopulmonary process. Reading Location: [facility]
[2024-05-08 13:00] LABS: Troponin T High Sensitivity 36 ng/L (<=22)
--- NOTE | 2024-05-08 13:53 | EKG12_ITS ---
Test Reason : ARRYTH Blood Pressure : */* mmHG Vent. Rate : 44 BPM Atrial Rate : 44 BPM P-R Int : 168 ms QRS Dur : 124 ms QT Int : 488 ms P-R-T Axes : * -40 -32 degrees QTcB Int : 417 ms Marked sinus bradycardia Left axis deviation Non-specific intra-ventricular conduction delay Nonspecific T wave abnormality Abnormal ECG Confirmed by MABEL ESPINOZA, SAMIR ([id number]), editor trade journal NELLA MOROCHO ([id number]) on 05/13/2024 11:12:34 AM Referred By: ASCENCION Confirmed By: SAMIR MONROE MD
[2024-05-08 14:40] LABS: Troponin T High Sens 2 HR 31 ng/L (<=22)
--- NOTE | 2024-05-08 15:09 | PCM.HP.STD ---
HPI - General General Date of Admission: 05/08/24 Date of Service: 05/08/24 Chief Complaint: Lightheadedness/presyncope HPI Narrative JOSE SANCHEZ, is a 73 M who presented to the emergency department at [facility] on 05/08/2024 with a chief complaint of lightheadedness/presyncope. 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 When he got up to get off the bed after being evaluated he felt like he was going to fall over and the nurse caught him. He had another episode while trying to the van and became diaphoretic at that time. He has had issues with syncope/presyncope in the past and was noted to have heart rates in the 40s. Evidently, he had been on beta-blockers at that time which had subsequently been discontinued. Upon review of this his medications from the nursing facility appears he is back on a beta-evelina at this time at 50 mg p.o. twice daily. It is on my evaluation the patient stated he felt like crap when he got here but is feeling better at this time. Heart rates have dipped as low as the upper 30s on telemetry in the emergency department. 2 EKGs have been done and both shows sinus bradycardia with heart rates in the 40s that appear to be sinus in nature. Orthostatic vitals were done and were unremarkable. Patient is somewhat of a poor historian. Vital signs on presentation showed a temperature of 97.4, heart rate has been between 42 and 54, respiratory is 20, blood pressure was 110/58 and pulse ox is 92-93% on room air. CBC shows a chronic stable anemia with a hemoglobin of 12.2 and is otherwise unremarkable. Coags are normal. Chemistry panel shows stable CKD stage IIIb with a serum creatinine of 1.82 and was otherwise unremarkable. Blood sugar was 148. Initial troponin was 36 with repeat troponin of 31. Patient was chest pain-free. TSH was 1.96. No acute cardiopulmonary processes are noted on chest x-ray. EKG showed sinus bradycardia with heart rates at 42 and a repeat EKG at a heart rate of 47. Patient was feeling better in the emergency department however was still bradycardic and given his ongoing bradycardia it was felt by the emergency physician that observation admission to ensure bradycardia improves and to prevent falls was pertinent. [facility] Medical History Non-smoker Congestive heart failure (CHF) Inability to walk Tobacco abuse Debility Chronic kidney disease Frequent falls Inability to walk Adult failure to thrive Left ventricular hypertrophy Ventricular non-compaction cardiomyopathy History of left heart catheterization (11/16/17) Obstructive sleep apnea Cervical spinal stenosis Left bundle branch block (LBBB) Essential hypertension Atherosclerotic heart disease of [place] coronary artery without angina pectoris Sleep apnea Diabetes Gout Depression TIA (transient ischemic attack) Vitamin D deficiency Hyperlipidemia CKD (chronic kidney disease) stage 3, GFR 30-59 ml/min Peripheral nerve dysfunction Vertigo Vestibular dysfunction Obesity Home Medications ?Medication ?Instructions ?Recorded ?Last Taken ?Type allopurinol 100 mg tablet 100 mg PO DAILY 10/22/18 10/21/22 History aspirin 81 mg tablet,delayed 81 mg PO DAILY 10/22/18 10/21/22 History release (Adult Low Dose Aspirin) atorvastatin 80 mg tablet 80 mg PO DAILY 10/22/18 10/21/22 History clopidogrel 75 mg tablet (Plavix) 75 mg PO DAILY 10/22/18 10/21/22 History nitroglycerin 0.4 mg sublingual 0.4 mg sublingual Q5-15M PRN chest 10/22/18 Unknown History tablet (Nitrostat) pain omeprazole 40 mg capsule,delayed 20 mg PO DAILY 10/22/18 10/21/22 History release sitagliptin phosphate 50 mg tablet 50 mg PO DAILY 12/31/20 10/21/22 History (Januvia) amlodipine 5 mg tablet 5 mg PO DAILY 05/12/21 10/21/22 History meclizine 25 mg tablet 25 mg PO BID-TID PRN Dizziness 05/12/21 10/21/22 History lisinopril 10 mg tablet 10 mg PO DAILY #90 tabs 12/06/21 10/21/22 Rx isosorbide mononitrate 20 mg tablet 20 mg PO BID . 06/11/22 10/21/22 History metoprolol tartrate 50 mg tablet 50 mg PO BID HTN 06/11/22 10/21/22 History tamsulosin 0.4 mg capsule 0.4 mg PO DAILY PROSTATE 06/11/22 10/21/22 History ondansetron 4 mg disintegrating 4 mg PO Q6H PRN nausea and 12/10/24 Unknown Rx tablet vomiting #20 tabs acetaminophen 500 mg capsule 500 mg PO Q6H PRN fever or pain 03/14/24 Unknown History bisacodyl 10 mg rectal suppository 10 mg DE ONCE 03/14/24 Unknown History docusate sodium 100 mg capsule 100 mg PO QDAY 03/14/24 Unknown History (Colace) duloxetine 30 mg capsule,delayed 60 mg PO DAILY 03/14/24 Unknown History release gabapentin 600 mg tablet 600 mg PO Q12H 03/14/24 Unknown History guaifenesin 200 mg tablet 200 mg PO Q4H 03/14/24 Unknown History insulin aspart U-100 100 unit/mL subcut 03/14/24 Unknown History (3 mL) subcutaneous pen (Novolog FlexPen U-100 Insulin aspart) loperamide 2 mg capsule 2 mg PO Q6H PRN loose stool 03/14/24 Unknown History melatonin 10 mg capsule 10 mg PO HS PRN sleep 03/14/24 Unknown History omeprazole 20 mg capsule,delayed 20 mg PO QDAY 03/14/24 Unknown History release sertraline 100 mg tablet 100 mg PO QDAY 03/14/24 Unknown History Allergy/AdvReac Type Severity Reaction Status Date / Time Beta-Blockers AdvReac Severe bradycardia Verified 05/08/24 15:59 (Beta-Adrenergic Bloc chicken Allergy Mild Nausea Uncoded 05/08/24 15:59 Family History Sister Diabetes Father Heart disease Hypertension Cancer melanoma Mother Heart disease Surgical History History of coronary artery stent placement (07/15/16) H/O coronary artery bypass surgery (09/19/00) History of arthroscopy of left knee Social History household members: none housing: house Smoking Status: Never smoker Smokeless tobacco user: chewing tobacco and other alcohol intake: never substance use type: does not use ROS Constitutional Constitutional: Reports fatigue, weakness and other Details: Diaphoresis ; Denies anorexia, change in weight, chills, fever(s), malaise or night sweats Eyes Eyes: Denies blurry vision, change in eye color, change in vision, discharge from eye(s), double vision, erythema, eye pain, loss of vision or other ENT HEENT: Reports abnormal hearing and hearing loss; Denies dysphagia, ear pain, epistaxis, headache(s), nasal congestion, nasal discharge, post nasal drip, sinus pressure, sore throat or other Cardiovascular Cardiovascular: Reports lightheadedness and other Details: Presyncope ; Denies chest pain, claudication, dyspnea on exertion, edema, orthopnea, palpitations, paroxysmal nocturnal dyspnea, rapid heart rate or syncope Respiratory/Chest Respiratory/Chest: Denies cough, dyspnea, excessive phlegm production, hemoptysis, productive cough, shortness of breath at rest, shortness of breath with exertion, wheezing or other Gastrointestinal Gastrointestinal: Denies abdominal pain, coffee ground emesis, constipation, diarrhea, dyspepsia, hematemesis, hematochezia, loose stools, melena, nausea, vomiting or other Genitourinary Genitourinary: Denies burning urination, difficulty urinating, dysuria, hematuria, nocturia, urinary frequency, urinary hesitancy, urinary incontinence, urinary urgency or other Musculoskeletal Musculoskeletal: Reports joint pain and joint stiffness; Denies arthralgias, back pain, joint swelling, myalgias, neck pain or other Neurologic Neurologic: Denies abnormal gait, abnormal speech, confusion, disequilibrium, dizziness, focal weakness, headache(s), numbness, paresthesias, seizure-like activity, seizures, syncope, tingling, tremor(s) or other Psychiatric Psychiatric: Reports anxiety and depression; Denies homicidal ideation, suicidal ideation or other Endocrine Endocrinology: Denies change in body appearance, cold intolerance, excessive sweating, heat intolerance, polydipsia, polyuria or other Hematologic/Lymphatic Hematologic/Lymphatic: Denies anemia, easy bleeding, easy bruising, lymphadenopathy or other Allergic/Immunologic Allergic/Immunologic: Denies rhinitis, hives, eczemia, asthma or other Vital Signs Vital Signs Vital Signs: 05/08/24 11:12 05/08/24 13:09 05/08/24 14:11 Temperature 97.4 F L Temperature Source Temporal Pulse Rate 54 L 43 L Pulse Rate [Lying] 42 L Pulse Rate [Sitting (for 1 minute prior to obtaining)] 43 L Pulse Rate [Standing (for 1 minute prior to obtaining)] 47 L Respiratory Rate 20 H 13 Blood Pressure 110/58 L 117/106 H Blood Pressure [Lying] 130/75 H Blood Pressure [Sitting (for 1 minute prior to obtaining)] 124/57 H Blood Pressure [Standing (for 1 minute prior to obtaining)] 126/80 H Blood Pressure Mean 75 109 Blood Pressure Mean [Lying] 93 Blood Pressure Mean [Sitting (for 1 minute prior to obtaining)] 79 Blood Pressure Mean [Standing (for 1 minute prior to obtaining)] 95 Pulse Ox 92 93 Oxygen Delivery Method Room Air Room Air Physical Exam Const alert, oriented x3, no apparent distress and well nourished; Negative for average body habitus Constitutional Narrative: Obese, elderly, white male, sitting up in bed, appears comfortable, looks older than stated age, nontoxic appearing General Appearance: cooperative HEENT normocephalic, head/scalp atraumatic and moist oral mucous membranes; Negative for hearing grossly normal bilaterally HEENT Narrative: Moderate hearing loss, dentition is poor, Mallampati is 3, no thrush, chewing tobacco and oropharynx Eyes EOMs intact bilaterally and conjunctivae normal Eyes Narrative: No scleral icterus Neck supple Neck Narrative: Neck is short thick, trachea midline Resp normal respiratory effort, no retractions, no use of accessory muscles and clear to auscultation bilaterally Auscultation: Negative for rales, rhonchi or wheezes Cardio regular rhythm, S1 normal heart sound, S2 normal heart sound, no murmurs, no rub, no gallops and no clicks; Negative for regular rate Cardio Narrative: Marked bradycardia GI normal to inspection, nondistended, normoactive bowel sounds and soft to palpation Extremity no clubbing, cyanosis or edema Neuro oriented x3, moves all extremities and no focal motor deficits Speech: speech normal Psych Psych Narrative: Affect is slightly flat, patient interacts appropriately Results Lab / Micro Data 05/08/24 11:32 05/08/24 11:32 Labs: Laboratory Results - last 24 hr 05/08/24 11:32: WBC 7.0, RBC 4.36 L, Hgb 12.2 L, Hct 38.2 L, MCV 87.6, MCH 28.0, MCHC 31.9 L, RDW Std Deviation 45.7 H, RDW Coeff of Richard 14.3, Plt Count 209, MPV 10.9, Immature Gran % (Auto) 0.300, Neut % (Auto) 60.7, Lymph % (Auto) 26.9, [place] % (Auto) 8.8, Eos % (Auto) 2.9, Baso % (Auto) 0.4, Absolute Neuts (auto) 4.2, Absolute Lymphs (auto) 1.87, Nucleated RBC % 0, PT 13.6, INR 1.0, APTT 24.8, Sodium 138, Potassium 4.5, Chloride 105, Carbon Dioxide 20.2 L, Anion Gap 13, BUN 27 H, Creatinine 1.82 H, Est GFR (MDRD) Non-Af 38 L, BUN/Creatinine Ratio 14.8, Glucose 148 H, Calcium 9.0, Magnesium 2.4 H, Troponin T High Sens 36 H 05/08/24 14:00: Troponin T Hi Sens 2 Hr 31 H Imaging Radiology Impression Chest X-Ray 05/08/24 12:50 IMPRESSION: No acute cardiopulmonary process. Reading Location: [facility] Assessment & Plan Assessment/Plan (1) Sinus bradycardia: (2) Medication side effect: (3) Near syncope: PLAN: Plan Near syncope secondary to bradycardia from medication side effect -Patient has history of near syncope and previous documentation that it was his beta-evelina related to bradycardia -03/2021 with heart rates in the 40s and thought to be multifactorial with EKG showing Wenke Bach and beta-blockers were discontinued at that time -It appears patient was restarted on beta-eveilna--> unclear when this was initiated -Fill history not available as patient is currently in nursing facility -Hold beta-evelina -TSH is within normal limits -Orthostats are negative -Monitor on telemetry -Check echocardiogram Generalized weakness -PT/OT consultation but suspect is related from beta-evelina and bradycardia -Case management consultation pending for assistance with discharge planning -Patient current resident and nursing facility History of gout -continue home allopurinol CKD stage IIIb -At baseline -Serum creatinine admission was 1.82 -Monitor and avoid nephrotoxins CAD/essential hypertension/hyperlipidemia -CABG in 2020 with DUARTE to LAD and saphenous vein graft to the obtuse marginal, saphenous branch graft to second diagonal branch and saphenous vein graft to right PDA -2011 EDILMA to saphenous vein graft to the PDA and EDILMA to saphenous vein graft to the diagonal branch -2016 BMS to the saphenous vein graft to the PDA -Start metoprolol 50 mg p.o. twice daily -Continue amlodipine 5 mg p.o. daily -Continue atorvastatin 80 mg daily -Continue Plavix 75 mg daily -Continue aspirin -Continue isosorbide mononitrate 20 mg twice daily -Continue lisinopril 10 mg daily -Start hydralazine 25 mg 3 times daily and substitution for metoprolol -Monitor blood pressure closely GERD -Continue home PPI BPH with obstruction -Continue home Flomax MILADIS -Noncompliance with PAP DM-2 -Continue home oral medications -SSI with Accu-Cheks as ordered -Cardiac/carb controlled diet Neuropathy/chronic pain -Continue home gabapentin -As needed Tylenol History of TIA -Continue home Plavix/aspirin -Risk factor management History of constipation -Continue baseline bowel regimen Depression -Continue home duloxetine -Continue home sertraline Obesity -Recommend weight loss -Complicates treatment, prognosis, outcomes DVT prophylaxis -Subcu heparin 3 times daily CODE STATUS -Full code is verified from paperwork Charges/Coding Visit Charges Inpatient E&M: 84565 Init Hosp L2
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
[2024-05-08 18:11] LABS: Troponin T High Sens 4 HR 36 ng/L (<=22)
[2024-05-08 18:34] LABS: Bedside Glucose 128 mg/dL (74-106)
[2024-05-08] MEDS: Gabapentin 600 MG Tablet PO (20:21)
[2024-05-08] MEDS: Heparin Injection (Vial) 5,000 UNIT/ML VIAL 5000 UNIT SC (20:22)
[2024-05-08] MEDS: 0.9% Saline Lock 10 ML Syringe IV (20:23)
[2024-05-09] VITALS (11 sets, daily range): BP systolic 124–145; BP diastolic 47–70; PULSE 44–57; RESP 14–18; TEMP 36.4–37.2; O2SAT 93–97
[2024-05-09 05:56] LABS: Absolute Lymphocyte Count 2.07 X10^3/uL (0.83-4.51); Absolute Neutrophil Count 3.5 X10^3/uL (2.0-7.7); Basophil# 0.03 X10^3/uL; Basophil% 0.5 % (0-1); Eosinophil# 0.21 X10^3/uL; Eosinophils% 3.3 % (0-5); Hematocrit 38.2 % (40-54); Hemoglobin 12.6 g/dL (13.0-16.5); Lymphocyte # 2.07 X10^3/ul (0.83-4.51); Lymphocyte % 32.5 % (19-41); Mean Corpuscular Hgb 28.7 pg (27.0-32.0); Mean Platelet Vol. 10.4 fl (6.2-12.0); Monocyte# 0.57 X10^3/uL; Monocyte% 8.9 % (0-10); NRBC Flagged by Analyzer 0 % (0-5); Neutrophil # 3.47 X10^3/uL (2.7-7.7); Neutrophil % 54.5 % (47-70); Platelet Count 202 K/mm3 (150-450); RBC Distribution Width SD 44.6 fl (35.1-43.9); Red Blood Count 4.39 M/mm3 (4.6-6.2); White Blood Count 6.4 K/mm3 (4.4-11.0)
[2024-05-09] MEDS: Heparin Injection (Vial) 5,000 UNIT/ML VIAL 5000 UNIT SC ×3 (06:28→20:43)
[2024-05-09 06:35] LABS: ALB/GLOB Ratio 1.3 RATIO (0.9-2.4); AST(SGOT) 29 U/L (<=37); Alanine Aminotransfer ALT/SGPT 26 U/L (<=46); Albumin, Serum 3.8 g/dL (3.4-4.8); Alkaline Phosphatase 274 U/L (40-129); Anion Gap 12 (5-15); BUN 24 mg/dL (4-19); BUN/Creat Ratio 14.4 RATIO (10-20); Calcium,Total 9.3 mg/dL (7.6-11.0); Carbon Dioxide 20.8 mmol/L (21.0-32.0); Chloride 107 mmol/L (98-108); Creatinine, Serum 1.65 mg/dL (0.70-1.20); EST Glomerular Filtration Rate 43 (>60); Estimated Creatinine Clearance 51.81 ml/min (50-250); Globulin 2.8 g/dL (2.2-4.2); Glucose 99 mg/dL (70-99); Magnesium 2.4 mg/dL (1.5-2.2); Phosphorus 2.9 mg/dL (2.7-4.5); Potassium 4.9 mmol/L (3.3-5.1); Protein, Total 6.6 g/dL (5.9-8.4); Sodium Level 139 mmol/L (133-145); Total Bilirubin 0.42 mg/dL (0.00-1.30)
[2024-05-09] MEDS: hydrALAZINE 25 MG Tablet PO ×3 (06:38→20:43)
[2024-05-09 07:12] LABS: Bedside Glucose 105 mg/dL (74-106)
--- NOTE | 2024-05-09 07:48 | PN.HOSP_ITS ---
Reason for Visit Reason for Visit: Diagnoses Bradycardia, unspecified (05/08/24) Syncope and collapse (05/08/24) Unspecified adverse effect of drug or medicament, initial encounter (05/08/24) Subjective Subjective Still bradycardic. His biggest complaint is weakness. Objective Data Objective Data Vital Signs: Vital Signs Temp Pulse Resp BP Pulse Ox O2 Del Method 36.6 C 44 L 14 145/59 H 93 Room Air 05/09/24 06:25 05/09/24 06:38 05/09/24 06:25 05/09/24 06:38 05/09/24 06:25 05/09/24 06:25 Oxygen Delivery Method Room Air Weight: 116.9 kg Body Mass Index (BMI) 34.0 Intake & Output: Intake and Output for Last 24 Hours 05/07/24 05/08/24 05/09/24 23:59 23:59 23:59 Intake Total 540 / 540 100 / 100 Balance 540 / 540 100 / 100 Lab / Micro Data 05/09/24 04:53 05/09/24 04:53 Labs: Laboratory Results - last 24 hr 05/08/24 11:32: WBC 7.0, RBC 4.36 L, Hgb 12.2 L, Hct 38.2 L, MCV 87.6, MCH 28.0, MCHC 31.9 L, RDW Std Deviation 45.7 H, RDW Coeff of Richard 14.3, Plt Count 209, MPV 10.9, Immature Gran % (Auto) 0.300, Neut % (Auto) 60.7, Lymph % (Auto) 26.9, Hayes % (Auto) 8.8, Eos % (Auto) 2.9, Baso % (Auto) 0.4, Absolute Neuts (auto) 4.2, Absolute Lymphs (auto) 1.87, Nucleated RBC % 0, PT 13.6, INR 1.0, APTT 24.8, Sodium 138, Potassium 4.5, Chloride 105, Carbon Dioxide 20.2 L, Anion Gap 13, BUN 27 H, Creatinine 1.82 H, Est GFR (MDRD) Non-Af 38 L, BUN/Creatinine Ratio 14.8, Glucose 148 H, Calcium 9.0, Magnesium 2.4 H, Troponin T High Sens 36 H 05/08/24 14:00: Troponin T Hi Sens 2 Hr 31 H 05/08/24 15:10: TSH 1.960 05/08/24 17:10: Troponin T Hi Sens 4Hr 36 H 05/08/24 17:53: POC Glucose 128 H 05/09/24 04:53: WBC 6.4, RBC 4.39 L, Hgb 12.6 L, Hct 38.2 L, MCV 87.0, MCH 28.7, MCHC 33.0, RDW Std Deviation 44.6 H, RDW Coeff of Richard 14.0, Plt Count 202, MPV 10.4, Immature Gran % (Auto) 0.300, Neut % (Auto) 54.5, Lymph % (Auto) 32.5, Hayes % (Auto) 8.9, Eos % (Auto) 3.3, Baso % (Auto) 0.5, Absolute Neuts (auto) 3.5, Absolute Lymphs (auto) 2.07, Nucleated RBC % 0, Sodium 139, Potassium 4.9, Chloride 107, Carbon Dioxide 20.8 L, Anion Gap 12, BUN 24 H, Creatinine 1.65 H, Estim Creat Clear Calc 51.81, Est GFR (MDRD) Non-Af 43 L, BUN/Creatinine Ratio 14.4, Glucose 99, Calcium 9.3, Phosphorus 2.9, Magnesium 2.4 H, Total Bilirubin 0.42, AST 29, ALT 26, Alkaline Phosphatase 274 H, Total Protein 6.6, Albumin 3.8, Globulin 2.8, Albumin/Globulin Ratio 1.3 05/09/24 06:27: POC Glucose 105 Radiography Diagnostic Testing: Radiology Impression Chest X-Ray 05/08/24 12:50 IMPRESSION: No acute cardiopulmonary process. Reading Location: [facility] Physical Exam Const alert and no apparent distress HEENT head/scalp atraumatic and moist oral mucous membranes Resp normal respiratory effort, no retractions, no use of accessory muscles and clear to auscultation bilaterally Cardio Cardio Narrative: bradycardic. GI normal to inspection, nondistended, normoactive bowel sounds, soft to palpation, non-tender and non-distended Extremity normal to inspection and full ROM Neuro Sensorium / Orientation: awake, alert, oriented to person, oriented to place and oriented to time Assessment & Plan Assessment/Plan (1) Bradycardia: PLAN: likely 2/2 beta evelina, which is on hold. Monitor Echo shows an EF 55%. Given that he is still bradycardic, continue to monitor PLAN: Plan Debility: unclear who much is related with bradycardic v functional decline. PT OT. Assisted living ([facility]) said they could take him back. VTE prophylaxis: SQ heparin. Charges/Coding Visit Charges Inpatient E&M: 38230 Subs Hosp L2
[2024-05-09] MEDS: Gabapentin 600 MG Tablet PO ×2 (09:38→20:43)
[2024-05-09] MEDS: Pantoprazole Sodium 20 MG Tablet PO (09:39)
[2024-05-09] MEDS: Sertraline 100 MG Tablet PO (09:39)
[2024-05-09] MEDS: Tamsulosin HCl 0.4 MG Capsule PO (09:39)
[2024-05-09] MEDS: Clopidogrel Bisulfate 75 MG Tablet PO (09:40)
[2024-05-09] MEDS: LINAGLIPTIN 5 MG TABLET PO (09:40)
[2024-05-09] MEDS: Docusate Sodium 100 MG Capsule PO (09:40)
[2024-05-09] MEDS: Lisinopril 10 MG Tablet PO (09:40)
[2024-05-09] MEDS: Aspirin E.C. 81 MG Tablet PO (09:40)
[2024-05-09] MEDS: Allopurinol 100 MG Tablet PO (09:40)
[2024-05-09] MEDS: amLODIPine 5 MG Tablet PO (09:41)
[2024-05-09] MEDS: DULoxetine Hcl 60 MG Capsule PO (09:47)
[2024-05-09 12:08] LABS: Bedside Glucose 124 mg/dL (74-106)
--- NOTE | 2024-05-09 12:39 | CASEMGMT ---
Discharge Planning Pt wishes to return to [facility] upon discharge. He states that he was receiving therapy and would like that to continue. Emergency contacts reviewed with pt requesting that his daughter be removed. He states that his son is his HC POA. POA forms requested from [facility]. Pts son is actually his legal guardian over person and estate. Facesheet updated. Alfonzo at [facility] has no concerns with pt returning. SW updated. Stefania Sams DC Planning Asst.
--- NOTE | 2024-05-09 13:11 | CASEMGMT ---
Discharge Planning Updates sent to [facility]. Stefania Sams DC Planning Asst.
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
[2024-05-09 17:17] LABS: Bedside Glucose 139 mg/dL (74-106)
[2024-05-09] MEDS: Atorvastatin Calcium 80 MG Tablet PO (20:43)
[2024-05-09] MEDS: 0.9% Saline Lock 10 ML Syringe IV (20:44)
[2024-05-10] VITALS (11 sets, daily range): BP systolic 124–157; BP diastolic 53–67; PULSE 59–67; RESP 16–18; TEMP 36.2–36.7; O2SAT 92–95
[2024-05-10] MEDS: Heparin Injection (Vial) 5,000 UNIT/ML VIAL 5000 UNIT SC ×3 (06:47→22:02)
[2024-05-10] MEDS: hydrALAZINE 25 MG Tablet PO ×3 (06:47→22:02)
[2024-05-10 07:13] LABS: Bedside Glucose 138 mg/dL (74-106)
--- NOTE | 2024-05-10 08:09 | PCM.PN.HOSP ---
Reason for Visit Reason for Visit: Diagnoses Bradycardia, unspecified (05/08/24) Syncope and collapse (05/08/24) Unspecified adverse effect of drug or medicament, initial encounter (05/08/24) Subjective Subjective Feels well. Objective Data Objective Data Vital Signs: Vital Signs Temp Pulse Resp BP Pulse Ox O2 Del Method 36.6 C 65 16 152/54 H 93 Room Air 05/10/24 06:45 05/10/24 06:47 05/10/24 06:45 05/10/24 06:47 05/10/24 06:45 05/10/24 06:45 Oxygen Delivery Method Room Air Weight: 116.9 kg Body Mass Index (BMI) 34.0 Intake & Output: Intake and Output for Last 24 Hours 05/08/24 05/09/24 05/10/24 23:59 23:59 23:59 Intake Total 540 / 540 1920 / 1920 100 / 100 Balance 540 / 540 1920 / 1920 100 / 100 Lab / Micro Data 05/09/24 04:53 05/09/24 04:53 Labs: Laboratory Results - last 24 hr 05/09/24 11:50: POC Glucose 124 H 05/09/24 16:59: POC Glucose 139 H 05/10/24 06:47: POC Glucose 138 H Radiography Diagnostic Testing: Radiology Impression Echocardiogram 05/08/24 17:21 Interpretation Summary The estimated ejection fraction is 55 %. No evidence for diastolic dysfunction. Mild (1+) mitral valve insufficiency. Mild (1+) aortic valve insufficiency. Ordering Physician: Zeina Murrell Referring Physician: Carson Dobbins Performed By: Zakia Auguste RDCS, RVT Physical Exam Const alert and no apparent distress HEENT head/scalp atraumatic and moist oral mucous membranes Resp normal respiratory effort, no retractions, no use of accessory muscles and clear to auscultation bilaterally Cardio regular rate, regular rhythm, S1 normal heart sound and S2 normal heart sound GI normal to inspection, nondistended, normoactive bowel sounds, soft to palpation, non-tender and non-distended Extremity normal to inspection and full ROM Neuro Sensorium / Orientation: awake and alert Assessment & Plan Assessment/Plan (1) Bradycardia: PLAN: likely 2/2 beta evelina, which is on hold. Monitor Echo shows an EF 55%. PLAN: Plan Debility: unclear who much is related with bradycardic v functional decline. PT OT. Assisted living ([facility]) said they could take him back. PT recommending additional therapy. VTE prophylaxis: SQ heparin. Charges/Coding Visit Charges Inpatient E&M: 02941 Subs Hosp L2
[2024-05-10] MEDS: Sertraline 100 MG Tablet PO (09:46)
[2024-05-10] MEDS: amLODIPine 5 MG Tablet PO (09:46)
[2024-05-10] MEDS: LINAGLIPTIN 5 MG TABLET PO (09:46)
[2024-05-10] MEDS: Docusate Sodium 100 MG Capsule PO (09:46)
[2024-05-10] MEDS: Pantoprazole Sodium 20 MG Tablet PO (09:47)
[2024-05-10] MEDS: DULoxetine Hcl 60 MG Capsule PO (09:47)
[2024-05-10] MEDS: Lisinopril 10 MG Tablet PO (09:47)
[2024-05-10] MEDS: Aspirin E.C. 81 MG Tablet PO (09:47)
[2024-05-10] MEDS: Allopurinol 100 MG Tablet PO (09:47)
[2024-05-10] MEDS: Tamsulosin HCl 0.4 MG Capsule PO (09:47)
[2024-05-10] MEDS: Clopidogrel Bisulfate 75 MG Tablet PO (09:47)
[2024-05-10] MEDS: Gabapentin 600 MG Tablet PO ×2 (09:53→22:02)
--- NOTE | 2024-05-10 11:36 | CASEMGMT ---
VM left for pts son/legal guardian requesting call back to discuss HERNANDES form and [facility] Stefania Sams DC Planning Asst.
[2024-05-10] MEDS: Insulin Lispro 100 UNIT/ML INSULN.PEN SC (11:51)
[2024-05-10 12:11] LABS: Bedside Glucose 153 mg/dL (74-106)
--- NOTE | 2024-05-10 12:51 | CASEMGMT ---
Spoke with patients son/legal guardian (Calos) to complete HERNANDES form. HERNANDES form explained to Calos who voiced understanding. Original form placed in pt?s chart. Calos declined copy. Stefania Sams, Discharge Planning Asst
--- NOTE | 2024-05-10 14:59 | CASEMGMT ---
Patient was getting PT/OT while at [facility]. SW asked physician to put in d/c instructions to resume PT/OT. Prerna ROMERO
[2024-05-10 17:01] LABS: Bedside Glucose 139 mg/dL (74-106)
[2024-05-10] MEDS: Atorvastatin Calcium 80 MG Tablet PO (22:03)
[2024-05-11 03:45] VITALS: BP 106/52; PULSE 60; RESP 18; TEMP 36.3; O2SAT 93
[2024-05-11 06:34] VITALS: PULSE 60
[2024-05-11] MEDS: Heparin Injection (Vial) 5,000 UNIT/ML VIAL 5000 UNIT SC (06:35)
[2024-05-11 06:55] LABS: Bedside Glucose 99 mg/dL (74-106)
[2024-05-11 07:00] VITALS: PULSE 59
--- NOTE | 2024-05-11 08:48 | PN.HOSP_ITS ---
Reason for Visit Reason for Visit: Diagnoses Bradycardia, unspecified (05/08/24) Syncope and collapse (05/08/24) Unspecified adverse effect of drug or medicament, initial encounter (05/08/24) Subjective Subjective Bored. No issues overnight. Objective Data Objective Data Vital Signs: Vital Signs Temp Pulse Resp BP Pulse Ox O2 Del Method 36.3 C L 60 18 106/52 L 93 Room Air 05/11/24 03:45 05/11/24 06:34 05/11/24 03:45 05/11/24 03:45 05/11/24 03:45 05/11/24 07:56 Oxygen Delivery Method Room Air Weight: 116.9 kg Body Mass Index (BMI) 34.0 Intake & Output: Intake and Output for Last 24 Hours 05/09/24 05/10/24 05/11/24 23:59 23:59 23:59 Intake Total 1920 / 1920 820 / 820 60 / 60 Output Total 0 / 0 Balance 1920 / 1920 820 / 820 60 / 60 Lab / Micro Data 05/09/24 04:53 05/09/24 04:53 Labs: Laboratory Results - last 24 hr 05/10/24 11:46: POC Glucose 153 H 05/10/24 16:41: POC Glucose 139 H 05/11/24 06:33: POC Glucose 99 Physical Exam Const alert and no apparent distress HEENT head/scalp atraumatic and moist oral mucous membranes Resp normal respiratory effort and no retractions Cardio regular rate, regular rhythm, S1 normal heart sound and S2 normal heart sound GI normal to inspection, nondistended, normoactive bowel sounds, soft to palpation, non-tender and non-distended Extremity normal to inspection and full ROM Assessment & Plan Assessment/Plan (1) Bradycardia: PLAN: likely 2/2 beta evelina, which is on hold. HR remained in the 60s, so will continue to hold metoprolol. Monitor Echo shows an EF 55%. PLAN: Plan Debility: unclear who much is related with bradycardic v functional decline. PT OT. Assisted living ([facility]) said they could take him back. PT recommending additional therapy. VTE prophylaxis: SQ heparin.
[2024-05-11 09:45] VITALS: BP 117/54; PULSE 74; RESP 18; TEMP 36.4; O2SAT 92
[2024-05-11] MEDS: Lisinopril 10 MG Tablet PO (10:14)
[2024-05-11] MEDS: Aspirin E.C. 81 MG Tablet PO (10:14)
[2024-05-11] MEDS: DULoxetine Hcl 60 MG Capsule PO (10:14)
[2024-05-11] MEDS: Clopidogrel Bisulfate 75 MG Tablet PO (10:14)
[2024-05-11] MEDS: amLODIPine 5 MG Tablet PO (10:14)
[2024-05-11] MEDS: Docusate Sodium 100 MG Capsule PO (10:14)
[2024-05-11] MEDS: Allopurinol 100 MG Tablet PO (10:14)
[2024-05-11] MEDS: Pantoprazole Sodium 20 MG Tablet PO (10:15)
[2024-05-11] MEDS: Sertraline 100 MG Tablet PO (10:15)
[2024-05-11] MEDS: LINAGLIPTIN 5 MG TABLET PO (10:15)
[2024-05-11] MEDS: Tamsulosin HCl 0.4 MG Capsule PO (10:15)
[2024-05-11] MEDS: Gabapentin 600 MG Tablet PO (10:22)
--- NOTE | 2024-05-11 11:12 | PCM.DC.SUM ---
Providers Date of Admission: 05/08/24 Primary Care Physician: Dr. Carson Dobbins DO Reason For Visit: SYMPTOMATIC BRADYCARDIA Diagnosis Discharge Diagnosis (1) Bradycardia: Status: Acute Code(s): R00.1 - Bradycardia, unspecified Plan: likely 2/2 beta evelina, which is on hold. HR remained in the 60s, so will continue to hold metoprolol. Monitor Echo shows an EF 55%. Plan Debility: unclear who much is related with bradycardic v functional decline. PT OT. Assisted living ([facility]) said they could take him back. PT recommending additional therapy. VTE prophylaxis: SQ heparin. Medications at Discharge Home Medications allopurinol 100 mg tablet 100 mg PO DAILY 10/22/18 aspirin 81 mg tablet,delayed release (Adult Low Dose Aspirin) 81 mg PO DAILY 10/22/18 atorvastatin 80 mg tablet 80 mg PO DAILY 10/22/18 clopidogrel 75 mg tablet (Plavix) 75 mg PO DAILY 10/22/18 nitroglycerin 0.4 mg sublingual tablet (Nitrostat) 0.4 mg sublingual Q5-15M PRN chest pain 10/22/18 omeprazole 40 mg capsule,delayed release 20 mg PO DAILY 10/22/18 sitagliptin phosphate 50 mg tablet (Januvia) 50 mg PO DAILY 12/31/20 amlodipine 5 mg tablet 5 mg PO DAILY 05/12/21 meclizine 25 mg tablet 25 mg PO BID-TID PRN Dizziness 05/12/21 lisinopril 10 mg tablet 10 mg PO DAILY #90 tabs 12/06/21 isosorbide mononitrate 20 mg tablet 20 mg PO BID . 06/11/22 tamsulosin 0.4 mg capsule 0.4 mg PO DAILY PROSTATE 06/11/22 ondansetron 4 mg disintegrating tablet 4 mg PO Q6H PRN nausea and vomiting #20 tabs 02/06/24 acetaminophen 500 mg capsule 500 mg PO Q6H PRN fever or pain 03/14/24 bisacodyl 10 mg rectal suppository 10 mg VA ONCE 03/14/24 docusate sodium 100 mg capsule (Colace) 100 mg PO QDAY 03/14/24 duloxetine 30 mg capsule,delayed release 60 mg PO DAILY 03/14/24 gabapentin 600 mg tablet 600 mg PO Q12H 03/14/24 guaifenesin 200 mg tablet 200 mg PO Q4H 03/14/24 insulin aspart U-100 100 unit/mL (3 mL) subcutaneous pen (Novolog FlexPen U-100 Insulin aspart) subcut 03/14/24 loperamide 2 mg capsule 2 mg PO Q6H PRN loose stool 03/14/24 melatonin 10 mg capsule 10 mg PO HS PRN sleep 03/14/24 omeprazole 20 mg capsule,delayed release 20 mg PO QDAY 03/14/24 sertraline 100 mg tablet 100 mg PO QDAY 03/14/24 hydralazine 25 mg tablet 25 mg PO TID #90 tabs 05/11/24 Hospital Course Operations None Procedures None Summary of Care Provided Hospital Course: Patient presents with weakness. Weight / BMI Weight Weight: 116.9 kg Body Mass Index (BMI) 34.0 ABG / Lab / Microbiology Data 05/09/24 04:53 05/09/24 04:53 Laboratory: Laboratory Results - last 24 hr 05/10/24 11:46: POC Glucose 153 H 05/10/24 16:41: POC Glucose 139 H 05/11/24 06:33: POC Glucose 99 D/C Instructions Discharge Diet: No restrictions DC O2, CPAP, BIPAP Needs Home O2 Discharge instructions: No Meaningful Use Info Meaningful Use Meaningful Use Diagnoses (Choose all that apply): None applicable Ischemic Stroke Statin Dosing Therapy Reference: STATIN DOSE THERAPY REFERENCE: * Patients > 75 years receive moderate or high dose statin therapy. * Patients 75 years or YOUNGER should receive HIGH intensity statin dose unless contraindicated. You will be required to document reason for non-treatment if statin daily dose does not meet guidelines. HIGH DOSE STATIN THERAPY DAILY Atorvastatin > than or = to 40 mg Rosuvastatin > than or = to 20 mg Amlodipine + Atorvastatin > than or = to 2.5/40 mg Ezetimibe + Simvastatin 10/80 mg Simvastatin 80mg Discharge Plan Admission Admit Date/Time: 05/08/24 15:35 Primary Reason for Your Visit: Bradycardia Attending Provider: Mesfin Orellana Primary Care Provider: Carson Dobbins Consulting Providers: Zeina Murrell Instructions Additional Instructions / Restrictions: Resume home physical and occupational therapy. Discharge Orders/Prescriptions Prescriptions: New hydralazine 25 mg Tablet 25 mg PO TID Qty: 90 0RF Continued allopurinol 100 mg tablet 100 mg PO DAILY atorvastatin 80 mg tablet 80 mg PO DAILY clopidogrel [Plavix] 75 mg tablet 75 mg PO DAILY nitroglycerin [Nitrostat] 0.4 mg tablet, sublingual 0.4 mg SUBLINGUAL Q5-15M PRN (Reason: chest pain) aspirin [Adult Low Dose Aspirin] 81 mg tablet,delayed release (DR/EC) 81 mg PO DAILY duloxetine 30 mg capsule,delayed release(DR/EC) 60 mg PO DAILY meclizine 25 mg tablet 25 mg PO BID-TID PRN (Reason: Dizziness) amlodipine 5 mg tablet 5 mg PO DAILY bisacodyl 10 mg suppository 10 mg VA ONCE docusate sodium [Colace] 100 mg capsule 100 mg PO QDAY acetaminophen 500 mg capsule 500 mg PO Q6H PRN (Reason: fever or pain) gabapentin 600 mg tablet 600 mg PO Q12H loperamide 2 mg capsule 2 mg PO Q6H PRN (Reason: loose stool) sertraline 100 mg tablet 100 mg PO QDAY guaifenesin 200 mg tablet 200 mg PO Q4H omeprazole 20 mg capsule,delayed release(DR/EC) 20 mg PO QDAY insulin aspart U-100 [Novolog FlexPen U-100 Insulin] 100 unit/mL (3 mL) insulin pen subcut melatonin 10 mg capsule 10 mg PO HS PRN (Reason: sleep) omeprazole 40 mg capsule,delayed release(DR/EC) 20 mg PO DAILY Januvia 50 mg tablet 50 mg PO DAILY isosorbide mononitrate 20 mg tablet 20 mg PO BID tamsulosin 0.4 mg capsule 0.4 mg PO DAILY ondansetron 4 mg tablet,disintegrating 4 mg PO Q6H PRN (Reason: nausea and vomiting) Qty: 20 0RF lisinopril 10 mg tablet 10 mg PO DAILY Qty: 90 3RF Discontinued metoprolol tartrate 50 mg tablet 50 mg PO BID Referrals / Follow Up: Carson Dobbins DO [Primary Care Provider] - Within 2 Weeks Disposition Disposition (needs filled in before D/C Order can be placed): NonSkilled NH/Intermed Care Charges/Coding Visit Charges Inpatient E&M: 51970 Disch Hosp
[2024-05-11 11:46] VITALS: BP 121/54; PULSE 63; RESP 20; TEMP 36.8; O2SAT 94
[2024-05-11 12:20] LABS: Bedside Glucose 165 mg/dL (74-106)
== END 2024-05-11 11:18 | disposition intermediate care facility (04) ==
LOC: ED 14:08 → PCU 16:24
PROVIDERS: Admitting Provider Internal Medicine; Emergency Provider Emergency Medicine; PCP Family Medicine
DX: R00.1 Bradycardia, unspecified (principal); I13.0 Hypertensive heart and chronic kidney disease with heart failure and stage 1 through stage 4 chronic kidney disease, or unspecified chronic kidney disease; I50.9 Heart failure, unspecified; E11.22 Type 2 diabetes mellitus with diabetic chronic kidney disease; Z79.4 Long term (current) use of insulin; E11.40 Type 2 diabetes mellitus with diabetic neuropathy, unspecified; N18.32 Chronic kidney disease, stage 3b; R55 Syncope and collapse; I25.10 Atherosclerotic heart disease of native coronary artery without angina pectoris; R53.81 Other malaise; E78.5 Hyperlipidemia, unspecified; R53.1 Weakness; G47.33 Obstructive sleep apnea (adult) (pediatric); Z79.02 Long term (current) use of antithrombotics/antiplatelets; Z79.899 Other long term (current) drug therapy; Z79.82 Long term (current) use of aspirin; F17.220 Nicotine dependence, chewing tobacco, uncomplicated; T44.7X5A Adverse effect of beta-adrenoreceptor antagonists, initial encounter; M10.9 Gout, unspecified; N40.1 Benign prostatic hyperplasia with lower urinary tract symptoms; N13.8 Other obstructive and reflux uropathy; F32.A Depression, unspecified; E66.9 Obesity, unspecified; Z68.34 Body mass index [BMI] 34.0-34.9, adult
CPT/HCPCS: 36415; 71045; 80048; 80053; 82962; 83735; 84100; 84443; 84484; 85025; 85610; 85730; 93005; 93306; 94668; 96372; 97116; 97162; 97166; 97530; 97535; 99221; 99285; A4216; G0378

== ENCOUNTER → 2024-06-14 05:00 | Outpatient (REF) | payer MEDICARE, MEDICAID, SELFPAY ==
[2024-06-14 07:27] LABS: Hematocrit 33.6 % (40-54); Mean Corp Hgb Conc 32.7 g/dL (32-36); Mean Corpuscular Hgb 28.8 pg (27.0-32.0); Mean Platelet Vol. 10.3 fl (6.2-12.0); Platelet Count 218 K/mm3 (150-450); RBC Distribution Width CV 15.1 % (11.6-14.6); RBC Distribution Width SD 48.5 fl (35.1-43.9); Red Blood Count 3.82 M/mm3 (4.6-6.2); White Blood Count 5.6 K/mm3 (4.4-11.0)
[2024-06-14 08:40] LABS: ALB/GLOB Ratio 1.5 RATIO (0.9-2.4); AST(SGOT) 48 U/L (<=37); Alanine Aminotransfer ALT/SGPT 57 U/L (<=46); Albumin, Serum 3.6 g/dL (3.4-4.8); Alkaline Phosphatase 338 U/L (40-129); Anion Gap 12 (5-15); BUN 24 mg/dL (4-19); BUN/Creat Ratio 13.7 RATIO (10-20); Calcium,Total 8.8 mg/dL (7.6-11.0); Carbon Dioxide 18.9 mmol/L (21.0-32.0); Chloride 106 mmol/L (98-108); Cholesterol 82 mg/dL (<=200); Creatinine, Serum 1.76 mg/dL (0.70-1.20); EST Glomerular Filtration Rate 40 (>60); Globulin 2.5 g/dL (2.2-4.2); Glucose 104 mg/dL (70-99); High Density Lipoprotein 25 mg/dL; Low Density Lipoprotein Calc. 38 mg/dL; Potassium 4.5 mmol/L (3.3-5.1); Protein, Total 6.1 g/dL (5.9-8.4); Sodium Level 137 mmol/L (133-145); Total Bilirubin 0.43 mg/dL (0.00-1.30); Triglycerides 91 mg/dL; Very Low Density Lipoprotein 18 mg/dL (5-40); cholesterol:hdl ratio screen 3.21
[2024-06-14 09:06] LABS: Pro- Brain NATRIURETIC PEPTIDE 212 pg/mL (<=1800)
== END ==
LOC: OLS.SWAL 05:00
PROVIDERS: PCP Family Medicine; Visit Provider Nurse Practitioner Gerontology
DX: E11.40 Type 2 diabetes mellitus with diabetic neuropathy, unspecified (principal); E11.22 Type 2 diabetes mellitus with diabetic chronic kidney disease; N18.32 Chronic kidney disease, stage 3b; I12.9 Hypertensive chronic kidney disease with stage 1 through stage 4 chronic kidney disease, or unspecified chronic kidney disease
CPT/HCPCS: 36415; 80053; 80061; 83880; 85027

== ENCOUNTER → 2024-07-05 | Outpatient (CLI) | payer MEDICARE, MEDICAID, SELFPAY ==
--- NOTE | 2024-07-05 10:01 | CDU_ITS ---
Reason For Study Reason For Study: Dizziness Rt. Velocities/BP Lt. Velocities/BP Prox CCA 61/10 cm/sec. Prox CCA 91/14 cm/sec. Mid CCA 71/11 cm/sec. Mid CCA 94/8 cm/sec. Dist CCA 73/10 cm/sec. Dist CCA 88/11 cm/sec. Prox ICA 66/17 cm/sec. Prox ICA 166/21 cm/sec. Mid ICA 78/16 cm/sec. Mid ICA 124/25 cm/sec. Dist ICA 77/17 cm/sec. Dist ICA 68/15 cm/sec. Rt. ICA/CCA = 1.1. Lt. ICA/CCA = 1.8. Prox ECA 108/0 cm/sec. Prox ECA 173/0 cm/sec. Rt. Vert. 30/7 cm/sec. Lt. Vert. 75/24 cm/sec. Right Extracranial There is heterogeneous, irregular atherosclerotic plaque noted in the right common carotid artery. There is heterogeneous, irregular atherosclerotic plaque noted in the right internal carotid artery. There is heterogeneous, irregular atherosclerotic plaque noted in the right external carotid artery. Antegrade flow is noted in the right vertebral artery. Pre-steal waveform noted Rt Vert A. Left Extracranial There is heterogeneous, irregular atherosclerotic plaque noted in the left common carotid artery. There is heterogeneous, irregular atherosclerotic plaque noted in the left internal carotid artery. The atherosclerotic plaque causes acoustic shadowing. There is heterogeneous, irregular atherosclerotic plaque noted in the left external carotid artery. Antegrade flow is noted in the left vertebral artery. Procedure Carotid Duplex 59063. This is a Carotid Duplex examination using B-mode, color flow and specral Doppler. Exam performed in department. VL/Carotid Duplex Ultrasound Interpretation Summary Mild (<50%) stenosis right extracranial internal carotid. Moderate (50-69%) stenosis left extracranial internal carotid. The Right vertebral artery is patent with pre-steal waveform morphology. The Left vertebral is patent and antegrade. Ordering Physician: Amy Gutierrez Referring Physician: Casron Dobbins Performed By: Ana Maria Caldwell, MEGHANA, RVT
== END | disposition home or self-care (01) ==
LOC: CVS 09:55
PROVIDERS: PCP Family Medicine; Referring Provider Nurse Practitioner Gerontology; Visit Provider Nurse Practitioner Gerontology
DX: R42 Dizziness and giddiness (principal)
CPT/HCPCS: 93880

== ENCOUNTER → 2024-08-13 | Outpatient (CLI) | payer MEDICARE, MEDICAID, SELFPAY ==
[2024-08-13 15:46] LABS: Absolute Lymphocyte Count 1.45 X10^3/uL (0.83-4.51); Absolute Neutrophil Count 4.9 X10^3/uL (2.0-7.7); Basophil# 0.03 X10^3/uL; Basophil% 0.4 % (0-1); Eosinophil# 0.09 X10^3/uL; Eosinophils% 1.3 % (0-5); Hematocrit 38.4 % (40-54); Hemoglobin 12.4 g/dL (13.0-16.5); Lymphocyte # 1.45 X10^3/ul (0.83-4.51); Lymphocyte % 20.7 % (19-41); Mean Corp Hgb Conc 32.3 g/dL (32-36); Mean Corpuscular Hgb 28.7 pg (27.0-32.0); Mean Corpuscular Volume 88.9 fL (80-94); Mean Platelet Vol. 10.7 fl (6.2-12.0); Monocyte% 7.1 % (0-10); NRBC Flagged by Analyzer 0 % (0-5); Neutrophil # 4.92 X10^3/uL (2.7-7.7); Neutrophil % 70.4 % (47-70); Platelet Count 218 K/mm3 (150-450); RBC Distribution Width CV 14.5 % (11.6-14.6); RBC Distribution Width SD 46.4 fl (35.1-43.9); Red Blood Count 4.32 M/mm3 (4.6-6.2)
[2024-08-13 16:56] LABS: PTHIN 49 pg/mL (11-61)
[2024-08-13 17:05] LABS: ALB/GLOB Ratio 1.4 RATIO (0.9-2.4); AST(SGOT) 50 U/L (<=37); Alanine Aminotransfer ALT/SGPT 55 U/L (<=46); Albumin, Serum 3.9 g/dL (3.4-4.8); Alkaline Phosphatase 286 U/L (40-129); Anion Gap 13 (5-15); BUN 18 mg/dL (4-19); BUN/Creat Ratio 11.8 RATIO (10-20); Calcium,Total 9.3 mg/dL (7.6-11.0); Carbon Dioxide 19.9 mmol/L (21.0-32.0); Chloride 106 mmol/L (98-108); Cholesterol 99 mg/dL (<=200); Creatinine, Serum 1.53 mg/dL (0.70-1.20); EST Glomerular Filtration Rate 47 (>60); Globulin 2.7 g/dL (2.2-4.2); Glucose 150 mg/dL (70-99); High Density Lipoprotein 38 mg/dL; Low Density Lipoprotein Calc. 46 mg/dL; Potassium 4.6 mmol/L (3.3-5.1); Pro- Brain NATRIURETIC PEPTIDE 346 pg/mL (<=1800); Protein, Total 6.7 g/dL (5.9-8.4); Sodium Level 139 mmol/L (133-145); Total Bilirubin 0.38 mg/dL (0.00-1.30); Triglycerides 76 mg/dL; Very Low Density Lipoprotein 15 mg/dL (5-40); cholesterol:hdl ratio screen 2.59
[2024-08-13 19:54] LABS: Alkaline Phosphatase 285 U/L (40-129); Vitamin D,25 Hydroxy 26.1 ng/mL (30-100)
== END | disposition home or self-care (01) ==
LOC: BFHLAB 13:37
PROVIDERS: Nurse Practitioner Gerontology; PCP Family Medicine; Visit Provider Family Medicine
DX: R74.8 Abnormal levels of other serum enzymes (principal); N18.32 Chronic kidney disease, stage 3b; R42 Dizziness and giddiness; R06.09 Other forms of dyspnea; E78.5 Hyperlipidemia, unspecified
CPT/HCPCS: 36415; 80053; 80061; 82306; 83880; 83970; 84075; 85025; 93005

== ENCOUNTER → 2025-01-20 | Outpatient (CLI) | payer MEDICARE, MEDICAID, SELFPAY | END | disposition home or self-care (01) | LOC: LAB 15:07 | PROVIDERS: PCP Family Medicine; Referring Provider Anesthesiology Pain Medicine; Visit Provider Anesthesiology Pain Medicine | DX: F11.20 Opioid dependence, uncomplicated (principal) ==

== ENCOUNTER → 2025-01-28 | Outpatient (CLI) | payer MEDICARE, MEDICAID, SELFPAY | END | disposition home or self-care (01) | LOC: PSN 13:01 | PROVIDERS: PCP Family Medicine; Referring Provider Nurse Practitioner Gerontology; Visit Provider Nurse Practitioner Gerontology | DX: R42 Dizziness and giddiness (principal) | CPT/HCPCS: 93225; 93226 ==